=== PATIENT | male | born 1960 | race Caucasian/White ===

== ENCOUNTER 2018-09-30 07:31 | Inpatient (IN) | payer BC, SELFPAY ==
[2018-09-30] VITALS (11 sets, daily range): BP systolic 110–138; BP diastolic 59–72; PULSE 76–87; RESP 18–20; TEMP 36.8–38.1; O2SAT 94–98; BMI 55.7; BMI 52.6; BMI 52.7
--- NOTE | 2018-09-30 07:47 | EKG12_ITS ---
Test Reason : CELLULITIS Blood Pressure : / mmHG Vent. Rate : 076 BPM Atrial Rate : 076 BPM P-R Int : 172 ms QRS Dur : 122 ms QT Int : 402 ms P-R-T Axes : 062 022 002 degrees QTc Int : 452 ms Normal sinus rhythm Non-specific intra-ventricular conduction delay Borderline ECG Confirmed by JULIA MELÉNDEZ, ANDREW ([id number]), supervising editor news reel GRETA ORTEGA ([id number]) on 10/03/2018 10:40:57 AM Referred By: Confirmed By:ANDREW DUMONT MD
--- NOTE | 2018-09-30 08:00 | ED.RN ---
NO OLD EKG
--- NOTE | 2018-09-30 08:02 | ED.DCSUM_ITS ---
History of Present Illness Chief Complaint: Cellulitis Informant: Patient Onset: Yesterday Context: Sudden Onset Timing: Continuous Quality: Red rash Location: Left lower extremity predominantly leg Current Severity: Moderate Maximum Severity: Moderate Worsened by: Nothing Relieved by: nothing Associated Symptoms: Shaking chills Wednesday Narrative: Patient is a middle-aged male with history obstructive sleep apnea and hypertension who presents with rash left lower extremity. He was instructed to come to the emergency department. He reports shaking chills on Wednesday. He denies documented fever. He denies HEENT, respiratory, cardiac or GI symptoms. He denies urologic symptoms. He denies history of diabetes. He states he is compliant with CPAP. He denies antibiotic allergies. Prior similar symptoms: No Recent Illness/Hospitalization: No - Past Medical History (1) History of hypertension Status: Chronic (2) History of obstructive sleep apnea Status: Chronic Past Medical History - Allergies and Home Meds Allergies/Adverse Reactions: Allergies No Known Allergies Allergy (Verified 09/30/18 07:32) Primary Care Physician: Danyell Dobson MD [Primary Care Provider] - Prior records reviewed: Yes Surgical History: no surgical history Lives: Spouse/ Significant Other Smoking Status: Former smoker Alcohol: None Drugs: None Review of Systems General: Reports: Chills, Sweats, Weight loss - Patient reports intentional weight loss and is on potato diet.. Denies: Fever, Malaise, Subjective Eyes: Denies: Visual changes - bilaterally, Blurred Vision - bilaterally, Diplopia ENT: Denies: Bilateral ear pain, Rhinorrhea, Sore throat Cardiovascular: Denies: Chest pain, Palpitations Respiratory: Denies: Dyspnea, Cough, Dyspnea on exertion Gastrointestinal: Denies: Abdominal pain, Nausea, Vomiting, Diarrhea, Melena, Hematochezia Genitourinary: Denies: Dysuria, Hematuria, Frequency Musculoskeletal: Reports: Swelling - Patient reports swelling both right and left lower extremity. Left slightly more since redness started. Denies: Myalgias, Arthralgias, Back pain, Extremity Pain Skin: Reports: Rash, Abrasions - There are abrasions right and left leg secondary to compressive stockings. Denies: Abscess, Wounds Neurological: Denies: Headache, Weakness, Numbness Endocrine: Denies: Polyuria, Polydipsia Hematologic: Denies: Easy bruising, Easy bleeding Allergy: Denies: Uticaria Physical Exam Vital Signs/Narrative: Vital Signs Temp Pulse Resp BP Pulse Ox 09/30/18 07:37 98.3 F 76 18 138/71 H 94 Inital Vital Signs reviewed: Yes General: Well nourished, Well developed, Obese, No Acute Distress Head: Normocephalic, Atraumatic Eyes: Perrl, EOMI. Negative for: Pale conjunctiva, Scleral icterus ENT: Moist mucous membranes, No rhinorrhea Neck: Supple, Nontender, No lymphadenopathy, No JVD Cardiovascular: Regular rate, Regular rhythm, No murmurs, Normal S1, Normal S2 Respiratory: No distress, CTA bilaterally, Chest nontender Abdomen: Soft, Nontender, Nondistended, Normal bowel sounds, No masses Rectal: Deferred Back: Nontender, Normal Inspection Extremities: Nontender, Edema, - - There is breakdown between the toes left foot and concern for tinea pedis. The cellulitis has progressed. The band is much wider and there is involvement of the posterior left thigh and the rash is more proximal. The area was marked to determine any further progression. Skin: Normal color, No rash Neurological: Alert, Oriented x3, Cranial nerves II-XII grossly intact, Normal Strength, Normal Sensation, Normal Gait - Gait normal for patient. Psychological: Normal affect, Normal Mood Diagnostic/Tx/Re-eval Laboratory Results 09/30/18 09/30/18 09/30/18 08:07 08:07 08:07 WBC 12.7 H RBC 4.51 L Hgb 12.5 L Hct 36.4 L MCV 80.7 MCH 27.7 MCHC 34.3 RDW 14.9 H RDW Differential 44.0 H Plt Count 114 L MPV 11.5 Immature Gran % (Auto) 0.600 Neut % (Auto) 94.8 H Lymph % (Auto) 2.8 L [place] % (Auto) 1.6 Eos % (Auto) 0.1 Baso % (Auto) 0.1 Absolute Neuts (auto) 12.1 H Absolute Lymphs (auto) 0.36 L Total Counted Not Reportable Platelet Estimate ADEQUATE RBC Morphology NORM C+C Sodium 131 L Potassium 2.9 L Chloride 97 L Carbon Dioxide 26.0 Anion Gap 8 BUN 31 H Creatinine 1.63 H Estim Creat Clear Calc 51.63 Est GFR (MDRD) Af Amer 56 L Est GFR (MDRD) Non-Af 46 L BUN/Creatinine Ratio 19.0 Glucose 139 H Lactic Acid 1.5 Calcium 7.8 L - Rhythm Strip Rhythm Strip: Sinus Rhythm Rate: 78 Ectopy: None - EKG Initial EKG Interpretation: Sinus Rhythm - Ventricular rate is 76. AR interval is normal. QRS duration is prolonged at 122 ms. There is a nonspecific intraventricular conduction delay. QT interval is normal. [place] is normal. There is no ischemic changes noted. There is an inverted T wave in lead III, which is a normal variant. - Medical Decision Making Suspect cellulitis secondary to tinea pedis. Patient with cellulitis of the left leg and there is erythematous redness medial distal left thigh. There is evidence of shotty left inguinal lymph nodes. Concern for bacteremia/sepsis. CBC was obtained to assess white count and H&H. Basic minimal panel was obtained to assess electrolytes and renal function. Lactate level was obtained to determine sepsis versus severe sepsis. Patient was informed that he probably would require admission. Blood cultures were ordered in order for antibiotics to be administered in the event that his lactate is elevated. EKG was obtained to assess rhythm and rule out ischemia. Seen twice at urgent care on the second course of antibiotics chest is exertional feeling in his chest like troponin was normal to 48 hours of more significant symptoms for 2weeks Patient's electrolyte panel is remarkable for a potassium of 2.9 and elevated creatinine. He states he does not have history of renal insufficiency. Since patient has acute kidney injury did not treat his hypokalemia. Patient has sepsis since he is tachypnic with elevated white count. There is also evidence of acute kidney injury. Since lactate is normal and creatinine is not greater than 2 patient does not have severe sepsis. The hospitalist was paged for admission. ED Disposition - Plan for ED Patient: Disposition: Acute Care Hospital [facility] Diagnosis: Cellulitis of left lower extremity, Sepsis, Cellulitis of left anterior lower leg, Acute kidney injury, Hypokalemia Referrals: Danyell Dobson MD [Primary Care Provider] -
[2018-09-30 08:35] LABS: Anion Gap 8 (5-15); BUN 31 mg/dL (7-18); Calcium,Total 7.8 mg/dL (8.5-10.1); Chloride 97 mmol/L (98-107); Creatinine, Serum 1.63 mg/dL (0.70-1.30); EST Glomerular Filtration Rate 46 mL/min (>60); Est Glom Filt Rate - Afr Amer 56 mL/min (>60); Estimated Creatinine Clearance 51.63 ml/min; Glucose 139 mg/dL (74-106); Potassium 2.9 mmol/L (3.5-5.1); Sodium Level 131 mmol/L (136-145)
[2018-09-30 08:47] LABS: Lactic Acid 1.5 mmol/L (0.4-2.0)
[2018-09-30 09:16] LABS: Platelet Estimate ADEQUATE (ADEQ); Red Cell Morphology NORM C+C NORMAL (NORM C&C)
[2018-09-30 09:18] LABS: Absolute Lymphocyte Count 0.36 X10^3/ul (0.83-4.51); Absolute Neutrophil Count 12.1 X10^3/uL (2.0-7.7); Basophil# 0.01 X10^3/uL; Basophil% 0.1 % (0-1); Differential Indicated SCAN CRITERIA MET; Eosinophil# 0.01 X10^3/uL; Eosinophils% 0.1 % (0-5); Hematocrit 36.4 % (40-54); Hemoglobin 12.5 g/dl (13.0-16.5); Lymphocyte # 0.36 X10^3/ul (4.0); Lymphocyte % 2.8 % (19-41); Mean Corp Hgb Conc 34.3 g/gl (32-36); Mean Corpuscular Hgb 27.7 pg (27.0-32.0); Mean Corpuscular Volume 80.7 fL (80-94); Mean Platelet Vol. 11.5 fl (6.2-12.0); Monocyte% 1.6 % (0-10); Neutrophil # 12.06 X10^3/uL (2.7-7.7); Neutrophil % 94.8 % (47-70); POSITIVE COUNT NO; POSITIVE DIFFERENTIAL YES; POSITIVE MORPHOLOGY NO; Platelet Count 114 K/mm3 (150-450); RBC Distribution Width CV 14.9 % (11.6-14.6); Red Blood Count 4.51 M/mm3 (4.6-6.2); White Blood Count 12.7 K/mm3 (4.4-11.0)
[2018-09-30] MEDS: HYDROcodone Bitartrate/Apap 5/325 Tablet PO (09:54)
--- NOTE | 2018-09-30 10:22 | PCM.HP.STD ---
Problem List (1) Sepsis Status: Acute Qualifiers: Sepsis type: sepsis due to unspecified organism Qualified Code(s): A41.9 - Sepsis, unspecified organism (2) Cellulitis of left lower extremity Status: Acute History of Present Illness Date of Admission: 09/30/18 Chief Complaint: left leg redness The patient is a 57 year old M presents with redness of the left lower extremity. Patient was having some general malaise but today noted that his left lower extremity was prior found the red and tender. Patient presented to the emergency room and was diagnosed with a cellulitis and received Zosyn. Patient is not diabetic. Patient was also noted to have a creatinine of 1.63 and potassium of 2.9. Patient has no awareness of any chronic kidney disease. Patient did not receive any fluids nor any potassium replacement we did receive [place] in the emergency room. Patient denies any history of cellulitis in the past. Patient does have chronic swelling lymphedema. Does get chronic sores which she uses a steroid cream for on his legs. [] Past Medical History Past Medical History (Chronic Problems): Chronic Problems (Last Updated 09/30/18 @ 06:53 by Carmen Ott) History of hypertension (Chronic) History of obstructive sleep apnea (Chronic) Medical History: Medical History (Last Updated 09/30/18 @ 10:24 by Kalpesh Nuno DO) ARCELIA (obstructive sleep apnea) G47.33 Knee pain M25.569 Hypertension I10 Allergies No Known Allergies Allergy (Verified 09/30/18 07:32) Home Medications: Ambulatory Orders Medication Instructions Recorded Amlodipine Besylate 10 mg PO DAILY 09/30/18 Aspirin 81 mg PO DAILY 09/30/18 Carvedilol 25 mg PO BID 09/30/18 Doxazosin Mesylate 4 mg PO DAILY 09/30/18 Hydrochlorothiazide [Hctz] 25 mg PO DAILY 09/30/18 Losartan Potassium 100 mg PO DAILY 09/30/18 Multivitamin [One-Daily 1 each PO DAILY 09/30/18 Multi-Vitamin] Potassium Chloride 10 meq PO DAILY 09/30/18 Surgical History: no surgical history Lives: Spouse/ Significant Other Smoking Status: Former smoker Alcohol: None Drugs: None - *Family History Maternal Family History: Family History (Last Reviewed 09/30/18 @ 10:24 by Kalpesh Nuno DO) Other Diabetes Hypertension Review of Systems Constitutional: Reports: Chills, Malaise, Weakness. Denies: Anorexia, Fever Eyes: Denies: Blurred vision, Double vision HEENT: Denies: Head Aches, Sinus Congestion, Sinus Drainage Cardiovascular: Denies: Chest Pain, Palpitations Respiratory: Denies: Cough, Shortness of breath at rest, Sputum production Gastrointestinal: Denies: Abdominal Pain, Nausea, Vomiting Genitourinary: Denies: Dysuria Musculoskeletal: Denies: Joint Pain, Joint Tenderness Skin: Reports: Rash, Wounds Neurological: Denies: Numbness, Tingling, Focal weakness Psychiatric: Denies: Anxiety, Depression, Homicidal Ideations, Suicidal Ideations Endocrine: Denies: Change in Body Habitus, Heat/ Cold Intolerance Hematologic/ Lymphatic: Denies: Easy Bruising, Easy Bleeding, Hx of blood clot Comment: A 10 point review of systems were negative except as mentioned in the history of present illness and the other review of systems. VTE Information - Inpt Only VTE Present on Admission: No VTE Mechan Device Prophylaxis: None VTE Pharm Prophylaxis ordered?: Yes Patient Problems: Active and Suspected Problems (Last Updated 09/30/18 @ 06:53 by Carmen Ott) Sepsis (Acute) Cellulitis of left anterior lower leg (Acute) Acute kidney injury (Acute) Hypokalemia (Acute) Cellulitis of left lower extremity (Acute) - Physical Exam General: Alert, Cooperative, No apparent distress HEENT: Atraumatic, Normocephalic Oral: Moist Mucosa, No Gingival or Mucosal Lesions/ Ulcerations Neck: No Nodes, Thyroid Normal Size and Texture Lungs: Clear to auscultation, Normal air movement, No rhonchi, No wheeze Cardiovascular: Regular rate, Regular Rhythm, Normal S1, Normal S2, No murmurs Abdomen: Bowel Sounds Present, Soft, Non Tender, Non-Distended, No Hepato-splenomegaly Extremities: No Calf Tenderness, Edema, - - Tender to palpation in the left lower extremity with increased edema as compared to the right Skin: - - Extensive cellulitis throughout the left lower extremity extending from the his toes foot and up past his knee medially. There is been marked off with a dashed line of demarcation. Musculoskeletal: - - Tender palpation through his whole left leg. No woody induration noted. Neurological: Muscle tone normal, Sensory exam intact to light touch and pain Psych/Mental Status: Normal Affect, Appropriate Vital Signs Temp Pulse Resp BP Pulse Ox 37.1 C 76 18 115/67 97 09/30/18 09:39 09/30/18 09:39 09/30/18 09:39 09/30/18 09:39 09/30/18 09:39 Oxygen Delivery Method Room Air Weight: 166.468 kg Body Mass Index (BMI) 52.6 Laboratory Tests Past 24 Hrs 09/30/18 09/30/18 09/30/18 08:07 08:07 08:07 WBC 12.7 H RBC 4.51 L Hgb 12.5 L Hct 36.4 L MCV 80.7 MCH 27.7 MCHC 34.3 RDW 14.9 H RDW Differential 44.0 H Plt Count 114 L MPV 11.5 Immature Gran % (Auto) 0.600 Neut % (Auto) 94.8 H Lymph % (Auto) 2.8 L [place] % (Auto) 1.6 Eos % (Auto) 0.1 Baso % (Auto) 0.1 Absolute Neuts (auto) 12.1 H Absolute Lymphs (auto) 0.36 L Total Counted Not Reportable Platelet Estimate ADEQUATE RBC Morphology NORM C+C Sodium 131 L Potassium 2.9 L Chloride 97 L Carbon Dioxide 26.0 Anion Gap 8 BUN 31 H Creatinine 1.63 H Estim Creat Clear Calc 51.63 Est GFR (MDRD) Af Amer 56 L Est GFR (MDRD) Non-Af 46 L BUN/Creatinine Ratio 19.0 Glucose 139 H Lactic Acid 1.5 Calcium 7.8 L Assessment/Plan All Active Problems (Last Updated 09/30/18 @ 06:53 by Carmen Ott) Sepsis (Acute) Cellulitis of left anterior lower leg (Acute) Acute kidney injury (Acute) Hypokalemia (Acute) Lymphedema of left lower extremity (Acute) Cellulitis of left lower extremity (Acute) 1. Left lower extremity cellulitis No clear source of infection can be found. Patient does have some chronic lower extremity wounds which could be a source but patient will be on vancomycin as a more concerned about this being a gram-positive rather than a gram-negative organism. Patient received Zosyn in the emergency room. I do not plan to continue that at this time. Keep leg elevated and if things do get worse may need imaging to evaluate for necrotizing fasciitis. I have no clinical suspicion for that at this time. No evidence of any abscess at this time either. 2. Sepsis present on admission Secondary cellulitis 3.Hypokalemia Replace check magnesium Probably due to HCTZ, which is being held 4. Acute kidney injury versus chronic kidney disease stage III Unknown baseline IV fluids Hold HCTZ and losartan for now 5. VT E prophylaxis with Lovenox Code Visit Inpatient E&M: 36341 Init Hosp L3
--- NOTE | 2018-09-30 10:27 | HP.PCM_ITS ---
Problem List (1) Sepsis Status: Acute Qualifiers: Sepsis type: sepsis due to unspecified organism Qualified Code(s): A41.9 - Sepsis, unspecified organism (2) Cellulitis of left lower extremity Status: Acute History of Present Illness Date of Admission: 09/30/18 Chief Complaint: left leg redness The patient is a 57 year old M presents with redness of the left lower extremity. Patient was having some general malaise but today noted that his left lower extremity was prior found the red and tender. Patient presented to the emergency room and was diagnosed with a cellulitis and received Zosyn. Patient is not diabetic. Patient was also noted to have a creatinine of 1.63 and potassium of 2.9. Patient has no awareness of any chronic kidney disease. Patient did not receive any fluids nor any potassium replacement we did receive [place] in the emergency room. Patient denies any history of cellulitis in the past. Patient does have chronic swelling lymphedema. Does get chronic sores which she uses a steroid cream for on his legs. [] Past Medical History Past Medical History (Chronic Problems): Chronic Problems (Last Updated 09/30/18 @ 06:53 by Carmen Ott) History of hypertension (Chronic) History of obstructive sleep apnea (Chronic) Medical History: Medical History (Last Updated 09/30/18 @ 10:24 by Kalpesh Nuno DO) ARCELIA (obstructive sleep apnea) G47.33 Knee pain M25.569 Hypertension I10 Allergies No Known Allergies Allergy (Verified 09/30/18 07:32) Home Medications: Ambulatory Orders Medication Instructions Recorded Amlodipine Besylate 10 mg PO DAILY 09/30/18 Aspirin 81 mg PO DAILY 09/30/18 Carvedilol 25 mg PO BID 09/30/18 Doxazosin Mesylate 4 mg PO DAILY 09/30/18 Hydrochlorothiazide [Hctz] 25 mg PO DAILY 09/30/18 Losartan Potassium 100 mg PO DAILY 09/30/18 Multivitamin [One-Daily 1 each PO DAILY 09/30/18 Multi-Vitamin] Potassium Chloride 10 meq PO DAILY 09/30/18 Surgical History: no surgical history Lives: Spouse/ Significant Other Smoking Status: Former smoker Alcohol: None Drugs: None - *Family History Maternal Family History: Family History (Last Reviewed 09/30/18 @ 10:24 by Kalpesh Nuno DO) Other Diabetes Hypertension Review of Systems Constitutional: Reports: Chills, Malaise, Weakness. Denies: Anorexia, Fever Eyes: Denies: Blurred vision, Double vision HEENT: Denies: Head Aches, Sinus Congestion, Sinus Drainage Cardiovascular: Denies: Chest Pain, Palpitations Respiratory: Denies: Cough, Shortness of breath at rest, Sputum production Gastrointestinal: Denies: Abdominal Pain, Nausea, Vomiting Genitourinary: Denies: Dysuria Musculoskeletal: Denies: Joint Pain, Joint Tenderness Skin: Reports: Rash, Wounds Neurological: Denies: Numbness, Tingling, Focal weakness Psychiatric: Denies: Anxiety, Depression, Homicidal Ideations, Suicidal Ideations Endocrine: Denies: Change in Body Habitus, Heat/ Cold Intolerance Hematologic/ Lymphatic: Denies: Easy Bruising, Easy Bleeding, Hx of blood clot Comment: A 10 point review of systems were negative except as mentioned in the history of present illness and the other review of systems. VTE Information - Inpt Only VTE Present on Admission: No VTE Mechan Device Prophylaxis: None VTE Pharm Prophylaxis ordered?: Yes Patient Problems: Active and Suspected Problems (Last Updated 09/30/18 @ 06:53 by Carmen Ott) Sepsis (Acute) Cellulitis of left anterior lower leg (Acute) Acute kidney injury (Acute) Hypokalemia (Acute) Cellulitis of left lower extremity (Acute) - Physical Exam General: Alert, Cooperative, No apparent distress HEENT: Atraumatic, Normocephalic Oral: Moist Mucosa, No Gingival or Mucosal Lesions/ Ulcerations Neck: No Nodes, Thyroid Normal Size and Texture Lungs: Clear to auscultation, Normal air movement, No rhonchi, No wheeze Cardiovascular: Regular rate, Regular Rhythm, Normal S1, Normal S2, No murmurs Abdomen: Bowel Sounds Present, Soft, Non Tender, Non-Distended, No Hepato- splenomegaly Extremities: No Calf Tenderness, Edema, - - Tender to palpation in the left lower extremity with increased edema as compared to the right Skin: - - Extensive cellulitis throughout the left lower extremity extending from the his toes foot and up past his knee medially. There is been marked off with a dashed line of demarcation. Musculoskeletal: - - Tender palpation through his whole left leg. No woody induration noted. Neurological: Muscle tone normal, Sensory exam intact to light touch and pain Psych/Mental Status: Normal Affect, Appropriate Vital Signs Temp Pulse Resp BP Pulse Ox 37.1 C 76 18 115/67 97 09/30/18 09:39 09/30/18 09:39 09/30/18 09:39 09/30/18 09:39 09/30/18 09:39 Oxygen Delivery Method Room Air Weight: 166.468 kg Body Mass Index (BMI) 52.6 Laboratory Tests Past 24 Hrs 09/30/18 09/30/18 09/30/18 08:07 08:07 08:07 WBC 12.7 H RBC 4.51 L Hgb 12.5 L Hct 36.4 L MCV 80.7 MCH 27.7 MCHC 34.3 RDW 14.9 H RDW Differential 44.0 H Plt Count 114 L MPV 11.5 Immature Gran % (Auto) 0.600 Neut % (Auto) 94.8 H Lymph % (Auto) 2.8 L [place] % (Auto) 1.6 Eos % (Auto) 0.1 Baso % (Auto) 0.1 Absolute Neuts (auto) 12.1 H Absolute Lymphs (auto) 0.36 L Total Counted Not Reportable Platelet Estimate ADEQUATE RBC Morphology NORM C+C Sodium 131 L Potassium 2.9 L Chloride 97 L Carbon Dioxide 26.0 Anion Gap 8 BUN 31 H Creatinine 1.63 H Estim Creat Clear Calc 51.63 Est GFR (MDRD) Af Amer 56 L Est GFR (MDRD) Non-Af 46 L BUN/Creatinine Ratio 19.0 Glucose 139 H Lactic Acid 1.5 Calcium 7.8 L Assessment/Plan All Active Problems (Last Updated 09/30/18 @ 06:53 by Carmen Ott) Sepsis (Acute) Cellulitis of left anterior lower leg (Acute) Acute kidney injury (Acute) Hypokalemia (Acute) Lymphedema of left lower extremity (Acute) Cellulitis of left lower extremity (Acute) 1. Left lower extremity cellulitis * No clear source of infection can be found. Patient does have some chronic lower extremity wounds which could be a source but patient will be on vancomycin as a more concerned about this being a gram-positive rather than a gram-negative organism. Patient received Zosyn in the emergency room. I do not plan to continue that at this time. Keep leg elevated and if things do get worse may need imaging to evaluate for necrotizing fasciitis. I have no clinical suspicion for that at this time. No evidence of any abscess at this time either. 2. Sepsis * present on admission * Secondary cellulitis 3.Hypokalemia * Replace * check magnesium * Probably due to HCTZ, which is being held 4. Acute kidney injury versus chronic kidney disease stage III * Unknown baseline * IV fluids * Hold HCTZ and losartan for now 5. VT E prophylaxis with Lovenox Code Visit Inpatient E&M: 90061 Init Hosp L3
[2018-09-30] MEDS: 0.9% Normal Saline 1,000 ML 150 ML IV (11:00)
[2018-09-30 11:44] LABS: Magnesium 1.9 mg/dL (1.6-2.6)
--- NOTE | 2018-09-30 12:00 | CASEMGMT ---
RN WILFREDO Face to Face with patient for initial transition planning/care coordination assessment. RN CM introduced self and role at [facility]. Patient lying in bed, alert and oriented, at bedside. Patient willing to participate in assessment and is able to answer all questions appropriately. Care providers, pharmacy, and demographics verified. Patient wishes to discharge home, denies need for home health at this time. Patient states he has no further needs or concerns at this time. CM to follow for discharge planning needs that may arise. PCP: Olya Specialists: [facility]acy: [facility] Insurance: [place] Prescription Benefit: yes Living Will/HPOA: yes, Elena Arellano LNOK: Living Arrangements: Patient lives with in 1 story home with 2 steps to enter the home. Patient is independent at home. Transportation: self/ DME/HHC: Patient states he has a Cpap machine. No history of HHC Disposition Plan: Patient to discharge home with family support and follow-up plans in place. Maddie RENEN, RN, CM
[2018-09-30 12:06] LABS: Bedside Glucose 126 mg/dL (70-110)
--- NOTE | 2018-09-30 14:00 | PCM.RX.CS ---
Consult Pharmacy has been consulted to manage selected antiobiotic: Vancomycin Type of Consult: New start Suspected Infection: Sepsis, Skin/Soft tissue Labs: Sodium 131 mmol/L (136-145) L 09/30/18 08:07 Potassium 2.9 mmol/L (3.5-5.1) L 09/30/18 08:07 Chloride 97 mmol/L (98-107) L 09/30/18 08:07 Carbon Dioxide 26.0 mmol/L (21.0-32.0) 09/30/18 08:07 Anion Gap 8 (5-15) 09/30/18 08:07 BUN 31 mg/dL (7-18) H 09/30/18 08:07 Creatinine 1.63 mg/dL (0.70-1.30) H 09/30/18 08:07 Est GFR (MDRD) Af Amer 56 mL/min (>60) L 09/30/18 08:07 Est GFR (MDRD) Non-Af 46 mL/min (>60) L 09/30/18 08:07 BUN/Creatinine Ratio 19.0 RATIO (10-20) 09/30/18 08:07 Glucose 139 mg/dL (74-106) H 09/30/18 08:07 Weight used for dosin kg Estimated Creatinine Clearance: 78 ml/min Goal Trough: 15-20 mcg/mL Pharmacy Plan for Drug Dosing: Per the [facility] Vancomycin Dosing Protocol, the patient will receive an initial dose of 2000mg IV x1, then will continue with 1750mg IV q12h. The patient's CrCl of 78 ml/min was calculated using an adjusted body weight of 110 kg due to the patient's actual weight being more than 120% of their ideal body weight. A trough will be obtained before the 4th dose. Pharmacy Service will continue to monitor and adjust dosing as required. Follow-Up Labs: Trough Vancomycin Labs to be done on [date and time ordered]: 10/01/18 23:30
--- NOTE | 2018-09-30 14:06 | PHA.PHARE_ITS ---
Consult Pharmacy has been consulted to manage selected antiobiotic: Vancomycin Type of Consult: New start Suspected Infection: Sepsis, Skin/Soft tissue Labs: Sodium 131 mmol/L (136-145) L 09/30/18 08:07 Potassium 2.9 mmol/L (3.5-5.1) L 09/30/18 08:07 Chloride 97 mmol/L (98-107) L 09/30/18 08:07 Carbon Dioxide 26.0 mmol/L (21.0-32.0) 09/30/18 08:07 Anion Gap 8 (5-15) 09/30/18 08:07 BUN 31 mg/dL (7-18) H 09/30/18 08:07 Creatinine 1.63 mg/dL (0.70-1.30) H 09/30/18 08:07 Est GFR (MDRD) Af Amer 56 mL/min (>60) L 09/30/18 08:07 Est GFR (MDRD) Non-Af 46 mL/min (>60) L 09/30/18 08:07 BUN/Creatinine Ratio 19.0 RATIO (10-20) 09/30/18 08:07 Glucose 139 mg/dL (74-106) H 09/30/18 08:07 Weight used for dosin kg Estimated Creatinine Clearance: 78 ml/min Goal Trough: 15-20 mcg/mL Pharmacy Plan for Drug Dosing: Per the [facility] Vancomycin Dosing Protocol, the patient will receive an initial dose of 2000mg IV x1, then will continue with 1750mg IV q12h. The patient's CrCl of 78 ml/min was calculated using an adjusted body weight of 110 kg due to the pat ient's actual weight being more than 120% of their ideal body weight. A trough will be obtained before the 4th dose. Pharmacy Service will continue to monitor and adjust dosing as required. Follow-Up Labs: Trough Vancomycin Labs to be done on [date and time ordered]: 10/01/18 23:30
[2018-09-30] MEDS: Acetaminophen 325 MG Tablet 650 MG PO (16:08)
[2018-09-30] MEDS: oxyCODONE 5 MG Tablet PO (16:08)
[2018-09-30 16:46] LABS: Bedside Glucose 158 mg/dL (70-110)
--- NOTE | 2018-09-30 21:40 | PCM.PN.BLA ---
Progress Note Received a call from nurse that anaerobic blood culture was positive from gram positive cocci in chains. Review of rounding attending physician notes shows that patient is being treated for sepsis likely secondary to cellulitis of the left lower extremity. Patient received Zosyn at the emergency department. Antibiotics was further adjusted by rounding physician and the patient is currently on vancomycin. Because of chain-like nature of gram-positive cocci, concern is Streptococcus. Will start patient on Ancef. We will keep vancomycin on for now. Rounding physician to make adjustments as necessary.
[2018-09-30 21:45] LABS: Bedside Glucose 98 mg/dL (70-110)
[2018-09-30] MEDS: Cefazolin 1 GM/50 ML BAG IV (22:41)
[2018-10-01] VITALS (7 sets, daily range): BP systolic 116–131; BP diastolic 58–73; PULSE 80–90; RESP 16–18; TEMP 37.5–39.2; O2SAT 92–95
[2018-10-01] MEDS: oxyCODONE 5 MG Tablet PO ×4 (00:14→21:55)
[2018-10-01] MEDS: Acetaminophen 325 MG Tablet 650 MG PO ×4 (00:14→21:55)
[2018-10-01] MEDS: Cefazolin 1 GM/50 ML BAG IV ×3 (06:28→21:40)
[2018-10-01 06:55] LABS: Bedside Glucose 126 mg/dL (70-110)
[2018-10-01 08:09] LABS: Absolute Lymphocyte Count 0.44 X10^3/ul (0.83-4.51); Basophil# 0.01 X10^3/uL; Basophil% 0.1 % (0-1); Eosinophil# 0.01 X10^3/uL; Eosinophils% 0.1 % (0-5); Hematocrit 35.1 % (40-54); Lymphocyte # 0.44 X10^3/ul (4.0); Mean Corp Hgb Conc 34.2 g/gl (32-36); Mean Corpuscular Hgb 27.8 pg (27.0-32.0); Mean Corpuscular Volume 81.3 fL (80-94); Mean Platelet Vol. 11.9 fl (6.2-12.0); Monocyte# 0.52 X10^3/uL; Monocyte% 4.7 % (0-10); Neutrophil # 9.96 X10^3/uL (2.7-7.7); Neutrophil % 90.9 % (47-70); Platelet Count 107 K/mm3 (150-450); RBC Distribution Width SD 44.4 fl (35.1-43.9); Red Blood Count 4.32 M/mm3 (4.6-6.2)
[2018-10-01 08:13] LABS: Differential Indicated SCAN CRITERIA MET; POSITIVE COUNT NO; POSITIVE DIFFERENTIAL YES; POSITIVE MORPHOLOGY NO
[2018-10-01 08:18] LABS: Anion Gap 10 (5-15); BUN 34 mg/dL (7-18); Calcium,Total 7.9 mg/dL (8.5-10.1); Chloride 102 mmol/L (98-107); Creatinine, Serum 1.62 mg/dL (0.70-1.30); EST Glomerular Filtration Rate 47 mL/min (>60); Est Glom Filt Rate - Afr Amer 57 mL/min (>60); Estimated Creatinine Clearance 51.95 ml/min; Glucose 126 mg/dL (74-106); Magnesium 1.9 mg/dL (1.6-2.6); Potassium 3.2 mmol/L (3.5-5.1); Sodium Level 134 mmol/L (136-145)
[2018-10-01 08:38] LABS: Platelet Estimate SLT DEC (ADEQ)
--- NOTE | 2018-10-01 09:34 | CT_ITS ---
STUDY: CT LEFT LOWER LEG WITHOUT CONTRAST REASON FOR EXAM: Male, 57 years old. Left leg cellulitis RADIATION DOSAGE (If Supplied By Facility): CTDIvol = ( 13.56 ) mGy, DLP = ( 1007.63 ) mGycm TECHNIQUE: Transaxial CT imaging of the knee was performed. Coronal and sagittal images were reformatted. Individualized dose optimization techniques were used for this CT. COMPARISON: None. FINDINGS: Normal medial femoral condyle and medial tibial plateau. Moderate narrowing of the medial compartment with marginal spur formation. Normal lateral femoral condyle and lateral tibial plateau. Moderate narrowing of the lateral compartment with mild spur formation. Normal proximal tibiofibular articulation. The tibia and fibula are intact without evidence of periosteal reaction or gela bony destruction. Degenerative changes of the patellofemoral joint are identified (moderate). Degenerative changes of the ankle are partially visualized. There is a small joint effusion. The quadriceps tendon is grossly normal. The patellar tendon is grossly normal. Normal Hoffa's fat pad. Diffuse amorphous soft tissue swelling most conspicuous at the level of the knee and extending into the ankle. No focal fluid collection or subcutaneous gas identified. Vascular calcifications are present. There are serpiginous venous structures of the anterior thigh and calf compatible with varicose veins. CT/Extremity Lower without Contra IMPRESSION: 1. Diffuse soft tissue swelling of the lower leg (and visualized ankle/foot) compatible with history of cellulitis or edema. No focal fluid collection or subcutaneous gas demonstrated. 2. Varicose veins. 3. Degenerative changes of the knee and visualized ankle/foot. 4. Small joint effusion. Electronically Signed: Juno Son MD at 10:32 EDT , Service support ,
[2018-10-01] MEDS: Aspirin 81 MG TAB.CHEW PO (10:51)
[2018-10-01] MEDS: Multivitamins,Therapeutic Tablet 1 TABLET PO (10:52)
[2018-10-01] MEDS: Carvedilol 25 MG Tablet PO ×2 (10:52→21:40)
[2018-10-01] MEDS: Enoxaparin 40 MG/0.4 ML Syringe SC (10:52)
[2018-10-01] MEDS: amLODIPine 10 MG Tablet PO (10:53)
[2018-10-01] MEDS: 0.9% NaCl Peripheral Flush Adult/Peds IV (12:43)
[2018-10-01 13:05] LABS: Bedside Glucose 123 mg/dL (70-110)
--- NOTE | 2018-10-01 14:37 | PCM.PN.HOSP ---
Patient Problems: Active and Suspected Problems (Last Updated 09/30/18 @ 10:24 by Kalpesh Nuno DO) Cellulitis of left lower extremity (Acute) Sepsis (Acute) Cellulitis of left anterior lower leg (Acute) Acute kidney injury (Acute) Hypokalemia (Acute) Subjective: LLE feeling better. Feels better overall. Vitals/I&O's: Vital Signs Temp Pulse Resp BP Pulse Ox 37.5 C H 86 16 116/58 L 92 10/01/18 09:45 10/01/18 09:45 10/01/18 09:45 10/01/18 09:45 10/01/18 09:45 Oxygen Delivery Method Room Air Weight: 166.5 kg Body Mass Index (BMI) 52.6 Intake and Output for Last 24 Hours 09/29/18 09/30/18 10/01/18 23:59 23:59 23:59 Intake Total 2520 / 2520 2234 / 2234 Output Total 1400 / 1400 1100 / 1100 Balance 1120 / 1120 1134 / 1134 General: Alert, No apparent distress HEENT: Atraumatic, Normocephalic Oral: Moist Mucosa, No Gingival or Mucosal Lesions/ Ulcerations Lungs: Clear to auscultation, Normal air movement, No rhonchi, No wheeze Cardiovascular: Regular rate, Regular Rhythm, Normal S1, Normal S2, No murmurs Abdomen: Bowel Sounds Present, Soft, Non Tender, Non-Distended, Obese Extremities: No Calf Tenderness, Edema Skin: - - Still with extensive erythema of LLE. Slightly withdrawn from the lines of demarcation drawn 09/30. Musculoskeletal: No Tenderness to Palpation of Joints or Extremities, No Muscle Wasting Psych/Mental Status: Normal Affect, Appropriate Microbiology Past 72 Hours 09/30/18 Unknown Nasal Secretion Nasal Screen MRSA/MSSA - Final 09/30/18 08:25 Blood Culture (Wb) - Right Hand Blood Culture - Preliminary Gram Positive Cocci 09/30/18 08:07 Blood Culture (Wb) - Anticubital Left Bacteria Detection (PCR) - Preliminary Streptococcus pyogenes 09/30/18 08:07 Blood Culture (Wb) - Anticubital Left Blood Culture - Preliminary Laboratory Results 09/30/18 16:39: POC Glucose 158 H 09/30/18 21:38: POC Glucose 98 10/01/18 06:30: POC Glucose 126 H 10/01/18 07:09: Sodium 134 L, Potassium 3.2 L, Chloride 102, Carbon Dioxide 22.0, Anion Gap 10, BUN 34 H, Creatinine 1.62 H, Estim Creat Clear Calc 51.95, Est GFR (MDRD) Af Amer 57 L, Est GFR (MDRD) Non-Af 47 L, BUN/Creatinine Ratio 21.0 H, Glucose 126 H, Calcium 7.9 L, Magnesium 1.9 10/01/18 07:09: WBC 11.0, RBC 4.32 L, Hgb 12.0 L, Hct 35.1 L, MCV 81.3, MCH 27.8, MCHC 34.2, RDW 15.0 H, RDW Differential 44.4 H, Plt Count 107 L, MPV 11.9, Immature Gran % (Auto) 0.200, Neut % (Auto) 90.9 H, Lymph % (Auto) 4.0 L, [place] % (Auto) 4.7, Eos % (Auto) 0.1, Baso % (Auto) 0.1, Absolute Neuts (auto) 10.0 H, Absolute Lymphs (auto) 0.44 L, Total Counted Not Reportable, Platelet Estimate SLT 10/01/18 12:46: POC Glucose 123 H Current Medications Acetaminophen (Tylenol) 650 mg PO Q6H PRN PRN PRN Reason: Mild Pain (1-3)/Temp > 100.7 F Last Admin: 10/01/18 06:37 Dose: 650 mg Amlodipine Besylate (Norvasc) 10 mg PO DAILY [facility] Last Admin: 10/01/18 10:53 Dose: 10 mg Aspirin (Aspirin, Baby) 81 mg PO DAILY@0800 [facility] Last Admin: 10/01/18 10:51 Dose: 81 mg Carvedilol (Coreg) 25 mg PO BID [facility] Last Admin: 10/01/18 10:52 Dose: 25 mg Dextrose (D50w Syringe) 0 gm IV X1 PRN; Protocol PRN Reason: Hypoglycemia Doxazosin Mesylate (Cardura) 4 mg PO DAILY@2200 [facility] Last Admin: 09/30/18 19:53 Dose: Not Given Enoxaparin Sodium (Lovenox) 40 mg SC DAILY@1000 [facility] Last Admin: 10/01/18 10:52 Dose: 40 mg Glucagon () 1 mg IM .X1 PRN PRN Reason: Hypoglycemia Vancomycin IV Pharmacy to Dose (1 ea/ Sodium Chloride) 500 mls @ 250 mls/hr IV X1 PRN; Protocol PRN Reason: Rx to Dose Vancomycin HCl 1,750 mg/ (Sodium Chloride) 535 mls @ 250 mls/hr IV Q12H [facility] Last Admin: 10/01/18 12:43 Dose: 250 mls/hr Cefazolin Sodium () 1 gm in 50 mls @ 100 mls/hr IV Q8 [facility] Last Admin: 10/01/18 06:28 Dose: 100 mls/hr Insulin Human Lispro (Humalog Kwikpen (Bkc)) 0 unit SC ACHS [facility]; Protocol Last Admin: 10/01/18 12:47 Dose: Not Given Multivitamins (Multivitamin) 1 tablet PO DAILY@0800 [facility] Last Admin: 10/01/18 10:52 Dose: 1 tablet Ondansetron HCl (Zofran) 4 mg IV Q8H PRN PRN PRN Reason: NAUSEA/VOMITING Oxycodone HCl (Oxyir) 5 mg PO Q4H PRN PRN PRN Reason: Moderate Pain (4-6/10) Last Admin: 10/01/18 06:37 Dose: 5 mg Potassium Chloride (K-Dur) 20 meq PO DAILY [facility] Last Admin: 10/01/18 10:59 Dose: 20 meq Sodium Chloride () 5 - 15 ml IV UD PRN PRN Reason: SALINE FLUSH Last Admin: 10/01/18 12:43 Dose: 10 ml Medical Necessity - Tobacco Use Smoking Status: Former smoker Tobacco Use: Non-smoker Assessment/Plan All Active Problems (Last Updated 09/30/18 @ 10:24 by Kalpesh Nuno DO) Cellulitis of left lower extremity (Acute) Lymphedema of left lower extremity (Acute) Sepsis (Acute) Cellulitis of left anterior lower leg (Acute) Acute kidney injury (Acute) Hypokalemia (Acute) 1. Bacteremia 2/2 cellulitis S. pyogenes repeat BCx, ensure sterility prior to DC 2. Left lower extremity cellulitis MRSA swab negative + strep bacteremia started on Cefazolin last night. Will DC vancomycin CT leg negative for any gas. Patient does have some chronic lower extremity wounds which could be a source but patient will be on vancomycin as a more concerned about this being a gram-positive rather than a gram-negative organism. Patient received Zosyn in the emergency room. I do not plan to continue that at this time. Keep leg elevated and if things do get worse may need imaging to evaluate for necrotizing fasciitis. I have no clinical suspicion for that at this time. No evidence of any abscess at this time either. 2. Sepsis present on admission Secondary cellulitis + bacteremia 3.Hypokalemia Replace check magnesium Probably due to HCTZ, which is being held 4. Acute kidney injury versus chronic kidney disease stage III Unknown baseline IV fluids Hold HCTZ and losartan for now Stable--may be chronic. 5. VT E prophylaxis with Lovenox Code Visit Inpatient E&M: 64654 Subs Hosp L2
--- NOTE | 2018-10-01 14:40 | PN_ITS ---
Patient Problems: Active and Suspected Problems (Last Updated 09/30/18 @ 10:24 by Kalpesh Nuno DO) Cellulitis of left lower extremity (Acute) Sepsis (Acute) Cellulitis of left anterior lower leg (Acute) Acute kidney injury (Acute) Hypokalemia (Acute) Subjective: LLE feeling better. Feels better overall. Vitals/I&O's: Vital Signs Temp Pulse Resp BP Pulse Ox 37.5 C H 86 16 116/58 L 92 10/01/18 09:45 10/01/18 09:45 10/01/18 09:45 10/01/18 09:45 10/01/18 09:45 Oxygen Delivery Method Room Air Weight: 166.5 kg Body Mass Index (BMI) 52.6 Intake and Output for Last 24 Hours 09/29/18 09/30/18 10/01/18 23:59 23:59 23:59 Intake Total 2520 / 2520 2234 / 2234 Output Total 1400 / 1400 1100 / 1100 Balance 1120 / 1120 1134 / 1134 General: Alert, No apparent distress HEENT: Atraumatic, Normocephalic Oral: Moist Mucosa, No Gingival or Mucosal Lesions/ Ulcerations Lungs: Clear to auscultation, Normal air movement, No rhonchi, No wheeze Cardiovascular: Regular rate, Regular Rhythm, Normal S1, Normal S2, No murmurs Abdomen: Bowel Sounds Present, Soft, Non Tender, Non-Distended, Obese Extremities: No Calf Tenderness, Edema Skin: - - Still with extensive erythema of LLE. Slightly withdrawn from the lines of demarcation drawn 09/30. Musculoskeletal: No Tenderness to Palpation of Joints or Extremities, No Muscle Wasting Psych/Mental Status: Normal Affect, Appropriate Microbiology Past 72 Hours 09/30/18 Unknown Nasal Secretion Nasal Screen MRSA/MSSA - Final 09/30/18 08:25 Blood Culture (Wb) - Right Hand Blood Culture - Preliminary Gram Positive Cocci 09/30/18 08:07 Blood Culture (Wb) - Anticubital Left Bacteria Detection (PCR) - Preliminary Streptococcus pyogenes 09/30/18 08:07 Blood Culture (Wb) - Anticubital Left Blood Culture - Preliminary Laboratory Results 09/30/18 16:39: POC Glucose 158 H 09/30/18 21:38: POC Glucose 98 10/01/18 06:30: POC Glucose 126 H 10/01/18 07:09: Sodium 134 L, Potassium 3.2 L, Chloride 102, Carbon Dioxide 22.0, Anion Gap 10, BUN 34 H, Creatinine 1.62 H, Estim Creat Clear Calc 51.95, Est GFR (MDRD) Af Amer 57 L, Est GFR (MDRD) Non-Af 47 L, BUN/Creatinine Ratio 21.0 H, Glucose 126 H, Calcium 7.9 L, Magnesium 1.9 10/01/18 07:09: WBC 11.0, RBC 4.32 L, Hgb 12.0 L, Hct 35.1 L, MCV 81.3, MCH 27.8, MCHC 34.2, RDW 15.0 H, RDW Differential 44.4 H, Plt Count 107 L, MPV 11.9, Immature Gran % (Auto) 0.200, Neut % (Auto) 90.9 H, Lymph % (Auto) 4.0 L, [place] % (Auto) 4.7, Eos % (Auto) 0.1, Baso % (Auto) 0.1, Absolute Neuts (auto) 10.0 H, Absolute Lymphs (auto) 0.44 L, Total Counted Not Reportable, Platelet Estimate SLT 10/01/18 12:46: POC Glucose 123 H Current Medications Acetaminophen (Tylenol) 650 mg PO Q6H PRN PRN PRN Reason: Mild Pain (1-3)/Temp > 100.7 F Last Admin: 10/01/18 06:37 Dose: 650 mg Amlodipine Besylate (Norvasc) 10 mg PO DAILY [facility] Last Admin: 10/01/18 10:53 Dose: 10 mg Aspirin (Aspirin, Baby) 81 mg PO DAILY@0800 [facility] Last Admin: 10/01/18 10:51 Dose: 81 mg Carvedilol (Coreg) 25 mg PO BID [facility] Last Admin: 10/01/18 10:52 Dose: 25 mg Dextrose (D50w Syringe) 0 gm IV X1 PRN; Protocol PRN Reason: Hypoglycemia Doxazosin Mesylate (Cardura) 4 mg PO DAILY@2200 [facility] Last Admin: 09/30/18 19:53 Dose: Not Given Enoxaparin Sodium (Lovenox) 40 mg SC DAILY@1000 [facility] Last Admin: 10/01/18 10:52 Dose: 40 mg Glucagon () 1 mg IM .X1 PRN PRN Reason: Hypoglycemia Vancomycin IV Pharmacy to Dose (1 ea/ Sodium Chloride) 500 mls @ 250 mls/hr IV X1 PRN; Protocol PRN Reason: Rx to Dose Vancomycin HCl 1,750 mg/ (Sodium Chloride) 535 mls @ 250 mls/hr IV Q12H [facility] Last Admin: 10/01/18 12:43 Dose: 250 mls/hr Cefazolin Sodium () 1 gm in 50 mls @ 100 mls/hr IV Q8 [facility] Last Admin: 10/01/18 06:28 Dose: 100 mls/hr Insulin Human Lispro (Humalog Kwikpen (Bkc)) 0 unit SC ACHS [facility]; Protocol Last Admin: 10/01/18 12:47 Dose: Not Given Multivitamins (Multivitamin) 1 tablet PO DAILY@0800 [facility] Last Admin: 10/01/18 10:52 Dose: 1 tablet Ondansetron HCl (Zofran) 4 mg IV Q8H PRN PRN PRN Reason: NAUSEA/VOMITING Oxycodone HCl (Oxyir) 5 mg PO Q4H PRN PRN PRN Reason: Moderate Pain (4-6/10) Last Admin: 10/01/18 06:37 Dose: 5 mg Potassium Chloride (K-Dur) 20 meq PO DAILY [facility] Last Admin: 10/01/18 10:59 Dose: 20 meq Sodium Chloride () 5 - 15 ml IV UD PRN PRN Reason: SALINE FLUSH Last Admin: 10/01/18 12:43 Dose: 10 ml Medical Necessity - Tobacco Use Smoking Status: Former smoker Tobacco Use: Non-smoker Assessment/Plan All Active Problems (Last Updated 09/30/18 @ 10:24 by Kalpesh Nuno DO) Cellulitis of left lower extremity (Acute) Lymphedema of left lower extremity (Acute) Sepsis (Acute) Cellulitis of left anterior lower leg (Acute) Acute kidney injury (Acute) Hypokalemia (Acute) 1. Bacteremia * 2/2 cellulitis * S. pyogenes * repeat BCx, ensure sterility prior to DC 2. Left lower extremity cellulitis * MRSA swab negative + strep bacteremia * started on Cefazolin last night. * Will DC vancomycin * CT leg negative for any gas. * Patient does have some chronic lower extremity wounds which could be a source but patient will be on vancomycin as a more concerned about this being a gram- positive rather than a gram-negative organism. Patient received Zosyn in the emergency room. I do not plan to continue that at this time. Keep leg elevated and if things do get worse may need imaging to evaluate for necrotizing fasciitis. I have no clinical suspicion for that at this time. No evidence of any abscess at this time either. 2. Sepsis * present on admission * Secondary cellulitis + bacteremia 3.Hypokalemia * Replace * check magnesium * Probably due to HCTZ, which is being held 4. Acute kidney injury versus chronic kidney disease stage III * Unknown baseline * IV fluids * Hold HCTZ and losartan for now * Stable--may be chronic. 5. VT E prophylaxis with Lovenox Code Visit Inpatient E&M: 50307 Subs Hosp L2
[2018-10-01] MEDS: Mag Hydrox/Al Hydrox/Simeth 30 ML UDC PO (16:27)
[2018-10-01 16:56] LABS: Bedside Glucose 119 mg/dL (70-110)
[2018-10-01] MEDS: Doxazosin 4 MG Tablet PO (21:40)
[2018-10-01 21:55] LABS: Bedside Glucose 108 mg/dL (70-110)
[2018-10-02 05:58] LABS: Absolute Lymphocyte Count 1.05 X10^3/ul (0.83-4.51); Absolute Neutrophil Count 10.4 X10^3/uL (2.0-7.7); Basophil# 0.01 X10^3/uL; Basophil% 0.1 % (0-1); Hematocrit 32.2 % (40-54); Hemoglobin 11.1 g/dl (13.0-16.5); Lymphocyte # 1.05 X10^3/ul (4.0); Lymphocyte % 8.3 % (19-41); Mean Corp Hgb Conc 34.5 g/gl (32-36); Mean Corpuscular Hgb 27.5 pg (27.0-32.0); Mean Corpuscular Volume 79.9 fL (80-94); Mean Platelet Vol. 12.2 fl (6.2-12.0); Monocyte# 1.15 X10^3/uL; Monocyte% 9.1 % (0-10); Neutrophil # 10.37 X10^3/uL (2.7-7.7); Neutrophil % 81.9 % (47-70); Platelet Count 126 K/mm3 (150-450); RBC Distribution Width CV 15.1 % (11.6-14.6); Red Blood Count 4.03 M/mm3 (4.6-6.2); White Blood Count 12.7 K/mm3 (4.4-11.0)
[2018-10-02 06:00] LABS: BUN 37 mg/dL (7-18); Creatinine, Serum 1.43 mg/dL (0.70-1.30); Differential Indicated SCAN CRITERIA MET; EST Glomerular Filtration Rate 54 mL/min (>60); Estimated Creatinine Clearance 58.85 ml/min; Glucose 105 mg/dL (74-106); POSITIVE COUNT NO; POSITIVE DIFFERENTIAL NO; POSITIVE MORPHOLOGY YES
[2018-10-02 06:01] LABS: Anion Gap 9 (5-15); BUN/Creat Ratio 25.9 RATIO (10-20); Calcium,Total 7.8 mg/dL (8.5-10.1); Chloride 104 mmol/L (98-107); Est Glom Filt Rate - Afr Amer 65 mL/min (>60); Potassium 3.3 mmol/L (3.5-5.1); Sodium Level 135 mmol/L (136-145)
[2018-10-02 06:15] VITALS: BP 120/73; PULSE 77; RESP 18; TEMP 38.9; O2SAT 94
[2018-10-02] MEDS: Acetaminophen 325 MG Tablet 650 MG PO ×2 (06:43→21:47)
[2018-10-02] MEDS: Cefazolin 1 GM/50 ML BAG IV ×3 (06:44→21:40)
[2018-10-02] MEDS: oxyCODONE 5 MG Tablet PO ×3 (06:44→21:46)
[2018-10-02 07:01] LABS: Bedside Glucose 110 mg/dL (70-110)
[2018-10-02 08:30] VITALS: BP 93/56; PULSE 68; RESP 16; TEMP 37.7; O2SAT 92
[2018-10-02] MEDS: Aspirin 81 MG TAB.CHEW PO (10:28)
[2018-10-02] MEDS: Carvedilol 25 MG Tablet PO ×2 (10:28→21:40)
[2018-10-02] MEDS: Multivitamins,Therapeutic Tablet 1 TABLET PO (10:28)
[2018-10-02 10:30] VITALS: BP 127/64; PULSE 76
[2018-10-02] MEDS: Enoxaparin 40 MG/0.4 ML Syringe SC (10:30)
[2018-10-02] MEDS: amLODIPine 10 MG Tablet PO (10:30)
[2018-10-02] MEDS: Ibuprofen 600 MG Tablet PO (12:33)
--- NOTE | 2018-10-02 14:56 | PCM.PN.HOSP ---
Patient Problems: Active and Suspected Problems (Last Updated 09/30/18 @ 10:24 by Kalpesh Nuno DO) Cellulitis of left lower extremity (Acute) Sepsis (Acute) Cellulitis of left anterior lower leg (Acute) Acute kidney injury (Acute) Hypokalemia (Acute) Subjective: Patient has left lower extremities redness, erythema and induration. Patient has dry and cracked interdigital toes . No fever or chills. Vitals/I&O's: Vital Signs Temp Pulse Resp BP Pulse Ox 99.8 F H 76 16 127/64 H 92 10/02/18 08:30 10/02/18 10:30 10/02/18 08:30 10/02/18 10:30 10/02/18 08:30 Oxygen Delivery Method Room Air Weight: 367 lb 1.114 oz Body Mass Index (BMI) 52.6 Intake and Output for Last 24 Hours 09/30/18 10/01/18 10/02/18 23:59 23:59 23:59 Intake Total 2520 / 2520 3005 / 3005 1191 / 1191 Output Total 1400 / 1400 1650 / 1650 Balance 1120 / 1120 1355 / 1355 1191 / 1191 General: Alert, Oriented x3, Cooperative HEENT: Atraumatic, PERRLA, EOMI, Normocephalic Neck: Supple, No JVD, Negative Carotid Bruits Lungs: Clear to auscultation, Normal air movement, No rhonchi, No wheeze Cardiovascular: Regular rate, Regular Rhythm, Normal S1, Normal S2, No murmurs Abdomen: Bowel Sounds Present, Soft, Non Tender, Non-Distended Extremities: No edema, Capillary Refill Less than 3 Seconds Skin: No rashes, Rash Present - Medial aspect of right thigh and right lower leg. Extent of erythema is decreasing but skin and subcutaneous tissue is thickened and indurated Musculoskeletal: No Tenderness to Palpation of Joints or Extremities, Arthritic Changes Lymphatic: No Cervical, Supraclavicular, or Inguinal Adenopathy Neurological: Cranial nerves II-XII grossly intact, Deep Tendon Reflexes 2+/4 and Symmetrical, Neuro grossly intact, Motor Exam 5/5 strength throughout Psych/Mental Status: Normal Affect, Appropriate Microbiology Past 72 Hours 09/30/18 08:25 Blood Culture (Wb) - Right Hand Blood Culture - Final Streptococcus group A 09/30/18 08:07 Blood Culture (Wb) - Anticubital Left Bacteria Detection (PCR) - Final Streptococcus pyogenes 09/30/18 08:07 Blood Culture (Wb) - Anticubital Left Blood Culture - Final Streptococcus pyogenes 09/30/18 Unknown Nasal Secretion Nasal Screen MRSA/MSSA - Final Laboratory Results 10/01/18 16:32: POC Glucose 119 H 10/01/18 21:43: POC Glucose 108 10/02/18 05:20: WBC 12.7 H, RBC 4.03 L, Hgb 11.1 L, Hct 32.2 L, MCV 79.9 L, MCH 27.5, MCHC 34.5, RDW 15.1 H, RDW Differential 43.0, Plt Count 126 L, MPV 12.2 H, Immature Gran % (Auto) 0.600, Neut % (Auto) 81.9 H, Lymph % (Auto) 8.3 L, [place] % (Auto) 9.1, Eos % (Auto) 0.0, Baso % (Auto) 0.1, Absolute Neuts (auto) 10.4 H, Absolute Lymphs (auto) 1.05, Total Counted Not Reportable 10/02/18 05:20: Sodium 135 L, Potassium 3.3 L, Chloride 104, Carbon Dioxide 22.0, Anion Gap 9, BUN 37 H, Creatinine 1.43 H, Estim Creat Clear Calc 58.85, Est GFR (MDRD) Af Amer 65, Est GFR (MDRD) Non-Af 54 L, BUN/Creatinine Ratio 25.9 H, Glucose 105, Calcium 7.8 L 10/02/18 06:50: POC Glucose 110 Current Medications Acetaminophen (Tylenol) 650 mg PO Q6H PRN PRN PRN Reason: Mild Pain (1-3)/Temp > 100.7 F Last Admin: 10/02/18 06:43 Dose: 650 mg Al Hydroxide/Mg Hydroxide (Mylanta Ii) 30 ml PO Q4H PRN PRN PRN Reason: indigestion Last Admin: 10/01/18 16:27 Dose: 30 ml Amlodipine Besylate (Norvasc) 10 mg PO DAILY [facility] Last Admin: 10/02/18 10:30 Dose: 10 mg Aspirin (Aspirin, Baby) 81 mg PO DAILY@0800 [facility] Last Admin: 10/02/18 10:28 Dose: 81 mg Bisacodyl (Dulcolax) 10 mg RECTAL DAILY PRN PRN PRN Reason: Constipation Carvedilol (Coreg) 25 mg PO BID [facility] Last Admin: 10/02/18 10:28 Dose: 25 mg Dextrose (D50w Syringe) 0 gm IV X1 PRN; Protocol PRN Reason: Hypoglycemia Doxazosin Mesylate (Cardura) 4 mg PO DAILY@2200 [facility] Last Admin: 10/01/18 21:40 Dose: 4 mg Enoxaparin Sodium (Lovenox) 40 mg SC DAILY@1000 [facility] Last Admin: 10/02/18 10:30 Dose: 40 mg Glucagon () 1 mg IM .X1 PRN PRN Reason: Hypoglycemia Cefazolin Sodium () 1 gm in 50 mls @ 100 mls/hr IV Q8 [facility] Last Admin: 10/02/18 06:44 Dose: 100 mls/hr Ibuprofen (Motrin) 600 mg PO Q6H PRN PRN Reason: Temp, PAIN Last Admin: 10/02/18 12:33 Dose: 600 mg Multivitamins (Multivitamin) 1 tablet PO DAILY@0800 [facility] Last Admin: 10/02/18 10:28 Dose: 1 tablet Ondansetron HCl (Zofran) 4 mg IV Q8H PRN PRN PRN Reason: NAUSEA/VOMITING Oxycodone HCl (Oxyir) 5 mg PO Q4H PRN PRN PRN Reason: Moderate Pain (4-6/10) Last Admin: 10/02/18 06:44 Dose: 5 mg Polyethylene Glycol (Miralax) 17 gm PO DAILY [facility] Potassium Chloride (K-Dur) 40 meq PO DAILY [facility] Last Admin: 10/02/18 10:29 Dose: 40 meq Senna/Docusate Sodium (Senokot-S, Sisi-Colace) 2 tablet PO BID [facility] Sodium Chloride () 5 - 15 ml IV UD PRN PRN Reason: SALINE FLUSH Last Admin: 10/01/18 12:43 Dose: 10 ml Medical Necessity - Tobacco Use Smoking Status: Former smoker Tobacco Use: Non-smoker Assessment/Plan All Active Problems (Last Updated 09/30/18 @ 10:24 by Kalpesh Nuno DO) Cellulitis of left lower extremity (Acute) Lymphedema of left lower extremity (Acute) Sepsis (Acute) Cellulitis of left anterior lower leg (Acute) Acute kidney injury (Acute) Hypokalemia (Acute) There is a 57-year-old gentleman with history of hypertension, obstructive sleep apnea and morbid obesity and chronic lymphedema was admitted with erythema, pain, induration of left lower extremity consistent with cellulitis. Patient received Zosyn in the ED. 1. Streptococcus group A bacteremia Secondary to left lower extremity cellulitis. Bacterial PCR shows Streptococcus pyogenes sensitive to penicillin. 2. Left lower extremity cellulitis MRSA swab negative + strep bacteremia Initially patient was started on vancomycin probably received 1 dose and then changed to IV cefazolin. CT leg negative for any gas. Keep leg elevated a CT lower extremity shows diffuse soft tissue swelling of lower leg compatible with cellulitis but no focal fluid or saphenous gas. 2. Sepsis present on admission Secondary cellulitis + bacteremia 3.Hypokalemia Replace Magnesium 1.9 Probably due to HCTZ, which is being held 4. Acute kidney injury versus chronic kidney disease stage III Unknown baseline. Creatinine is getting better IV fluids Hold HCTZ and losartan for now Stable--may be chronic. 5. VT E prophylaxis with Lovenox Code Visit Inpatient E&M: 69614 Subs Hosp L2
[2018-10-02] MEDS: Polyethylene Glycol 3350 17 GM PACKET PO (14:57)
[2018-10-02] MEDS: Senna/Docusate Sodium 1 Tablet 2 TABLET PO ×2 (14:57→21:40)
[2018-10-02] MEDS: 0.9% NaCl Peripheral Flush Adult/Peds IV (14:59)
[2018-10-02 15:00] VITALS: BP 119/65; PULSE 77; RESP 18; TEMP 37.7; O2SAT 92
--- NOTE | 2018-10-02 15:06 | PN_ITS ---
Patient Problems: Active and Suspected Problems (Last Updated 09/30/18 @ 10:24 by Kalpesh Nuno DO) Cellulitis of left lower extremity (Acute) Sepsis (Acute) Cellulitis of left anterior lower leg (Acute) Acute kidney injury (Acute) Hypokalemia (Acute) Subjective: Patient has left lower extremities redness, erythema and induration. Patient has dry and cracked interdigital toes . No fever or chills. Vitals/I&O's: Vital Signs Temp Pulse Resp BP Pulse Ox 99.8 F H 76 16 127/64 H 92 10/02/18 08:30 10/02/18 10:30 10/02/18 08:30 10/02/18 10:30 10/02/18 08:30 Oxygen Delivery Method Room Air Weight: 367 lb 1.114 oz Body Mass Index (BMI) 52.6 Intake and Output for Last 24 Hours 09/30/18 10/01/18 10/02/18 23:59 23:59 23:59 Intake Total 2520 / 2520 3005 / 3005 1191 / 1191 Output Total 1400 / 1400 1650 / 1650 Balance 1120 / 1120 1355 / 1355 1191 / 1191 General: Alert, Oriented x3, Cooperative HEENT: Atraumatic, PERRLA, EOMI, Normocephalic Neck: Supple, No JVD, Negative Carotid Bruits Lungs: Clear to auscultation, Normal air movement, No rhonchi, No wheeze Cardiovascular: Regular rate, Regular Rhythm, Normal S1, Normal S2, No murmurs Abdomen: Bowel Sounds Present, Soft, Non Tender, Non-Distended Extremities: No edema, Capillary Refill Less than 3 Seconds Skin: No rashes, Rash Present - Medial aspect of right thigh and right lower leg. Extent of erythema is decreasing but skin and subcutaneous tissue is thickened and indurated Musculoskeletal: No Tenderness to Palpation of Joints or Extremities, Arthritic Changes Lymphatic: No Cervical, Supraclavicular, or Inguinal Adenopathy Neurological: Cranial nerves II-XII grossly intact, Deep Tendon Reflexes 2+/4 and Symmetrical, Neuro grossly intact, Motor Exam 5/5 strength throughout Psych/Mental Status: Normal Affect, Appropriate Microbiology Past 72 Hours 09/30/18 08:25 Blood Culture (Wb) - Right Hand Blood Culture - Final Streptococcus group A 09/30/18 08:07 Blood Culture (Wb) - Anticubital Left Bacteria Detection (PCR) - Final Streptococcus pyogenes 09/30/18 08:07 Blood Culture (Wb) - Anticubital Left Blood Culture - Final Streptococcus pyogenes 09/30/18 Unknown Nasal Secretion Nasal Screen MRSA/MSSA - Final Laboratory Results 10/01/18 16:32: POC Glucose 119 H 10/01/18 21:43: POC Glucose 108 10/02/18 05:20: WBC 12.7 H, RBC 4.03 L, Hgb 11.1 L, Hct 32.2 L, MCV 79.9 L, MCH 27.5, MCHC 34.5, RDW 15.1 H, RDW Differential 43.0, Plt Count 126 L, MPV 12.2 H, Immature Gran % (Auto) 0.600, Neut % (Auto) 81.9 H, Lymph % (Auto) 8.3 L, [place] % (Auto) 9.1, Eos % (Auto) 0.0, Baso % (Auto) 0.1, Absolute Neuts (auto) 10.4 H, Absolute Lymphs (auto) 1.05, Total Counted Not Reportable 10/02/18 05:20: Sodium 135 L, Potassium 3.3 L, Chloride 104, Carbon Dioxide 22.0, Anion Gap 9, BUN 37 H, Creatinine 1.43 H, Estim Creat Clear Calc 58.85, Est GFR (MDRD) Af Amer 65, Est GFR (MDRD) Non-Af 54 L, BUN/Creatinine Ratio 25.9 H, Glucose 105, Calcium 7.8 L 10/02/18 06:50: POC Glucose 110 Current Medications Acetaminophen (Tylenol) 650 mg PO Q6H PRN PRN PRN Reason: Mild Pain (1-3)/Temp > 100.7 F Last Admin: 10/02/18 06:43 Dose: 650 mg Al Hydroxide/Mg Hydroxide (Mylanta Ii) 30 ml PO Q4H PRN PRN PRN Reason: indigestion Last Admin: 10/01/18 16:27 Dose: 30 ml Amlodipine Besylate (Norvasc) 10 mg PO DAILY [facility] Last Admin: 10/02/18 10:30 Dose: 10 mg Aspirin (Aspirin, Baby) 81 mg PO DAILY@0800 [facility] Last Admin: 10/02/18 10:28 Dose: 81 mg Bisacodyl (Dulcolax) 10 mg RECTAL DAILY PRN PRN PRN Reason: Constipation Carvedilol (Coreg) 25 mg PO BID [facility] Last Admin: 10/02/18 10:28 Dose: 25 mg Dextrose (D50w Syringe) 0 gm IV X1 PRN; Protocol PRN Reason: Hypoglycemia Doxazosin Mesylate (Cardura) 4 mg PO DAILY@2200 [facility] Last Admin: 10/01/18 21:40 Dose: 4 mg Enoxaparin Sodium (Lovenox) 40 mg SC DAILY@1000 [facility] Last Admin: 10/02/18 10:30 Dose: 40 mg Glucagon () 1 mg IM .X1 PRN PRN Reason: Hypoglycemia Cefazolin Sodium () 1 gm in 50 mls @ 100 mls/hr IV Q8 [facility] Last Admin: 10/02/18 06:44 Dose: 100 mls/hr Ibuprofen (Motrin) 600 mg PO Q6H PRN PRN Reason: Temp, PAIN Last Admin: 10/02/18 12:33 Dose: 600 mg Multivitamins (Multivitamin) 1 tablet PO DAILY@0800 [facility] Last Admin: 10/02/18 10:28 Dose: 1 tablet Ondansetron HCl (Zofran) 4 mg IV Q8H PRN PRN PRN Reason: NAUSEA/VOMITING Oxycodone HCl (Oxyir) 5 mg PO Q4H PRN PRN PRN Reason: Moderate Pain (4-6/10) Last Admin: 10/02/18 06:44 Dose: 5 mg Polyethylene Glycol (Miralax) 17 gm PO DAILY [facility] Potassium Chloride (K-Dur) 40 meq PO DAILY [facility] Last Admin: 10/02/18 10:29 Dose: 40 meq Senna/Docusate Sodium (Senokot-S, Sisi-Colace) 2 tablet PO BID [facility] Sodium Chloride () 5 - 15 ml IV UD PRN PRN Reason: SALINE FLUSH Last Admin: 10/01/18 12:43 Dose: 10 ml Medical Necessity - Tobacco Use Smoking Status: Former smoker Tobacco Use: Non-smoker Assessment/Plan All Active Problems (Last Updated 09/30/18 @ 10:24 by Kalpesh Nuno DO) Cellulitis of left lower extremity (Acute) Lymphedema of left lower extremity (Acute) Sepsis (Acute) Cellulitis of left anterior lower leg (Acute) Acute kidney injury (Acute) Hypokalemia (Acute) There is a 57-year-old gentleman with history of hypertension, obstructive sleep apnea and morbid obesity and chronic lymphedema was admitted with erythema, pain, induration of left lower extremity consistent with cellulitis. Patient received Zosyn in the ED. 1. Streptococcus group A bacteremia * Secondary to left lower extremity cellulitis. Bacterial PCR shows Streptococcus pyogenes sensitive to penicillin. 2. Left lower extremity cellulitis * MRSA swab negative + strep bacteremia * Initially patient was started on vancomycin probably received 1 dose and then changed to IV cefazolin. * CT leg negative for any gas. * Keep leg elevated a * CT lower extremity shows diffuse soft tissue swelling of lower leg compatible with cellulitis but no focal fluid or saphenous gas. 2. Sepsis * present on admission * Secondary cellulitis + bacteremia 3.Hypokalemia * Replace * Magnesium 1.9 * Probably due to HCTZ, which is being held 4. Acute kidney injury versus chronic kidney disease stage III * Unknown baseline. Creatinine is getting better * IV fluids * Hold HCTZ and losartan for now * Stable--may be chronic. 5. VT E prophylaxis with Lovenox Code Visit Inpatient E&M: 74673 Subs Hosp L2
[2018-10-02] MEDS: Bisacodyl 10 MG Suppository RECTAL (18:15)
[2018-10-02 19:55] VITALS: BP 111/60; PULSE 69; RESP 18; TEMP 37.6; O2SAT 94
[2018-10-02] MEDS: Doxazosin 4 MG Tablet PO (21:40)
[2018-10-03 05:05] VITALS: BP 123/62; PULSE 62; RESP 18; TEMP 37.2; O2SAT 96
[2018-10-03] MEDS: Cefazolin 1 GM/50 ML BAG IV (05:10)
[2018-10-03 05:58] LABS: Absolute Lymphocyte Count 1.58 X10^3/ul (0.83-4.51); Absolute Neutrophil Count 9.6 X10^3/uL (2.0-7.7); Basophil# 0.01 X10^3/uL; Basophil% 0.1 % (0-1); Eosinophil# 0.02 X10^3/uL; Eosinophils% 0.2 % (0-5); Hematocrit 29.9 % (40-54); Hemoglobin 10.2 g/dl (13.0-16.5); Lymphocyte # 1.58 X10^3/ul (4.0); Lymphocyte % 12.4 % (19-41); Mean Corp Hgb Conc 34.1 g/gl (32-36); Mean Corpuscular Hgb 27.3 pg (27.0-32.0); Mean Corpuscular Volume 80.2 fL (80-94); Mean Platelet Vol. 11.2 fl (6.2-12.0); Monocyte# 1.43 X10^3/uL; Monocyte% 11.2 % (0-10); Neutrophil # 9.57 X10^3/uL (2.7-7.7); Neutrophil % 74.8 % (47-70); Platelet Count 141 K/mm3 (150-450); RBC Distribution Width CV 15.4 % (11.6-14.6); RBC Distribution Width SD 45.3 fl (35.1-43.9); Red Blood Count 3.73 M/mm3 (4.6-6.2); White Blood Count 12.8 K/mm3 (4.4-11.0)
[2018-10-03 06:15] LABS: POSITIVE COUNT NO; POSITIVE DIFFERENTIAL NO; POSITIVE MORPHOLOGY NO
[2018-10-03 06:31] LABS: Anion Gap 7 (5-15); BUN 47 mg/dL (7-18); Calcium,Total 7.6 mg/dL (8.5-10.1); Chloride 104 mmol/L (98-107); Creatinine, Serum 1.27 mg/dL (0.70-1.30); EST Glomerular Filtration Rate 62 mL/min (>60); Est Glom Filt Rate - Afr Amer 75 mL/min (>60); Estimated Creatinine Clearance 66.26 ml/min; Glucose 104 mg/dL (74-106); Potassium 3.2 mmol/L (3.5-5.1); Sodium Level 135 mmol/L (136-145)
[2018-10-03] MEDS: Multivitamins,Therapeutic Tablet 1 TABLET PO (09:03)
[2018-10-03] MEDS: Aspirin 81 MG TAB.CHEW PO (09:03)
[2018-10-03] MEDS: Carvedilol 25 MG Tablet PO ×2 (09:04→21:59)
[2018-10-03] MEDS: Polyethylene Glycol 3350 17 GM PACKET PO (09:15)
[2018-10-03] MEDS: Senna/Docusate Sodium 1 Tablet 2 TABLET PO ×2 (09:16→21:59)
--- NOTE | 2018-10-03 09:16 | PCM.PN.HOSP ---
Patient Problems: Active and Suspected Problems (Last Updated 09/30/18 @ 10:24 by Kalpesh Nuno DO) Cellulitis of left lower extremity (Acute) Sepsis (Acute) Cellulitis of left anterior lower leg (Acute) Acute kidney injury (Acute) Hypokalemia (Acute) Subjective: Patient has blisters in the left lower leg. Patient also has severe constipation and after giving Dulcolax suppository he moved small amount of his stool. He states pressure exertion resulted into blisters the legs. Blister looks more serous fluid-filled. Patient still has leukocytosis. Low-grade fever, T-max 99.8 Fahrenheit. IV cefazolin dose increased to 2 g IV every 8 hourly Vitals/I&O's: Vital Signs Temp Pulse Resp BP Pulse Ox 99.0 F 62 18 123/62 H 96 10/03/18 05:05 10/03/18 05:05 10/03/18 05:05 10/03/18 05:05 10/03/18 05:05 Oxygen Delivery Method CPAP Weight: 367 lb 1.114 oz Body Mass Index (BMI) 52.6 Intake and Output for Last 24 Hours 10/01/18 10/02/18 10/03/18 23:59 23:59 23:59 Intake Total 3005 / 3005 2257 / 2257 155 / 155 Output Total 1650 / 1650 550 / 550 300 / 300 Balance 1355 / 1355 1707 / 1707 -145 / -145 General: Alert, Oriented x3, Cooperative HEENT: Atraumatic, PERRLA, EOMI, Normocephalic Neck: Supple, No JVD, Negative Carotid Bruits Lungs: Clear to auscultation, No rhonchi, No wheeze, Diminished Cardiovascular: Regular rate, Regular Rhythm, Normal S1, Normal S2, No murmurs Abdomen: Bowel Sounds Present, Soft, Non Tender, Non-Distended Extremities: No edema, Capillary Refill Less than 3 Seconds Skin: Rash Present - Multiple serous fluid filled blisters in the left lower leg. Intertriginous yeast infection in abdominal fold of his skin and groin Musculoskeletal: No Tenderness to Palpation of Joints or Extremities Neurological: Cranial nerves II-XII grossly intact Psych/Mental Status: Normal Affect, Appropriate Microbiology Past 72 Hours 10/01/18 09:06 Blood Culture (Wb) - Left Hand Blood Culture - Preliminary No growth in 48 hours. 10/01/18 09:00 Blood Culture (Wb) - Anticubital Right Blood Culture - Preliminary No growth in 48 hours. 09/30/18 08:25 Blood Culture (Wb) - Right Hand Blood Culture - Final Streptococcus group A 09/30/18 08:07 Blood Culture (Wb) - Anticubital Left Bacteria Detection (PCR) - Final Streptococcus pyogenes 09/30/18 08:07 Blood Culture (Wb) - Anticubital Left Blood Culture - Final Streptococcus pyogenes 09/30/18 Unknown Nasal Secretion Nasal Screen MRSA/MSSA - Final Laboratory Results 10/03/18 05:30: WBC 12.8 H, RBC 3.73 L, Hgb 10.2 L, Hct 29.9 L, MCV 80.2, MCH 27.3, MCHC 34.1, RDW 15.4 H, RDW Differential 45.3 H, Plt Count 141 L, MPV 11.2, Immature Gran % (Auto) 1.300 H, Neut % (Auto) 74.8 H, Lymph % (Auto) 12.4 L, [place] % (Auto) 11.2 H, Eos % (Auto) 0.2, Baso % (Auto) 0.1, Absolute Neuts (auto) 9.6 H, Absolute Lymphs (auto) 1.58, Total Counted Not Reportable 10/03/18 05:30: Sodium 135 L, Potassium 3.2 L, Chloride 104, Carbon Dioxide 24.0, Anion Gap 7, BUN 47 H, Creatinine 1.27, Estim Creat Clear Calc 66.26, Est GFR (MDRD) Af Amer 75, Est GFR (MDRD) Non-Af 62, BUN/Creatinine Ratio 37.0 H, Glucose 104, Calcium 7.6 L Current Medications Acetaminophen (Tylenol) 650 mg PO Q6H PRN PRN PRN Reason: Mild Pain (1-3)/Temp > 100.7 F Last Admin: 10/02/18 21:47 Dose: 650 mg Al Hydroxide/Mg Hydroxide (Mylanta Ii) 30 ml PO Q4H PRN PRN PRN Reason: indigestion Last Admin: 10/01/18 16:27 Dose: 30 ml Amlodipine Besylate (Norvasc) 10 mg PO DAILY [facility] Last Admin: 10/02/18 10:30 Dose: 10 mg Aspirin (Aspirin, Baby) 81 mg PO DAILY@0800 [facility] Last Admin: 10/03/18 09:03 Dose: 81 mg Bisacodyl (Dulcolax) 10 mg RECTAL DAILY PRN PRN PRN Reason: Constipation Last Admin: 10/02/18 18:15 Dose: 10 mg Carvedilol (Coreg) 25 mg PO BID [facility] Last Admin: 10/03/18 09:04 Dose: 25 mg Dextrose (D50w Syringe) 0 gm IV X1 PRN; Protocol PRN Reason: Hypoglycemia Doxazosin Mesylate (Cardura) 4 mg PO DAILY@2200 [facility] Last Admin: 10/02/18 21:40 Dose: 4 mg Enoxaparin Sodium (Lovenox) 40 mg SC DAILY@1000 [facility] Last Admin: 10/02/18 10:30 Dose: 40 mg Glucagon () 1 mg IM .X1 PRN PRN Reason: Hypoglycemia Cefazolin Sodium () 1 gm in 50 mls @ 100 mls/hr IV Q8 [facility] Last Admin: 10/03/18 05:10 Dose: 100 mls/hr Ibuprofen (Motrin) 600 mg PO Q8H PRN PRN Reason: Temp, PAIN Multivitamins (Multivitamin) 1 tablet PO DAILY@0800 [facility] Last Admin: 10/03/18 09:03 Dose: 1 tablet Ondansetron HCl (Zofran) 4 mg IV Q8H PRN PRN PRN Reason: NAUSEA/VOMITING Oxycodone HCl (Oxyir) 5 mg PO Q4H PRN PRN PRN Reason: Moderate Pain (4-6/10) Last Admin: 10/02/18 21:46 Dose: 5 mg Polyethylene Glycol (Miralax) 17 gm PO DAILY [facility] Last Admin: 10/02/18 14:57 Dose: 17 gm Potassium Chloride (K-Dur) 40 meq PO Q3H [facility] Stop: 10/03/18 15:01 Last Admin: 10/03/18 09:03 Dose: 40 meq Senna/Docusate Sodium (Senokot-S, Sisi-Colace) 2 tablet PO BID [facility] Last Admin: 10/02/18 21:40 Dose: 2 tablet Sodium Chloride () 5 - 15 ml IV UD PRN PRN Reason: SALINE FLUSH Last Admin: 10/02/18 14:59 Dose: 10 ml Medical Necessity - Tobacco Use Smoking Status: Former smoker Tobacco Use: Non-smoker Assessment/Plan All Active Problems (Last Updated 09/30/18 @ 10:24 by Kalpesh Nuno DO) Cellulitis of left lower extremity (Acute) Lymphedema of left lower extremity (Acute) Sepsis (Acute) Cellulitis of left anterior lower leg (Acute) Acute kidney injury (Acute) Hypokalemia (Acute) There is a 57-year-old gentleman with history of hypertension, obstructive sleep apnea and morbid obesity and chronic lymphedema was admitted with erythema, pain, induration of left lower extremity consistent with cellulitis. Patient received Zosyn in the ED. 1. Streptococcus group A bacteremia Secondary to left lower extremity cellulitis. Bacterial PCR shows Streptococcus pyogenes sensitive to penicillin. The dose of IV cefazolin increased to 2 g q. 8 hourly. Patient still has persistent low-grade fever and leukocytosis. ID consult. 2. Left lower extremity cellulitis MRSA swab negative + strep bacteremia Initially patient was started on vancomycin probably received 1 dose and then changed to IV cefazolin. CT leg negative for any gas. Keep leg elevated CT lower extremity shows diffuse soft tissue swelling of lower leg compatible with cellulitis but no focal fluid or saphenous gas. 2. Sepsis present on admission Secondary cellulitis + bacteremia 3.Hypokalemia Persistent hypokalemia: Magnesium 1.9 Probably due to HCTZ, which is being held 4. Acute kidney injury versus chronic kidney disease stage III Unknown baseline. Creatinine is getting better IV fluids Hold HCTZ and losartan for now Stable--may be chronic. 5. VT E prophylaxis with Lovenox Code Visit Inpatient E&M: 43701 Subs Hosp L2
[2018-10-03] MEDS: Enoxaparin 40 MG/0.4 ML Syringe SC (09:18)
[2018-10-03] MEDS: amLODIPine 10 MG Tablet PO (09:21)
--- NOTE | 2018-10-03 09:22 | PN_ITS ---
Patient Problems: Active and Suspected Problems (Last Updated 09/30/18 @ 10:24 by Kalpesh Nuno DO) Cellulitis of left lower extremity (Acute) Sepsis (Acute) Cellulitis of left anterior lower leg (Acute) Acute kidney injury (Acute) Hypokalemia (Acute) Subjective: Patient has blisters in the left lower leg. Patient also has severe constipation and after giving Dulcolax suppository he moved small amount of his stool. He states pressure exertion resulted into blisters the legs. Blister looks more serous fluid-filled. Patient still has leukocytosis. Low-grade fever, T-max 99.8 Fahrenheit. IV cefazolin dose increased to 2 g IV every 8 hourly Vitals/I&O's: Vital Signs Temp Pulse Resp BP Pulse Ox 99.0 F 62 18 123/62 H 96 10/03/18 05:05 10/03/18 05:05 10/03/18 05:05 10/03/18 05:05 10/03/18 05:05 Oxygen Delivery Method CPAP Weight: 367 lb 1.114 oz Body Mass Index (BMI) 52.6 Intake and Output for Last 24 Hours 10/01/18 10/02/18 10/03/18 23:59 23:59 23:59 Intake Total 3005 / 3005 2257 / 2257 155 / 155 Output Total 1650 / 1650 550 / 550 300 / 300 Balance 1355 / 1355 1707 / 1707 -145 / -145 General: Alert, Oriented x3, Cooperative HEENT: Atraumatic, PERRLA, EOMI, Normocephalic Neck: Supple, No JVD, Negative Carotid Bruits Lungs: Clear to auscultation, No rhonchi, No wheeze, Diminished Cardiovascular: Regular rate, Regular Rhythm, Normal S1, Normal S2, No murmurs Abdomen: Bowel Sounds Present, Soft, Non Tender, Non-Distended Extremities: No edema, Capillary Refill Less than 3 Seconds Skin: Rash Present - Multiple serous fluid filled blisters in the left lower leg. Intertriginous yeast infection in abdominal fold of his skin and groin Musculoskeletal: No Tenderness to Palpation of Joints or Extremities Neurological: Cranial nerves II-XII grossly intact Psych/Mental Status: Normal Affect, Appropriate Microbiology Past 72 Hours 10/01/18 09:06 Blood Culture (Wb) - Left Hand Blood Culture - Preliminary No growth in 48 hours. 10/01/18 09:00 Blood Culture (Wb) - Anticubital Right Blood Culture - Preliminary No growth in 48 hours. 09/30/18 08:25 Blood Culture (Wb) - Right Hand Blood Culture - Final Streptococcus group A 09/30/18 08:07 Blood Culture (Wb) - Anticubital Left Bacteria Detection (PCR) - Final Streptococcus pyogenes 09/30/18 08:07 Blood Culture (Wb) - Anticubital Left Blood Culture - Final Streptococcus pyogenes 09/30/18 Unknown Nasal Secretion Nasal Screen MRSA/MSSA - Final Laboratory Results 10/03/18 05:30: WBC 12.8 H, RBC 3.73 L, Hgb 10.2 L, Hct 29.9 L, MCV 80.2, MCH 27.3, MCHC 34.1, RDW 15.4 H, RDW Differential 45.3 H, Plt Count 141 L, MPV 11.2, Immature Gran % (Auto) 1.300 H, Neut % (Auto) 74.8 H, Lymph % (Auto) 12.4 L, [place] % (Auto) 11.2 H, Eos % (Auto) 0.2, Baso % (Auto) 0.1, Absolute Neuts (auto) 9.6 H, Absolute Lymphs (auto) 1.58, Total Counted Not Reportable 10/03/18 05:30: Sodium 135 L, Potassium 3.2 L, Chloride 104, Carbon Dioxide 24.0, Anion Gap 7, BUN 47 H, Creatinine 1.27, Estim Creat Clear Calc 66.26, Est GFR (MDRD) Af Amer 75, Est GFR (MDRD) Non-Af 62, BUN/Creatinine Ratio 37.0 H, Glucose 104, Calcium 7.6 L Current Medications Acetaminophen (Tylenol) 650 mg PO Q6H PRN PRN PRN Reason: Mild Pain (1-3)/Temp > 100.7 F Last Admin: 10/02/18 21:47 Dose: 650 mg Al Hydroxide/Mg Hydroxide (Mylanta Ii) 30 ml PO Q4H PRN PRN PRN Reason: indigestion Last Admin: 10/01/18 16:27 Dose: 30 ml Amlodipine Besylate (Norvasc) 10 mg PO DAILY [facility] Last Admin: 10/02/18 10:30 Dose: 10 mg Aspirin (Aspirin, Baby) 81 mg PO DAILY@0800 [facility] Last Admin: 10/03/18 09:03 Dose: 81 mg Bisacodyl (Dulcolax) 10 mg RECTAL DAILY PRN PRN PRN Reason: Constipation Last Admin: 10/02/18 18:15 Dose: 10 mg Carvedilol (Coreg) 25 mg PO BID [facility] Last Admin: 10/03/18 09:04 Dose: 25 mg Dextrose (D50w Syringe) 0 gm IV X1 PRN; Protocol PRN Reason: Hypoglycemia Doxazosin Mesylate (Cardura) 4 mg PO DAILY@2200 [facility] Last Admin: 10/02/18 21:40 Dose: 4 mg Enoxaparin Sodium (Lovenox) 40 mg SC DAILY@1000 [facility] Last Admin: 10/02/18 10:30 Dose: 40 mg Glucagon () 1 mg IM .X1 PRN PRN Reason: Hypoglycemia Cefazolin Sodium () 1 gm in 50 mls @ 100 mls/hr IV Q8 [facility] Last Admin: 10/03/18 05:10 Dose: 100 mls/hr Ibuprofen (Motrin) 600 mg PO Q8H PRN PRN Reason: Temp, PAIN Multivitamins (Multivitamin) 1 tablet PO DAILY@0800 [facility] Last Admin: 10/03/18 09:03 Dose: 1 tablet Ondansetron HCl (Zofran) 4 mg IV Q8H PRN PRN PRN Reason: NAUSEA/VOMITING Oxycodone HCl (Oxyir) 5 mg PO Q4H PRN PRN PRN Reason: Moderate Pain (4-6/10) Last Admin: 10/02/18 21:46 Dose: 5 mg Polyethylene Glycol (Miralax) 17 gm PO DAILY [facility] Last Admin: 10/02/18 14:57 Dose: 17 gm Potassium Chloride (K-Dur) 40 meq PO Q3H [facility] Stop: 10/03/18 15:01 Last Admin: 10/03/18 09:03 Dose: 40 meq Senna/Docusate Sodium (Senokot-S, Sisi-Colace) 2 tablet PO BID [facility] Last Admin: 10/02/18 21:40 Dose: 2 tablet Sodium Chloride () 5 - 15 ml IV UD PRN PRN Reason: SALINE FLUSH Last Admin: 10/02/18 14:59 Dose: 10 ml Medical Necessity - Tobacco Use Smoking Status: Former smoker Tobacco Use: Non-smoker Assessment/Plan All Active Problems (Last Updated 09/30/18 @ 10:24 by Kalpesh Nuno DO) Cellulitis of left lower extremity (Acute) Lymphedema of left lower extremity (Acute) Sepsis (Acute) Cellulitis of left anterior lower leg (Acute) Acute kidney injury (Acute) Hypokalemia (Acute) There is a 57-year-old gentleman with history of hypertension, obstructive sleep apnea and morbid obesity and chronic lymphedema was admitted with erythema, pain, induration of left lower extremity consistent with cellulitis. Patient received Zosyn in the ED. 1. Streptococcus group A bacteremia * Secondary to left lower extremity cellulitis. Bacterial PCR shows Streptococcus pyogenes sensitive to penicillin. The dose of IV cefazolin increased to 2 g q. 8 hourly. Patient still has persistent low-grade fever a nd leukocytosis. ID consult. 2. Left lower extremity cellulitis * MRSA swab negative + strep bacteremia * Initially patient was started on vancomycin probably received 1 dose and then changed to IV cefazolin. * CT leg negative for any gas. * Keep leg elevated * CT lower extremity shows diffuse soft tissue swelling of lower leg compatible with cellulitis but no focal fluid or saphenous gas. 2. Sepsis * present on admission * Secondary cellulitis + bacteremia 3.Hypokalemia Persistent hypokalemia: * Magnesium 1.9 * Probably due to HCTZ, which is being held 4. Acute kidney injury versus chronic kidney disease stage III * Unknown baseline. Creatinine is getting better * IV fluids * Hold HCTZ and losartan for now * Stable--may be chronic. 5. VT E prophylaxis with Lovenox Code Visit Inpatient E&M: 23124 Subs Hosp L2
[2018-10-03] MEDS: Cefazolin 2 GM in 0.9% Normal Saline 100 ML IV ×3 (09:52→22:00)
--- NOTE | 2018-10-03 10:42 | PCM.HP.ID ---
Problem List (1) Sepsis Status: Acute Qualifiers: Sepsis type: sepsis due to unspecified organism Qualified Code(s): A41.9 - Sepsis, unspecified organism Reason for Consult: bcx (+) Consulted by: Dr. Li History of Present Illness: The patient is a 57 year old M with h/o obesity, presented 09/30 with 3-4 days of not feeling well, then chills/shakes, L lower leg redness/swelling/pain. Pain was a dull throbbing. No h/o trauma recently to the leg. Came to ED, admitted on cefazolin after dose of vanc. Feeling much better. Bcx with GAS. Leg now with blisters after he tried to stand up yesterday. Overall feeling better. No diarrhea. Full ROS performed and neg except as noted above. - Medical History Past Medical History (Chronic Problems): Chronic Problems (Last Updated 09/30/18 @ 10:24 by Kalpesh Nuno DO) History of hypertension (Chronic) History of obstructive sleep apnea (Chronic) Allergies/Adverse Reactions: Allergies No Known Allergies Allergy (Verified 09/30/18 07:32) Home Medications: Ambulatory Orders Medication Instructions Recorded Amlodipine Besylate 10 mg PO DAILY 09/30/18 Aspirin 81 mg PO DAILY 09/30/18 Carvedilol 25 mg PO BID 09/30/18 Doxazosin Mesylate 4 mg PO DAILY 09/30/18 Hydrochlorothiazide [Hctz] 25 mg PO DAILY 09/30/18 Losartan Potassium 100 mg PO DAILY 09/30/18 Multivitamin [One-Daily 1 each PO DAILY 09/30/18 Multi-Vitamin] Potassium Chloride 10 meq PO DAILY 09/30/18 - Social History SMOKING STATUS:: Former smoker Vital Signs Temp Pulse Resp BP Pulse Ox 99.0 F 62 18 123/62 H 96 10/03/18 05:05 10/03/18 05:05 10/03/18 05:05 10/03/18 05:05 10/03/18 05:05 Oxygen Delivery Method CPAP Weight: 166.5 kg Body Mass Index (BMI) 52.6 Microbiology Past 72 Hours 10/01/18 09:06 Blood Culture - Preliminary Blood Culture (Wb) - Left Hand No growth in 48 hours. 10/01/18 09:00 Blood Culture - Preliminary Blood Culture (Wb) - Anticubital Right No growth in 48 hours. 09/30/18 08:25 Blood Culture - Final Blood Culture (Wb) - Right Hand Streptococcus group A 09/30/18 08:07 Bacteria Detection (PCR) - Final Blood Culture (Wb) - Anticubital Left Streptococcus pyogenes Blood Culture - Final Streptococcus pyogenes 09/30/18 Unknown Nasal Screen MRSA/MSSA - Final Nasal Secretion Laboratory Tests Past 24 Hrs 10/03/18 10/03/18 05:30 05:30 WBC 12.8 H RBC 3.73 L Hgb 10.2 L Hct 29.9 L MCV 80.2 MCH 27.3 MCHC 34.1 RDW 15.4 H RDW Differential 45.3 H Plt Count 141 L MPV 11.2 Immature Gran % (Auto) 1.300 H Neut % (Auto) 74.8 H Lymph % (Auto) 12.4 L Marshall % (Auto) 11.2 H Eos % (Auto) 0.2 Baso % (Auto) 0.1 Absolute Neuts (auto) 9.6 H Absolute Lymphs (auto) 1.58 Total Counted Not Reportable Sodium 135 L Potassium 3.2 L Chloride 104 Carbon Dioxide 24.0 Anion Gap 7 BUN 47 H Creatinine 1.27 Estim Creat Clear Calc 66.26 Est GFR (MDRD) Af Amer 75 Est GFR (MDRD) Non-Af 62 BUN/Creatinine Ratio 37.0 H Glucose 104 Calcium 7.6 L - Other Studies Radiology: [] reviewed Other Studies: [] Route of nutrition/ use of supplements: [] Nutritional Intake: [] IV Site: [] Jimenez Catheter: [] - Physical Exam General: Alert, Oriented x3, Cooperative, No apparent distress, Well nourished HEENT: Atraumatic, PERRLA, EOMI Neck: Supple, No Nodes Lungs: Clear to auscultation, Normal air movement Cardiovascular: Regular rate, Regular Rhythm, No murmurs Abdomen: Soft, Non Tender, Non-Distended, Obese Extremities: Edema Skin: Rash Present - L lower leg with diffuse redness, multiple large serous bullae. IV Site: Peripheral, without redness Musculoskeletal: No Tenderness to Palpation of Joints or Extremities - Assessment/Plan Antibiotics: [] Assessment/Plan: [] Active and Suspected Problems (Last Updated 09/30/18 @ 10:24 by Kalpesh Nuno DO) Cellulitis of left lower extremity (Acute) Sepsis (Acute) Cellulitis of left anterior lower leg (Acute) Acute kidney injury (Acute) Hypokalemia (Acute) sepsis due to GAS bacteremia from LLE cellulitis - much improved. Bullae seem to be more related to fluid than uncontrolled infection. Cont cefazolin, plan on d/c home with keflex in next 1-2 days. Thank you, will follow, d/w Dr. Li
[2018-10-03 11:05] VITALS: BP 125/66; PULSE 66; RESP 16; TEMP 37.3; O2SAT 96
[2018-10-03] MEDS: Bisacodyl 10 MG Suppository RECTAL (15:25)
[2018-10-03] MEDS: Ibuprofen 600 MG Tablet PO (15:28)
[2018-10-03 17:00] VITALS: BP 121/55; PULSE 69; RESP 18; TEMP 37.3; O2SAT 95
[2018-10-03] MEDS: oxyCODONE 5 MG Tablet PO ×2 (18:30→22:35)
[2018-10-03 21:49] VITALS: BP 122/60; PULSE 64; RESP 18; TEMP 36.8; O2SAT 94
[2018-10-03] MEDS: Doxazosin 4 MG Tablet PO (21:59)
[2018-10-03] MEDS: 0.9% NaCl Peripheral Flush Adult/Peds IV ×2 (22:00→23:20)
[2018-10-04 04:00] VITALS: BP 123/74; PULSE 64; RESP 18; TEMP 37.2; O2SAT 97
[2018-10-04] MEDS: Cefazolin 2 GM in 0.9% Normal Saline 100 ML IV ×3 (06:21→22:12)
[2018-10-04] MEDS: 0.9% NaCl Peripheral Flush Adult/Peds IV ×3 (06:22→22:24)
[2018-10-04 07:40] LABS: Absolute Lymphocyte Count 1.75 X10^3/ul (0.83-4.51); Absolute Neutrophil Count 12.3 X10^3/uL (2.0-7.7); Basophil# 0.02 X10^3/uL; Basophil% 0.1 % (0-1); Eosinophil# 0.05 X10^3/uL; Eosinophils% 0.3 % (0-5); Hematocrit 29.9 % (40-54); Hemoglobin 10.2 g/dl (13.0-16.5); Lymphocyte # 1.75 X10^3/ul (4.0); Mean Corp Hgb Conc 34.1 g/gl (32-36); Mean Corpuscular Hgb 27.3 pg (27.0-32.0); Mean Corpuscular Volume 80.2 fL (80-94); Mean Platelet Vol. 11.1 fl (6.2-12.0); Monocyte# 1.43 X10^3/uL; Neutrophil # 12.29 X10^3/uL (2.7-7.7); Neutrophil % 77.3 % (47-70); Platelet Count 169 K/mm3 (150-450); RBC Distribution Width CV 15.8 % (11.6-14.6); RBC Distribution Width SD 46.6 fl (35.1-43.9); Red Blood Count 3.73 M/mm3 (4.6-6.2); White Blood Count 15.9 K/mm3 (4.4-11.0)
[2018-10-04 07:43] LABS: POSITIVE COUNT YES; POSITIVE DIFFERENTIAL NO; POSITIVE MORPHOLOGY YES
[2018-10-04 07:48] LABS: Anion Gap 4 (5-15); BUN 38 mg/dL (7-18); BUN/Creat Ratio 37.6 RATIO (10-20); Calcium,Total 8.1 mg/dL (8.5-10.1); Chloride 108 mmol/L (98-107); Creatinine, Serum 1.01 mg/dL (0.70-1.30); EST Glomerular Filtration Rate 81 mL/min (>60); Est Glom Filt Rate - Afr Amer 98 mL/min (>60); Estimated Creatinine Clearance 83.32 ml/min; Glucose 109 mg/dL (74-106); Sodium Level 136 mmol/L (136-145)
[2018-10-04] MEDS: Aspirin 81 MG TAB.CHEW PO (08:24)
[2018-10-04] MEDS: Multivitamins,Therapeutic Tablet 1 TABLET PO (08:24)
[2018-10-04] MEDS: Carvedilol 25 MG Tablet PO ×2 (08:25→22:12)
[2018-10-04] MEDS: Enoxaparin 40 MG/0.4 ML Syringe SC (08:26)
[2018-10-04] MEDS: Polyethylene Glycol 3350 17 GM PACKET PO (08:26)
[2018-10-04] MEDS: oxyCODONE 5 MG Tablet PO (08:29)
--- NOTE | 2018-10-04 09:10 | VDLE_ITS ---
Reason For Study: LEG SWELLING RIGHT LEFT GSV is normal. GSV is normal. CFV is compressible, spontaneous, phasic, CFV is compressible, spontaneous, phasic, competent and demonstrates normal competent, and demonstrates normal augmentation. augmentation. FV is compressible, spontaneous, phasic, FV is compressible, spontaneous, phasic, competent and demonstrates normal competent and demonstrates normal augmentation. augmentation. POP V is compressible, spontaneous, phasic, POP V is compressible, spontaneous, phasic, competent and demonstrates normal competent and demonstrates normal augmentation. augmentation. T/P Trunk is compressible. T/P Trunk is compressible. PTV is compressible. RT PerV is compressible. Procedure Exam performed portable in patient room. Technically difficult due to body habitus. Calf veins not imaged due to location of ulcers. A preliminary report was called and/or faxed to [facility]. Interpretation Summary No evidence for acute deep venous thrombosis bilateral lower extremities with patent and compressible bilateral great saphenous veins. Calf veins could not be imaged because of the location of lower extremity ulcers. Ordering Physician: Ángel Li Referring Physician: Danyell Dobson M.D. Performed By: Acacia Sarkar RVT
--- NOTE | 2018-10-04 09:34 | NURSING ---
wound photo: left leg/foot
--- NOTE | 2018-10-04 09:34 | NURSING ---
wound photo: left leg
--- NOTE | 2018-10-04 09:35 | NURSING ---
wound photo: left foot
[2018-10-04 10:00] VITALS: BP 129/60; PULSE 60; RESP 18; TEMP 37.1; O2SAT 94
--- NOTE | 2018-10-04 11:16 | NURSING ---
pt with large emesis to gown and reporting stomach upset from all the potassium up to br with manager transmission's to get washed up.
[2018-10-04 13:02] LABS: M R Staph aureus DNA By PCR Negative (Negative); Probe Check PASS; Specimen Processing Control PASS; Staph aureus DNA By PCR NEGATIVE (Negative)
[2018-10-04] MEDS: Ondansetron 4 MG/2 ML Vial IV (13:18)
[2018-10-04 14:00] VITALS: BP 143/77; PULSE 65; RESP 18; TEMP 37.3; O2SAT 96
[2018-10-04] MEDS: Mag Hydrox/Al Hydrox/Simeth 30 ML UDC PO ×2 (14:33→22:20)
[2018-10-04 14:47] LABS: Pathologist Review Reviewed
--- NOTE | 2018-10-04 15:08 | PCM.PN.HOSP ---
Patient Problems: Active and Suspected Problems (Last Updated 09/30/18 @ 10:24 by Kalpesh Nuno DO) Cellulitis of left lower extremity (Acute) Sepsis (Acute) Cellulitis of left anterior lower leg (Acute) Acute kidney injury (Acute) Hypokalemia (Acute) Subjective: Patient has blisters popped up. Patient was seen by wound care nurse Linn. Patient has Juan F wrap bandage done on left lower extremity. Patient has big blisters in the dorsal aspect of foot and lower leg. Objective: General: Alert, Oriented x3, Cooperative HEENT: Atraumatic, PERRLA, EOMI, Normocephalic Neck: Supple, No JVD, Negative Carotid Bruits Lungs: Clear to auscultation, No rhonchi, No wheeze, air entry is bilaterally diminished Cardiovascular: Regular rate, Regular Rhythm, Normal S1, Normal S2, No murmurs Abdomen: Bowel Sounds Present, Soft, Non Tender, Non-Distended Extremities: No edema, Capillary Refill Less than 3 Seconds Skin: Rash Present - Multiple serous fluid filled blisters in the left lower leg and dorsal aspect of foot. Juan F wrap bandages done. Intertriginous yeast infection in abdominal fold of his skin and groin Musculoskeletal: No Tenderness to Palpation of Joints or Extremities Neurological: Cranial nerves II-XII grossly intact Psych/Mental Status: Normal Affect, Appropriate Vitals/I&O's: Vital Signs Temp Pulse Resp BP Pulse Ox 98.7 F 60 18 129/60 H 94 10/04/18 10:00 10/04/18 10:00 10/04/18 10:00 10/04/18 10:00 10/04/18 10:00 Oxygen Delivery Method Room Air Weight: 367 lb 1.114 oz Body Mass Index (BMI) 52.6 Intake and Output for Last 24 Hours 10/02/18 10/03/18 10/04/18 23:59 23:59 23:59 Intake Total 2257 / 2257 2155 / 2155 440 / 440 Output Total 550 / 550 600 / 600 800 / 800 Balance 1707 / 1707 1555 / 1555 -360 / -360 Microbiology Past 72 Hours 10/01/18 09:06 Blood Culture (Wb) - Left Hand Blood Culture - Preliminary No growth in 48 hours. 10/01/18 09:00 Blood Culture (Wb) - Anticubital Right Blood Culture - Preliminary No growth in 48 hours. 09/30/18 08:25 Blood Culture (Wb) - Right Hand Blood Culture - Final Streptococcus group A 09/30/18 08:07 Blood Culture (Wb) - Anticubital Left Bacteria Detection (PCR) - Final Streptococcus pyogenes 09/30/18 08:07 Blood Culture (Wb) - Anticubital Left Blood Culture - Final Streptococcus pyogenes 09/30/18 Unknown Nasal Secretion Nasal Screen MRSA/MSSA - Final Laboratory Results 10/04/18 06:57: WBC 15.9 H, RBC 3.73 L, Hgb 10.2 L, Hct 29.9 L, MCV 80.2, MCH 27.3, MCHC 34.1, RDW 15.8 H, RDW Differential 46.6 H, Plt Count 169, MPV 11.1, Immature Gran % (Auto) 2.300 H, Neut % (Auto) 77.3 H, Lymph % (Auto) 11.0 L, Jay % (Auto) 9.0, Eos % (Auto) 0.3, Baso % (Auto) 0.1, Absolute Neuts (auto) 12.3 H, Absolute Lymphs (auto) 1.75, Total Counted Not Reportable, Diff Path Review Reviewed 10/04/18 06:57: Sodium 136, Potassium 5.0, Chloride 108 H, Carbon Dioxide 24.0, Anion Gap 4 L, BUN 38 H, Creatinine 1.01, Estim Creat Clear Calc 83.32, Est GFR (MDRD) Af Amer 98, Est GFR (MDRD) Non-Af 81, BUN/Creatinine Ratio 37.6 H, Glucose 109 H, Calcium 8.1 L 10/04/18 09:15: S.aureus Protein A PCR NEGATIVE, MRSA (PCR) Negative Current Medications Acetaminophen (Tylenol) 650 mg PO Q6H PRN PRN PRN Reason: Mild Pain (1-3)/Temp > 100.7 F Last Admin: 10/02/18 21:47 Dose: 650 mg Al Hydroxide/Mg Hydroxide (Mylanta Ii) 30 ml PO Q4H PRN PRN PRN Reason: indigestion Last Admin: 10/04/18 14:33 Dose: 30 ml Aspirin (Aspirin, Baby) 81 mg PO DAILY@0800 [facility] Last Admin: 10/04/18 08:24 Dose: 81 mg Bisacodyl (Dulcolax) 10 mg RECTAL DAILY [facility] Stop: 10/06/18 10:01 Last Admin: 10/04/18 08:24 Dose: Not Given Carvedilol (Coreg) 25 mg PO BID [facility] Last Admin: 10/04/18 08:25 Dose: 25 mg Dextrose (D50w Syringe) 0 gm IV X1 PRN; Protocol PRN Reason: Hypoglycemia Doxazosin Mesylate (Cardura) 4 mg PO DAILY@2200 [facility] Last Admin: 10/03/18 21:59 Dose: 4 mg Enoxaparin Sodium (Lovenox) 40 mg SC DAILY@1000 [facility] Last Admin: 10/04/18 08:26 Dose: 40 mg Glucagon () 1 mg IM .X1 PRN PRN Reason: Hypoglycemia Cefazolin Sodium 2 gm/ Sodium (Chloride) 110 mls @ 150 mls/hr IV Q8 [facility] Last Admin: 10/04/18 14:28 Dose: 150 mls/hr Ibuprofen (Motrin) 600 mg PO Q8H PRN PRN Reason: Temp, PAIN Last Admin: 10/03/18 15:28 Dose: 600 mg Multivitamins (Multivitamin) 1 tablet PO DAILY@0800 [facility] Last Admin: 10/04/18 08:24 Dose: 1 tablet Ondansetron HCl (Zofran) 4 mg IV Q8H PRN PRN PRN Reason: NAUSEA/VOMITING Last Admin: 10/04/18 13:18 Dose: 4 mg Oxycodone HCl (Oxyir) 5 mg PO Q4H PRN PRN PRN Reason: Moderate Pain (4-6/10) Last Admin: 10/04/18 08:29 Dose: 5 mg Polyethylene Glycol (Miralax) 17 gm PO DAILY [facility] Last Admin: 10/04/18 08:26 Dose: 17 gm Senna/Docusate Sodium (Senokot-S, Sisi-Colace) 2 tablet PO BID [facility] Last Admin: 10/04/18 08:25 Dose: Not Given Sodium Chloride () 5 - 15 ml IV UD PRN PRN Reason: SALINE FLUSH Last Admin: 10/04/18 13:18 Dose: 10 ml Medical Necessity - Tobacco Use Smoking Status: Former smoker Tobacco Use: Non-smoker Assessment/Plan All Active Problems (Last Updated 09/30/18 @ 10:24 by Kalpesh Nuno DO) Cellulitis of left lower extremity (Acute) Lymphedema of left lower extremity (Acute) Sepsis (Acute) Cellulitis of left anterior lower leg (Acute) Acute kidney injury (Acute) Hypokalemia (Acute) There is a 57-year-old gentleman with history of hypertension, obstructive sleep apnea and morbid obesity and chronic lymphedema was admitted with erythema, pain, induration of left lower extremity consistent with cellulitis. Patient received Zosyn in the ED. 1. Streptococcus group A bacteremia Secondary to left lower extremity cellulitis. Bacterial PCR shows Streptococcus pyogenes sensitive to penicillin. The dose of IV cefazolin increased to 2 g q. 8 hourly. leukocytosis. Fever resolved but patient is still has ID consult reviewed and appreciated 2. Left lower extremity cellulitis MRSA swab negative + strep bacteremia Initially patient was started on vancomycin probably received 1 dose and then changed to IV cefazolin. CT leg negative for any gas. Venous Doppler ordered. Keep leg elevated CT lower extremity shows diffuse soft tissue swelling of lower leg compatible with cellulitis but no focal fluid or saphenous gas. 2. Sepsis present on admission Secondary cellulitis + bacteremia 3.Hypokalemia Potassium has been overcorrected. K5.0. Potassium supplement discontinued. Magnesium 1.9 Resume low-dose HCTZ from 10/05/2017 4. Acute kidney injury versus chronic kidney disease stage III: Resolved. Unknown baseline. Chronic CKD stage III. 5. VT E prophylaxis with Lovenox Microbiology Past 72 Hours 10/01/18 09:06 Blood Culture (Wb) - Left Hand Blood Culture - Preliminary No growth in 48 hours. 10/01/18 09:00 Blood Culture (Wb) - Anticubital Right Blood Culture - Preliminary No growth in 48 hours. 09/30/18 08:25 Blood Culture (Wb) - Right Hand Blood Culture - Final Streptococcus group A 09/30/18 08:07 Blood Culture (Wb) - Anticubital Left Bacteria Detection (PCR) - Final Streptococcus pyogenes 09/30/18 08:07 Blood Culture (Wb) - Anticubital Left Blood Culture - Final Streptococcus pyogenes 09/30/18 Unknown Nasal Secretion Nasal Screen MRSA/MSSA - Final Laboratory Results 10/04/18 06:57: WBC 15.9 H, RBC 3.73 L, Hgb 10.2 L, Hct 29.9 L, MCV 80.2, MCH 27.3, MCHC 34.1, RDW 15.8 H, RDW Differential 46.6 H, Plt Count 169, MPV 11.1, Immature Gran % (Auto) 2.300 H, Neut % (Auto) 77.3 H, Lymph % (Auto) 11.0 L, Jay % (Auto) 9.0, Eos % (Auto) 0.3, Baso % (Auto) 0.1, Absolute Neuts (auto) 12.3 H, Absolute Lymphs (auto) 1.75, Total Counted Not Reportable, Diff Path Review Reviewed 10/04/18 06:57: Sodium 136, Potassium 5.0, Chloride 108 H, Carbon Dioxide 24.0, Anion Gap 4 L, BUN 38 H, Creatinine 1.01, Estim Creat Clear Calc 83.32, Est GFR (MDRD) Af Amer 98, Est GFR (MDRD) Non-Af 81, BUN/Creatinine Ratio 37.6 H, Glucose 109 H, Calcium 8.1 L 10/04/18 09:15: S.aureus Protein A PCR NEGATIVE, MRSA (PCR) Negative Active Medications Acetaminophen (Tylenol) 650 mg PO Q6H PRN PRN PRN Reason: Mild Pain (1-3)/Temp > 100.7 F Last Admin: 10/02/18 21:47 Dose: 650 mg Al Hydroxide/Mg Hydroxide (Mylanta Ii) 30 ml PO Q4H PRN PRN PRN Reason: indigestion Last Admin: 10/04/18 14:33 Dose: 30 ml Aspirin (Aspirin, Baby) 81 mg PO DAILY@0800 [facility] Last Admin: 10/04/18 08:24 Dose: 81 mg Bisacodyl (Dulcolax) 10 mg RECTAL DAILY [facility] Stop: 10/06/18 10:01 Last Admin: 10/04/18 08:24 Dose: Not Given Carvedilol (Coreg) 25 mg PO BID [facility] Last Admin: 10/04/18 08:25 Dose: 25 mg Dextrose (D50w Syringe) 0 gm IV X1 PRN; Protocol PRN Reason: Hypoglycemia Doxazosin Mesylate (Cardura) 4 mg PO DAILY@2200 [facility] Last Admin: 10/03/18 21:59 Dose: 4 mg Enoxaparin Sodium (Lovenox) 40 mg SC DAILY@1000 [facility] Last Admin: 10/04/18 08:26 Dose: 40 mg Glucagon () 1 mg IM .X1 PRN PRN Reason: Hypoglycemia Cefazolin Sodium 2 gm/ Sodium (Chloride) 110 mls @ 150 mls/hr IV Q8 [facility] Last Admin: 10/04/18 14:28 Dose: 150 mls/hr Ibuprofen (Motrin) 600 mg PO Q8H PRN PRN Reason: Temp, PAIN Last Admin: 10/03/18 15:28 Dose: 600 mg Multivitamins (Multivitamin) 1 tablet PO DAILY@0800 [facility] Last Admin: 10/04/18 08:24 Dose: 1 tablet Ondansetron HCl (Zofran) 4 mg IV Q8H PRN PRN PRN Reason: NAUSEA/VOMITING Last Admin: 10/04/18 13:18 Dose: 4 mg Oxycodone HCl (Oxyir) 5 mg PO Q4H PRN PRN PRN Reason: Moderate Pain (4-6/10) Last Admin: 10/04/18 08:29 Dose: 5 mg Polyethylene Glycol (Miralax) 17 gm PO DAILY [facility] Last Admin: 10/04/18 08:26 Dose: 17 gm Senna/Docusate Sodium (Senokot-S, Sisi-Colace) 2 tablet PO BID [facility] Last Admin: 10/04/18 08:25 Dose: Not Given Sodium Chloride () 5 - 15 ml IV UD PRN PRN Reason: SALINE FLUSH Last Admin: 10/04/18 13:18 Dose: 10 ml Code Visit Inpatient E&M: [id number] [facility]
--- NOTE | 2018-10-04 15:16 | PN_ITS ---
Patient Problems: Active and Suspected Problems (Last Updated 09/30/18 @ 10:24 by Kalpesh Nuno DO) Cellulitis of left lower extremity (Acute) Sepsis (Acute) Cellulitis of left anterior lower leg (Acute) Acute kidney injury (Acute) Hypokalemia (Acute) Subjective: Patient has blisters popped up. Patient was seen by wound care nurse Linn. Patient has Juan F wrap bandage done on left lower extremity. Patient has big blisters in the dorsal aspect of foot and lower leg. Objective: General: Alert, Oriented x3, Cooperative HEENT: Atraumatic, PERRLA, EOMI, Normocephalic Neck: Supple, No JVD, Negative Carotid Bruits Lungs: Clear to auscultation, No rhonchi, No wheeze, air entry is bilaterally diminished Cardiovascular: Regular rate, Regular Rhythm, Normal S1, Normal S2, No murmurs Abdomen: Bowel Sounds Present, Soft, Non Tender, Non-Distended Extremities: No edema, Capillary Refill Less than 3 Seconds Skin: Rash Present - Multiple serous fluid filled blisters in the left lower leg and dorsal aspect of foot. Juan F wrap bandages done. Intertriginous yeast infection in abdominal fold of his skin and groin Musculoskeletal: No Tenderness to Palpation of Joints or Extremities Neurological: Cranial nerves II-XII grossly intact Psych/Mental Status: Normal Affect, Appropriate Vitals/I&O's: Vital Signs Temp Pulse Resp BP Pulse Ox 98.7 F 60 18 129/60 H 94 10/04/18 10:00 10/04/18 10:00 10/04/18 10:00 10/04/18 10:00 10/04/18 10:00 Oxygen Delivery Method Room Air Weight: 367 lb 1.114 oz Body Mass Index (BMI) 52.6 Intake and Output for Last 24 Hours 10/02/18 10/03/18 10/04/18 23:59 23:59 23:59 Intake Total 2257 / 2257 2155 / 2155 440 / 440 Output Total 550 / 550 600 / 600 800 / 800 Balance 1707 / 1707 1555 / 1555 -360 / -360 Microbiology Past 72 Hours 10/01/18 09:06 Blood Culture (Wb) - Left Hand Blood Culture - Preliminary No growth in 48 hours. 10/01/18 09:00 Blood Culture (Wb) - Anticubital Right Blood Culture - Preliminary No growth in 48 hours. 09/30/18 08:25 Blood Culture (Wb) - Right Hand Blood Culture - Final Streptococcus group A 09/30/18 08:07 Blood Culture (Wb) - Anticubital Left Bacteria Detection (PCR) - Final Streptococcus pyogenes 09/30/18 08:07 Blood Culture (Wb) - Anticubital Left Blood Culture - Final Streptococcus pyogenes 09/30/18 Unknown Nasal Secretion Nasal Screen MRSA/MSSA - Final Laboratory Results 10/04/18 06:57: WBC 15.9 H, RBC 3.73 L, Hgb 10.2 L, Hct 29.9 L, MCV 80.2, MCH 27.3, MCHC 34.1, RDW 15.8 H, RDW Differential 46.6 H, Plt Count 169, MPV 11.1, Immature Gran % (Auto) 2.300 H, Neut % (Auto) 77.3 H, Lymph % (Auto) 11.0 L, [place] % (Auto) 9.0, Eos % (Auto) 0.3, Baso % (Auto) 0.1, Absolute Neuts (auto) 12.3 H, Absolute Lymphs (auto) 1.75, Total Counted Not Reportable, Diff Path Review Reviewed 10/04/18 06:57: Sodium 136, Potassium 5.0, Chloride 108 H, Carbon Dioxide 24.0, Anion Gap 4 L, BUN 38 H, Creatinine 1.01, Estim Creat Clear Calc 83.32, Est GFR (MDRD) Af Amer 98, Est GFR (MDRD) Non-Af 81, BUN/Creatinine Ratio 37.6 H, Glucose 109 H, Calcium 8.1 L 10/04/18 09:15: S.aureus Protein A PCR NEGATIVE, MRSA (PCR) Negative Current Medications Acetaminophen (Tylenol) 650 mg PO Q6H PRN PRN PRN Reason: Mild Pain (1-3)/Temp > 100.7 F Last Admin: 10/02/18 21:47 Dose: 650 mg Al Hydroxide/Mg Hydroxide (Mylanta Ii) 30 ml PO Q4H PRN PRN PRN Reason: indigestion Last Admin: 10/04/18 14:33 Dose: 30 ml Aspirin (Aspirin, Baby) 81 mg PO DAILY@0800 [facility] Last Admin: 10/04/18 08:24 Dose: 81 mg Bisacodyl (Dulcolax) 10 mg RECTAL DAILY [facility] Stop: 10/06/18 10:01 Last Admin: 10/04/18 08:24 Dose: Not Given Carvedilol (Coreg) 25 mg PO BID [facility] Last Admin: 10/04/18 08:25 Dose: 25 mg Dextrose (D50w Syringe) 0 gm IV X1 PRN; Protocol PRN Reason: Hypoglycemia Doxazosin Mesylate (Cardura) 4 mg PO DAILY@2200 [facility] Last Admin: 10/03/18 21:59 Dose: 4 mg Enoxaparin Sodium (Lovenox) 40 mg SC DAILY@1000 [facility] Last Admin: 10/04/18 08:26 Dose: 40 mg Glucagon () 1 mg IM .X1 PRN PRN Reason: Hypoglycemia Cefazolin Sodium 2 gm/ Sodium (Chloride) 110 mls @ 150 mls/hr IV Q8 [facility] Last Admin: 10/04/18 14:28 Dose: 150 mls/hr Ibuprofen (Motrin) 600 mg PO Q8H PRN PRN Reason: Temp, PAIN Last Admin: 10/03/18 15:28 Dose: 600 mg Multivitamins (Multivitamin) 1 tablet PO DAILY@0800 [facility] Last Admin: 10/04/18 08:24 Dose: 1 tablet Ondansetron HCl (Zofran) 4 mg IV Q8H PRN PRN PRN Reason: NAUSEA/VOMITING Last Admin: 10/04/18 13:18 Dose: 4 mg Oxycodone HCl (Oxyir) 5 mg PO Q4H PRN PRN PRN Reason: Moderate Pain (4-6/10) Last Admin: 10/04/18 08:29 Dose: 5 mg Polyethylene Glycol (Miralax) 17 gm PO DAILY [facility] Last Admin: 10/04/18 08:26 Dose: 17 gm Senna/Docusate Sodium (Senokot-S, Sisi-Colace) 2 tablet PO BID [facility] Last Admin: 10/04/18 08:25 Dose: Not Given Sodium Chloride () 5 - 15 ml IV UD PRN PRN Reason: SALINE FLUSH Last Admin: 10/04/18 13:18 Dose: 10 ml Medical Necessity - Tobacco Use Smoking Status: Former smoker Tobacco Use: Non-smoker Assessment/Plan All Active Problems (Last Updated 09/30/18 @ 10:24 by Kalpesh Nuno DO) Cellulitis of left lower extremity (Acute) Lymphedema of left lower extremity (Acute) Sepsis (Acute) Cellulitis of left anterior lower leg (Acute) Acute kidney injury (Acute) Hypokalemia (Acute) There is a 57-year-old gentleman with history of hypertension, obstructive sleep apnea and morbid obesity and chronic lymphedema was admitted with erythema, pain, induration of left lower extremity consistent with cellulitis. Patient received Zosyn in the ED. 1. Streptococcus group A bacteremia * Secondary to left lower extremity cellulitis. Bacterial PCR shows Streptococcus pyogenes sensitive to penicillin. The dose of IV cefazolin increased to 2 g q. 8 hourly. leukocytosis. Fever resolved but patient is still has ID consult reviewed and appreciated 2. Left lower extremity cellulitis * MRSA swab negative + strep bacteremia * Initially patient was started on vancomycin probably received 1 dose and then changed to IV cefazolin. * CT leg negative for any gas. Venous Doppler ordered. * Keep leg elevated * CT lower extremity shows diffuse soft tissue swelling of lower leg compatible with cellulitis but no focal fluid or saphenous gas. 2. Sepsis * present on admission * Secondary cellulitis + bacteremia 3.Hypokalemia Potassium has been overcorrected. K5.0. Potassium supplement discontinued. * Magnesium 1.9 * Resume low-dose HCTZ from 10/05/2017 4. Acute kidney injury versus chronic kidney disease stage III: Resolved. * Unknown baseline. Chronic CKD stage III. 5. VT E prophylaxis with Lovenox Microbiology Past 72 Hours 10/01/18 09:06 Blood Culture (Wb) - Left Hand Blood Culture - Preliminary No growth in 48 hours. 10/01/18 09:00 Blood Culture (Wb) - Anticubital Right Blood Culture - Preliminary No growth in 48 hours. 09/30/18 08:25 Blood Culture (Wb) - Right Hand Blood Culture - Final Streptococcus group A 09/30/18 08:07 Blood Culture (Wb) - Anticubital Left Bacteria Detection (PCR) - Final Streptococcus pyogenes 09/30/18 08:07 Blood Culture (Wb) - Anticubital Left Blood Culture - Final Streptococcus pyogenes 09/30/18 Unknown Nasal Secretion Nasal Screen MRSA/MSSA - Final Laboratory Results 10/04/18 06:57: WBC 15.9 H, RBC 3.73 L, Hgb 10.2 L, Hct 29.9 L, MCV 80.2, MCH 27.3, MCHC 34.1, RDW 15.8 H, RDW Differential 46.6 H, Plt Count 169, MPV 11.1, Immature Gran % (Auto) 2.300 H, Neut % (Auto) 77.3 H, Lymph % (Auto) 11.0 L, [place] % (Auto) 9.0, Eos % (Auto) 0.3, Baso % (Auto) 0.1, Absolute Neuts (auto) 12.3 H, Absolute Lymphs (auto) 1.75, Total Counted Not Reportable, Diff Path Review Reviewed 10/04/18 06:57: Sodium 136, Potassium 5.0, Chloride 108 H, Carbon Dioxide 24.0, Anion Gap 4 L, BUN 38 H, Creatinine 1.01, Estim Creat Clear Calc 83.32, Est GFR (MDRD) Af Amer 98, Est GFR (MDRD) Non-Af 81, BUN/Creatinine Ratio 37.6 H, Glucose 109 H, Calcium 8.1 L 10/04/18 09:15: S.aureus Protein A PCR NEGATIVE, MRSA (PCR) Negative Active Medications Acetaminophen (Tylenol) 650 mg PO Q6H PRN PRN PRN Reason: Mild Pain (1-3)/Temp > 100.7 F Last Admin: 10/02/18 21:47 Dose: 650 mg Al Hydroxide/Mg Hydroxide (Mylanta Ii) 30 ml PO Q4H PRN PRN PRN Reason: indigestion Last Admin: 10/04/18 14:33 Dose: 30 ml Aspirin (Aspirin, Baby) 81 mg PO DAILY@0800 [facility] Last Admin: 10/04/18 08:24 Dose: 81 mg Bisacodyl (Dulcolax) 10 mg RECTAL DAILY [facility] Stop: 10/06/18 10:01 Last Admin: 10/04/18 08:24 Dose: Not Given Carvedilol (Coreg) 25 mg PO BID [facility] Last Admin: 10/04/18 08:25 Dose: 25 mg Dextrose (D50w Syringe) 0 gm IV X1 PRN; Protocol PRN Reason: Hypoglycemia Doxazosin Mesylate (Cardura) 4 mg PO DAILY@2200 [facility] Last Admin: 10/03/18 21:59 Dose: 4 mg Enoxaparin Sodium (Lovenox) 40 mg SC DAILY@1000 [facility] Last Admin: 10/04/18 08:26 Dose: 40 mg Glucagon () 1 mg IM .X1 PRN PRN Reason: Hypoglycemia Cefazolin Sodium 2 gm/ Sodium (Chloride) 110 mls @ 150 mls/hr IV Q8 [facility] Last Admin: 10/04/18 14:28 Dose: 150 mls/hr Ibuprofen (Motrin) 600 mg PO Q8H PRN PRN Reason: Temp, PAIN Last Admin: 10/03/18 15:28 Dose: 600 mg Multivitamins (Multivitamin) 1 tablet PO DAILY@0800 [facility] Last Admin: 10/04/18 08:24 Dose: 1 tablet Ondansetron HCl (Zofran) 4 mg IV Q8H PRN PRN PRN Reason: NAUSEA/VOMITING Last Admin: 10/04/18 13:18 Dose: 4 mg Oxycodone HCl (Oxyir) 5 mg PO Q4H PRN PRN PRN Reason: Moderate Pain (4-6/10) Last Admin: 10/04/18 08:29 Dose: 5 mg Polyethylene Glycol (Miralax) 17 gm PO DAILY [facility] Last Admin: 10/04/18 08:26 Dose: 17 gm Senna/Docusate Sodium (Senokot-S, Sisi-Colace) 2 tablet PO BID [facility] Last Admin: 10/04/18 08:25 Dose: Not Given Sodium Chloride () 5 - 15 ml IV UD PRN PRN Reason: SALINE FLUSH Last Admin: 10/04/18 13:18 Dose: 10 ml Code Visit Inpatient E&M: 73956 [facility] H[facility] L[facility]
--- NOTE | 2018-10-04 16:03 | PN.ID_ITS ---
Patient Problems: Active and Suspected Problems (Last Updated 09/30/18 @ 10:24 by Kalpesh Nuno DO) Cellulitis of left lower extremity (Acute) Sepsis (Acute) Cellulitis of left anterior lower leg (Acute) Acute kidney injury (Acute) Hypokalemia (Acute) Subjective: Feeling ok, no fever, increased blistering. - Physical Exam General: Alert, Cooperative, No apparent distress Lungs: Clear to auscultation, Normal air movement Cardiovascular: Regular rate, Regular Rhythm Abdomen: Soft, Non Tender, Non-Distended Extremities: Edema Vital Signs Temp Pulse Resp BP Pulse Ox 98.7 F 60 18 129/60 H 94 10/04/18 10:00 10/04/18 10:00 10/04/18 10:00 10/04/18 10:00 10/04/18 10:00 Oxygen Delivery Method Room Air Weight: 166.5 kg Body Mass Index (BMI) 52.6 Intake and Output for Last 24 Hours 10/02/18 10/03/18 10/04/18 23:59 23:59 23:59 Intake Total 2257 / 2257 2155 / 2155 440 / 440 Output Total 550 / 550 600 / 600 800 / 800 Balance 1707 / 1707 1555 / 1555 -360 / -360 Microbiology Past 72 Hours 10/01/18 09:06 Blood Culture - Preliminary Blood Culture (Wb) - Left Hand No growth in 48 hours. 10/01/18 09:00 Blood Culture - Preliminary Blood Culture (Wb) - Anticubital Right No growth in 48 hours. 09/30/18 08:25 Blood Culture - Final Blood Culture (Wb) - Right Hand Streptococcus group A 09/30/18 08:07 Bacteria Detection (PCR) - Final Blood Culture (Wb) - Anticubital Left Streptococcus pyogenes Blood Culture - Final Streptococcus pyogenes 09/30/18 Unknown Nasal Screen MRSA/MSSA - Final Nasal Secretion Laboratory Tests Past 24 Hrs 10/04/18 10/04/18 10/04/18 06:57 06:57 09:15 WBC 15.9 H RBC 3.73 L Hgb 10.2 L Hct 29.9 L MCV 80.2 MCH 27.3 MCHC 34.1 RDW 15.8 H RDW Differential 46.6 H Plt Count 169 MPV 11.1 Immature Gran % (Auto) 2.300 H Neut % (Auto) 77.3 H Lymph % (Auto) 11.0 L [place] % (Auto) 9.0 Eos % (Auto) 0.3 Baso % (Auto) 0.1 Absolute Neuts (auto) 12.3 H Absolute Lymphs (auto) 1.75 Total Counted Not Reportable Diff Path Review Reviewed Sodium 136 Potassium 5.0 Chloride 108 H Carbon Dioxide 24.0 Anion Gap 4 L BUN 38 H Creatinine 1.01 Estim Creat Clear Calc 83.32 Est GFR (MDRD) Af Amer 98 Est GFR (MDRD) Non-Af 81 BUN/Creatinine Ratio 37.6 H Glucose 109 H Calcium 8.1 L S.aureus Protein A PCR NEGATIVE MRSA (PCR) Negative Medical Necessity - Tobacco Use Smoking Status: Former smoker Tobacco Use: Non-smoker Route of nutrition/ use of supplements: [] Nutritional Intake: [] IV Site: [] Jimenez Catheter: [] - Assessment/Plan Antibiotics: [] Assessment/Plan: [] Active and Suspected Problems (Last Updated 09/30/18 @ 10:24 by Kalpesh Nuno DO) Cellulitis of left lower extremity (Acute) Sepsis (Acute) Cellulitis of left anterior lower leg (Acute) Acute kidney injury (Acute) Hypokalemia (Acute) sepsis due to GAS bacteremia from LLE cellulitis - Increased blistering. Bullae seem to be more related to fluid than uncontrolled infection. Cont cefazolin, plan on d/c home with keflex in next 1-2 days. Will follow
--- NOTE | 2018-10-04 16:23 | NURSING ---
PT CALLED OUT THAT IV BEEPING AGAIN AND WHEN WENT TO ROOM PT WITH ARM BENT EVEN THOUGH HAS BEEN TOLD SEVERAL TIMES THAT NEEDS TO KEEP ARM STRAIGHT AT LEAST WHILE ATB INFUSING. PT PUSHING SILENCE STEEN ON IVAC. IVAC LOCKED. PT DENIES THAT IS BENDING ARM THOUGH WAS FOUND TO HAVE IT BENT.
[2018-10-04 22:00] VITALS: BP 138/96; PULSE 75; RESP 18; TEMP 38; O2SAT 95
[2018-10-04] MEDS: Doxazosin 4 MG Tablet PO (22:12)
[2018-10-04] MEDS: Zolpidem Tartrate 5 MG Tablet PO (23:52)
[2018-10-05 00:05] VITALS: BP 141/65; PULSE 72; RESP 20; TEMP 37.4; O2SAT 94
[2018-10-05 05:21] LABS: Hematocrit 30.6 % (40-54); Hemoglobin 10.4 g/dl (13.0-16.5); Mean Corpuscular Hgb 27.4 pg (27.0-32.0); Mean Corpuscular Volume 80.7 fL (80-94); Mean Platelet Vol. 10.8 fl (6.2-12.0); Platelet Count 198 K/mm3 (150-450); RBC Distribution Width CV 15.8 % (11.6-14.6); RBC Distribution Width SD 46.7 fl (35.1-43.9); Red Blood Count 3.79 M/mm3 (4.6-6.2); White Blood Count 20.6 K/mm3 (4.4-11.0)
[2018-10-05 05:23] LABS: Differential Indicated MANUAL DIFF; POSITIVE COUNT YES; POSITIVE DIFFERENTIAL NO; POSITIVE MORPHOLOGY YES
[2018-10-05 05:45] LABS: Anion Gap 8 (5-15); BUN 29 mg/dL (7-18); BUN/Creat Ratio 35.2 RATIO (10-20); Calcium,Total 7.9 mg/dL (8.5-10.1); Chloride 108 mmol/L (98-107); Creatinine, Serum 0.82 mg/dL (0.70-1.30); EST Glomerular Filtration Rate 102 mL/min (>60); Est Glom Filt Rate - Afr Amer 123 mL/min (>60); Estimated Creatinine Clearance 102.63 ml/min; Glucose 118 mg/dL (74-106); Potassium 4.8 mmol/L (3.5-5.1); Sodium Level 139 mmol/L (136-145)
[2018-10-05 06:00] VITALS: BP 119/55; PULSE 70; RESP 18; TEMP 37.8; O2SAT 93
[2018-10-05] MEDS: 0.9% NaCl Peripheral Flush Adult/Peds IV (06:13)
[2018-10-05] MEDS: Cefazolin 2 GM in 0.9% Normal Saline 100 ML IV ×3 (06:14→22:04)
[2018-10-05 07:14] LABS: Lymphocyte 4 % (19-41); Metamyelocyte 1 % (0-1); Monocyte 2 % (0-10); Neutrophil-Band 2 % (0-5); Neutrophil-Segmented 91 % (47-70); Platelet Estimate ADEQUATE (ADEQ); Platelet Morphology LARGE; Red Cell Morphology NORM C+C NORMAL (NORM C&C); Total Cells Counted 100 (MANUAL DIFF)
[2018-10-05 07:15] LABS: Absolute Neutrophil Count 19.2 X10^3/uL (2.0-7.7)
[2018-10-05 07:16] LABS: Absolute Lymphocyte Count 0.82 X10^3/ul (0.83-4.51)
[2018-10-05 07:41] VITALS: BP 127/72; PULSE 69; RESP 16; TEMP 37.1; O2SAT 96
[2018-10-05] MEDS: Multivitamins,Therapeutic Tablet 1 TABLET PO (07:57)
[2018-10-05] MEDS: Aspirin 81 MG TAB.CHEW PO (07:57)
--- NOTE | 2018-10-05 08:24 | NURSING ---
wound photo: left lower leg
--- NOTE | 2018-10-05 08:25 | NURSING ---
wound photo: left lower leg
--- NOTE | 2018-10-05 08:26 | NURSING ---
wound photo: left lower leg/foot
[2018-10-05] MEDS: Carvedilol 25 MG Tablet PO ×2 (10:51→22:04)
[2018-10-05] MEDS: Enoxaparin 40 MG/0.4 ML Syringe SC (10:52)
[2018-10-05] MEDS: hydroCHLOROthiazide 12.5mg 12.5 MG PO (10:56)
--- NOTE | 2018-10-05 14:48 | PCM.PN.HOSP ---
Patient Problems: Active and Suspected Problems (Last Updated 09/30/18 @ 10:24 by Kalpesh Nuno DO) Cellulitis of left lower extremity (Acute) Sepsis (Acute) Cellulitis of left anterior lower leg (Acute) Acute kidney injury (Acute) Hypokalemia (Acute) Subjective: Patient has low-grade fever. No reflex tachycardia. Patient has leukocytosis worsening from 15,000-20,000 today. Left lower extremity wound photos reviewed with Linn. Patient has blister, generalized leg swelling with lymphedema but looks better. Vitals/I&O's: Vital Signs Temp Pulse Resp BP Pulse Ox 98.8 F 69 16 127/72 H 96 10/05/18 07:41 10/05/18 07:41 10/05/18 07:41 10/05/18 07:41 10/05/18 07:41 Oxygen Delivery Method Room Air Weight: 367 lb 1.114 oz Body Mass Index (BMI) 52.6 Intake and Output for Last 24 Hours 10/03/18 10/04/18 10/05/18 23:59 23:59 23:59 Intake Total 2155 / 2155 440 / 440 1600 / 1600 Output Total 600 / 600 800 / 800 950 / 950 Balance 1555 / 1555 -360 / -360 650 / 650 General: Alert, Oriented x3, Cooperative HEENT: Atraumatic, PERRLA, EOMI, Normocephalic Neck: Supple, No JVD, Negative Carotid Bruits Lungs: Clear to auscultation, Normal air movement Cardiovascular: Regular rate, Regular Rhythm, Normal S1, Normal S2, No murmurs Abdomen: Bowel Sounds Present, Soft, Non Tender, Non-Distended Extremities: No edema, Capillary Refill Less than 3 Seconds Skin: No rashes, No breakdown Musculoskeletal: No Tenderness to Palpation of Joints or Extremities, Arthritic Changes Neurological: Cranial nerves II-XII grossly intact, Deep Tendon Reflexes 2+/4 and Symmetrical, Neuro grossly intact Psych/Mental Status: Normal Affect, Appropriate Microbiology Past 72 Hours 10/04/18 09:15 Wound - Left Foot Gram Stain - Final 10/04/18 09:15 Wound - Left Foot Wound Culture - Preliminary No growth-Final to follow 10/01/18 09:06 Blood Culture (Wb) - Left Hand Blood Culture - Preliminary No growth in 48 hours. 10/01/18 09:00 Blood Culture (Wb) - Anticubital Right Blood Culture - Preliminary No growth in 48 hours. Laboratory Results 10/05/18 05:00: WBC 20.6 H, RBC 3.79 L, Hgb 10.4 L, Hct 30.6 L, MCV 80.7, MCH 27.4, MCHC 34.0, RDW 15.8 H, RDW Differential 46.7 H, Plt Count 198, MPV 10.8, Neut % (Auto) Not Reportable, Absolute Neuts (auto) 19.2 H, Absolute Lymphs (auto) 0.82 L, Total Counted 100, Neutrophils % (Manual) 91 H, Band Neutrophils % 2, Lymphocytes % (Manual) 4 L, Monocytes % (Manual) 2, Metamyelocytes % 1, Diff Path Review October, Platelet Estimate ADEQUATE, Plt Morphology Comment LARGE, RBC Morphology NORM C+C 10/05/18 05:00: Sodium 139, Potassium 4.8, Chloride 108 H, Carbon Dioxide 23.0, Anion Gap 8, BUN 29 H, Creatinine 0.82, Estim Creat Clear Calc 102.63, Est GFR (MDRD) Af Amer 123, Est GFR (MDRD) Non-Af 102, BUN/Creatinine Ratio 35.2 H, Glucose 118 H, Calcium 7.9 L Current Medications Acetaminophen (Tylenol) 650 mg PO Q6H PRN PRN PRN Reason: Mild Pain (1-3)/Temp > 100.7 F Last Admin: 10/02/18 21:47 Dose: 650 mg Al Hydroxide/Mg Hydroxide (Mylanta Ii) 30 ml PO Q4H PRN PRN PRN Reason: indigestion Last Admin: 10/04/18 22:20 Dose: 30 ml Aspirin (Aspirin, Baby) 81 mg PO DAILY@0800 [facility] Last Admin: 10/05/18 07:57 Dose: 81 mg Bisacodyl (Dulcolax) 10 mg RECTAL DAILY [facility] Stop: 10/06/18 10:01 Last Admin: 10/05/18 10:51 Dose: Not Given Carvedilol (Coreg) 25 mg PO BID [facility] Last Admin: 10/05/18 10:51 Dose: 25 mg Dextrose (D50w Syringe) 0 gm IV X1 PRN; Protocol PRN Reason: Hypoglycemia Doxazosin Mesylate (Cardura) 4 mg PO DAILY@2200 [facility] Last Admin: 10/04/18 22:12 Dose: 4 mg Enoxaparin Sodium (Lovenox) 40 mg SC DAILY@1000 [facility] Last Admin: 10/05/18 10:52 Dose: 40 mg Glucagon () 1 mg IM .X1 PRN PRN Reason: Hypoglycemia Hydrochlorothiazide () 12.5 mg PO DAILY [facility] Last Admin: 10/05/18 10:56 Dose: 12.5 mg Cefazolin Sodium 2 gm/ Sodium (Chloride) 110 mls @ 150 mls/hr IV Q8 [facility] Last Admin: 10/05/18 06:14 Dose: 150 mls/hr Ibuprofen (Motrin) 400 mg PO Q8H PRN PRN Reason: Temp, PAIN Multivitamins (Multivitamin) 1 tablet PO DAILY@0800 [facility] Last Admin: 10/05/18 07:57 Dose: 1 tablet Ondansetron HCl (Zofran) 4 mg IV Q8H PRN PRN PRN Reason: NAUSEA/VOMITING Last Admin: 10/04/18 13:18 Dose: 4 mg Oxycodone HCl (Oxyir) 5 mg PO Q4H PRN PRN PRN Reason: Moderate Pain (4-6/10) Last Admin: 10/04/18 08:29 Dose: 5 mg Polyethylene Glycol (Miralax) 17 gm PO DAILY [facility] Last Admin: 10/05/18 10:53 Dose: Not Given Senna/Docusate Sodium (Senokot-S, Sisi-Colace) 2 tablet PO BID [facility] Last Admin: 10/05/18 10:52 Dose: Not Given Sodium Chloride () 5 - 15 ml IV UD PRN PRN Reason: SALINE FLUSH Last Admin: 10/05/18 06:13 Dose: 5 ml Zolpidem Tartrate (Ambien (Generic)) 5 mg PO QHS PRN PRN PRN Reason: INSOMNIA Last Admin: 10/04/18 23:52 Dose: 5 mg Medical Necessity - Tobacco Use Smoking Status: Former smoker Tobacco Use: Non-smoker Assessment/Plan All Active Problems (Last Updated 09/30/18 @ 10:24 by Kalpesh Nuno DO) Cellulitis of left lower extremity (Acute) Lymphedema of left lower extremity (Acute) Sepsis (Acute) Cellulitis of left anterior lower leg (Acute) Acute kidney injury (Acute) Hypokalemia (Acute) There is a 57-year-old gentleman with history of hypertension, obstructive sleep apnea and morbid obesity and chronic lymphedema was admitted with erythema, pain, induration of left lower extremity consistent with cellulitis. Patient received Zosyn in the ED. 1. Streptococcus group A bacteremia Secondary to left lower extremity cellulitis. Bacterial PCR shows Streptococcus pyogenes sensitive to penicillin. The dose of IV cefazolin increased to 2 g q. 8 hourly. Worsening of leukocytosis. Mild low-grade fever. Discussed with ID and Dr. Calero will see the patient in the afternoon. 2. Left lower extremity cellulitis MRSA swab negative + strep bacteremia Initially patient was started on vancomycin probably received 1 dose and then changed to IV cefazolin. CT leg negative for any gas. Venous Doppler ordered. Keep leg elevated CT lower extremity shows diffuse soft tissue swelling of lower leg compatible with cellulitis but no focal fluid or saphenous gas. 2. Sepsis present on admission Secondary cellulitis + bacteremia 3.Hypokalemia Potassium has been overcorrected. K5.0. Potassium supplement discontinued. Magnesium 1.9 Resume low-dose HCTZ from 10/05/2017 4. Acute kidney injury versus chronic kidney disease stage III: Resolved. Unknown baseline. Chronic CKD stage III. 5. VT E prophylaxis with Lovenox. Constipation: Patient constipation is resolved and currently soft bowel movement. Stool softeners discontinued. Microbiology Past 72 Hours 10/04/18 09:15 Wound - Left Foot Gram Stain - Final 10/04/18 09:15 Wound - Left Foot Wound Culture - Preliminary No growth-Final to follow 10/01/18 09:06 Blood Culture (Wb) - Left Hand Blood Culture - Preliminary No growth in 48 hours. 10/01/18 09:00 Blood Culture (Wb) - Anticubital Right Blood Culture - Preliminary No growth in 48 hours. Laboratory Results 10/05/18 05:00: WBC 20.6 H, RBC 3.79 L, Hgb 10.4 L, Hct 30.6 L, MCV 80.7, MCH 27.4, MCHC 34.0, RDW 15.8 H, RDW Differential 46.7 H, Plt Count 198, MPV 10.8, Neut % (Auto) Not Reportable, Absolute Neuts (auto) 19.2 H, Absolute Lymphs (auto) 0.82 L, Total Counted 100, Neutrophils % (Manual) 91 H, Band Neutrophils % 2, Lymphocytes % (Manual) 4 L, Monocytes % (Manual) 2, Metamyelocytes % 1, Diff Path Review Reviewed, Platelet Estimate ADEQUATE, Plt Morphology Comment LARGE, RBC Morphology NORM C+C 10/05/18 05:00: Sodium 139, Potassium 4.8, Chloride 108 H, Carbon Dioxide 23.0, Anion Gap 8, BUN 29 H, Creatinine 0.82, Estim Creat Clear Calc 102.63, Est GFR (MDRD) Af Amer 123, Est GFR (MDRD) Non-Af 102, BUN/Creatinine Ratio 35.2 H, Glucose 118 H, Calcium 7.9 L 10/04/18 09:15: S.aureus Protein A PCR NEGATIVE, MRSA (PCR) Negative Active Medications Acetaminophen (Tylenol) 650 mg PO Q6H PRN PRN PRN Reason: Mild Pain (1-3)/Temp > 100.7 F Last Admin: 10/02/18 21:47 Dose: 650 mg Al Hydroxide/Mg Hydroxide (Mylanta Ii) 30 ml PO Q4H PRN PRN PRN Reason: indigestion Last Admin: 10/04/18 14:33 Dose: 30 ml Aspirin (Aspirin, Baby) 81 mg PO DAILY@0800 [facility] Last Admin: 10/04/18 08:24 Dose: 81 mg Bisacodyl (Dulcolax) 10 mg RECTAL DAILY [facility] Stop: 10/06/18 10:01 Last Admin: 10/04/18 08:24 Dose: Not Given Carvedilol (Coreg) 25 mg PO BID [facility] Last Admin: 10/04/18 08:25 Dose: 25 mg Dextrose (D50w Syringe) 0 gm IV X1 PRN; Protocol PRN Reason: Hypoglycemia Doxazosin Mesylate (Cardura) 4 mg PO DAILY@2200 [facility] Last Admin: 10/03/18 21:59 Dose: 4 mg Enoxaparin Sodium (Lovenox) 40 mg SC DAILY@1000 [facility] Last Admin: 10/04/18 08:26 Dose: 40 mg Glucagon () 1 mg IM .X1 PRN PRN Reason: Hypoglycemia Cefazolin Sodium 2 gm/ Sodium (Chloride) 110 mls @ 150 mls/hr IV Q8 [facility] Last Admin: 10/04/18 14:28 Dose: 150 mls/hr Ibuprofen (Motrin) 600 mg PO Q8H PRN PRN Reason: Temp, PAIN Last Admin: 10/03/18 15:28 Dose: 600 mg Multivitamins (Multivitamin) 1 tablet PO DAILY@0800 [facility] Last Admin: 10/04/18 08:24 Dose: 1 tablet Ondansetron HCl (Zofran) 4 mg IV Q8H PRN PRN PRN Reason: NAUSEA/VOMITING Last Admin: 10/04/18 13:18 Dose: 4 mg Oxycodone HCl (Oxyir) 5 mg PO Q4H PRN PRN PRN Reason: Moderate Pain (4-6/10) Last Admin: 10/04/18 08:29 Dose: 5 mg Polyethylene Glycol (Miralax) 17 gm PO DAILY [facility] Last Admin: 10/04/18 08:26 Dose: 17 gm Senna/Docusate Sodium (Senokot-S, Sisi-Colace) 2 tablet PO BID [facility] Last Admin: 10/04/18 08:25 Dose: Not Given Sodium Chloride () 5 - 15 ml IV UD PRN PRN Reason: SALINE FLUSH Last Admin: 10/04/18 13:18 Dose: 10 ml Code Visit Inpatient E&M: 46409 [facility] Hosp L2
[2018-10-05 14:49] LABS: Pathologist Review Reviewed
--- NOTE | 2018-10-05 14:51 | PN_ITS ---
Patient Problems: Active and Suspected Problems (Last Updated 09/30/18 @ 10:24 by Kalpesh Nuno DO) Cellulitis of left lower extremity (Acute) Sepsis (Acute) Cellulitis of left anterior lower leg (Acute) Acute kidney injury (Acute) Hypokalemia (Acute) Subjective: Patient has low-grade fever. No reflex tachycardia. Patient has leukocytosis worsening from 15,000-20,000 today. Left lower extremity wound photos reviewed with [place]. Patient has blister, generalized leg swelling with lymphedema but looks better. Vitals/I&O's: Vital Signs Temp Pulse Resp BP Pulse Ox 98.8 F 69 16 127/72 H 96 10/05/18 07:41 10/05/18 07:41 10/05/18 07:41 10/05/18 07:41 10/05/18 07:41 Oxygen Delivery Method Room Air Weight: 367 lb 1.114 oz Body Mass Index (BMI) 52.6 Intake and Output for Last 24 Hours 10/03/18 10/04/18 10/05/18 23:59 23:59 23:59 Intake Total 2155 / 2155 440 / 440 1600 / 1600 Output Total 600 / 600 800 / 800 950 / 950 Balance 1555 / 1555 -360 / -360 650 / 650 General: Alert, Oriented x3, Cooperative HEENT: Atraumatic, PERRLA, EOMI, Normocephalic Neck: Supple, No JVD, Negative Carotid Bruits Lungs: Clear to auscultation, Normal air movement Cardiovascular: Regular rate, Regular Rhythm, Normal S1, Normal S2, No murmurs Abdomen: Bowel Sounds Present, Soft, Non Tender, Non-Distended Extremities: No edema, Capillary Refill Less than 3 Seconds Skin: No rashes, No breakdown Musculoskeletal: No Tenderness to Palpation of Joints or Extremities, Arthritic Changes Neurological: Cranial nerves II-XII grossly intact, Deep Tendon Reflexes 2+/4 and Symmetrical, Neuro grossly intact Psych/Mental Status: Normal Affect, Appropriate Microbiology Past 72 Hours 10/04/18 09:15 Wound - Left Foot Gram Stain - Final 10/04/18 09:15 Wound - Left Foot Wound Culture - Preliminary No growth-Final to follow 10/01/18 09:06 Blood Culture (Wb) - Left Hand Blood Culture - Preliminary No growth in 48 hours. 10/01/18 09:00 Blood Culture (Wb) - Anticubital Right Blood Culture - Preliminary No growth in 48 hours. Laboratory Results 10/05/18 05:00: WBC 20.6 H, RBC 3.79 L, Hgb 10.4 L, Hct 30.6 L, MCV 80.7, MCH 27.4, MCHC 34.0, RDW 15.8 H, RDW Differential 46.7 H, Plt Count 198, MPV 10.8, Neut % (Auto) Not Reportable, Absolute Neuts (auto) 19.2 H, Absolute Lymphs (auto) 0.82 L, Total Counted 100, Neutrophils % (Manual) 91 H, Band Neutrophils % 2, Lymphocytes % (Manual) 4 L, Monocytes % (Manual) 2, Metamyelocytes % 1, Diff Path Review October, Platelet Estimate ADEQUATE, Plt Morphology Comment LARGE, RBC Morphology NORM C+C 10/05/18 05:00: Sodium 139, Potassium 4.8, Chloride 108 H, Carbon Dioxide 23.0, Anion Gap 8, BUN 29 H, Creatinine 0.82, Estim Creat Clear Calc 102.63, Est GFR (MDRD) Af Amer 123, Est GFR (MDRD) Non-Af 102, BUN/Creatinine Ratio 35.2 H, Glucose 118 H, Calcium 7.9 L Current Medications Acetaminophen (Tylenol) 650 mg PO Q6H PRN PRN PRN Reason: Mild Pain (1-3)/Temp > 100.7 F Last Admin: 10/02/18 21:47 Dose: 650 mg Al Hydroxide/Mg Hydroxide (Mylanta Ii) 30 ml PO Q4H PRN PRN PRN Reason: indigestion Last Admin: 10/04/18 22:20 Dose: 30 ml Aspirin (Aspirin, Baby) 81 mg PO DAILY@0800 [facility] Last Admin: 10/05/18 07:57 Dose: 81 mg Bisacodyl (Dulcolax) 10 mg RECTAL DAILY [facility] Stop: 10/06/18 10:01 Last Admin: 10/05/18 10:51 Dose: Not Given Carvedilol (Coreg) 25 mg PO BID [facility] Last Admin: 10/05/18 10:51 Dose: 25 mg Dextrose (D50w Syringe) 0 gm IV X1 PRN; Protocol PRN Reason: Hypoglycemia Doxazosin Mesylate (Cardura) 4 mg PO DAILY@2200 [facility] Last Admin: 10/04/18 22:12 Dose: 4 mg Enoxaparin Sodium (Lovenox) 40 mg SC DAILY@1000 [facility] Last Admin: 10/05/18 10:52 Dose: 40 mg Glucagon () 1 mg IM .X1 PRN PRN Reason: Hypoglycemia Hydrochlorothiazide () 12.5 mg PO DAILY [facility] Last Admin: 10/05/18 10:56 Dose: 12.5 mg Cefazolin Sodium 2 gm/ Sodium (Chloride) 110 mls @ 150 mls/hr IV Q8 [facility] Last Admin: 10/05/18 06:14 Dose: 150 mls/hr Ibuprofen (Motrin) 400 mg PO Q8H PRN PRN Reason: Temp, PAIN Multivitamins (Multivitamin) 1 tablet PO DAILY@0800 [facility] Last Admin: 10/05/18 07:57 Dose: 1 tablet Ondansetron HCl (Zofran) 4 mg IV Q8H PRN PRN PRN Reason: NAUSEA/VOMITING Last Admin: 10/04/18 13:18 Dose: 4 mg Oxycodone HCl (Oxyir) 5 mg PO Q4H PRN PRN PRN Reason: Moderate Pain (4-6/10) Last Admin: 10/04/18 08:29 Dose: 5 mg Polyethylene Glycol (Miralax) 17 gm PO DAILY [facility] Last Admin: 10/05/18 10:53 Dose: Not Given Senna/Docusate Sodium (Senokot-S, Sisi-Colace) 2 tablet PO BID [facility] Last Admin: 10/05/18 10:52 Dose: Not Given Sodium Chloride () 5 - 15 ml IV UD PRN PRN Reason: SALINE FLUSH Last Admin: 10/05/18 06:13 Dose: 5 ml Zolpidem Tartrate (Ambien (Generic)) 5 mg PO QHS PRN PRN PRN Reason: INSOMNIA Last Admin: 10/04/18 23:52 Dose: 5 mg Medical Necessity - Tobacco Use Smoking Status: Former smoker Tobacco Use: Non-smoker Assessment/Plan All Active Problems (Last Updated 09/30/18 @ 10:24 by Kalpesh Nuno DO) Cellulitis of left lower extremity (Acute) Lymphedema of left lower extremity (Acute) Sepsis (Acute) Cellulitis of left anterior lower leg (Acute) Acute kidney injury (Acute) Hypokalemia (Acute) There is a 57-year-old gentleman with history of hypertension, obstructive sleep apnea and morbid obesity and chronic lymphedema was admitted with erythema, pain, induration of left lower extremity consistent with cellulitis. Patient received Zosyn in the ED. 1. Streptococcus group A bacteremia * Secondary to left lower extremity cellulitis. Bacterial PCR shows Streptococcus pyogenes sensitive to penicillin. The dose of IV cefazolin increased to 2 g q. 8 hourly. Worsening of leukocytosis. Mild low-grade fever. Discussed with ID and Dr. Calero will see the patient in the afternoon. 2. Left lower extremity cellulitis * MRSA swab negative + strep bacteremia * Initially patient was started on vancomycin probably received 1 dose and then changed to IV cefazolin. * CT leg negative for any gas. Venous Doppler ordered. * Keep leg elevated * CT lower extremity shows diffuse soft tissue swelling of lower leg compatible with cellulitis but no focal fluid or saphenous gas. 2. Sepsis * present on admission * Secondary cellulitis + bacteremia 3.Hypokalemia Potassium has been overcorrected. K5.0. Potassium supplement discontinued. * Magnesium 1.9 * Resume low-dose HCTZ from 10/05/2017 4. Acute kidney injury versus chronic kidney disease stage III: Resolved. * Unknown baseline. Chronic CKD stage III. 5. VT E prophylaxis with Lovenox. Constipation: Patient constipation is resolved and currently soft bowel movement. Stool softeners discontinued. Microbiology Past 72 Hours 10/04/18 09:15 Wound - Left Foot Gram Stain - Final 10/04/18 09:15 Wound - Left Foot Wound Culture - Preliminary No growth-Final to follow 10/01/18 09:06 Blood Culture (Wb) - Left Hand Blood Culture - Preliminary No growth in 48 hours. 10/01/18 09:00 Blood Culture (Wb) - Anticubital Right Blood Culture - Preliminary No growth in 48 hours. Laboratory Results 10/05/18 05:00: WBC 20.6 H, RBC 3.79 L, Hgb 10.4 L, Hct 30.6 L, MCV 80.7, MCH 27.4, MCHC 34.0, RDW 15.8 H, RDW Differential 46.7 H, Plt Count 198, MPV 10.8, Neut % (Auto) Not Reportable, Absolute Neuts (auto) 19.2 H, Absolute Lymphs (auto) 0.82 L, Total Counted 100, Neutrophils % (Manual) 91 H, Band Neutrophils % 2, Lymphocytes % (Manual) 4 L, Monocytes % (Manual) 2, Metamyelocytes % 1, Diff Path Review Reviewed, Platelet Estimate ADEQUATE, Plt Morphology Comment LARGE, RBC Morphology NORM C+C 10/05/18 05:00: Sodium 139, Potassium 4.8, Chloride 108 H, Carbon Dioxide 23.0, Anion Gap 8, BUN 29 H, Creatinine 0.82, Estim Creat Clear Calc 102.63, Est GFR (MDRD) Af Amer 123, Est GFR (MDRD) Non-Af 102, BUN/Creatinine Ratio 35.2 H, Glucose 118 H, Calcium 7.9 L 10/04/18 09:15: S.aureus Protein A PCR NEGATIVE, MRSA (PCR) Negative Active Medications Acetaminophen (Tylenol) 650 mg PO Q6H PRN PRN PRN Reason: Mild Pain (1-3)/Temp > 100.7 F Last Admin: 10/02/18 21:47 Dose: 650 mg Al Hydroxide/Mg Hydroxide (Mylanta Ii) 30 ml PO Q4H PRN PRN PRN Reason: indigestion Last Admin: 10/04/18 14:33 Dose: 30 ml Aspirin (Aspirin, Baby) 81 mg PO DAILY@0800 [facility] Last Admin: 10/04/18 08:24 Dose: 81 mg Bisacodyl (Dulcolax) 10 mg RECTAL DAILY [facility] Stop: 10/06/18 10:01 Last Admin: 10/04/18 08:24 Dose: Not Given Carvedilol (Coreg) 25 mg PO BID [facility] Last Admin: 10/04/18 08:25 Dose: 25 mg Dextrose (D50w Syringe) 0 gm IV X1 PRN; Protocol PRN Reason: Hypoglycemia Doxazosin Mesylate (Cardura) 4 mg PO DAILY@2200 [facility] Last Admin: 10/03/18 21:59 Dose: 4 mg Enoxaparin Sodium (Lovenox) 40 mg SC DAILY@1000 [facility] Last Admin: 10/04/18 08:26 Dose: 40 mg Glucagon () 1 mg IM .X1 PRN PRN Reason: Hypoglycemia Cefazolin Sodium 2 gm/ Sodium (Chloride) 110 mls @ 150 mls/hr IV Q8 [facility] Last Admin: 10/04/18 14:28 Dose: 150 mls/hr Ibuprofen (Motrin) 600 mg PO Q8H PRN PRN Reason: Temp, PAIN Last Admin: 10/03/18 15:28 Dose: 600 mg Multivitamins (Multivitamin) 1 tablet PO DAILY@0800 [facility] Last Admin: 10/04/18 08:24 Dose: 1 tablet Ondansetron HCl (Zofran) 4 mg IV Q8H PRN PRN PRN Reason: NAUSEA/VOMITING Last Admin: 10/04/18 13:18 Dose: 4 mg Oxycodone HCl (Oxyir) 5 mg PO Q4H PRN PRN PRN Reason: Moderate Pain (4-6/10) Last Admin: 10/04/18 08:29 Dose: 5 mg Polyethylene Glycol (Miralax) 17 gm PO DAILY [facility] Last Admin: 10/04/18 08:26 Dose: 17 gm Senna/Docusate Sodium (Senokot-S, Sisi-Colace) 2 tablet PO BID [facility] Last Admin: 10/04/18 08:25 Dose: Not Given Sodium Chloride () 5 - 15 ml IV UD PRN PRN Reason: SALINE FLUSH Last Admin: 10/04/18 13:18 Dose: 10 ml Code Visit Inpatient E&M: 88663 Subs Hosp L2
[2018-10-05 15:31] VITALS: BP 157/65; PULSE 68; RESP 16; TEMP 37.4; O2SAT 94
[2018-10-05] MEDS: Mag Hydrox/Al Hydrox/Simeth 30 ML UDC PO ×2 (15:35→22:04)
[2018-10-05] MEDS: oxyCODONE 5 MG Tablet PO ×2 (15:47→22:03)
--- NOTE | 2018-10-05 18:03 | PCM.PN.ID ---
Patient Problems: Active and Suspected Problems (Last Updated 09/30/18 @ 10:24 by Kalpesh Nuno DO) Cellulitis of left lower extremity (Acute) Sepsis (Acute) Cellulitis of left anterior lower leg (Acute) Acute kidney injury (Acute) Hypokalemia (Acute) Subjective: Feeling ok, still some loose stool. No fever. - Physical Exam General: Alert, Cooperative, No apparent distress Lungs: Clear to auscultation, Normal air movement Cardiovascular: Regular rate, Regular Rhythm Abdomen: Soft, Non Tender, Non-Distended Skin: Ulcer/ Wound Vital Signs Temp Pulse Resp BP Pulse Ox 99.4 F H 68 16 157/65 H 94 10/05/18 15:31 10/05/18 15:31 10/05/18 15:31 10/05/18 15:31 10/05/18 15:31 Oxygen Delivery Method Room Air Weight: 166.5 kg Body Mass Index (BMI) 52.6 Intake and Output for Last 24 Hours 10/03/18 10/04/18 10/05/18 23:59 23:59 23:59 Intake Total 2155 / 2155 440 / 440 1600 / 1600 Output Total 600 / 600 800 / 800 950 / 950 Balance 1555 / 1555 -360 / -360 650 / 650 Microbiology Past 72 Hours 10/04/18 09:15 Gram Stain - Final Wound - Left Foot Wound Culture - Preliminary No growth-Final to follow 10/01/18 09:06 Blood Culture - Preliminary Blood Culture (Wb) - Left Hand No growth in 48 hours. 10/01/18 09:00 Blood Culture - Preliminary Blood Culture (Wb) - Anticubital Right No growth in 48 hours. Laboratory Tests Past 24 Hrs 10/05/18 10/05/18 05:00 05:00 WBC 20.6 H RBC 3.79 L Hgb 10.4 L Hct 30.6 L MCV 80.7 MCH 27.4 MCHC 34.0 RDW 15.8 H RDW Differential 46.7 H Plt Count 198 MPV 10.8 Neut % (Auto) Not Reportable Absolute Neuts (auto) 19.2 H Absolute Lymphs (auto) 0.82 L Total Counted 100 Neutrophils % (Manual) 91 H Band Neutrophils % 2 Lymphocytes % (Manual) 4 L Monocytes % (Manual) 2 Metamyelocytes % 1 Diff Path Review Reviewed Platelet Estimate ADEQUATE Plt Morphology Comment LARGE RBC Morphology NORM C+C Sodium 139 Potassium 4.8 Chloride 108 H Carbon Dioxide 23.0 Anion Gap 8 BUN 29 H Creatinine 0.82 Estim Creat Clear Calc 102.63 Est GFR (MDRD) Af Amer 123 Est GFR (MDRD) Non-Af 102 BUN/Creatinine Ratio 35.2 H Glucose 118 H Calcium 7.9 L Medical Necessity - Tobacco Use Smoking Status: Former smoker Tobacco Use: Non-smoker Route of nutrition/ use of supplements: [] Nutritional Intake: [] IV Site: [] Jimenez Catheter: [] - Assessment/Plan Antibiotics: [] Assessment/Plan: [] Active and Suspected Problems (Last Updated 09/30/18 @ 10:24 by Kalpesh Nuno DO) Cellulitis of left lower extremity (Acute) Sepsis (Acute) Cellulitis of left anterior lower leg (Acute) Acute kidney injury (Acute) Hypokalemia (Acute) sepsis due to GAS bacteremia from LLE cellulitis - Bullae seem to be more related to fluid than uncontrolled infection. Cont cefazolin. Rising wbc and low grade temps. Leg improving on photo. Will check cdiff. Will follow
[2018-10-05 19:46] VITALS: BP 140/59; PULSE 65; RESP 16; TEMP 37.2; O2SAT 93
[2018-10-05] MEDS: Doxazosin 4 MG Tablet PO (22:04)
[2018-10-06 01:45] VITALS: BP 134/68; PULSE 66; RESP 20; TEMP 37.1; O2SAT 94
[2018-10-06] MEDS: Cefazolin 2 GM in 0.9% Normal Saline 100 ML IV ×3 (06:00→22:08)
[2018-10-06] MEDS: 0.9% NaCl Peripheral Flush Adult/Peds IV ×4 (06:10→22:08)
[2018-10-06 06:36] LABS: Hemoglobin 9.9 g/dl (13.0-16.5); Mean Corp Hgb Conc 34.1 g/gl (32-36); Mean Corpuscular Hgb 27.8 pg (27.0-32.0); Mean Corpuscular Volume 81.5 fL (80-94); Mean Platelet Vol. 10.9 fl (6.2-12.0); Platelet Count 219 K/mm3 (150-450); RBC Distribution Width CV 15.7 % (11.6-14.6); RBC Distribution Width SD 46.2 fl (35.1-43.9); Red Blood Count 3.56 M/mm3 (4.6-6.2); White Blood Count 18.8 K/mm3 (4.4-11.0)
[2018-10-06 06:41] LABS: Differential Indicated MANUAL DIFF; POSITIVE COUNT YES; POSITIVE DIFFERENTIAL NO; POSITIVE MORPHOLOGY YES
[2018-10-06 06:43] LABS: Anion Gap 7 (5-15); BUN 24 mg/dL (7-18); BUN/Creat Ratio 34.2 RATIO (10-20); Calcium,Total 7.5 mg/dL (8.5-10.1); Chloride 107 mmol/L (98-107); EST Glomerular Filtration Rate 123 mL/min (>60); Est Glom Filt Rate - Afr Amer 149 mL/min (>60); Estimated Creatinine Clearance 120.22 ml/min; Glucose 106 mg/dL (74-106); Potassium 4.2 mmol/L (3.5-5.1); Sodium Level 138 mmol/L (136-145)
[2018-10-06 07:03] LABS: Anisocytosis 1+; Hypochromasia 1+; Lymphocyte 6 % (19-41); Metamyelocyte 4 % (0-1); Microcytosis 1+; Monocyte 8 % (0-10); Myelocyte 1 (0-0); Neutrophil-Band 3 % (0-5); Neutrophil-Segmented 78 % (47-70); Platelet Estimate ADEQUATE (ADEQ); Polychromasia 1+; Total Cells Counted 100 (MANUAL DIFF)
[2018-10-06 07:04] LABS: Absolute Neutrophil Count 15.2 X10^3/uL (2.0-7.7)
[2018-10-06 07:05] LABS: Absolute Lymphocyte Count 1.13 X10^3/ul (0.83-4.51)
[2018-10-06 08:41] VITALS: BP 127/57; PULSE 61; RESP 16; TEMP 37.4; O2SAT 93
[2018-10-06] MEDS: Multivitamins,Therapeutic Tablet 1 TABLET PO (08:41)
[2018-10-06] MEDS: Aspirin 81 MG TAB.CHEW PO (08:41)
[2018-10-06 08:45] VITALS: PULSE 60
[2018-10-06] MEDS: Carvedilol 25 MG Tablet PO ×2 (10:48→22:08)
[2018-10-06] MEDS: hydroCHLOROthiazide 12.5mg 12.5 MG PO (10:48)
[2018-10-06] MEDS: Enoxaparin 40 MG/0.4 ML Syringe SC (10:48)
[2018-10-06] MEDS: oxyCODONE 5 MG Tablet PO ×3 (10:51→22:40)
--- NOTE | 2018-10-06 11:46 | NURSING ---
wound photo: left lower leg (medial)
--- NOTE | 2018-10-06 11:47 | NURSING ---
wound photo: left lower leg (anterolateral)
--- NOTE | 2018-10-06 11:48 | NURSING ---
wound photo: left lateral lower leg/foot
--- NOTE | 2018-10-06 11:49 | NURSING ---
wound photo: left medial ankle
[2018-10-06 12:39] LABS: Pathologist Review Reviewed
--- NOTE | 2018-10-06 13:04 | CT_ITS ---
STUDY: CT LEFT TIBIA/FIBULA WITHOUT CONTRAST REASON FOR EXAM: Left tibial/fibular cellulitis. TECHNIQUE: Transaxial CT imaging of the tibia/fibula was performed. Sagittal and coronal images were reconstructed. Individualized dose optimization techniques were used for this CT. COMPARISON: CT images 10/01/2018. FINDINGS: Normal tibia and fibula without osseous destruction to indicate osteomyelitis. There is soft tissue swelling, greatest at the anterior aspect without significant change since the prior study. There is no demonstrated focal fluid collection or soft tissue gas to indicate abscess. There are small phleboliths in the anterior subcutis adipose space. There is severe arthrosis of the patellofemoral compartment with marginal osteophytes and joint space loss (axial images 6-11). There are small marginal osteophytes and joint space narrowing of the medial femorotibial compartment (coronal reconstructions 32-34). There are small marginal osteophytes of the lateral femorotibial compartment without joint space narrowing. There is a small intra-articular body at the anterior aspect of the knee (sagittal reconstructions 51). There is arthrosis of the talonavicular articulation with dorsal osteophytes and mild joint space narrowing (sagittal reconstructions 49-52). CT/Extremity Lower without Contra IMPRESSION: Soft tissue swelling without interval change and without demonstrated focal fluid collection to indicate abscess. 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 Electronically Signed: Dilan Rocha MD at 14:30 EDT Tel , Service support ,
[2018-10-06 14:40] VITALS: BP 128/60; PULSE 64; RESP 18; TEMP 36.9; O2SAT 93
--- NOTE | 2018-10-06 15:15 | PCM.PN.HOSP ---
Patient Problems: Active and Suspected Problems (Last Updated 09/30/18 @ 10:24 by Kalpesh Nuno DO) Cellulitis of left lower extremity (Acute) Sepsis (Acute) Cellulitis of left anterior lower leg (Acute) Acute kidney injury (Acute) Hypokalemia (Acute) Subjective: Patient is feeling nauseated, loss of appetite and some abdominal discomfort mainly in the mid abdomen. No vomiting yet. Patient also had soft loose bowel movement more than 3 times yesterday but he was on stool softener/Dulcolax suppository as he had constipation for 7 days. Stool for C. difficile came positive. Patient had low-grade fever and leukocytosis. Left lower leg inspected and examined. Wound photo reviewed with wound nurse. Vitals/I&O's: Vital Signs Temp Pulse Resp BP Pulse Ox 98.4 F 64 18 128/60 H 93 10/06/18 14:40 10/06/18 14:40 10/06/18 14:40 10/06/18 14:40 10/06/18 14:40 Oxygen Delivery Method Room Air Weight: 367 lb 1.114 oz Body Mass Index (BMI) 52.6 Intake and Output for Last 24 Hours 10/04/18 10/05/18 10/06/18 23:59 23:59 23:59 Intake Total 440 / 440 1600 / 1600 1767 / 1767 Output Total 800 / 800 950 / 950 1550 / 1550 Balance -360 / -360 650 / 650 217 / 217 General: Alert, Oriented x3, Cooperative, Lethargic HEENT: Atraumatic, PERRLA, EOMI, Normocephalic Oral: Moist Mucosa Neck: Supple, No JVD, Negative Carotid Bruits Lungs: Clear to auscultation, No rhonchi, No wheeze, No rales, Diminished Cardiovascular: Regular rate, Regular Rhythm, Normal S1, Normal S2, No murmurs Abdomen: Bowel Sounds Present, Soft, Hyperactive Bowel Sounds, Tender - Mild tenderness present in mid abdomen around umbilicus Extremities: No edema, Capillary Refill Less than 3 Seconds Skin: Ulcer/ Wound - Superficial erosion and blister present on the left leg. Main blister is on the dorsum of foot. Mottling of the skin with grayish and blackish depigmentation, around the donor site mainly lateral aspect of left leg. Tenderness is present., Skin Tear, Rash Present Musculoskeletal: No Tenderness to Palpation of Joints or Extremities, Arthritic Changes Lymphatic: No Cervical, Supraclavicular, or Inguinal Adenopathy Neurological: Cranial nerves II-XII grossly intact, Deep Tendon Reflexes 2+/4 and Symmetrical, Neuro grossly intact Psych/Mental Status: Normal Affect, Appropriate Microbiology Past 72 Hours 10/01/18 09:06 Blood Culture (Wb) - Left Hand Blood Culture - Final No growth in 5 days. 10/01/18 09:00 Blood Culture (Wb) - Anticubital Right Blood Culture - Final No growth in 5 days. 10/06/18 08:30 Stool C. difficile DNA Amplification - Final Toxigenic C. difficile DNA 10/04/18 09:15 Wound - Left Foot Gram Stain - Final 10/04/18 09:15 Wound - Left Foot Wound Culture - Final No growth aerobically. Laboratory Results 10/06/18 05:46: WBC 18.8 H, RBC 3.56 L, Hgb 9.9 L, Hct 29.0 L, MCV 81.5, MCH 27.8, MCHC 34.1, RDW 15.7 H, RDW Differential 46.2 H, Plt Count 219, MPV 10.9, Neut % (Auto) Not Reportable, Absolute Neuts (auto) 15.2 H, Absolute Lymphs (auto) 1.13, Total Counted 100, Neutrophils % (Manual) 78 H, Band Neutrophils % 3, Lymphocytes % (Manual) 6 L, Monocytes % (Manual) 8, Metamyelocytes % 4 H, Myelocytes % 1 H, Diff Path Review Reviewed, Platelet Estimate ADEQUATE, Polychromasia 1+, Hypochromasia 1+, Anisocytosis 1+, Microcytosis 1+ 10/06/18 05:46: Sodium 138, Potassium 4.2, Chloride 107, Carbon Dioxide 24.0, Anion Gap 7, BUN 24 H, Creatinine 0.70, Estim Creat Clear Calc 120.22, Est GFR (MDRD) Af Amer 149, Est GFR (MDRD) Non-Af 123, BUN/Creatinine Ratio 34.2 H, Glucose 106, Calcium 7.5 L 10/06/18 08:30: Miscellaneous Test Pending Current Medications Acetaminophen (Tylenol) 650 mg PO Q6H PRN PRN PRN Reason: Mild Pain (1-3)/Temp > 100.7 F Last Admin: 10/02/18 21:47 Dose: 650 mg Al Hydroxide/Mg Hydroxide (Mylanta Ii) 30 ml PO Q4H PRN PRN PRN Reason: indigestion Last Admin: 10/05/18 22:04 Dose: 30 ml Aspirin (Aspirin, Baby) 81 mg PO DAILY@0800 [facility] Last Admin: 10/06/18 08:41 Dose: 81 mg Carvedilol (Coreg) 25 mg PO BID [facility] Last Admin: 10/06/18 10:48 Dose: 25 mg Dextrose (D50w Syringe) 0 gm IV X1 PRN; Protocol PRN Reason: Hypoglycemia Doxazosin Mesylate (Cardura) 4 mg PO DAILY@2200 [facility] Last Admin: 10/05/18 22:04 Dose: 4 mg Enoxaparin Sodium (Lovenox) 40 mg SC DAILY@1000 [facility] Last Admin: 10/06/18 10:48 Dose: 40 mg Glucagon () 1 mg IM .X1 PRN PRN Reason: Hypoglycemia Hydrochlorothiazide () 12.5 mg PO DAILY [facility] Last Admin: 10/06/18 10:48 Dose: 12.5 mg Cefazolin Sodium 2 gm/ Sodium (Chloride) 110 mls @ 150 mls/hr IV Q8 [facility] Last Admin: 10/06/18 14:39 Dose: 150 mls/hr Ibuprofen (Motrin) 400 mg PO Q8H PRN PRN Reason: Temp, PAIN Multivitamins (Multivitamin) 1 tablet PO DAILY@0800 [facility] Last Admin: 10/06/18 08:41 Dose: 1 tablet Ondansetron HCl (Zofran) 4 mg IV Q8H PRN PRN PRN Reason: NAUSEA/VOMITING Last Admin: 10/04/18 13:18 Dose: 4 mg Oxycodone HCl (Oxyir) 5 mg PO Q4H PRN PRN PRN Reason: Moderate Pain (4-6/10) Last Admin: 10/06/18 10:51 Dose: 5 mg Polyethylene Glycol (Miralax) 17 gm PO DAILY PRN PRN PRN Reason: constipation Sodium Chloride () 5 - 15 ml IV UD PRN PRN Reason: SALINE FLUSH Last Admin: 10/06/18 14:39 Dose: 10 ml Vancomycin HCl () 125 mg PO Q6 [facility] Last Admin: 10/06/18 13:50 Dose: 125 mg Zolpidem Tartrate (Ambien (Generic)) 5 mg PO QHS PRN PRN PRN Reason: INSOMNIA Last Admin: 10/04/18 23:52 Dose: 5 mg Medical Necessity - Tobacco Use Smoking Status: Former smoker Tobacco Use: Non-smoker Assessment/Plan All Active Problems (Last Updated 09/30/18 @ 10:24 by Kalpesh Nuno DO) Cellulitis of left lower extremity (Acute) Lymphedema of left lower extremity (Acute) Sepsis (Acute) Cellulitis of left anterior lower leg (Acute) Acute kidney injury (Acute) Hypokalemia (Acute) There is a 57-year-old gentleman with history of hypertension, obstructive sleep apnea and morbid obesity and chronic lymphedema was admitted with erythema, pain, induration of left lower extremity consistent with cellulitis. Patient received Zosyn in the ED. 1. Streptococcus group A bacteremia Secondary to left lower extremity cellulitis. Bacterial PCR shows Streptococcus pyogenes sensitive to penicillin. The dose of IV cefazolin increased to 2 g q. 8 hourly. Worsening of leukocytosis. Mild low-grade fever. Discussed with ID about mottling and schneider/blackish pigmentation around lateral aspect of left leg with concern for deep soft tissue infection/necrotizing fasciitis. Repeat CT scan was done without contrast as patient had acute kidney injury during first CT with contrast. Repeat CT scan reported as Soft tissue swelling without interval change and without demonstrated focal fluid collection to indicate abscess. Discussed with wound nurse. 2. Left lower extremity cellulitis MRSA swab negative + strep bacteremia Initially patient was started on vancomycin probably received 1 dose and then changed to IV cefazolin. CT leg negative for any gas. Venous Doppler ordered. Keep leg elevated CT lower extremity shows diffuse soft tissue swelling of lower leg compatible with cellulitis but no focal fluid or saphenous gas. 2. Sepsis present on admission Secondary cellulitis + bacteremia 3.Hypokalemia Potassium has been overcorrected. K5.0. Potassium supplement discontinued. Magnesium 1.9 Resume low-dose HCTZ from 10/05/2017 4. Acute kidney injury versus chronic kidney disease stage III: Resolved. I think most probably secondary to contrast-induced nephropathy as it developed during the same time of CT scan with contrast. Resolved. IV contrast was not given during second CT scan. 5. 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 This was evident in left lower leg CT scan. VT E prophylaxis with Lovenox. Constipation: Patient constipation is resolved and currently soft bowel movement. Stool softeners discontinued. Microbiology Past 72 Hours 10/01/18 09:06 Blood Culture (Wb) - Left Hand Blood Culture - Final No growth in 5 days. 10/01/18 09:00 Blood Culture (Wb) - Anticubital Right Blood Culture - Final No growth in 5 days. 10/06/18 08:30 Stool C. difficile DNA Amplification - Final Toxigenic C. difficile DNA 10/04/18 09:15 Wound - Left Foot Gram Stain - Final 10/04/18 09:15 Wound - Left Foot Wound Culture - Final No growth aerobically. Laboratory Results 10/06/18 05:46: WBC 18.8 H, RBC 3.56 L, Hgb 9.9 L, Hct 29.0 L, MCV 81.5, MCH 27.8, MCHC 34.1, RDW 15.7 H, RDW Differential 46.2 H, Plt Count 219, MPV 10.9, Neut % (Auto) Not Reportable, Absolute Neuts (auto) 15.2 H, Absolute Lymphs (auto) 1.13, Total Counted 100, Neutrophils % (Manual) 78 H, Band Neutrophils % 3, Lymphocytes % (Manual) 6 L, Monocytes % (Manual) 8, Metamyelocytes % 4 H, Myelocytes % 1 H, Diff Path Review Reviewed, Platelet Estimate ADEQUATE, Polychromasia 1+, Hypochromasia 1+, Anisocytosis 1+, Microcytosis 1+ 10/06/18 05:46: Sodium 138, Potassium 4.2, Chloride 107, Carbon Dioxide 24.0, Anion Gap 7, BUN 24 H, Creatinine 0.70, Estim Creat Clear Calc 120.22, Est GFR (MDRD) Af Amer 149, Est GFR (MDRD) Non-Af 123, BUN/Creatinine Ratio 34.2 H, Glucose 106, Calcium 7.5 L 10/06/18 08:30: Miscellaneous Test Pending Active Medications Acetaminophen (Tylenol) 650 mg PO Q6H PRN PRN PRN Reason: Mild Pain (1-3)/Temp > 100.7 F Last Admin: 10/02/18 21:47 Dose: 650 mg Al Hydroxide/Mg Hydroxide (Mylanta Ii) 30 ml PO Q4H PRN PRN PRN Reason: indigestion Last Admin: 10/04/18 14:33 Dose: 30 ml Aspirin (Aspirin, Baby) 81 mg PO DAILY@0800 [facility] Last Admin: 10/04/18 08:24 Dose: 81 mg Bisacodyl (Dulcolax) 10 mg RECTAL DAILY [facility] Stop: 10/06/18 10:01 Last Admin: 10/04/18 08:24 Dose: Not Given Carvedilol (Coreg) 25 mg PO BID [facility] Last Admin: 10/04/18 08:25 Dose: 25 mg Dextrose (D50w Syringe) 0 gm IV X1 PRN; Protocol PRN Reason: Hypoglycemia Doxazosin Mesylate (Cardura) 4 mg PO DAILY@2200 [facility] Last Admin: 10/03/18 21:59 Dose: 4 mg Enoxaparin Sodium (Lovenox) 40 mg SC DAILY@1000 [facility] Last Admin: 10/04/18 08:26 Dose: 40 mg Glucagon () 1 mg IM .X1 PRN PRN Reason: Hypoglycemia Cefazolin Sodium 2 gm/ Sodium (Chloride) 110 mls @ 150 mls/hr IV Q8 [facility] Last Admin: 10/04/18 14:28 Dose: 150 mls/hr Ibuprofen (Motrin) 600 mg PO Q8H PRN PRN Reason: Temp, PAIN Last Admin: 10/03/18 15:28 Dose: 600 mg Multivitamins (Multivitamin) 1 tablet PO DAILY@0800 [facility] Last Admin: 10/04/18 08:24 Dose: 1 tablet Ondansetron HCl (Zofran) 4 mg IV Q8H PRN PRN PRN Reason: NAUSEA/VOMITING Last Admin: 10/04/18 13:18 Dose: 4 mg Oxycodone HCl (Oxyir) 5 mg PO Q4H PRN PRN PRN Reason: Moderate Pain (4-6/10) Last Admin: 10/04/18 08:29 Dose: 5 mg Polyethylene Glycol (Miralax) 17 gm PO DAILY [facility] Last Admin: 10/04/18 08:26 Dose: 17 gm Senna/Docusate Sodium (Senokot-S, Sisi-Colace) 2 tablet PO BID [facility] Last Admin: 10/04/18 08:25 Dose: Not Given Sodium Chloride () 5 - 15 ml IV UD PRN PRN Reason: SALINE FLUSH Last Admin: 10/04/18 13:18 Dose: 10 ml Clinical Impression(s) from Imaging Studies Lower Extremity CT 10/01/18 09:34 IMPRESSION: 1. Diffuse soft tissue swelling of the lower leg (and visualized ankle/foot) compatible with history of cellulitis or edema. No focal fluid collection or subcutaneous gas demonstrated. 2. Varicose veins. 3. Degenerative changes of the knee and visualized ankle/foot. 4. Small joint effusion. Lower Extremity CT 10/06/18 13:04 IMPRESSION: Soft tissue swelling without interval change and without demonstrated focal fluid collection to indicate abscess. 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 Code Visit Inpatient E&M: 75645 Subs Hosp L3
--- NOTE | 2018-10-06 15:21 | PN_ITS ---
Patient Problems: Active and Suspected Problems (Last Updated 09/30/18 @ 10:24 by Kalpesh Nuno DO) Cellulitis of left lower extremity (Acute) Sepsis (Acute) Cellulitis of left anterior lower leg (Acute) Acute kidney injury (Acute) Hypokalemia (Acute) Subjective: Patient is feeling nauseated, loss of appetite and some abdominal discomfort mainly in the mid abdomen. No vomiting yet. Patient also had soft loose bowel movement more than 3 times yesterday but he was on stool softener/Dulcolax suppository as he had constipation for 7 days. Stool for C. difficile came positive. Patient had low-grade fever and leukocytosis. Left lower leg inspected and examined. Wound photo reviewed with wound nurse. Vitals/I&O's: Vital Signs Temp Pulse Resp BP Pulse Ox 98.4 F 64 18 128/60 H 93 10/06/18 14:40 10/06/18 14:40 10/06/18 14:40 10/06/18 14:40 10/06/18 14:40 Oxygen Delivery Method Room Air Weight: 367 lb 1.114 oz Body Mass Index (BMI) 52.6 Intake and Output for Last 24 Hours 10/04/18 10/05/18 10/06/18 23:59 23:59 23:59 Intake Total 440 / 440 1600 / 1600 1767 / 1767 Output Total 800 / 800 950 / 950 1550 / 1550 Balance -360 / -360 650 / 650 217 / 217 General: Alert, Oriented x3, Cooperative, Lethargic HEENT: Atraumatic, PERRLA, EOMI, Normocephalic Oral: Moist Mucosa Neck: Supple, No JVD, Negative Carotid Bruits Lungs: Clear to auscultation, No rhonchi, No wheeze, No rales, Diminished Cardiovascular: Regular rate, Regular Rhythm, Normal S1, Normal S2, No murmurs Abdomen: Bowel Sounds Present, Soft, Hyperactive Bowel Sounds, Tender - Mild tenderness present in mid abdomen around umbilicus Extremities: No edema, Capillary Refill Less than 3 Seconds Skin: Ulcer/ Wound - Superficial erosion and blister present on the left leg. Main blister is on the dorsum of foot. Mottling of the skin with grayish and blackish depigmentation, around the donor site mainly lateral aspect of left leg. Tenderness is present., Skin Tear, Rash Present Musculoskeletal: No Tenderness to Palpation of Joints or Extremities, Arthritic Changes Lymphatic: No Cervical, Supraclavicular, or Inguinal Adenopathy Neurological: Cranial nerves II-XII grossly intact, Deep Tendon Reflexes 2+/4 and Symmetrical, Neuro grossly intact Psych/Mental Status: Normal Affect, Appropriate Microbiology Past 72 Hours 10/01/18 09:06 Blood Culture (Wb) - Left Hand Blood Culture - Final No growth in 5 days. 10/01/18 09:00 Blood Culture (Wb) - Anticubital Right Blood Culture - Final No growth in 5 days. 10/06/18 08:30 Stool C. difficile DNA Amplification - Final Toxigenic C. difficile DNA 10/04/18 09:15 Wound - Left Foot Gram Stain - Final 10/04/18 09:15 Wound - Left Foot Wound Culture - Final No growth aerobically. Laboratory Results 10/06/18 05:46: WBC 18.8 H, RBC 3.56 L, Hgb 9.9 L, Hct 29.0 L, MCV 81.5, MCH 27.8, MCHC 34.1, RDW 15.7 H, RDW Differential 46.2 H, Plt Count 219, MPV 10.9, Neut % (Auto) Not Reportable, Absolute Neuts (auto) 15.2 H, Absolute Lymphs (auto) 1.13, Total Counted 100, Neutrophils % (Manual) 78 H, Band Neutrophils % 3, Lymphocytes % (Manual) 6 L, Monocytes % (Manual) 8, Metamyelocytes % 4 H, Myelocytes % 1 H, Diff Path Review Reviewed, Platelet Estimate ADEQUATE, Polychromasia 1+, Hypochromasia 1+, Anisocytosis 1+, Microcytosis 1+ 10/06/18 05:46: Sodium 138, Potassium 4.2, Chloride 107, Carbon Dioxide 24.0, Anion Gap 7, BUN 24 H, Creatinine 0.70, Estim Creat Clear Calc 120.22, Est GFR (MDRD) Af Amer 149, Est GFR (MDRD) Non-Af 123, BUN/Creatinine Ratio 34.2 H, Glucose 106, Calcium 7.5 L 10/06/18 08:30: Miscellaneous Test Pending Current Medications Acetaminophen (Tylenol) 650 mg PO Q6H PRN PRN PRN Reason: Mild Pain (1-3)/Temp > 100.7 F Last Admin: 10/02/18 21:47 Dose: 650 mg Al Hydroxide/Mg Hydroxide (Mylanta Ii) 30 ml PO Q4H PRN PRN PRN Reason: indigestion Last Admin: 10/05/18 22:04 Dose: 30 ml Aspirin (Aspirin, Baby) 81 mg PO DAILY@0800 [facility] Last Admin: 10/06/18 08:41 Dose: 81 mg Carvedilol (Coreg) 25 mg PO BID [facility] Last Admin: 10/06/18 10:48 Dose: 25 mg Dextrose (D50w Syringe) 0 gm IV X1 PRN; Protocol PRN Reason: Hypoglycemia Doxazosin Mesylate (Cardura) 4 mg PO DAILY@2200 [facility] Last Admin: 10/05/18 22:04 Dose: 4 mg Enoxaparin Sodium (Lovenox) 40 mg SC DAILY@1000 [facility] Last Admin: 10/06/18 10:48 Dose: 40 mg Glucagon () 1 mg IM .X1 PRN PRN Reason: Hypoglycemia Hydrochlorothiazide () 12.5 mg PO DAILY [facility] Last Admin: 10/06/18 10:48 Dose: 12.5 mg Cefazolin Sodium 2 gm/ Sodium (Chloride) 110 mls @ 150 mls/hr IV Q8 [facility] Last Admin: 10/06/18 14:39 Dose: 150 mls/hr Ibuprofen (Motrin) 400 mg PO Q8H PRN PRN Reason: Temp, PAIN Multivitamins (Multivitamin) 1 tablet PO DAILY@0800 [facility] Last Admin: 10/06/18 08:41 Dose: 1 tablet Ondansetron HCl (Zofran) 4 mg IV Q8H PRN PRN PRN Reason: NAUSEA/VOMITING Last Admin: 10/04/18 13:18 Dose: 4 mg Oxycodone HCl (Oxyir) 5 mg PO Q4H PRN PRN PRN Reason: Moderate Pain (4-6/10) Last Admin: 10/06/18 10:51 Dose: 5 mg Polyethylene Glycol (Miralax) 17 gm PO DAILY PRN PRN PRN Reason: constipation Sodium Chloride () 5 - 15 ml IV UD PRN PRN Reason: SALINE FLUSH Last Admin: 10/06/18 14:39 Dose: 10 ml Vancomycin HCl () 125 mg PO Q6 [facility] Last Admin: 10/06/18 13:50 Dose: 125 mg Zolpidem Tartrate (Ambien (Generic)) 5 mg PO QHS PRN PRN PRN Reason: INSOMNIA Last Admin: 10/04/18 23:52 Dose: 5 mg Medical Necessity - Tobacco Use Smoking Status: Former smoker Tobacco Use: Non-smoker Assessment/Plan All Active Problems (Last Updated 09/30/18 @ 10:24 by Kalpesh Nuno DO) Cellulitis of left lower extremity (Acute) Lymphedema of left lower extremity (Acute) Sepsis (Acute) Cellulitis of left anterior lower leg (Acute) Acute kidney injury (Acute) Hypokalemia (Acute) There is a 57-year-old gentleman with history of hypertension, obstructive sleep apnea and morbid obesity and chronic lymphedema was admitted with erythema, pain, induration of left lower extremity consistent with cellulitis. Patient received Zosyn in the ED. 1. Streptococcus group A bacteremia * Secondary to left lower extremity cellulitis. Bacterial PCR shows Streptococ cus pyogenes sensitive to penicillin. The dose of IV cefazolin increased to 2 g q. 8 hourly. Worsening of leukocytosis. Mild low-grade fever. Discussed with ID about mottling and schneider/blackish pigmentation around lateral aspect of left leg with concern for deep soft tissue infection/necrotizing fasciitis. Repeat CT scan was done without contrast as patient had acute kidney injury during first CT with contrast. Repeat CT scan reported as Soft tissue swelling without interval change and without demonstrated focal fluid collection to indicate abscess. * Discussed with wound nurse. 2. Left lower extremity cellulitis * MRSA swab negative + strep bacteremia * Initially patient was started on vancomycin probably received 1 dose and then changed to IV cefazolin. * CT leg negative for any gas. Venous Doppler ordered. * Keep leg elevated * CT lower extremity shows diffuse soft tissue swelling of lower leg compatible with cellulitis but no focal fluid or saphenous gas. 2. Sepsis * present on admission * Secondary cellulitis + bacteremia 3.Hypokalemia Potassium has been overcorrected. K5.0. Potassium supplement discontinued. * Magnesium 1.9 * Resume low-dose HCTZ from 10/05/2017 4. Acute kidney injury versus chronic kidney disease stage III: Resolved. I think most probably secondary to contrast-induced nephropathy as it developed during the same time of CT scan with contrast. * Resolved. IV contrast was not given during second CT scan. 5. 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 This was evident in left lower leg CT scan. VT E prophylaxis with Lovenox. Constipation: Patient constipation is resolved and currently soft bowel movement. Stool softeners discontinued. Microbiology Past 72 Hours 10/01/18 09:06 Blood Culture (Wb) - Left Hand Blood Culture - Final No growth in 5 days. 10/01/18 09:00 Blood Culture (Wb) - Anticubital Right Blood Culture - Final No growth in 5 days. 10/06/18 08:30 Stool C. difficile DNA Amplification - Final Toxigenic C. difficile DNA 10/04/18 09:15 Wound - Left Foot Gram Stain - Final 10/04/18 09:15 Wound - Left Foot Wound Culture - Final No growth aerobically. Laboratory Results 10/06/18 05:46: WBC 18.8 H, RBC 3.56 L, Hgb 9.9 L, Hct 29.0 L, MCV 81.5, MCH 27.8, MCHC 34.1, RDW 15.7 H, RDW Differential 46.2 H, Plt Count 219, MPV 10.9, Neut % (Auto) Not Reportable, Absolute Neuts (auto) 15.2 H, Absolute Lymphs (auto) 1.13, Total Counted 100, Neutrophils % (Manual) 78 H, Band Neutrophils % 3, Lymphocytes % (Manual) 6 L, Monocytes % (Manual) 8, Metamyelocytes % 4 H, Myelocytes % 1 H, Diff Path Review Reviewed, Platelet Estimate ADEQUATE, Polychromasia 1+, Hypochromasia 1+, Anisocytosis 1+, Microcytosis 1+ 10/06/18 05:46: Sodium 138, Potassium 4.2, Chloride 107, Carbon Dioxide 24.0, Anion Gap 7, BUN 24 H, Creatinine 0.70, Estim Creat Clear Calc 120.22, Est GFR (MDRD) Af Amer 149, Est GFR (MDRD) Non-Af 123, BUN/Creatinine Ratio 34.2 H, Glucose 106, Calcium 7.5 L 10/06/18 08:30: Miscellaneous Test Pending Active Medications Acetaminophen (Tylenol) 650 mg PO Q6H PRN PRN PRN Reason: Mild Pain (1-3)/Temp > 100.7 F Last Admin: 10/02/18 21:47 Dose: 650 mg Al Hydroxide/Mg Hydroxide (Mylanta Ii) 30 ml PO Q4H PRN PRN PRN Reason: indigestion Last Admin: 10/04/18 14:33 Dose: 30 ml Aspirin (Aspirin, Baby) 81 mg PO DAILY@0800 [facility] Last Admin: 10/04/18 08:24 Dose: 81 mg Bisacodyl (Dulcolax) 10 mg RECTAL DAILY [facility] Stop: 10/06/18 10:01 Last Admin: 10/04/18 08:24 Dose: Not Given Carvedilol (Coreg) 25 mg PO BID [facility] Last Admin: 10/04/18 08:25 Dose: 25 mg Dextrose (D50w Syringe) 0 gm IV X1 PRN; Protocol PRN Reason: Hypoglycemia Doxazosin Mesylate (Cardura) 4 mg PO DAILY@2200 [facility] Last Admin: 10/03/18 21:59 Dose: 4 mg Enoxaparin Sodium (Lovenox) 40 mg SC DAILY@1000 [facility] Last Admin: 10/04/18 08:26 Dose: 40 mg Glucagon () 1 mg IM .X1 PRN PRN Reason: Hypoglycemia Cefazolin Sodium 2 gm/ Sodium (Chloride) 110 mls @ 150 mls/hr IV Q8 [facility] Last Admin: 10/04/18 14:28 Dose: 150 mls/hr Ibuprofen (Motrin) 600 mg PO Q8H PRN PRN Reason: Temp, PAIN Last Admin: 10/03/18 15:28 Dose: 600 mg Multivitamins (Multivitamin) 1 tablet PO DAILY@0800 [facility] Last Admin: 10/04/18 08:24 Dose: 1 tablet Ondansetron HCl (Zofran) 4 mg IV Q8H PRN PRN PRN Reason: NAUSEA/VOMITING Last Admin: 10/04/18 13:18 Dose: 4 mg Oxycodone HCl (Oxyir) 5 mg PO Q4H PRN PRN PRN Reason: Moderate Pain (4-6/10) Last Admin: 10/04/18 08:29 Dose: 5 mg Polyethylene Glycol (Miralax) 17 gm PO DAILY [facility] Last Admin: 10/04/18 08:26 Dose: 17 gm Senna/Docusate Sodium (Senokot-S, Sisi-Colace) 2 tablet PO BID [facility] Last Admin: 10/04/18 08:25 Dose: Not Given Sodium Chloride () 5 - 15 ml IV UD PRN PRN Reason: SALINE FLUSH Last Admin: 10/04/18 13:18 Dose: 10 ml Clinical Impression(s) from Imaging Studies Lower Extremity CT 10/01/18 09:34 IMPRESSION: 1. Diffuse soft tissue swelling of the lower leg (and visualized ankle/foot) compatible with history of cellulitis or edema. No focal fluid collection or subcutaneous gas demonstrated. 2. Varicose veins. 3. Degenerative changes of the knee and visualized ankle/foot. 4. Small joint effusion. Lower Extremity CT 10/06/18 13:04 IMPRESSION: Soft tissue swelling without interval change and without demonstrated focal fluid collection to indicate abscess. 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 Code Visit Inpatient E&M: 23469 Subs Hosp L3
--- NOTE | 2018-10-06 16:10 | PCM.PN.ID ---
Patient Problems: Active and Suspected Problems (Last Updated 09/30/18 @ 10:24 by Kalpesh Nuno DO) Cellulitis of left lower extremity (Acute) Sepsis (Acute) Cellulitis of left anterior lower leg (Acute) Acute kidney injury (Acute) Hypokalemia (Acute) Subjective: Feeling ok, no fever, still about one loose stool a day. Leg minimal soreness. - Physical Exam General: Alert, Cooperative, No apparent distress Lungs: Clear to auscultation, Normal air movement Cardiovascular: Regular rate, Regular Rhythm Abdomen: Soft, Non Tender, Non-Distended Extremities: Edema Skin: Ulcer/ Wound - L murillo/calf with some bullae, dark on lateral aspect, diffuse swelling. Vital Signs Temp Pulse Resp BP Pulse Ox 98.4 F 64 18 128/60 H 93 10/06/18 14:40 10/06/18 14:40 10/06/18 14:40 10/06/18 14:40 10/06/18 14:40 Oxygen Delivery Method Room Air Weight: 166.5 kg Body Mass Index (BMI) 52.6 Intake and Output for Last 24 Hours 10/04/18 10/05/18 10/06/18 23:59 23:59 23:59 Intake Total 440 / 440 1600 / 1600 1904 / 1904 Output Total 800 / 800 950 / 950 1550 / 1550 Balance -360 / -360 650 / 650 354 / 354 Microbiology Past 72 Hours 10/01/18 09:06 Blood Culture - Final Blood Culture (Wb) - Left Hand No growth in 5 days. 10/01/18 09:00 Blood Culture - Final Blood Culture (Wb) - Anticubital Right No growth in 5 days. 10/06/18 08:30 C. difficile DNA Amplification - Final Stool Toxigenic C. difficile DNA 10/04/18 09:15 Gram Stain - Final Wound - Left Foot Wound Culture - Final No growth aerobically. Laboratory Tests Past 24 Hrs 10/06/18 10/06/18 10/06/18 05:46 05:46 08:30 WBC 18.8 H RBC 3.56 L Hgb 9.9 L Hct 29.0 L MCV 81.5 MCH 27.8 MCHC 34.1 RDW 15.7 H RDW Differential 46.2 H Plt Count 219 MPV 10.9 Neut % (Auto) Not Reportable Absolute Neuts (auto) 15.2 H Absolute Lymphs (auto) 1.13 Total Counted 100 Neutrophils % (Manual) 78 H Band Neutrophils % 3 Lymphocytes % (Manual) 6 L Monocytes % (Manual) 8 Metamyelocytes % 4 H Myelocytes % 1 H Diff Path Review Reviewed Platelet Estimate ADEQUATE Polychromasia 1+ Hypochromasia 1+ Anisocytosis 1+ Microcytosis 1+ Sodium 138 Potassium 4.2 Chloride 107 Carbon Dioxide 24.0 Anion Gap 7 BUN 24 H Creatinine 0.70 Estim Creat Clear Calc 120.22 Est GFR (MDRD) Af Amer 149 Est GFR (MDRD) Non-Af 123 BUN/Creatinine Ratio 34.2 H Glucose 106 Calcium 7.5 L Miscellaneous Test Pending Medical Necessity - Tobacco Use Smoking Status: Former smoker Tobacco Use: Non-smoker Route of nutrition/ use of supplements: [] Nutritional Intake: [] IV Site: [] Jimenez Catheter: [] - Assessment/Plan Antibiotics: [] Assessment/Plan: [] Active and Suspected Problems (Last Updated 09/30/18 @ 10:24 by Kalpesh Nuno DO) Cellulitis of left lower extremity (Acute) Sepsis (Acute) Cellulitis of left anterior lower leg (Acute) Acute kidney injury (Acute) Hypokalemia (Acute) sepsis due to GAS bacteremia from LLE cellulitis - Bullae seem to be more related to fluid than uncontrolled infection. Cont cefazolin. CT done. Will consult Dr. Carrero for eval. Rising wbc and low grade temps. Cdiff (+) but not clear if this is true infection. Po vanc started, toxin pcr pending. Will follow, d/w Dr. Li
[2018-10-06] MEDS: Mag Hydrox/Al Hydrox/Simeth 30 ML UDC PO (17:53)
[2018-10-06 22:03] VITALS: BP 132/63; PULSE 69; RESP 18; TEMP 36.3; O2SAT 93
[2018-10-06] MEDS: Doxazosin 4 MG Tablet PO (22:08)
--- NOTE | 2018-10-06 22:30 | PCM.CONS.GEN ---
Reason for Consult Date of Consultation: 10/06/18 Reason for Consultation: Pressure injury left anterior leg, left ankles, and dorsum left foot. REFERRING PHYSICIAN: Dr. Li. DISEASE AND INSECT CONTROL BOSS: Dr. Carrero. History of Present Illness: The patient is a 57 year old M presents with increasing redness and pain and swelling left lower extremity. He was started on Ancef and Vancomycin. He had a positive blood culture with Group A Streptocuccus. His WBC has increased from 12 to 18. He has developed some bruising and ecchymosis and blistering on his left lower extremity. CT scan showed edema and no abscess. Patient denies any history of cellulitis in the past. Patient does have chronic swelling lymphedema. Does get chronic sores which she uses a steroid cream for on his legs I was asked to evaluate this patient for surgical options for treatment. Past Medical History Past Medical History (Chronic Problems): Chronic Problems (Last Updated 09/30/18 @ 10:24 by Kalpesh Nuno DO) History of hypertension (Chronic) History of obstructive sleep apnea (Chronic) Medical History: Medical History (Last Updated 09/30/18 @ 10:24 by Kalpesh Nuno DO) ARCELIA (obstructive sleep apnea) G47.33 Knee pain M25.569 Hypertension I10 Allergies No Known Allergies Allergy (Verified 09/30/18 07:32) Current Medications Acetaminophen (Tylenol) 650 mg PO Q6H PRN PRN PRN Reason: Mild Pain (1-3)/Temp > 100.7 F Last Admin: 10/02/18 21:47 Dose: 650 mg Al Hydroxide/Mg Hydroxide (Mylanta Ii) 30 ml PO Q4H PRN PRN PRN Reason: indigestion Last Admin: 10/06/18 17:53 Dose: 30 ml Aspirin (Aspirin, Baby) 81 mg PO DAILY@0800 [facility] Last Admin: 10/06/18 08:41 Dose: 81 mg Carvedilol (Coreg) 25 mg PO BID [facility] Last Admin: 10/06/18 22:08 Dose: 25 mg Dextrose (D50w Syringe) 0 gm IV X1 PRN; Protocol PRN Reason: Hypoglycemia Doxazosin Mesylate (Cardura) 4 mg PO DAILY@2200 [facility] Last Admin: 10/06/18 22:08 Dose: 4 mg Enoxaparin Sodium (Lovenox) 40 mg SC DAILY@1000 [facility] Last Admin: 10/06/18 10:48 Dose: 40 mg Glucagon () 1 mg IM .X1 PRN PRN Reason: Hypoglycemia Hydrochlorothiazide () 12.5 mg PO DAILY [facility] Last Admin: 10/06/18 10:48 Dose: 12.5 mg Cefazolin Sodium 2 gm/ Sodium (Chloride) 110 mls @ 150 mls/hr IV Q8 [facility] Last Admin: 10/06/18 22:08 Dose: 150 mls/hr Ibuprofen (Motrin) 400 mg PO Q8H PRN PRN Reason: Temp, PAIN Multivitamins (Multivitamin) 1 tablet PO DAILY@0800 [facility] Last Admin: 10/06/18 08:41 Dose: 1 tablet Ondansetron HCl (Zofran) 4 mg IV Q8H PRN PRN PRN Reason: NAUSEA/VOMITING Last Admin: 10/04/18 13:18 Dose: 4 mg Oxycodone HCl (Oxyir) 5 mg PO Q4H PRN PRN PRN Reason: Moderate Pain (4-6/10) Last Admin: 10/06/18 16:28 Dose: 5 mg Polyethylene Glycol (Miralax) 17 gm PO DAILY PRN PRN PRN Reason: constipation Sodium Chloride () 5 - 15 ml IV UD PRN PRN Reason: SALINE FLUSH Last Admin: 10/06/18 22:08 Dose: 10 ml Vancomycin HCl () 125 mg PO Q6 [facility] Last Admin: 10/06/18 17:50 Dose: 125 mg Zolpidem Tartrate (Ambien (Generic)) 5 mg PO QHS PRN PRN PRN Reason: INSOMNIA Last Admin: 10/04/18 23:52 Dose: 5 mg Home Medications: Ambulatory Orders Medication Instructions Recorded Amlodipine Besylate 10 mg PO DAILY 09/30/18 Aspirin 81 mg PO DAILY 09/30/18 Carvedilol 25 mg PO BID 09/30/18 Doxazosin Mesylate 4 mg PO DAILY 09/30/18 Hydrochlorothiazide [Hctz] 25 mg PO DAILY 09/30/18 Losartan Potassium 100 mg PO DAILY 09/30/18 Multivitamin [One-Daily 1 each PO DAILY 09/30/18 Multi-Vitamin] Potassium Chloride 10 meq PO DAILY 09/30/18 Vancomycin HCl [Firvanq] 125 mg PO Q6H 10 Days #40 dose 10/07/18 Surgical History: no surgical history Lives: Spouse/ Significant Other Smoking Status: Former smoker Tobacco Use: Non-smoker Alcohol: None Drugs: None - *Family History Maternal Family History: Family History (Last Reviewed 09/30/18 @ 10:24 by Kalpesh Nuno DO) Other Diabetes Hypertension Review of Systems Comment: Constitutional: Reports: Chills, Malaise, Weakness. Denies: Anorexia, Fever. Eyes: Denies: Blurred vision, Double vision. HEENT: Denies: Head Aches, Sinus Congestion, Sinus Drainage. Cardiovascular: Denies: Chest Pain, Palpitations. Respiratory: Denies: Cough, Shortness of breath at rest, Sputum production. Gastrointestinal: Denies: Abdominal Pain, Nausea, Vomiting. Genitourinary: Denies: Dysuria. Musculoskeletal: Denies: Joint Pain, Joint Tenderness. Skin: Reports: Rash, Wounds. Neurological: Denies: Numbness, Tingling, Focal weakness. Psychiatric: Denies: Anxiety, Depression, Homicidal Ideations, Suicidal Ideations. Endocrine: Denies: Change in Body Habitus, Heat/ Cold Intolerance. Hematologic/ Lymphatic: Denies: Easy Bruising, Easy Bleeding, Hx of blood clot. Comment: A 10 point review of systems were negative except as mentioned in the history of present illness and the other review of systems. Patient Problems: Active and Suspected Problems (Last Updated 09/30/18 @ 10:24 by Kalpesh Nuno DO) Cellulitis of left lower extremity (Acute) Sepsis (Acute) Cellulitis of left anterior lower leg (Acute) Acute kidney injury (Acute) Hypokalemia (Acute) - Physical Exam General: Alert, Cooperative, No apparent distress HEENT: PERRL. EOMI. Oral: Moist Mucosa. Neck: Supple, nontender. No cervical adenopathy. Lungs: Clear to auscultation. Cardiovascular: Regular rate, Regular Rhythm. Abdomen: Soft, Non-Distended Extremities: No Calf Tenderness, Edema, - Scattered areas of blistering and some ecchymosis and bruising on the left anterior leg with medial and lateral extension. No fluctuance. No purulent drainage. No eschar seen. On the dorsum of the left foot is some whitish skin indicative of deep partial thickness to full thickness burn. Some whitish areas on the malleolus as well. Areas are minimally tender. Posterior leg is nontender. Patient can lift his leg on his own without pain and without difficulty. No inguinal adenopathy. No clinical evidence of necrotizing process. Neurological: CN II - XII grossly intact. Psych/Mental Status: Normal Affect, Appropriate Vital Signs Temp Pulse Resp BP Pulse Ox 97.3 F L 69 18 132/63 H 93 10/06/18 22:03 10/06/18 22:03 10/06/18 22:03 10/06/18 22:03 10/06/18 22:03 Oxygen Delivery Method Room Air Weight: 367 lb 1.114 oz Body Mass Index (BMI) 52.6 Intake and Output for Last 24 Hours 10/04/18 10/05/18 10/06/18 23:59 23:59 23:59 Intake Total 440 / 440 1600 / 1600 2524 / 2524 Output Total 800 / 800 950 / 950 2375 / 2375 Balance -360 / -360 650 / 650 149 / 149 Microbiology Past 72 Hours 10/01/18 09:06 Blood Culture - Final Blood Culture (Wb) - Left Hand No growth in 5 days. 10/01/18 09:00 Blood Culture - Final Blood Culture (Wb) - Anticubital Right No growth in 5 days. 10/06/18 08:30 C. difficile DNA Amplification - Final Stool Toxigenic C. difficile DNA 10/04/18 09:15 Gram Stain - Final Wound - Left Foot Wound Culture - Final No growth aerobically. Laboratory Tests Past 24 Hrs 10/06/18 10/06/18 10/06/18 05:46 05:46 08:30 WBC 18.8 H RBC 3.56 L Hgb 9.9 L Hct 29.0 L MCV 81.5 MCH 27.8 MCHC 34.1 RDW 15.7 H RDW Differential 46.2 H Plt Count 219 MPV 10.9 Neut % (Auto) Not Reportable Absolute Neuts (auto) 15.2 H Absolute Lymphs (auto) 1.13 Total Counted 100 Neutrophils % (Manual) 78 H Band Neutrophils % 3 Lymphocytes % (Manual) 6 L Monocytes % (Manual) 8 Metamyelocytes % 4 H Myelocytes % 1 H Diff Path Review Reviewed Platelet Estimate ADEQUATE Polychromasia 1+ Hypochromasia 1+ Anisocytosis 1+ Microcytosis 1+ Sodium 138 Potassium 4.2 Chloride 107 Carbon Dioxide 24.0 Anion Gap 7 BUN 24 H Creatinine 0.70 Estim Creat Clear Calc 120.22 Est GFR (MDRD) Af Amer 149 Est GFR (MDRD) Non-Af 123 BUN/Creatinine Ratio 34.2 H Glucose 106 Calcium 7.5 L Miscellaneous Test Pending Assessment/Plan All Active Problems (Last Updated 09/30/18 @ 10:24 by Kalpesh Nuno DO) Pressure injury of left ankle, stage 2 (Acute) Pressure injury of dorsum of left foot, stage 2 (Acute) Pressure injury of left leg, stage 2 (Acute) Cellulitis of left lower extremity (Acute) Lymphedema of left lower extremity (Acute) Sepsis (Acute) Cellulitis of left anterior lower leg (Acute) Acute kidney injury (Acute) Hypokalemia (Acute) 1. Pressure injury left anterior leg with medial and lateral extension and dorsum foot and malleoli. 2. Cellulitis left lower extremity. 3. Lymphedema. CT reviewed. Swelling noted. No abscess seen. Clinically not consistent with necrotizing process. Usually pain is quite severe even with gentle touch. He had increased swelling from the cellulitis process. Looks like he has a pressure injury process from the increased swelling. The blistering on his leg with the bruising and ecchymosis indicate some vascular compromise possibly from the increased swelling. The areas on his foot and ankles look like deep partial thickness burn process. He would benefit from incision and drainage and excisional debridement. Would leave the wound open and proceed with wound care with the VAC. His WBC is 18.8 and is concerning. He is currently on Ancef and Vancomycin. Recommend operative intervention tomorrow. However, with what I see clinically, the excisional debridement would be extensive. I will re-evaluate him tomorrow and if improvement is seen both in the WBC and the clinical presentation of his leg, I may carefully observe. By waiting (as long as his clinical picture warrants it) and there is some improvement, I will still need to take him to surgery. But the goal would be to have a smaller wound if some improvement is noted between now and then. If no improvement is seen tomorrow and the WBC continues to be high (18) or if it increases to over 20, then we would proceed with surgery tomorrow. Patient was informed of the risks and complications of the procedure including alternatives to surgery. These were discussed with the patient personally. Patient voices understanding and wishes to proceed. Patient understands that the wounds will be left open and will proceed with postop wound care with the VAC. Anticipate increased metabolic demands from the infection and future surgery. Will check a Prealbumin and encourage nutritional supplementation with protein to help the healing process. After discharge, can followup at [facility]. If there is a plateau in the healing process, can proceed with delayed closure with skin grafting. Code Visit Inpatient E&M: 54931 Init Hosp L2 - ICD-10 - L89.892, L89.522, L03.116, I89.0
[2018-10-07] MEDS: 0.9% NaCl Peripheral Flush Adult/Peds IV ×3 (00:20→06:11)
[2018-10-07 04:02] VITALS: BP 128/69; PULSE 60; RESP 18; TEMP 36.8; O2SAT 94
[2018-10-07] MEDS: Cefazolin 2 GM in 0.9% Normal Saline 100 ML IV ×3 (05:17→21:12)
[2018-10-07 06:59] LABS: Hematocrit 30.2 % (40-54); Hemoglobin 10.1 g/dl (13.0-16.5); Mean Corp Hgb Conc 33.4 g/gl (32-36); Mean Corpuscular Hgb 27.2 pg (27.0-32.0); Mean Corpuscular Volume 81.2 fL (80-94); Mean Platelet Vol. 11.4 fl (6.2-12.0); Platelet Count 268 K/mm3 (150-450); RBC Distribution Width CV 15.5 % (11.6-14.6); Red Blood Count 3.72 M/mm3 (4.6-6.2); White Blood Count 15.1 K/mm3 (4.4-11.0)
[2018-10-07 07:04] LABS: Differential Indicated MANUAL DIFF; POSITIVE COUNT YES; POSITIVE DIFFERENTIAL NO; POSITIVE MORPHOLOGY YES
[2018-10-07 07:11] LABS: Anion Gap 5 (5-15); BUN 21 mg/dL (7-18); BUN/Creat Ratio 29.9 RATIO (10-20); Calcium,Total 7.4 mg/dL (8.5-10.1); Chloride 105 mmol/L (98-107); EST Glomerular Filtration Rate 123 mL/min (>60); Est Glom Filt Rate - Afr Amer 148 mL/min (>60); Estimated Creatinine Clearance 120.22 ml/min; Glucose 102 mg/dL (74-106); Potassium 3.9 mmol/L (3.5-5.1); Sodium Level 136 mmol/L (136-145)
[2018-10-07 07:21] LABS: Eosinophil 1 % (0-5); Lymphocyte 14 % (19-41); Metamyelocyte 2 % (0-1); Monocyte 3 % (0-10); Neutrophil-Band 3 % (0-5); Neutrophil-Segmented 77 % (47-70); Platelet Estimate ADEQUATE (ADEQ); Red Cell Morphology NORM C+C NORMAL (NORM C&C); Total Cells Counted 100 (MANUAL DIFF)
[2018-10-07 07:23] LABS: Absolute Lymphocyte Count 2.11 X10^3/ul (0.83-4.51); Absolute Neutrophil Count 12.1 X10^3/uL (2.0-7.7)
--- NOTE | 2018-10-07 08:00 | NURSING ---
wound photo: left lower leg
--- NOTE | 2018-10-07 08:00 | NURSING ---
wound photo: left lower leg
--- NOTE | 2018-10-07 08:01 | NURSING ---
wound photo: left lower leg/foot (lateral view)
[2018-10-07 08:19] VITALS: BP 134/73; PULSE 61; RESP 18; TEMP 36.9; O2SAT 94
--- NOTE | 2018-10-07 08:59 | NURSING ---
RECEIVED CALL FROM DR DANIELS. STATES WANTS TO ASSESS PTS LEFT LEG AGAIN THIS AM BEFORE DECIDING ON SURGERY TODAY.
[2018-10-07] MEDS: oxyCODONE 5 MG Tablet PO ×2 (09:24→21:46)
[2018-10-07] MEDS: Carvedilol 25 MG Tablet PO ×2 (09:25→21:46)
--- NOTE | 2018-10-07 12:22 | PCM.PN.SRG ---
Patient Problems: Active and Suspected Problems (Last Updated 09/30/18 @ 10:24 by Kalpesh Nuno DO) Cellulitis of left lower extremity (Acute) Sepsis (Acute) Cellulitis of left anterior lower leg (Acute) Acute kidney injury (Acute) Hypokalemia (Acute) Subjective: Patient feels better today. Ambulates without difficulty and without pain in the left leg. - Physical Exam General: Alert, Oriented x3 HEENT: PERRLA, EOMI Oral: Moist Mucosa Neck: Supple Abdomen: Soft, Non-Distended Extremities: Edema - less edema in left lower extremity., Peripheral Pulses Normal Skin: Ulcer/ Wound - Scattered areas of blistering and some ecchymosis and bruising on the left anterior leg with medial and lateral extension. No fluctuance. No purulent drainage. No eschar seen. On the dorsum of the left foot is a partial thickness injury after the whitish skin was debrided (a blister). The underlying dermis is pink and viable. The whitish areas on the malleolus are slowly improving. Areas are minimally tender. Posterior leg is nontender. Patient can lift his leg on his own without pain and without difficulty. No inguinal adenopathy. No clinical evidence of necrotizing process. Lymphatic: - - no inguinal adenopathy. Neurological: Cranial nerves II-XII grossly intact Psych/Mental Status: Normal Affect, Appropriate Vital Signs Temp Pulse Resp BP Pulse Ox 98.5 F 61 18 134/73 H 94 10/07/18 08:19 10/07/18 08:19 10/07/18 08:19 10/07/18 08:19 10/07/18 08:19 Oxygen Delivery Method Room Air Weight: 367 lb 1.114 oz Body Mass Index (BMI) 52.6 Intake and Output for Last 24 Hours 10/05/18 10/06/18 10/07/18 23:59 23:59 23:59 Intake Total 1600 / 1600 2524 / 2524 400 / 400 Output Total 950 / 950 2375 / 2375 700 / 700 Balance 650 / 650 149 / 149 -300 / -300 Microbiology Past 72 Hours 10/01/18 09:06 Blood Culture - Final Blood Culture (Wb) - Left Hand No growth in 5 days. 10/01/18 09:00 Blood Culture - Final Blood Culture (Wb) - Anticubital Right No growth in 5 days. 10/06/18 08:30 C. difficile DNA Amplification - Final Stool Toxigenic C. difficile DNA 10/04/18 09:15 Gram Stain - Final Wound - Left Foot Wound Culture - Final No growth aerobically. Laboratory Tests Past 24 Hrs 10/06/18 10/06/18 10/07/18 05:46 08:30 06:24 WBC 15.1 H RBC 3.72 L Hgb 10.1 L Hct 30.2 L MCV 81.2 MCH 27.2 MCHC 33.4 RDW 15.5 H RDW Differential 44.0 H Plt Count 268 MPV 11.4 Neut % (Auto) Not Reportable Absolute Neuts (auto) 12.1 H Absolute Lymphs (auto) 2.11 Total Counted 100 Neutrophils % (Manual) 77 H Band Neutrophils % 3 Lymphocytes % (Manual) 14 L Monocytes % (Manual) 3 Eosinophils % (Manual) 1 Metamyelocytes % 2 H Diff Path Review Reviewed May foll Platelet Estimate ADEQUATE RBC Morphology NORM C+C Sodium Potassium Chloride Carbon Dioxide Anion Gap BUN Creatinine Estim Creat Clear Calc Est GFR (MDRD) Af Amer Est GFR (MDRD) Non-Af BUN/Creatinine Ratio Glucose Calcium Miscellaneous Test Pending 10/07/18 06:24 WBC RBC Hgb Hct MCV MCH MCHC RDW RDW Differential Plt Count MPV Neut % (Auto) Absolute Neuts (auto) Absolute Lymphs (auto) Total Counted Neutrophils % (Manual) Band Neutrophils % Lymphocytes % (Manual) Monocytes % (Manual) Eosinophils % (Manual) Metamyelocytes % Diff Path Review Platelet Estimate RBC Morphology Sodium 136 Potassium 3.9 Chloride 105 Carbon Dioxide 26.0 Anion Gap 5 BUN 21 H Creatinine 0.70 Estim Creat Clear Calc 120.22 Est GFR (MDRD) Af Amer 148 Est GFR (MDRD) Non-Af 123 BUN/Creatinine Ratio 29.9 H Glucose 102 Calcium 7.4 L Miscellaneous Test Medical Necessity - Tobacco Use Smoking Status: Former smoker Tobacco Use: Non-smoker Assessment/Plan All Active Problems (Last Updated 09/30/18 @ 10:24 by Kalpesh Nuno DO) Pressure injury of left ankle, stage 2 (Acute) Pressure injury of dorsum of left foot, stage 2 (Acute) Pressure injury of left leg, stage 2 (Acute) Cellulitis of left lower extremity (Acute) Lymphedema of left lower extremity (Acute) Sepsis (Acute) Cellulitis of left anterior lower leg (Acute) Acute kidney injury (Acute) Hypokalemia (Acute) 1. Pressure injury left anterior leg with medial and lateral extension and dorsum foot and malleoli. 2. Cellulitis left lower extremity. 3. Lymphedema. Patient feels better this morning. His swelling is better. His WBC has improved to 15.1. Continue Ancef and Vancomycin. The bruised areas on his left leg are less dark. The leg is soft. Will put the surgery on hold today due to clinical improvement. Discussed with the patient that if we can hold off on surgery for a few days to see how much of the involved skin improves will limit the extent of the debridement. Therefore the healing should take a little less time if the wound is smaller. Will let him eat today and make him NPO at midnight tonight. Will reassess in the morning. If improvement continues, then will feed him and continue the process daily. If his clinical picture worsens, then will proceed to surgery. Since the wounds look like a pressure injury burn, will add Silvadene to the dressing changes. Patient was informed of the risks and complications of the procedure including alternatives to surgery. These were discussed with the patient personally. Patient voices understanding and wishes to proceed with the current plan of close observation. Patient voices understanding that surgery is still a possibility. Patient understands that the wounds will be left open and will proceed with postop wound care with the VAC. Anticipate increased metabolic demands from the infection and future surgery. Will check a Prealbumin. Encourage nutritional supplementation with protein to help the healing process. After discharge, can followup at the [facility]. If there is a plateau in the healing process, can proceed with delayed closure with skin grafting. Code Visit Inpatient E&M: 81821 Subs Hosp L2 - ICD-10 - L89.892, L89.522, L03.116, I89.0
[2018-10-07] MEDS: Silver Sulfadiazine 1% Crm 50 gm Bottle 1 APPLIC TOPICAL (13:00)
[2018-10-07 14:14] LABS: Pathologist Review Reviewed
--- NOTE | 2018-10-07 14:35 | PCM.PN.HOSP ---
Patient Problems: Active and Suspected Problems (Last Updated 09/30/18 @ 10:24 by Kalpesh Nuno DO) Cellulitis of left lower extremity (Acute) Sepsis (Acute) Cellulitis of left anterior lower leg (Acute) Acute kidney injury (Acute) Hypokalemia (Acute) Subjective: Patient left lower extremity looks better. Patient still has ecchymosis and erythema but the color looks more reddish rather than black today. It seems patient has venous return compromise secondary to lymphedema but is improving now. Patient denies abdominal discomfort, nausea or vomiting. Patient looks much better and his appetite coming back. C. difficile is positive and Vanco p.o. is clinically working. No overnights fever or chills or tachycardia. Patient was seen by Dr. Carrero. Vitals/I&O's: Vital Signs Temp Pulse Resp BP Pulse Ox 98.5 F 61 18 134/73 H 94 10/07/18 08:19 10/07/18 08:19 10/07/18 08:19 10/07/18 08:19 10/07/18 08:19 Oxygen Delivery Method Room Air Weight: 367 lb 1.114 oz Body Mass Index (BMI) 52.6 Intake and Output for Last 24 Hours 10/05/18 10/06/18 10/07/18 23:59 23:59 23:59 Intake Total 1600 / 1600 2524 / 2524 520 / 520 Output Total 950 / 950 2375 / 2375 1000 / 1000 Balance 650 / 650 149 / 149 -480 / -480 General: Alert, Oriented x3, Cooperative HEENT: Atraumatic, PERRLA, EOMI, Normocephalic Neck: Supple, No JVD, Negative Carotid Bruits Lungs: No rhonchi, No wheeze, No rales, Diminished Cardiovascular: Regular rate, No murmurs Abdomen: Bowel Sounds Present, Soft, Non Tender, Non-Distended Extremities: No edema, Capillary Refill Less than 3 Seconds Skin: Ulcer/ Wound - Raw area of left lower extremity with blister and ecchymosis. Redness and small blistering medial aspect of left thigh. Blisters over dorsum of left foot. Bahena/purplish color has improved to right. venous edema and compromise. Musculoskeletal: No Tenderness to Palpation of Joints or Extremities Lymphatic: No Cervical, Supraclavicular, or Inguinal Adenopathy Neurological: Cranial nerves II-XII grossly intact, Deep Tendon Reflexes 2+/4 and Symmetrical, Neuro grossly intact Psych/Mental Status: Normal Affect, Appropriate Microbiology Past 72 Hours 10/01/18 09:06 Blood Culture (Wb) - Left Hand Blood Culture - Final No growth in 5 days. 10/01/18 09:00 Blood Culture (Wb) - Anticubital Right Blood Culture - Final No growth in 5 days. 10/06/18 08:30 Stool C. difficile DNA Amplification - Final Toxigenic C. difficile DNA 10/04/18 09:15 Wound - Left Foot Gram Stain - Final 10/04/18 09:15 Wound - Left Foot Wound Culture - Final No growth aerobically. Laboratory Results 10/07/18 06:24: WBC 15.1 H, RBC 3.72 L, Hgb 10.1 L, Hct 30.2 L, MCV 81.2, MCH 27.2, MCHC 33.4, RDW 15.5 H, RDW Differential 44.0 H, Plt Count 268, MPV 11.4, Neut % (Auto) Not Reportable, Absolute Neuts (auto) 12.1 H, Absolute Lymphs (auto) 2.11, Total Counted 100, Neutrophils % (Manual) 77 H, Band Neutrophils % 3, Lymphocytes % (Manual) 14 L, Monocytes % (Manual) 3, Eosinophils % (Manual) 1, Metamyelocytes % 2 H, Diff Path Review Reviewed, Platelet Estimate ADEQUATE, RBC Morphology NORM C+C 10/07/18 06:24: Sodium 136, Potassium 3.9, Chloride 105, Carbon Dioxide 26.0, Anion Gap 5, BUN 21 H, Creatinine 0.70, Estim Creat Clear Calc 120.22, Est GFR (MDRD) Af Amer 148, Est GFR (MDRD) Non-Af 123, BUN/Creatinine Ratio 29.9 H, Glucose 102, Calcium 7.4 L Current Medications Acetaminophen (Tylenol) 650 mg PO Q6H PRN PRN PRN Reason: Mild Pain (1-3)/Temp > 100.7 F Last Admin: 10/02/18 21:47 Dose: 650 mg Al Hydroxide/Mg Hydroxide (Mylanta Ii) 30 ml PO Q4H PRN PRN PRN Reason: indigestion Last Admin: 10/06/18 17:53 Dose: 30 ml Aspirin (Aspirin, Baby) 81 mg PO DAILY@0800 [facility] Last Admin: 10/07/18 07:44 Dose: Not Given Carvedilol (Coreg) 25 mg PO BID [facility] Last Admin: 10/07/18 09:25 Dose: 25 mg Dextrose (D50w Syringe) 0 gm IV X1 PRN; Protocol PRN Reason: Hypoglycemia Doxazosin Mesylate (Cardura) 4 mg PO DAILY@2200 [facility] Last Admin: 10/06/18 22:08 Dose: 4 mg Enoxaparin Sodium (Lovenox) 40 mg SC DAILY@1000 [facility] Last Admin: 10/07/18 08:04 Dose: Not Given Glucagon () 1 mg IM .X1 PRN PRN Reason: Hypoglycemia Hydrochlorothiazide () 12.5 mg PO DAILY [facility] Last Admin: 10/07/18 08:15 Dose: Not Given Cefazolin Sodium 2 gm/ Sodium (Chloride) 110 mls @ 150 mls/hr IV Q8 [facility] Last Admin: 10/07/18 05:17 Dose: 150 mls/hr Ibuprofen (Motrin) 400 mg PO Q8H PRN PRN Reason: Temp, PAIN Morphine Sulfate () 2 mg IV Q3H PRN PRN PRN Reason: SEVERE PAIN (6-10/10) Multivitamins (Multivitamin) 1 tablet PO DAILY@0800 [facility] Last Admin: 10/07/18 07:44 Dose: Not Given Ondansetron HCl (Zofran) 4 mg IV Q8H PRN PRN PRN Reason: NAUSEA/VOMITING Last Admin: 10/04/18 13:18 Dose: 4 mg Oxycodone HCl (Oxyir) 5 mg PO Q4H PRN PRN PRN Reason: Moderate Pain (4-6/10) Last Admin: 10/07/18 09:24 Dose: 5 mg Polyethylene Glycol (Miralax) 17 gm PO DAILY PRN PRN PRN Reason: constipation Silver Sulfadiazine (Silvadene (Bkc)) 1 applic TOPICAL DAILY [facility]; Protocol Sodium Chloride () 5 - 15 ml IV UD PRN PRN Reason: SALINE FLUSH Last Admin: 10/07/18 06:11 Dose: 10 ml Vancomycin HCl () 125 mg PO Q6 [facility] Last Admin: 10/07/18 12:30 Dose: 125 mg Zolpidem Tartrate (Ambien (Generic)) 5 mg PO QHS PRN PRN PRN Reason: INSOMNIA Last Admin: 10/04/18 23:52 Dose: 5 mg Medical Necessity - Tobacco Use Smoking Status: Former smoker Tobacco Use: Non-smoker Assessment/Plan All Active Problems (Last Updated 09/30/18 @ 10:24 by Kalpesh Nuno DO) Cellulitis of left lower extremity (Acute) Lymphedema of left lower extremity (Acute) Sepsis (Acute) Cellulitis of left anterior lower leg (Acute) Acute kidney injury (Acute) Hypokalemia (Acute) There is a 57-year-old gentleman with history of hypertension, obstructive sleep apnea and morbid obesity and chronic lymphedema was admitted with erythema, pain, induration of left lower extremity consistent with cellulitis. Patient received Zosyn in the ED. 1. Sepsis secondary to Streptococcus group A bacteremia Secondary to left lower extremity cellulitis. Bacterial PCR shows Streptococcus pyogenes sensitive to penicillin. The dose of IV cefazolin increased to 2 g q. 8 hourly. Discussed with ID about mottling and bahena/blackish pigmentation around lateral aspect of left leg with concern for deep soft tissue infection/necrotizing fasciitis for which repeat CT scan was done without contrast as patient had acute kidney injury during first CT with contrast. Repeat CT scan reported as Soft tissue swelling without interval change and without demonstrated focal fluid collection to indicate abscess. Dr. Carrero consult reviewed and appreciated. Leukocytosis and the wound of left lower extremity and color has improved. Post surgery for tomorrow is deferred or canceled as the patient is improving on conservative management. 2. Left lower extremity cellulitis MRSA swab negative + strep bacteremia Initially patient was started on vancomycin probably received 1 dose and then changed to IV cefazolin. CT leg negative for any gas. Venous Doppler ordered. Keep leg elevated CT lower extremity shows diffuse soft tissue swelling of lower leg compatible with cellulitis but no focal fluid or saphenous gas. C. difficile infection/colitis: Stool for C. difficile is positive. Patient is on p.o. vancomycin. Clinically abdominal symptoms have improved. 3.Hypokalemia Potassium has been overcorrected. K5.0. Repeat K 3.9 Magnesium 1.9 Resume low-dose HCTZ from 10/05/2017 4. Acute kidney injury versus chronic kidney disease stage III: Resolved. I think most probably secondary to contrast-induced nephropathy as it developed during the same time of CT scan with contrast. Resolved. IV contrast was not given during second CT scan. 5. 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 This was evident in left lower leg CT scan. VT E prophylaxis with Lovenox. Constipation: Patient constipation is resolved and currently soft bowel movement. Stool softeners discontinued. Microbiology Past 72 Hours 10/01/18 09:06 Blood Culture (Wb) - Left Hand Blood Culture - Final No growth in 5 days. 10/01/18 09:00 Blood Culture (Wb) - Anticubital Right Blood Culture - Final No growth in 5 days. 10/06/18 08:30 Stool C. difficile DNA Amplification - Final Toxigenic C. difficile DNA 10/04/18 09:15 Wound - Left Foot Gram Stain - Final 10/04/18 09:15 Wound - Left Foot Wound Culture - Final No growth aerobically. Laboratory Results 10/07/18 06:24: WBC 15.1 H, RBC 3.72 L, Hgb 10.1 L, Hct 30.2 L, MCV 81.2, MCH 27.2, MCHC 33.4, RDW 15.5 H, RDW Differential 44.0 H, Plt Count 268, MPV 11.4, Neut % (Auto) Not Reportable, Absolute Neuts (auto) 12.1 H, Absolute Lymphs (auto) 2.11, Total Counted 100, Neutrophils % (Manual) 77 H, Band Neutrophils % 3, Lymphocytes % (Manual) 14 L, Monocytes % (Manual) 3, Eosinophils % (Manual) 1, Metamyelocytes % 2 H, Diff Path Review Reviewed, Platelet Estimate ADEQUATE, RBC Morphology NORM C+C 10/07/18 06:24: Sodium 136, Potassium 3.9, Chloride 105, Carbon Dioxide 26.0, Anion Gap 5, BUN 21 H, Creatinine 0.70, Estim Creat Clear Calc 120.22, Est GFR (MDRD) Af Amer 148, Est GFR (MDRD) Non-Af 123, BUN/Creatinine Ratio 29.9 H, Glucose 102, Calcium 7.4 L Clinical Impression(s) from Imaging Studies Lower Extremity CT 10/01/18 09:34 IMPRESSION: 1. Diffuse soft tissue swelling of the lower leg (and visualized ankle/foot) compatible with history of cellulitis or edema. No focal fluid collection or subcutaneous gas demonstrated. 2. Varicose veins. 3. Degenerative changes of the knee and visualized ankle/foot. 4. Small joint effusion. Lower Extremity CT 10/06/18 13:04 IMPRESSION: Soft tissue swelling without interval change and without demonstrated focal fluid collection to indicate abscess. 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 Code Visit Inpatient E&M: 70678 Subs Hosp L3
--- NOTE | 2018-10-07 14:40 | PN_ITS ---
Patient Problems: Active and Suspected Problems (Last Updated 09/30/18 @ 10:24 by Kalpesh Nuno DO) Cellulitis of left lower extremity (Acute) Sepsis (Acute) Cellulitis of left anterior lower leg (Acute) Acute kidney injury (Acute) Hypokalemia (Acute) Subjective: Patient left lower extremity looks better. Patient still has ecchymosis and erythema but the color looks more reddish rather than black today. It seems patient has venous return compromise secondary to lymphedema but is improving now. Patient denies abdominal discomfort, nausea or vomiting. Patient looks much better and his appetite coming back. C. difficile is positive and Vanco p.o. is clinically working. No overnights fever or chills or tachycardia. Patient was seen by Dr. Carrero. Vitals/I&O's: Vital Signs Temp Pulse Resp BP Pulse Ox 98.5 F 61 18 134/73 H 94 10/07/18 08:19 10/07/18 08:19 10/07/18 08:19 10/07/18 08:19 10/07/18 08:19 Oxygen Delivery Method Room Air Weight: 367 lb 1.114 oz Body Mass Index (BMI) 52.6 Intake and Output for Last 24 Hours 10/05/18 10/06/18 10/07/18 23:59 23:59 23:59 Intake Total 1600 / 1600 2524 / 2524 520 / 520 Output Total 950 / 950 2375 / 2375 1000 / 1000 Balance 650 / 650 149 / 149 -480 / -480 General: Alert, Oriented x3, Cooperative HEENT: Atraumatic, PERRLA, EOMI, Normocephalic Neck: Supple, No JVD, Negative Carotid Bruits Lungs: No rhonchi, No wheeze, No rales, Diminished Cardiovascular: Regular rate, No murmurs Abdomen: Bowel Sounds Present, Soft, Non Tender, Non-Distended Extremities: No edema, Capillary Refill Less than 3 Seconds Skin: Ulcer/ Wound - Raw area of left lower extremity with blister and ecchymosis. Redness and small blistering medial aspect of left thigh. Blisters over dorsum of left foot. Ba[place]a/purplish color has improved to right. venous edema and compromise. Musculoskeletal: No Tenderness to Palpation of Joints or Extremities Lymphatic: No Cervical, Supraclavicular, or Inguinal Adenopathy Neurological: Cranial nerves II-XII grossly intact, Deep Tendon Reflexes 2+/4 and Symmetrical, Neuro grossly intact Psych/Mental Status: Normal Affect, Appropriate Microbiology Past 72 Hours 10/01/18 09:06 Blood Culture (Wb) - Left Hand Blood Culture - Final No growth in 5 days. 10/01/18 09:00 Blood Culture (Wb) - Anticubital Right Blood Culture - Final No growth in 5 days. 10/06/18 08:30 Stool C. difficile DNA Amplification - Final Toxigenic C. difficile DNA 10/04/18 09:15 Wound - Left Foot Gram Stain - Final 10/04/18 09:15 Wound - Left Foot Wound Culture - Final No growth aerobically. Laboratory Results 10/07/18 06:24: WBC 15.1 H, RBC 3.72 L, Hgb 10.1 L, Hct 30.2 L, MCV 81.2, MCH 27.2, MCHC 33.4, RDW 15.5 H, RDW Differential 44.0 H, Plt Count 268, MPV 11.4, Neut % (Auto) Not Reportable, Absolute Neuts (auto) 12.1 H, Absolute Lymphs (auto) 2.11, Total Counted 100, Neutrophils % (Manual) 77 H, Band Neutrophils % 3, Lymphocytes % (Manual) 14 L, Monocytes % (Manual) 3, Eosinophils % (Manual) 1, Metamyelocytes % 2 H, Diff Path Review Reviewed, Platelet Estimate ADEQUATE, RBC Morphology NORM C+C 10/07/18 06:24: Sodium 136, Potassium 3.9, Chloride 105, Carbon Dioxide 26.0, Anion Gap 5, BUN 21 H, Creatinine 0.70, Estim Creat Clear Calc 120.22, Est GFR (MDRD) Af Amer 148, Est GFR (MDRD) Non-Af 123, BUN/Creatinine Ratio 29.9 H, Glucose 102, Calcium 7.4 L Current Medications Acetaminophen (Tylenol) 650 mg PO Q6H PRN PRN PRN Reason: Mild Pain (1-3)/Temp > 100.7 F Last Admin: 10/02/18 21:47 Dose: 650 mg Al Hydroxide/Mg Hydroxide (Mylanta Ii) 30 ml PO Q4H PRN PRN PRN Reason: indigestion Last Admin: 10/06/18 17:53 Dose: 30 ml Aspirin (Aspirin, Baby) 81 mg PO DAILY@0800 [facility] Last Admin: 10/07/18 07:44 Dose: Not Given Carvedilol (Coreg) 25 mg PO BID [facility] Last Admin: 10/07/18 09:25 Dose: 25 mg Dextrose (D50w Syringe) 0 gm IV X1 PRN; Protocol PRN Reason: Hypoglycemia Doxazosin Mesylate (Cardura) 4 mg PO DAILY@2200 [facility] Last Admin: 10/06/18 22:08 Dose: 4 mg Enoxaparin Sodium (Lovenox) 40 mg SC DAILY@1000 [facility] Last Admin: 10/07/18 08:04 Dose: Not Given Glucagon () 1 mg IM .X1 PRN PRN Reason: Hypoglycemia Hydrochlorothiazide () 12.5 mg PO DAILY [facility] Last Admin: 10/07/18 08:15 Dose: Not Given Cefazolin Sodium 2 gm/ Sodium (Chloride) 110 mls @ 150 mls/hr IV Q8 [facility] Last Admin: 10/07/18 05:17 Dose: 150 mls/hr Ibuprofen (Motrin) 400 mg PO Q8H PRN PRN Reason: Temp, PAIN Morphine Sulfate () 2 mg IV Q3H PRN PRN PRN Reason: SEVERE PAIN (6-10/10) Multivitamins (Multivitamin) 1 tablet PO DAILY@0800 [facility] Last Admin: 10/07/18 07:44 Dose: Not Given Ondansetron HCl (Zofran) 4 mg IV Q8H PRN PRN PRN Reason: NAUSEA/VOMITING Last Admin: 10/04/18 13:18 Dose: 4 mg Oxycodone HCl (Oxyir) 5 mg PO Q4H PRN PRN PRN Reason: Moderate Pain (4-6/10) Last Admin: 10/07/18 09:24 Dose: 5 mg Polyethylene Glycol (Miralax) 17 gm PO DAILY PRN PRN PRN Reason: constipation Silver Sulfadiazine (Silvadene (Bkc)) 1 applic TOPICAL DAILY [facility]; Protocol Sodium Chloride () 5 - 15 ml IV UD PRN PRN Reason: SALINE FLUSH Last Admin: 10/07/18 06:11 Dose: 10 ml Vancomycin HCl () 125 mg PO Q6 [facility] Last Admin: 10/07/18 12:30 Dose: 125 mg Zolpidem Tartrate (Ambien (Generic)) 5 mg PO QHS PRN PRN PRN Reason: INSOMNIA Last Admin: 10/04/18 23:52 Dose: 5 mg Medical Necessity - Tobacco Use Smoking Status: Former smoker Tobacco Use: Non-smoker Assessment/Plan All Active Problems (Last Updated 09/30/18 @ 10:24 by Kalpesh Nuno DO) Cellulitis of left lower extremity (Acute) Lymphedema of left lower extremity (Acute) Sepsis (Acute) Cellulitis of left anterior lower leg (Acute) Acute kidney injury (Acute) Hypokalemia (Acute) There is a 57-year-old gentleman with history of hypertension, obstructive sleep apnea and morbid obesity and chronic lymphedema was admitted with erythema, pain, induration of left lower extremity consistent with cellulitis. Patient received Zosyn in the ED. 1. Sepsis secondary to Streptococcus group A bacteremia * Secondary to left lower extremity cellulitis. Bacterial PCR shows Streptococcus pyogenes sensitive to penicillin. The dose of IV cefazolin increased to 2 g q. 8 hourly. Discussed with ID about mottling and bahena/blackish pigmentation around lateral aspect of left leg with concern for deep soft tissue infection/necrotizing fasciitis for which repeat CT scan was done without contrast as patient had acute kidney injury during first CT with contrast. Repeat CT scan reported as Soft tissue swelling without interval change and without demonstrated focal fluid collection to indicate abscess. * Dr. Carrero consult reviewed and appreciated. Leukocytosis and the wound of left lower extremity and color has improved. Post surgery for tomorrow is deferred or canceled as the patient is improving on conservative management. 2. Left lower extremity cellulitis * MRSA swab negative + strep bacteremia * Initially patient was started on vancomycin probably received 1 dose and then changed to IV cefazolin. * CT leg negative for any gas. Venous Doppler ordered. * Keep leg elevated * CT lower extremity shows diffuse soft tissue swelling of lower leg compatible with cellulitis but no focal fluid or saphenous gas. C. difficile infection/colitis: Stool for C. difficile is positive. Patient is on p.o. vancomycin. Clinically abdominal symptoms have improved. 3.Hypokalemia Potassium has been overcorrected. K5.0. Repeat K 3.9 * Magnesium 1.9 * Resume low-dose HCTZ from 10/05/2017 4. Acute kidney injury versus chronic kidney disease stage III: Resolved. I think most probably secondary to contrast-induced nephropathy as it developed during the same time of CT scan with contrast. * Resolved. IV contrast was not given during second CT scan. 5. 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 This was evident in left lower leg CT scan. VT E prophylaxis with Lovenox. Constipation: Patient constipation is resolved and currently soft bowel movement. Stool softeners discontinued. Microbiology Past 72 Hours 10/01/18 09:06 Blood Culture (Wb) - Left Hand Blood Culture - Final No growth in 5 days. 10/01/18 09:00 Blood Culture (Wb) - Anticubital Right Blood Culture - Final No growth in 5 days. 10/06/18 08:30 Stool C. difficile DNA Amplification - Final Toxigenic C. difficile DNA 10/04/18 09:15 Wound - Left Foot Gram Stain - Final 10/04/18 09:15 Wound - Left Foot Wound Culture - Final No growth aerobically. Laboratory Results 10/07/18 06:24: WBC 15.1 H, RBC 3.72 L, Hgb 10.1 L, Hct 30.2 L, MCV 81.2, MCH 27.2, MCHC 33.4, RDW 15.5 H, RDW Differential 44.0 H, Plt Count 268, MPV 11.4, Neut % (Auto) Not Reportable, Absolute Neuts (auto) 12.1 H, Absolute Lymphs (auto) 2.11, Total Counted 100, Neutrophils % (Manual) 77 H, Band Neutrophils % 3, Lymphocytes % (Manual) 14 L, Monocytes % (Manual) 3, Eosinophils % (Manual) 1, Metamyelocytes % 2 H, Diff Path Review Reviewed, Platelet Estimate ADEQUATE, RBC Morphology NORM C+C 10/07/18 06:24: Sodium 136, Potassium 3.9, Chloride 105, Carbon Dioxide 26.0, Anion Gap 5, BUN 21 H, Creatinine 0.70, Estim Creat Clear Calc 120.22, Est GFR (MDRD) Af Amer 148, Est GFR (MDRD) Non-Af 123, BUN/Creatinine Ratio 29.9 H, Glucose 102, Calcium 7.4 L Clinical Impression(s) from Imaging Studies Lower Extremity CT 10/01/18 09:34 IMPRESSION: 1. Diffuse soft tissue swelling of the lower leg (and visualized ankle/foot) compatible with history of cellulitis or edema. No focal fluid collection or subcutaneous gas demonstrated. 2. Varicose veins. 3. Degenerative changes of the knee and visualized ankle/foot. 4. Small joint effusion. Lower Extremity CT 10/06/18 13:04 IMPRESSION: Soft tissue swelling without interval change and without demonstrated focal fluid collection to indicate abscess. 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 Code Visit Inpatient E&M: 13721 [facility] Hosp L3
[2018-10-07 15:04] VITALS: BP 133/59; PULSE 69; RESP 18; TEMP 37.1; O2SAT 95
--- NOTE | 2018-10-07 15:20 | CASEMGMT ---
Addendum entered by Kristin Naik 10/07/18 16:16: Dr Solano has sent Script to [facility] for Firvanq liquid. Call placed to [facility] to confirm prior auth/insurance approval. They confirmed prior auth went through and pt's out-of pocket cost is $41.58, but they stated they will not have the medication available in their pharmacy until Wednesday around 4 PM. Call placed to [facility] pharmacy and they do have the medication available. MICHAEL VILLALOBOS to room to talk to pt and . They stated the co-pay amt is affordable and they were agreeable to having script transferred to [facility] pharmacy. states she is available to pick the medication up from [facility] this evening before 6:30 PM and she is aware medication will need to be refrigerated. Original Note: MICHAEL VILLALOBOS NOTE: Prior Auth: Anticipate pt may be discharged Wednesday. Spoke to Dr Li re: plans for Vanco po. He states as per Dr Solano current order for PO Vanco, plans would be for pt to discharge on PO Vanco 125 mg Q 6 hrs for a total of 2 weeks, which would include the doses pt has had @ hospital already. Call placed to [facility]. They provided this MICHAEL VILLALOBOS with phone number to call to inquire about prior auth. Call placed to [facility] @ . Per recording, [facility] no longer do [facility] prior Auth. Call placed to [facility] Prior Auth Dept @ . Prior auth obtained for Firvanq liquid 25 mg/ml (125 mg/5 ml) for a 12-day supply (330 ml). Prior auth valid 10/07/18 thru 10/07/19 Reference #: [id number]. In the event there are any issues w/Script/ auth over the weekend, [facility] provided a Pharmacy Help Desk #: . Pt's RX ID # is: [id number]. Mo RENEN MICHAEL VILLALOBOS
--- NOTE | 2018-10-07 16:47 | PCM.PN.ID ---
Patient Problems: Active and Suspected Problems (Last Updated 09/30/18 @ 10:24 by Kalpesh Nuno DO) Cellulitis of left lower extremity (Acute) Sepsis (Acute) Cellulitis of left anterior lower leg (Acute) Acute kidney injury (Acute) Hypokalemia (Acute) Subjective: Feeling better, leg improved, diarrhea improved, no fever. - Physical Exam General: Alert, Cooperative, No apparent distress Lungs: Clear to auscultation, Normal air movement Cardiovascular: Regular rate, Regular Rhythm Abdomen: Soft, Non Tender, Non-Distended Extremities: Edema - LLE wrapped Vital Signs Temp Pulse Resp BP Pulse Ox 98.7 F 69 18 133/59 H 95 10/07/18 15:04 10/07/18 15:04 10/07/18 15:04 10/07/18 15:04 10/07/18 15:04 Oxygen Delivery Method Room Air Weight: 166.5 kg Body Mass Index (BMI) 52.6 Intake and Output for Last 24 Hours 10/05/18 10/06/18 10/07/18 23:59 23:59 23:59 Intake Total 1600 / 1600 2524 / 2524 520 / 520 Output Total 950 / 950 2375 / 2375 1000 / 1000 Balance 650 / 650 149 / 149 -480 / -480 Microbiology Past 72 Hours 10/01/18 09:06 Blood Culture - Final Blood Culture (Wb) - Left Hand No growth in 5 days. 10/01/18 09:00 Blood Culture - Final Blood Culture (Wb) - Anticubital Right No growth in 5 days. 10/06/18 08:30 C. difficile DNA Amplification - Final Stool Toxigenic C. difficile DNA 10/04/18 09:15 Gram Stain - Final Wound - Left Foot Wound Culture - Final No growth aerobically. Laboratory Tests Past 24 Hrs 10/07/18 10/07/18 06:24 06:24 WBC 15.1 H RBC 3.72 L Hgb 10.1 L Hct 30.2 L MCV 81.2 MCH 27.2 MCHC 33.4 RDW 15.5 H RDW Differential 44.0 H Plt Count 268 MPV 11.4 Neut % (Auto) Not Reportable Absolute Neuts (auto) 12.1 H Absolute Lymphs (auto) 2.11 Total Counted 100 Neutrophils % (Manual) 77 H Band Neutrophils % 3 Lymphocytes % (Manual) 14 L Monocytes % (Manual) 3 Eosinophils % (Manual) 1 Metamyelocytes % 2 H Diff Path Review Reviewed Platelet Estimate ADEQUATE RBC Morphology NORM C+C Sodium 136 Potassium 3.9 Chloride 105 Carbon Dioxide 26.0 Anion Gap 5 BUN 21 H Creatinine 0.70 Estim Creat Clear Calc 120.22 Est GFR (MDRD) Af Amer 148 Est GFR (MDRD) Non-Af 123 BUN/Creatinine Ratio 29.9 H Glucose 102 Calcium 7.4 L Medical Necessity - Tobacco Use Smoking Status: Former smoker Tobacco Use: Non-smoker Route of nutrition/ use of supplements: [] Nutritional Intake: [] IV Site: [] Jimenez Catheter: [] - Assessment/Plan Antibiotics: [] Assessment/Plan: [] Active and Suspected Problems (Last Updated 09/30/18 @ 10:24 by Kalpesh Nuno DO) Cellulitis of left lower extremity (Acute) Sepsis (Acute) Cellulitis of left anterior lower leg (Acute) Acute kidney injury (Acute) Hypokalemia (Acute) sepsis due to GAS bacteremia from LLE cellulitis - Bullae seem to be more related to fluid than uncontrolled infection. Cont cefazolin. Improved today. Rising wbc and low grade temps. Cdiff (+) but not clear if this is true infection. Po vanc started, toxin pcr pending. Will follow, overall much improved. If he goes home 10/09, plan would be for po vanc x10 days and no other abx. Rx written. If toxin pcr is neg, ok to stop po vanc.
[2018-10-07 20:30] VITALS: BP 133/68; PULSE 73; RESP 15; TEMP 37.6; O2SAT 94
[2018-10-07] MEDS: Doxazosin 4 MG Tablet PO (21:46)
[2018-10-07 22:00] VITALS: PULSE 73; RESP 15; O2SAT 94
[2018-10-08 04:00] VITALS: BP 148/71; PULSE 69; RESP 15; RESP 16; TEMP 36.7; O2SAT 94; O2SAT 97
[2018-10-08] MEDS: Cefazolin 2 GM in 0.9% Normal Saline 100 ML IV ×3 (05:31→22:44)
[2018-10-08 07:00] LABS: Hematocrit 27.4 % (40-54); Hemoglobin 9.2 g/dl (13.0-16.5); Mean Corp Hgb Conc 33.6 g/gl (32-36); Mean Corpuscular Hgb 27.6 pg (27.0-32.0); Mean Corpuscular Volume 82.3 fL (80-94); Mean Platelet Vol. 10.9 fl (6.2-12.0); Platelet Count 313 K/mm3 (150-450); RBC Distribution Width CV 15.7 % (11.6-14.6); RBC Distribution Width SD 46.1 fl (35.1-43.9); Red Blood Count 3.33 M/mm3 (4.6-6.2); White Blood Count 13.4 K/mm3 (4.4-11.0)
[2018-10-08 07:01] LABS: Differential Indicated MANUAL DIFF; POSITIVE COUNT YES; POSITIVE DIFFERENTIAL NO; POSITIVE MORPHOLOGY YES
[2018-10-08 07:03] LABS: Anion Gap 5 (5-15); BUN 23 mg/dL (7-18); BUN/Creat Ratio 36.7 RATIO (10-20); Calcium,Total 7.2 mg/dL (8.5-10.1); Chloride 110 mmol/L (98-107); Creatinine, Serum 0.63 mg/dL (0.70-1.30); EST Glomerular Filtration Rate 140 mL/min (>60); Est Glom Filt Rate - Afr Amer 170 mL/min (>60); Estimated Creatinine Clearance 133.58 ml/min; Glucose 95 mg/dL (74-106); Potassium 4.3 mmol/L (3.5-5.1); Prealbumin 10.6 mg/dL (20.0-40.0); Sodium Level 142 mmol/L (136-145)
[2018-10-08 07:18] LABS: Anisocytosis 1+; Eosinophil 2 % (0-5); Hypochromasia 1+; Lymphocyte 18 % (19-41); Monocyte 1 % (0-10); Neutrophil-Band 2 % (0-5); Neutrophil-Segmented 77 % (47-70); Polychromasia 1+; Total Cells Counted 100 (MANUAL DIFF)
[2018-10-08 07:19] LABS: Microcytosis 1+; Platelet Estimate ADEQUATE (ADEQ); Platelet Morphology LARGE
[2018-10-08 07:20] LABS: Absolute Neutrophil Count 10.6 X10^3/uL (2.0-7.7)
[2018-10-08 07:21] LABS: Absolute Lymphocyte Count 2.41 X10^3/ul (0.83-4.51)
--- NOTE | 2018-10-08 09:13 | PN.SURG_ITS ---
Patient Problems: Active and Suspected Problems (Last Updated 09/30/18 @ 10:24 by Kalpesh Nuno DO) Cellulitis of left lower extremity (Acute) Sepsis (Acute) Cellulitis of left anterior lower leg (Acute) Acute kidney injury (Acute) Hypokalemia (Acute) Subjective: Patient is resting comfortably. Ambulates without difficulty and without pain in the left leg. There is some discomfort with the dressing changes when the leg is washed with saline to remove the residual Silvadene and any loose skin. - Physical Exam General: Alert, Oriented x3 HEENT: PERRLA, EOMI Oral: Moist Mucosa Neck: Supple Abdomen: Soft, Non-Distended Extremities: Edema - less edema in the left lower extremity., Peripheral Pulses Normal Skin: Ulcer/ Wound - Less areas of blistering as the loose skin is being debrided with the dressing change and from washing the old Silvadene off. The ecchymosis and bruising on the left anterior leg with medial and lateral extensi on is less at the edges. No fluctuance. No purulent drainage. No eschar seen. On the dorsum of the left foot is pink viable dermis. The whitish areas on the malleolus are slowly improving. Areas are minimally tender. Posterior leg is nontender. Patient can lift his leg on his own without pain and without difficulty. No inguinal adenopathy. No clinical evidence of necrotizing process. Neurological: Cranial nerves II-XII grossly intact Psych/Mental Status: Normal Affect, Appropriate Vital Signs Temp Pulse Resp BP Pulse Ox 98.1 F 69 15 148/71 H 97 10/08/18 04:00 10/08/18 04:00 10/08/18 04:00 10/08/18 04:00 10/08/18 04:00 Oxygen Delivery Method CPAP Weight: 367 lb 1.114 oz Body Mass Index (BMI) 52.6 Intake and Output for Last 24 Hours 10/06/18 10/07/18 10/08/18 23:59 23:59 23:59 Intake Total 2524 / 2524 1020 / 1020 270 / 270 Output Total 2375 / 2375 1450 / 1450 700 / 700 Balance 149 / 149 -430 / -430 -430 / -430 Microbiology Past 72 Hours 10/01/18 09:06 Blood Culture - Final Blood Culture (Wb) - Left Hand No growth in 5 days. 10/01/18 09:00 Blood Culture - Final Blood Culture (Wb) - Anticubital Right No growth in 5 days. 10/06/18 08:30 C. difficile DNA Amplification - Final Stool Toxigenic C. difficile DNA 10/04/18 09:15 Gram Stain - Final Wound - Left Foot Wound Culture - Final No growth aerobically. Laboratory Tests Past 24 Hrs 10/07/18 10/08/18 10/08/18 06:24 05:53 05:53 WBC 13.4 H RBC 3.33 L Hgb 9.2 L Hct 27.4 L MCV 82.3 MCH 27.6 MCHC 33.6 RDW 15.7 H RDW Differential 46.1 H Plt Count 313 MPV 10.9 Neut % (Auto) Not Reportable Absolute Neuts (auto) 10.6 H Absolute Lymphs (auto) 2.41 Total Counted 100 Neutrophils % (Manual) 77 H Band Neutrophils % 2 Lymphocytes % (Manual) 18 L Monocytes % (Manual) 1 Eosinophils % (Manual) 2 Diff Path Review Reviewed May foll Platelet Estimate ADEQUATE Plt Morphology Comment LARGE Polychromasia 1+ Hypochromasia 1+ Anisocytosis 1+ Microcytosis 1+ Sodium 142 Potassium 4.3 Chloride 110 H Carbon Dioxide 27.0 Anion Gap 5 BUN 23 H Creatinine 0.63 L Estim Creat Clear Calc 133.58 Est GFR (MDRD) Af Amer 170 Est GFR (MDRD) Non-Af 140 BUN/Creatinine Ratio 36.7 H Glucose 95 Calcium 7.2 L Prealbumin 10.6 L Medical Necessity - Tobacco Use Smoking Status: Former smoker Tobacco Use: Non-smoker Assessment/Plan All Active Problems (Last Updated 09/30/18 @ 10:24 by Kalpesh Nuno DO) Pressure injury of left ankle, stage 2 (Acute) Pressure injury of dorsum of left foot, stage 2 (Acute) Pressure injury of left leg, stage 2 (Acute) Cellulitis of left lower extremity (Acute) Lymphedema of left lower extremity (Acute) Sepsis (Acute) Cellulitis of left anterior lower leg (Acute) Acute kidney injury (Acute) Hypokalemia (Acute) 1. Pressure injury left anterior leg with medial and lateral extension and dorsum foot and malleoli. 2. Cellulitis left lower extremity. 3. Lymphedema. Patient feels better this morning. His swelling is better. Continue Silvadene dressing changes. Debriding off some of the sloughing epidermis, the underlying dermis is more painful. Told the patient there is IV Morphine available for the dressing changes. His WBC has improved to 13.4. Continue Ancef and Vancomycin. The bruised areas on his left leg are less dark. The leg is soft. There is some evidence of epidermolysis. The underlying dermis appears viable. The dorsum of foot shows underlying dermis that is pink and viable. Will put the surgery on hold today due to clinical improvement. Discussed with the patient that if we can hold off on surgery for a few days to see how much of the involved skin improves will limit the extent of the debridement. Therefore the healing should take a little less time if the wound is smaller. Will let him eat today and make him NPO at midnight tonight. Will reassess in the morning. If improvement continues, then will feed him and continue the process daily. If his clinical picture worsens, then will proceed to surgery. Continue Silvadene to the dressing changes. It is important to cleanse the wound and wash off old Silvadene before reapplying. Patient was informed of the risks and complications of the procedure including alternatives to surgery. These were discussed with the patient personally. Patient voices understanding and wishes to proceed with the current plan of close observation. Patient voices understanding that surgery is still a possibility. Patient understands that the wounds will be left open and will proceed with postop wound care with the VAC. Anticipate increased metabolic demands from the infection and future surgery. His Prealbumin was 10.6. Encourage nutritional supplementation with protein to help the healing process. After discharge, [facility]. If there is a plateau in the healing process, can proceed with delayed closure with skin grafting. Code Visit Inpatient E&M: 44762 Subs Hosp L2 - ICD-10 - L89.892, L89.522, L03.116, I89.0
[2018-10-08 09:15] VITALS: BP 153/75; PULSE 67; RESP 16; TEMP 36.9; O2SAT 97
[2018-10-08] MEDS: Multivitamins,Therapeutic Tablet 1 TABLET PO (09:19)
[2018-10-08] MEDS: Aspirin 81 MG TAB.CHEW PO (09:19)
[2018-10-08] MEDS: hydroCHLOROthiazide 12.5mg 12.5 MG PO (09:19)
[2018-10-08] MEDS: Silver Sulfadiazine 1% Crm 50 gm Bottle 1 APPLIC TOPICAL (09:20)
[2018-10-08] MEDS: Enoxaparin 40 MG/0.4 ML Syringe SC (09:20)
[2018-10-08] MEDS: Carvedilol 25 MG Tablet PO ×2 (09:20→20:21)
--- NOTE | 2018-10-08 12:40 | PCM.PN.HOSP ---
Patient Problems: Active and Suspected Problems (Last Updated 09/30/18 @ 10:24 by Kalpesh Nuno DO) Cellulitis of left lower extremity (Acute) Sepsis (Acute) Cellulitis of left anterior lower leg (Acute) Acute kidney injury (Acute) Hypokalemia (Acute) Subjective: Patient seen and examined. He has no complaints and denies any fever chills, palpitations or dizziness, chest pain, diarrhea vomiting. Redness over left lower extremity has improved. Labs and vitals reviewed. Vitals/I&O's: Vital Signs Temp Pulse Resp BP Pulse Ox 98.4 F 67 16 153/75 H 97 10/08/18 09:15 10/08/18 09:15 10/08/18 09:15 10/08/18 09:15 10/08/18 09:15 Oxygen Delivery Method Room Air Weight: 367 lb 1.114 oz Body Mass Index (BMI) 52.6 Intake and Output for Last 24 Hours 10/06/18 10/07/18 10/08/18 23:59 23:59 23:59 Intake Total 2524 / 2524 1020 / 1020 570 / 570 Output Total 2375 / 2375 1450 / 1450 700 / 700 Balance 149 / 149 -430 / -430 -130 / -130 General: Alert, Oriented x3, Cooperative, No apparent distress, - - morbidly obese HEENT: Atraumatic, PERRLA, EOMI, Normocephalic Oral: Moist Mucosa Neck: Supple, No JVD, Negative Carotid Bruits, Negative Hepatojugular Reflux, No Nodes Lungs: Clear to auscultation, Normal air movement, No rhonchi, No wheeze, No rales Cardiovascular: Regular rate, Regular Rhythm, Normal S1, Normal S2, No murmurs Abdomen: Bowel Sounds Present, Soft, Non Tender, Non-Distended, No Hepato-splenomegaly, Passing Flatus Extremities: No edema, Capillary Refill Less than 3 Seconds Skin: - - erythematous blisters over left inner thigh. LLE Wrapped in ANA PAULA bandage; Musculoskeletal: No Tenderness to Palpation of Joints or Extremities Lymphatic: No Cervical, Supraclavicular, or Inguinal Adenopathy Neurological: Cranial nerves II-XII grossly intact Psych/Mental Status: Normal Affect, Appropriate, Alert and oriented to time, place, person, mood and affect Microbiology Past 72 Hours 10/01/18 09:06 Blood Culture (Wb) - Left Hand Blood Culture - Final No growth in 5 days. 10/01/18 09:00 Blood Culture (Wb) - Anticubital Right Blood Culture - Final No growth in 5 days. 10/06/18 08:30 Stool C. difficile DNA Amplification - Final Toxigenic C. difficile DNA 10/04/18 09:15 Wound - Left Foot Gram Stain - Final 10/04/18 09:15 Wound - Left Foot Wound Culture - Final No growth aerobically. Laboratory Results 10/07/18 06:24: Diff Path Review Reviewed 10/08/18 05:53: WBC 13.4 H, RBC 3.33 L, Hgb 9.2 L, Hct 27.4 L, MCV 82.3, MCH 27.6, MCHC 33.6, RDW 15.7 H, RDW Differential 46.1 H, Plt Count 313, MPV 10.9, Neut % (Auto) Not Reportable, Absolute Neuts (auto) 10.6 H, Absolute Lymphs (auto) 2.41, Total Counted 100, Neutrophils % (Manual) 77 H, Band Neutrophils % 2, Lymphocytes % (Manual) 18 L, Monocytes % (Manual) 1, Eosinophils % (Manual) 2, Diff Path Review May foll, Platelet Estimate ADEQUATE, Plt Morphology Comment LARGE, Polychromasia 1+, Hypochromasia 1+, Anisocytosis 1+, Microcytosis 1+ 10/08/18 05:53: Sodium 142, Potassium 4.3, Chloride 110 H, Carbon Dioxide 27.0, Anion Gap 5, BUN 23 H, Creatinine 0.63 L, Estim Creat Clear Calc 133.58, Est GFR (MDRD) Af Amer 170, Est GFR (MDRD) Non-Af 140, BUN/Creatinine Ratio 36.7 H, Glucose 95, Calcium 7.2 L, Prealbumin 10.6 L Diagnostic Data Lower Extremity CT 10/06/18 13:04 IMPRESSION: Soft tissue swelling without interval change and without demonstrated focal fluid collection to indicate abscess. 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 Electronically Signed: Dilan Rocha MD at 14:30 EDT Tel , Service support , Current Medications Acetaminophen (Tylenol) 650 mg PO Q6H PRN PRN PRN Reason: Mild Pain (1-3)/Temp > 100.7 F Last Admin: 10/02/18 21:47 Dose: 650 mg Al Hydroxide/Mg Hydroxide (Mylanta Ii) 30 ml PO Q4H PRN PRN PRN Reason: indigestion Last Admin: 10/06/18 17:53 Dose: 30 ml Aspirin (Aspirin, Baby) 81 mg PO DAILY@0800 [facility] Last Admin: 10/08/18 09:19 Dose: 81 mg Carvedilol (Coreg) 25 mg PO BID [facility] Last Admin: 10/08/18 09:20 Dose: 25 mg Dextrose (D50w Syringe) 0 gm IV X1 PRN; Protocol PRN Reason: Hypoglycemia Doxazosin Mesylate (Cardura) 4 mg PO DAILY@2200 [facility] Last Admin: 10/07/18 21:46 Dose: 4 mg Enoxaparin Sodium (Lovenox) 40 mg SC DAILY@1000 [facility] Last Admin: 10/08/18 09:20 Dose: 40 mg Glucagon () 1 mg IM .X1 PRN PRN Reason: Hypoglycemia Hydrochlorothiazide () 12.5 mg PO DAILY [facility] Last Admin: 10/08/18 09:19 Dose: 12.5 mg Cefazolin Sodium 2 gm/ Sodium (Chloride) 110 mls @ 150 mls/hr IV Q8 [facility] Last Admin: 10/08/18 05:31 Dose: 150 mls/hr Ibuprofen (Motrin) 400 mg PO Q8H PRN PRN Reason: Temp, PAIN Morphine Sulfate () 2 mg IV Q3H PRN PRN PRN Reason: SEVERE PAIN (6-10/10) Multivitamins (Multivitamin) 1 tablet PO DAILY@0800 [facility] Last Admin: 10/08/18 09:19 Dose: 1 tablet Ondansetron HCl (Zofran) 4 mg IV Q8H PRN PRN PRN Reason: NAUSEA/VOMITING Last Admin: 10/04/18 13:18 Dose: 4 mg Oxycodone HCl (Oxyir) 5 mg PO Q4H PRN PRN PRN Reason: Moderate Pain (4-6/10) Last Admin: 04/26/19 21:46 Dose: 5 mg Polyethylene Glycol (Miralax) 17 gm PO DAILY PRN PRN PRN Reason: constipation Potassium Chloride (K-Dur) 20 meq PO DAILYCM JAYA Last Admin: 10/07/18 17:13 Dose: 20 meq Silver Sulfadiazine (Silvadene (Bkc)) 1 applic TOPICAL DAILY JAYA; Protocol Last Admin: 10/08/18 09:20 Dose: 1 applicatio Sodium Chloride () 5 - 15 ml IV UD PRN PRN Reason: SALINE FLUSH Last Admin: 10/07/18 06:11 Dose: 10 ml Vancomycin HCl () 125 mg PO Q6 JAYA Last Admin: 10/08/18 11:40 Dose: 125 mg Zolpidem Tartrate (Ambien (Generic)) 5 mg PO QHS PRN PRN PRN Reason: INSOMNIA Last Admin: 10/04/18 23:52 Dose: 5 mg Medical Necessity - Tobacco Use Smoking Status: Former smoker Tobacco Use: Non-smoker Assessment/Plan All Active Problems (Last Updated 09/30/18 @ 10:24 by Kalpesh Nuno DO) Cellulitis of left lower extremity (Acute) Lymphedema of left lower extremity (Acute) Sepsis (Acute) Cellulitis of left anterior lower leg (Acute) Acute kidney injury (Acute) Hypokalemia (Acute) There is a 57-year-old gentleman with history of hypertension, obstructive sleep apnea and morbid obesity and chronic lymphedema was admitted with erythema, pain, induration of left lower extremity consistent with cellulitis. Patient received Zosyn in the ED. 1. Sepsis secondary to Streptococcus group A bacteremia and LLE cellulitis on IV cefazolin 2gram q8 CDT cscan of LLE showed soft tissue swelling without any interval change and no demonstrated focal fluid collection to indicate abscess blood cultures positive for strep pyogenes (2/2). repeat blood cultrues were ngative. Wound cultures are negative Dr Carrero consulted- he did bedside debridement of sloughing epidermis surgery held today due to clinical improvement. Plastic surgery to reassess tomorrow and determine need for surgery ID on board 2. LLE strep pyogenes cellulitis as under 1. Duplex of LLE was negative. 3. C Diff infection: Stool was positive for C. Diff. Currently on PO vancomycin. No longer having diarrhea. 4. Hypokalemia: Resolved. Potassium is 4.3 today. 5. SARAI: Resolved. Creatinine is 0.63 today. 6. Morbid obesity: Complicates current management and recovery. DVT prophylaxis: Lovenox Code Visit Inpatient E&M: 78227 Subs Hosp L3
--- NOTE | 2018-10-08 12:48 | PN_ITS ---
Patient Problems: Active and Suspected Problems (Last Updated 09/30/18 @ 10:24 by Kalpesh Nuno DO) Cellulitis of left lower extremity (Acute) Sepsis (Acute) Cellulitis of left anterior lower leg (Acute) Acute kidney injury (Acute) Hypokalemia (Acute) Subjective: Patient seen and examined. He has no complaints and denies any fever chills, palpitations or dizziness, chest pain, diarrhea vomiting. Redness over left lower extremity has improved. Labs and vitals reviewed. Vitals/I&O's: Vital Signs Temp Pulse Resp BP Pulse Ox 98.4 F 67 16 153/75 H 97 10/08/18 09:15 10/08/18 09:15 10/08/18 09:15 10/08/18 09:15 10/08/18 09:15 Oxygen Delivery Method Room Air Weight: 367 lb 1.114 oz Body Mass Index (BMI) 52.6 Intake and Output for Last 24 Hours 10/06/18 10/07/18 10/08/18 23:59 23:59 23:59 Intake Total 2524 / 2524 1020 / 1020 570 / 570 Output Total 2375 / 2375 1450 / 1450 700 / 700 Balance 149 / 149 -430 / -430 -130 / -130 General: Alert, Oriented x3, Cooperative, No apparent distress, - - morbidly obese HEENT: Atraumatic, PERRLA, EOMI, Normocephalic Oral: Moist Mucosa Neck: Supple, No JVD, Negative Carotid Bruits, Negative Hepatojugular Reflux, No Nodes Lungs: Clear to auscultation, Normal air movement, No rhonchi, No wheeze, No rales Cardiovascular: Regular rate, Regular Rhythm, Normal S1, Normal S2, No murmurs Abdomen: Bowel Sounds Present, Soft, Non Tender, Non-Distended, No Hepato- splenomegaly, Passing Flatus Extremities: No edema, Capillary Refill Less than 3 Seconds Skin: - - erythematous blisters over left inner thigh. LLE Wrapped in ANA PAULA bandage; Musculoskeletal: No Tenderness to Palpation of Joints or Extremities Lymphatic: No Cervical, Supraclavicular, or Inguinal Adenopathy Neurological: Cranial nerves II-XII grossly intact Psych/Mental Status: Normal Affect, Appropriate, Alert and oriented to time, place, person, mood and affect Microbiology Past 72 Hours 10/01/18 09:06 Blood Culture (Wb) - Left Hand Blood Culture - Final No growth in 5 days. 10/01/18 09:00 Blood Culture (Wb) - Anticubital Right Blood Culture - Final No growth in 5 days. 10/06/18 08:30 Stool C. difficile DNA Amplification - Final Toxigenic C. difficile DNA 10/04/18 09:15 Wound - Left Foot Gram Stain - Final 10/04/18 09:15 Wound - Left Foot Wound Culture - Final No growth aerobically. Laboratory Results 10/07/18 06:24: Diff Path Review Reviewed 10/08/18 05:53: WBC 13.4 H, RBC 3.33 L, Hgb 9.2 L, Hct 27.4 L, MCV 82.3, MCH 27.6, MCHC 33.6, RDW 15.7 H, RDW Differential 46.1 H, Plt Count 313, MPV 10.9, Neut % (Auto) Not Reportable, Absolute Neuts (auto) 10.6 H, Absolute Lymphs (auto) 2.41, Total Counted 100, Neutrophils % (Manual) 77 H, Band Neutrophils % 2, Lymphocytes % (Manual) 18 L, Monocytes % (Manual) 1, Eosinophils % (Manual) 2 , Diff Path Review May foll, Platelet Estimate ADEQUATE, Plt Morphology Comment LARGE, Polychromasia 1+, Hypochromasia 1+, Anisocytosis 1+, Microcytosis 1+ 10/08/18 05:53: Sodium 142, Potassium 4.3, Chloride 110 H, Carbon Dioxide 27.0, Anion Gap 5, BUN 23 H, Creatinine 0.63 L, Estim Creat Clear Calc 133.58, Est GFR (MDRD) Af Amer 170, Est GFR (MDRD) Non-Af 140, BUN/Creatinine Ratio 36.7 H, Glucose 95, Calcium 7.2 L, Prealbumin 10.6 L Diagnostic Data Lower Extremity CT 10/06/18 13:04 IMPRESSION: Soft tissue swelling without interval change and without demonstrated focal fluid collection to indicate abscess. 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 Electronically Signed: Dilan Rocha MD at 14:30 EDT Tel , Service support , Current Medications Acetaminophen (Tylenol) 650 mg PO Q6H PRN PRN PRN Reason: Mild Pain (1-3)/Temp > 100.7 F Last Admin: 10/02/18 21:47 Dose: 650 mg Al Hydroxide/Mg Hydroxide (Mylanta Ii) 30 ml PO Q4H PRN PRN PRN Reason: indigestion Last Admin: 10/06/18 17:53 Dose: 30 ml Aspirin (Aspirin, Baby) 81 mg PO DAILY@0800 [facility] Last Admin: 10/08/18 09:19 Dose: 81 mg Carvedilol (Coreg) 25 mg PO BID [facility] Last Admin: 10/08/18 09:20 Dose: 25 mg Dextrose (D50w Syringe) 0 gm IV X1 PRN; Protocol PRN Reason: Hypoglycemia Doxazosin Mesylate (Cardura) 4 mg PO DAILY@2200 [facility] Last Admin: 10/07/18 21:46 Dose: 4 mg Enoxaparin Sodium (Lovenox) 40 mg SC DAILY@1000 [facility] Last Admin: 10/08/18 09:20 Dose: 40 mg Glucagon () 1 mg IM .X1 PRN PRN Reason: Hypoglycemia Hydrochlorothiazide () 12.5 mg PO DAILY [facility] Last Admin: 10/08/18 09:19 Dose: 12.5 mg Cefazolin Sodium 2 gm/ Sodium (Chloride) 110 mls @ 150 mls/hr IV Q8 [facility] Last Admin: 10/08/18 05:31 Dose: 150 mls/hr Ibuprofen (Motrin) 400 mg PO Q8H PRN PRN Reason: Temp, PAIN Morphine Sulfate () 2 mg IV Q3H PRN PRN PRN Reason: SEVERE PAIN (6-10/10) Multivitamins (Multivitamin) 1 tablet PO DAILY@0800 [facility] Last Admin: 10/08/18 09:19 Dose: 1 tablet Ondansetron HCl (Zofran) 4 mg IV Q8H PRN PRN PRN Reason: NAUSEA/VOMITING Last Admin: 10/04/18 13:18 Dose: 4 mg Oxycodone HCl (Oxyir) 5 mg PO Q4H PRN PRN PRN Reason: Moderate Pain (4-6/10) Last Admin: 04/26/19 21:46 Dose: 5 mg Polyethylene Glycol (Miralax) 17 gm PO DAILY PRN PRN PRN Reason: constipation Potassium Chloride (K-Dur) 20 meq PO DAILYCM [facility]AYA Last Admin: 10/07/18 17:13 Dose: 20 meq Silver Sulfadiazine (Silvadene (Bkc)) 1 applic TOPICAL DAILY [facility]AYA; Protocol Last Admin: 10/08/18 09:20 Dose: 1 applicatio Sodium Chloride () 5 - 15 ml IV UD PRN PRN Reason: SALINE FLUSH Last Admin: 10/07/18 06:11 Dose: 10 ml Vancomycin HCl () 125 mg PO Q6 [facility] Last Admin: 10/08/18 11:40 Dose: 125 mg Zolpidem Tartrate (Ambien (Generic)) 5 mg PO QHS PRN PRN PRN Reason: INSOMNIA Last Admin: 10/04/18 23:52 Dose: 5 mg Medical Necessity - Tobacco Use Smoking Status: Former smoker Tobacco Use: Non-smoker Assessment/Plan All Active Problems (Last Updated 09/30/18 @ 10:24 by Kalpesh Nuno DO) Cellulitis of left lower extremity (Acute) Lymphedema of left lower extremity (Acute) Sepsis (Acute) Cellulitis of left anterior lower leg (Acute) Acute kidney injury (Acute) Hypokalemia (Acute) There is a 57-year-old gentleman with history of hypertension, obstructive sleep apnea and morbid obesity and chronic lymphedema was admitted with erythema, pain, induration of left lower extremity consistent with cellulitis. Patient received Zosyn in the ED. 1. Sepsis secondary to Streptococcus group A bacteremia and LLE cellulitis * on IV cefazolin 2gram q8 * CDT cscan of LLE showed soft tissue swelling without any interval change and no demonstrated focal fluid collection to indicate abscess * blood cultures positive for strep pyogenes (2/2). repeat blood cultrues were ngative. Wound cultures are negative * Dr Carrero consulted- he did bedside debridement of sloughing epidermis * surgery held today due to clinical improvement. Plastic surgery to reassess tomorrow and determine need for surgery * ID on board * 2. LLE strep pyogenes cellulitis * as under 1. * Duplex of LLE was negative. * 3. C Diff infection: Stool was positive for C. Diff. Currently on PO vancomycin. No longer having diarrhea. 4. Hypokalemia: Resolved. Potassium is 4.3 today. 5. SARAI: Resolved. Creatinine is 0.63 today. 6. Morbid obesity: Complicates current management and recovery. DVT prophylaxis: Lovenox Code Visit Inpatient E&M: 65890 [facility] Hosp L3
[2018-10-08 15:00] VITALS: BP 119/55; PULSE 70; RESP 18; TEMP 37.1; O2SAT 94
[2018-10-08] MEDS: Doxazosin 4 MG Tablet PO (20:21)
[2018-10-08] MEDS: oxyCODONE 5 MG Tablet PO (20:22)
[2018-10-08 20:24] VITALS: BP 134/65; PULSE 73; RESP 15; TEMP 37.6; O2SAT 94
[2018-10-08 22:00] VITALS: RESP 15; O2SAT 94
[2018-10-09 03:00] VITALS: BP 140/76; PULSE 72; RESP 21; TEMP 36.9; O2SAT 97
[2018-10-09] MEDS: Cefazolin 2 GM in 0.9% Normal Saline 100 ML IV ×3 (05:22→23:00)
[2018-10-09 07:31] LABS: Hematocrit 26.5 % (40-54); Hemoglobin 8.7 g/dl (13.0-16.5); Mean Corp Hgb Conc 32.8 g/gl (32-36); Mean Corpuscular Hgb 27.5 pg (27.0-32.0); Mean Corpuscular Volume 83.9 fL (80-94); Mean Platelet Vol. 11.3 fl (6.2-12.0); Platelet Count 341 K/mm3 (150-450); RBC Distribution Width CV 15.6 % (11.6-14.6); RBC Distribution Width SD 45.8 fl (35.1-43.9); Red Blood Count 3.16 M/mm3 (4.6-6.2); White Blood Count 12.7 K/mm3 (4.4-11.0)
[2018-10-09 07:41] LABS: Scan Indicated on CBC? Y/N NO
[2018-10-09 08:03] LABS: Anion Gap 5 (5-15); BUN 21 mg/dL (7-18); BUN/Creat Ratio 30.8 RATIO (10-20); Calcium,Total 7.6 mg/dL (8.5-10.1); Chloride 108 mmol/L (98-107); Creatinine, Serum 0.68 mg/dL (0.70-1.30); EST Glomerular Filtration Rate 127 mL/min (>60); Est Glom Filt Rate - Afr Amer 154 mL/min (>60); Estimated Creatinine Clearance 123.75 ml/min; Glucose 109 mg/dL (74-106); Potassium 3.7 mmol/L (3.5-5.1); Sodium Level 141 mmol/L (136-145)
[2018-10-09 08:04] VITALS: BP 138/74; PULSE 66; RESP 18; TEMP 36.8; O2SAT 95
[2018-10-09 08:07] VITALS: PULSE 70
[2018-10-09] MEDS: Multivitamins,Therapeutic Tablet 1 TABLET PO (08:14)
[2018-10-09] MEDS: Aspirin 81 MG TAB.CHEW PO (08:15)
[2018-10-09] MEDS: hydroCHLOROthiazide 12.5mg 12.5 MG PO (08:15)
[2018-10-09] MEDS: Enoxaparin 40 MG/0.4 ML Syringe SC (08:16)
[2018-10-09] MEDS: Carvedilol 25 MG Tablet PO (08:16)
--- NOTE | 2018-10-09 09:35 | PN.SURG_ITS ---
Patient Problems: Active and Suspected Problems (Last Updated 09/30/18 @ 10:24 by Kalpesh Nuno DO) Cellulitis of left lower extremity (Acute) Sepsis (Acute) Cellulitis of left anterior lower leg (Acute) Acute kidney injury (Acute) Hypokalemia (Acute) Subjective: Patient is resting comfortably. Ambulates without difficulty and without pain in the left leg. There is some discomfort with the dressing changes when the leg is washed with saline to remove the residual Silvadene and any loose skin. - Physical Exam General: Alert, Oriented x3 HEENT: PERRLA, EOMI Oral: Moist Mucosa Neck: Supple Abdomen: Soft, Non-Distended Extremities: Edema - less edema in the left lower extremity., Peripheral Pulses Normal Skin: Ulcer/ Wound - Less areas of blistering as the loose skin is being debrided with the dressing change and from washing the old Silvadene off. The ecchymosis and bruising on the left anterior leg with medial and lateral extens ion is less at the edges. No fluctuance. No purulent drainage. No eschar seen. On the dorsum of the left foot is pink viable dermis. The whitish areas on the malleolus are slowly improving. Areas are minimally tender. Posterior leg is nontender. Patient can lift his leg on his own without pain and without difficulty. No inguinal adenopathy. No clinical evidence of necrotizing process. Lymphatic: - - no inguinal adenopathy. Neurological: Cranial nerves II-XII grossly intact Psych/Mental Status: Normal Affect, Appropriate Vital Signs Temp Pulse Resp BP Pulse Ox 98.3 F 70 18 138/74 H 95 10/09/18 08:04 10/09/18 08:07 10/09/18 08:04 10/09/18 08:04 10/09/18 08:04 Oxygen Delivery Method Room Air Weight: 367 lb 1.114 oz Body Mass Index (BMI) 52.6 Intake and Output for Last 24 Hours 10/07/18 10/08/18 10/09/18 23:59 23:59 23:59 Intake Total 1020 / 1020 1270 / 1270 Output Total 1450 / 1450 1300 / 1300 320 / 320 Balance -430 / -430 -30 / -30 -320 / -320 Microbiology Past 72 Hours 10/01/18 09:06 Blood Culture - Final Blood Culture (Wb) - Left Hand No growth in 5 days. 10/01/18 09:00 Blood Culture - Final Blood Culture (Wb) - Anticubital Right No growth in 5 days. 10/06/18 08:30 C. difficile DNA Amplification - Final Stool Toxigenic C. difficile DNA 10/04/18 09:15 Gram Stain - Final Wound - Left Foot Wound Culture - Final No growth aerobically. Laboratory Tests Past 24 Hrs 10/09/18 10/09/18 05:43 05:43 WBC 12.7 H RBC 3.16 L Hgb 8.7 L Hct 26.5 L MCV 83.9 MCH 27.5 MCHC 32.8 RDW 15.6 H RDW Differential 45.8 H Plt Count 341 MPV 11.3 Sodium 141 Potassium 3.7 Chloride 108 H Carbon Dioxide 28.0 Anion Gap 5 BUN 21 H Creatinine 0.68 L Estim Creat Clear Calc 123.75 Est GFR (MDRD) Af Amer 154 Est GFR (MDRD) Non-Af 127 BUN/Creatinine Ratio 30.8 H Glucose 109 H Calcium 7.6 L Medical Necessity - Tobacco Use Smoking Status: Former smoker Tobacco Use: Non-smoker Assessment/Plan All Active Problems (Last Updated 09/30/18 @ 10:24 by Kalpesh Nuno DO) Pressure injury of left ankle, stage 2 (Acute) Pressure injury of dorsum of left foot, stage 2 (Acute) Pressure injury of left leg, stage 2 (Acute) Cellulitis of left lower extremity (Acute) Lymphedema of left lower extremity (Acute) Sepsis (Acute) Cellulitis of left anterior lower leg (Acute) Acute kidney injury (Acute) Hypokalemia (Acute) 1. Pressure injury left anterior leg with medial and lateral extension and dorsum foot and malleoli. 2. Cellulitis left lower extremity. 3. Lymphedema. Patient feels better this morning. His swelling is better. Continue Silvadene dressing changes. Debriding off some of the sloughing epidermis, the underlying dermis is more painful. Told the patient there is IV Morphine available for the dressing changes. His WBC has improved to 12.7. Continue Ancef and Vancomycin. The bruised areas on his left leg are less dark. The leg is soft. There is some evidence of epidermolysis. The underlying dermis appears viable. The dorsum of foot shows underlying dermis that is pink and viable. Will put the surgery on hold today due to clinical improvement. Discussed with the patient that if we can hold off on surgery for a few days to see how much of the involved skin improves will limit the extent of the debridement. Therefore the healing should take a little less time if the wound is smaller. Will let him eat today and make him NPO at midnight tonight. Will reassess in the morning. If improvement continues, then will feed him and continue the process daily. If his clinical picture worsens, then will proceed to surgery. Continue Silvadene to the dressing changes. It is important to cleanse the wound and wash off old Silvadene before reapplying. Will change the Silvadene to twice a day. Patient was informed of the risks and complications of the procedure including alternatives to surgery. These were discussed with the patient personally. Patient voices understanding and wishes to proceed with the current plan of close observation. Patient voices understanding that surgery is still a possibility. Patient understands that the wounds will be left open and will proceed with postop wound care with the VAC. Anticipate increased metabolic demands from the infection and future surgery. His Prealbumin was 10.6. Encourage nutritional supplementation with protein to help the healing process. After discharge, can [facility]up [facility]. If there is a plateau in the healing process, can proceed with delayed closure with skin grafting. Code Visit Inpatient E&M: 08528 Subs Hosp L2 - ICD-10 - L89.892, L89.522, L03.116, I89.0
--- NOTE | 2018-10-09 09:46 | PCM.PN.HOSP ---
Patient Problems: Active and Suspected Problems (Last Updated 09/30/18 @ 10:24 by Kalpesh Nuno DO) Cellulitis of left lower extremity (Acute) Sepsis (Acute) Cellulitis of left anterior lower leg (Acute) Acute kidney injury (Acute) Hypokalemia (Acute) Subjective: Patient seen and examined. He has no complaints this morning. Redness over left thigh and leg have improved significantly. Review of systems is otherwise negative. Labs and vitals reviewed. Vitals/I&O's: Vital Signs Temp Pulse Resp BP Pulse Ox 98.3 F 70 18 138/74 H 95 10/09/18 08:04 10/09/18 08:07 10/09/18 08:04 10/09/18 08:04 10/09/18 08:04 Oxygen Delivery Method Room Air Weight: 367 lb 1.114 oz Body Mass Index (BMI) 52.6 Intake and Output for Last 24 Hours 10/07/18 10/08/18 10/09/18 23:59 23:59 23:59 Intake Total 1020 / 1020 1270 / 1270 Output Total 1450 / 1450 1300 / 1300 320 / 320 Balance -430 / -430 -30 / -30 -320 / -320 General: Alert, Oriented x3, Cooperative, No apparent distress, - - morbidly obese HEENT: Atraumatic, PERRLA, EOMI, Normocephalic Oral: Moist Mucosa Neck: Supple, No JVD, Negative Carotid Bruits, Negative Hepatojugular Reflux, No Nodes Lungs: Clear to auscultation, Normal air movement, No rhonchi, No wheeze, No rales Cardiovascular: Regular rate, Regular Rhythm, Normal S1, Normal S2, No murmurs Abdomen: Bowel Sounds Present, Soft, Non Tender, Non-Distended, No Hepato-splenomegaly, Extremities: No edema, Capillary Refill Less than 3 Seconds Skin: - - erythematous blisters over left inner thigh. LLE Wrapped in ANA PAULA bandage; Musculoskeletal: No Tenderness to Palpation of Joints or Extremities Lymphatic: No Cervical, Supraclavicular, or Inguinal Adenopathy Neurological: Cranial nerves II-XII grossly intact Psych/Mental Status: Normal Affect, Appropriate, Alert and oriented to time, place, person, mood and affect Microbiology Past 72 Hours 10/01/18 09:06 Blood Culture (Wb) - Left Hand Blood Culture - Final No growth in 5 days. 10/01/18 09:00 Blood Culture (Wb) - Anticubital Right Blood Culture - Final No growth in 5 days. 10/06/18 08:30 Stool C. difficile DNA Amplification - Final Toxigenic C. difficile DNA 10/04/18 09:15 Wound - Left Foot Gram Stain - Final 10/04/18 09:15 Wound - Left Foot Wound Culture - Final No growth aerobically. Laboratory Results 10/09/18 05:43: WBC 12.7 H, RBC 3.16 L, Hgb 8.7 L, Hct 26.5 L, MCV 83.9, MCH 27.5, MCHC 32.8, RDW 15.6 H, RDW Differential 45.8 H, Plt Count 341, MPV 11.3 10/09/18 05:43: Sodium 141, Potassium 3.7, Chloride 108 H, Carbon Dioxide 28.0, Anion Gap 5, BUN 21 H, Creatinine 0.68 L, Estim Creat Clear Calc 123.75, Est GFR (MDRD) Af Amer 154, Est GFR (MDRD) Non-Af 127, BUN/Creatinine Ratio 30.8 H, Glucose 109 H, Calcium 7.6 L Current Medications Acetaminophen (Tylenol) 650 mg PO Q6H PRN PRN PRN Reason: Mild Pain (1-3)/Temp > 100.7 F Last Admin: 10/02/18 21:47 Dose: 650 mg Al Hydroxide/Mg Hydroxide (Mylanta Ii) 30 ml PO Q4H PRN PRN PRN Reason: indigestion Last Admin: 10/06/18 17:53 Dose: 30 ml Aspirin (Aspirin, Baby) 81 mg PO DAILY@0800 [facility] Last Admin: 10/09/18 08:15 Dose: 81 mg Carvedilol (Coreg) 25 mg PO BID [facility] Last Admin: 10/09/18 08:16 Dose: 25 mg Dextrose (D50w Syringe) 0 gm IV X1 PRN; Protocol PRN Reason: Hypoglycemia Doxazosin Mesylate (Cardura) 4 mg PO DAILY@2200 [facility] Last Admin: 10/08/18 20:21 Dose: 4 mg Enoxaparin Sodium (Lovenox) 40 mg SC DAILY@1000 [facility] Last Admin: 10/09/18 08:16 Dose: 40 mg Glucagon () 1 mg IM .X1 PRN PRN Reason: Hypoglycemia Hydrochlorothiazide () 12.5 mg PO DAILY [facility] Last Admin: 10/09/18 08:15 Dose: 12.5 mg Cefazolin Sodium 2 gm/ Sodium (Chloride) 110 mls @ 150 mls/hr IV Q8 [facility] Last Admin: 10/09/18 05:22 Dose: 150 mls/hr Ibuprofen (Motrin) 400 mg PO Q8H PRN PRN Reason: Temp, PAIN Morphine Sulfate () 2 mg IV Q3H PRN PRN PRN Reason: SEVERE PAIN (6-10/10) Multivitamins (Multivitamin) 1 tablet PO DAILY@0800 [facility] Last Admin: 10/09/18 08:14 Dose: 1 tablet Ondansetron HCl (Zofran) 4 mg IV Q8H PRN PRN PRN Reason: NAUSEA/VOMITING Last Admin: 10/04/18 13:18 Dose: 4 mg Oxycodone HCl (Oxyir) 5 mg PO Q4H PRN PRN PRN Reason: Moderate Pain (4-6/10) Last Admin: 10/08/18 20:22 Dose: 5 mg Polyethylene Glycol (Miralax) 17 gm PO DAILY PRN PRN PRN Reason: constipation Potassium Chloride (K-Dur) 20 meq PO DAILYCM [facility] Last Admin: 10/09/18 08:15 Dose: 20 meq Silver Sulfadiazine (Silvadene (Bkc)) 1 applic TOPICAL DAILY [facility]; Protocol Last Admin: 10/08/18 09:20 Dose: 1 applicatio Sodium Chloride () 5 - 15 ml IV UD PRN PRN Reason: SALINE FLUSH Last Admin: 10/07/18 06:11 Dose: 10 ml Vancomycin HCl () 125 mg PO Q6 [facility] Last Admin: 10/09/18 05:22 Dose: 125 mg Zolpidem Tartrate (Ambien (Generic)) 5 mg PO QHS PRN PRN PRN Reason: INSOMNIA Last Admin: 10/04/18 23:52 Dose: 5 mg Medical Necessity - Tobacco Use Smoking Status: Former smoker Tobacco Use: Non-smoker Assessment/Plan All Active Problems (Last Updated 09/30/18 @ 10:24 by Kalpesh Nuno DO) Cellulitis of left lower extremity (Acute) Lymphedema of left lower extremity (Acute) Sepsis (Acute) Cellulitis of left anterior lower leg (Acute) Acute kidney injury (Acute) Hypokalemia (Acute) 1. Sepsis secondary to Streptococcus group A bacteremia and LLE cellulitis on IV cefazolin 2gram q8 CT scan of LLE showed soft tissue swelling without any interval change and no demonstrated focal fluid collection to indicate abscess blood cultures positive for strep pyogenes (2/2). repeat blood cultrues were negative. Wound cultures are negative Dr Carrero consulted- he did bedside debridement of sloughing epidermis Dr Carrero to re-evaluate today to determine need for surgery or otherwise ID on board 2. LLE strep pyogenes cellulitis as under 1. Duplex of LLE was negative. 3. C Diff infection: Stool was positive for C. Diff. Currently on PO vancomycin. says he had an episode of diarrhea overnight. Will monitor 4. Hypokalemia: Resolved. 5. SARAI: Resolved. 6. Morbid obesity: Complicates current management and recovery. DVT prophylaxis: Lovenox Code Visit Inpatient E&M: 06758 Subs Hosp L2
--- NOTE | 2018-10-09 09:55 | PN_ITS ---
Patient Problems: Active and Suspected Problems (Last Updated 09/30/18 @ 10:24 by Kalpesh Nuno DO) Cellulitis of left lower extremity (Acute) Sepsis (Acute) Cellulitis of left anterior lower leg (Acute) Acute kidney injury (Acute) Hypokalemia (Acute) Subjective: Patient seen and examined. He has no complaints this morning. Redness over left thigh and leg have improved significantly. Review of systems is otherwise negative. Labs and vitals reviewed. Vitals/I&O's: Vital Signs Temp Pulse Resp BP Pulse Ox 98.3 F 70 18 138/74 H 95 10/09/18 08:04 10/09/18 08:07 10/09/18 08:04 10/09/18 08:04 10/09/18 08:04 Oxygen Delivery Method Room Air Weight: 367 lb 1.114 oz Body Mass Index (BMI) 52.6 Intake and Output for Last 24 Hours 10/07/18 10/08/18 10/09/18 23:59 23:59 23:59 Intake Total 1020 / 1020 1270 / 1270 Output Total 1450 / 1450 1300 / 1300 320 / 320 Balance -430 / -430 -30 / -30 -320 / -320 General: Alert, Oriented x3, Cooperative, No apparent distress, - - morbidly obese HEENT: Atraumatic, PERRLA, EOMI, Normocephalic Oral: Moist Mucosa Neck: Supple, No JVD, Negative Carotid Bruits, Negative Hepatojugular Reflux, No Nodes Lungs: Clear to auscultation, Normal air movement, No rhonchi, No wheeze, No rales Cardiovascular: Regular rate, Regular Rhythm, Normal S1, Normal S2, No murmurs Abdomen: Bowel Sounds Present, Soft, Non Tender, Non-Distended, No Hepato- splenomegaly, Extremities: No edema, Capillary Refill Less than 3 Seconds Skin: - - erythematous blisters over left inner thigh. LLE Wrapped in ANA PAULA bandage; Musculoskeletal: No Tenderness to Palpation of Joints or Extremities Lymphatic: No Cervical, Supraclavicular, or Inguinal Adenopathy Neurological: Cranial nerves II-XII grossly intact Psych/Mental Status: Normal Affect, Appropriate, Alert and oriented to time, place, person, mood and affect Microbiology Past 72 Hours 10/01/18 09:06 Blood Culture (Wb) - Left Hand Blood Culture - Final No growth in 5 days. 10/01/18 09:00 Blood Culture (Wb) - Anticubital Right Blood Culture - Final No growth in 5 days. 10/06/18 08:30 Stool C. difficile DNA Amplification - Final Toxigenic C. difficile DNA 10/04/18 09:15 Wound - Left Foot Gram Stain - Final 10/04/18 09:15 Wound - Left Foot Wound Culture - Final No growth aerobically. Laboratory Results 10/09/18 05:43: WBC 12.7 H, RBC 3.16 L, Hgb 8.7 L, Hct 26.5 L, MCV 83.9, MCH 27.5, MCHC 32.8, RDW 15.6 H, RDW Differential 45.8 H, Plt Count 341, MPV 11.3 10/09/18 05:43: Sodium 141, Potassium 3.7, Chloride 108 H, Carbon Dioxide 28.0, Anion Gap 5, BUN 21 H, Creatinine 0.68 L, Estim Creat Clear Calc 123.75, Est GFR (MDRD) Af Amer 154, Est GFR (MDRD) Non-Af 127, BUN/Creatinine Ratio 30.8 H, Glucose 109 H, Calcium 7.6 L Current Medications Acetaminophen (Tylenol) 650 mg PO Q6H PRN PRN PRN Reason: Mild Pain (1-3)/Temp > 100.7 F Last Admin: 10/02/18 21:47 Dose: 650 mg Al Hydroxide/Mg Hydroxide (Mylanta Ii) 30 ml PO Q4H PRN PRN PRN Reason: indigestion Last Admin: 10/06/18 17:53 Dose: 30 ml Aspirin (Aspirin, Baby) 81 mg PO DAILY@0800 [facility] Last Admin: 10/09/18 08:15 Dose: 81 mg Carvedilol (Coreg) 25 mg PO BID [facility] Last Admin: 10/09/18 08:16 Dose: 25 mg Dextrose (D50w Syringe) 0 gm IV X1 PRN; Protocol PRN Reason: Hypoglycemia Doxazosin Mesylate (Cardura) 4 mg PO DAILY@2200 [facility] Last Admin: 10/08/18 20:21 Dose: 4 mg Enoxaparin Sodium (Lovenox) 40 mg SC DAILY@1000 [facility] Last Admin: 10/09/18 08:16 Dose: 40 mg Glucagon () 1 mg IM .X1 PRN PRN Reason: Hypoglycemia Hydrochlorothiazide () 12.5 mg PO DAILY [facility] Last Admin: 10/09/18 08:15 Dose: 12.5 mg Cefazolin Sodium 2 gm/ Sodium (Chloride) 110 mls @ 150 mls/hr IV Q8 [facility] Last Admin: 10/09/18 05:22 Dose: 150 mls/hr Ibuprofen (Motrin) 400 mg PO Q8H PRN PRN Reason: Temp, PAIN Morphine Sulfate () 2 mg IV Q3H PRN PRN PRN Reason: SEVERE PAIN (6-10/10) Multivitamins (Multivitamin) 1 tablet PO DAILY@0800 [facility] Last Admin: 10/09/18 08:14 Dose: 1 tablet Ondansetron HCl (Zofran) 4 mg IV Q8H PRN PRN PRN Reason: NAUSEA/VOMITING Last Admin: 10/04/18 13:18 Dose: 4 mg Oxycodone HCl (Oxyir) 5 mg PO Q4H PRN PRN PRN Reason: Moderate Pain (4-6/10) Last Admin: 10/08/18 20:22 Dose: 5 mg Polyethylene Glycol (Miralax) 17 gm PO DAILY PRN PRN PRN Reason: constipation Potassium Chloride (K-Dur) 20 meq PO DAILYCM [facility] Last Admin: 10/09/18 08:15 Dose: 20 meq Silver Sulfadiazine (Silvadene (Bkc)) 1 applic TOPICAL DAILY [facility]; Protocol Last Admin: 10/08/18 09:20 Dose: 1 applicatio Sodium Chloride () 5 - 15 ml IV UD PRN PRN Reason: SALINE FLUSH Last Admin: 10/07/18 06:11 Dose: 10 ml Vancomycin HCl () 125 mg PO Q6 [facility] Last Admin: 10/09/18 05:22 Dose: 125 mg Zolpidem Tartrate (Ambien (Generic)) 5 mg PO QHS PRN PRN PRN Reason: INSOMNIA Last Admin: 10/04/18 23:52 Dose: 5 mg Medical Necessity - Tobacco Use Smoking Status: Former smoker Tobacco Use: Non-smoker Assessment/Plan All Active Problems (Last Updated 09/30/18 @ 10:24 by Kalpesh Nuno DO) Cellulitis of left lower extremity (Acute) Lymphedema of left lower extremity (Acute) Sepsis (Acute) Cellulitis of left anterior lower leg (Acute) Acute kidney injury (Acute) Hypokalemia (Acute) 1. Sepsis secondary to Streptococcus group A bacteremia and LLE cellulitis * on IV cefazolin 2gram q8 * CT scan of LLE showed soft tissue swelling without any interval change and no demonstrated focal fluid collection to indicate abscess * blood cultures positive for strep pyogenes (2/2). repeat blood cultrues were negative. Wound cultures are negative * Dr Carrero consulted- he did bedside debridement of sloughing epidermis * Dr Carrero to re-evaluate today to determine need for surgery or otherwise * ID on board * 2. LLE strep pyogenes cellulitis * as under 1. * Duplex of LLE was negative. * 3. C Diff infection: Stool was positive for C. Diff. Currently on PO vancomycin. says he had an episode of diarrhea overnight. Will monitor 4. Hypokalemia: Resolved. 5. SARAI: Resolved. 6. Morbid obesity: Complicates current management and recovery. DVT prophylaxis: Lovenox Code Visit Inpatient E&M: 73241 Subs Hosp L2
[2018-10-09] MEDS: Silver Sulfadiazine 1% Crm 50 gm Bottle 1 APPLIC TOPICAL (10:27)
[2018-10-09] MEDS: oxyCODONE 5 MG Tablet PO ×2 (10:27→16:57)
[2018-10-09] MEDS: 0.9% NaCl Peripheral Flush Adult/Peds IV ×2 (13:52→16:58)
[2018-10-09 13:58] VITALS: BP 119/59; PULSE 73; RESP 16; TEMP 37.1; O2SAT 94
[2018-10-09] MEDS: Ondansetron 4 MG/2 ML Vial IV (16:58)
[2018-10-09 20:14] VITALS: BP 115/56; PULSE 81; RESP 20; TEMP 37.2; O2SAT 96
[2018-10-09] MEDS: Doxazosin 4 MG Tablet PO (23:08)
[2018-10-09] MEDS: Zolpidem Tartrate 5 MG Tablet PO (23:16)
[2018-10-09 23:18] VITALS: BP 138/62; PULSE 81; RESP 18; TEMP 37.2; O2SAT 93
[2018-10-10] VITALS (13 sets, daily range): BP systolic 106–147; BP diastolic 41–73; PULSE 77–85; RESP 16–18; TEMP 36.8–37.4; O2SAT 93–98; BMI 52.7
--- NOTE | 2018-10-10 | GASB_PTH ---
PATIENT: ANDREW MEJÍA LOC: MS3 U#:[id number] AGE/SX: 57/M ROOM: [facility] [place] RE09/30/[address]: Dr. Arthur Hodges DO : 1960 BED: 1 DIS: 10/12/2018 SPEC #: [id number] RECD: 10/10/18 16:10 STATUS: KATIE REQ #: [id number] KAYKAY: 10/10/18 00:[address]: Dragan Bradley DEPT: SURGICAL PATHOLOGY RECD BY: Pete Sandoval ENTERED: 10/11/18 12:09 SP TYPE: Gastric Bx OTHR DR: MD Dr. Kalpesh Oneill DO Dr. James A Slaby, MD Dr. Liza D Talampas, MD Dr. Prakash Chand, MD Dr. Robert Leininger, MD Liza D Talampas, MD Tissues: A - Gastric mucous membrane B - Gastric mucous membrane Procedures: PAS Fungus (control) Special Stain Group II Special Stain Group I Surgery Specimen Level IV Alcian Blue/PAS (control) Comments: @ Ordering doctor for SUIV edited from to @ by RGOOD at 10/11/18 154 @ Submitting doctor edited from to @ by RGOOD at 10/11/18 1540 HEADER OPERATION[place] [place] DIAGNOSIS: Black stools, epigastric pain, anemia TISSUE SUBMITTED: A - Greater curvature antral biopsies, B - GE junction biopsies MICROSCOPIC DIAGNOSIS A. Greater curvature antral biopsy: Fragments of gastric mucosa with extensive ulceration and acute and chronic inflammation. See comment. B. GE junction, biopsy: Fragments of gastroesophageal mucosa with extensive ulceration and acute and chronic inflammation. Intestinal metaplasia (goblet cell metaplasia) is not identified. Special stain for fungi is negative for organisms; matched control is appropriate. See comment. SJ:josé miguel 10/12/18 COMMENT A. The results of immunohistochemistry for Helicobacter pylori will be reported separately ([id number]). B. Alcian blue/PAS stain with matched control is used in the evaluation of the specimen. MICROSCOPIC DESCRIPTION Slides are reviewed. GROSS DESCRIPTION A - Received in fixative is one container labeled with the patient's name and designated greater curvature antral biopsy. The specimen consists of multiple irregular fragments of light barroso soft tissue that in aggregate measure 2.5 x 0.5 x 0.1 cm. The specimen is totally submitted in one cassette. B - Received in fixative is one container labeled with the patient's name and designated GE junction biopsy. The specimen consists of multiple irregular fragments of light barroso soft tissue that in aggregate measure 0.6 x 0.2 x 0.1 cm. The specimen is totally submitted in one cassette. / SJ:josé miguel 10/11/18 TC:2 CPT: 63018 x2, 99269, 83044
--- NOTE | 2018-10-10 | IMM_PTH ---
PATIENT: ANDREW MEJÍA LOC: MS3 U#:[id number] AGE/SX: 57/M ROOM: [facility] [place] RE09/30/[address]: Dr. Arthur Hodges DO : 1960 BED: 1 DIS: 10/12/2018 SPEC #: [id number] RECD: 10/12/18 15:06 STATUS: KATIE REQ #: [id number] KAYKAY: 10/10/18 00:[address]: Dragan Bradley DEPT: IMMUNOHISTOCHEMISTRY RECD BY: Yoly Howard ENTERED: 10/12/18 15:07 SP TYPE: IMMUNO OTHR DR: DO Dr. Rajiv Sexton MD Dr. Liza D Talampas, MD Dr. Mark Tereletsky, DO Dr. Robert Leininger, MD Liza D Talampas, MD Tissues: A - Stomach, NOS Procedures: H Pylori (initial) Comments: @ Ordering doctor for H.PYLORI edited from to @ by [facility] at 10/12/18 1507 @ Submitting doctor edited from to @ by [facility] at 10/12/18 1507 PHYSICIAN & [place] [id number] SPECIMEN INFORMATION: Tissue Source: A - Greater curvature antral biopsy Clinical Info: Black stools, epigastric pain, anemia Specimen Number: [id number] CPT code: 84138 METHODOLOGY: Deparaffinized sections of prefer/formalin-fixed tissue or PAP/DQ stained slides are incubated with monoclonal/polyclonal antibodies/oligonucleotide probes. Localization is made via biotin free immunoperoxidase method. Appropriate controls are performed and reacted as expected. Results on target cell population are indicated in the following table: RESULTS: ANTIBODY / CLONE RESULT Block A H Pylori (polyclonal) negative These tests were developed and their performance characteristics determined by [facility]. They may not have been cleared or approved by the [place]. Food and Drug Administration. The FDA has determined that such clearance or approval is not necessary. INTERPRETATION: A. Greater curvature antral biopsy: Negative for Helicobacter pylori organisms. SJ:josé miguel 10/13/18
[2018-10-10 06:31] LABS: Anion Gap 6 (5-15); BUN 34 mg/dL (7-18); BUN/Creat Ratio 47.9 RATIO (10-20); Calcium,Total 7.2 mg/dL (8.5-10.1); Chloride 109 mmol/L (98-107); Creatinine, Serum 0.71 mg/dL (0.70-1.30); EST Glomerular Filtration Rate 121 mL/min (>60); Est Glom Filt Rate - Afr Amer 147 mL/min (>60); Estimated Creatinine Clearance 118.53 ml/min; Glucose 128 mg/dL (74-106); Potassium 3.9 mmol/L (3.5-5.1); Sodium Level 142 mmol/L (136-145)
[2018-10-10] MEDS: Cefazolin 2 GM in 0.9% Normal Saline 100 ML IV ×3 (06:52→22:38)
[2018-10-10 07:05] LABS: Mean Corp Hgb Conc 32.2 g/gl (32-36); Mean Corpuscular Hgb 27.8 pg (27.0-32.0); Mean Corpuscular Volume 86.1 fL (80-94); Mean Platelet Vol. 10.8 fl (6.2-12.0); Platelet Count 344 K/mm3 (150-450); RBC Distribution Width CV 15.5 % (11.6-14.6); RBC Distribution Width SD 44.1 fl (35.1-43.9); Red Blood Count 2.09 M/mm3 (4.6-6.2); White Blood Count 13.2 K/mm3 (4.4-11.0)
[2018-10-10 07:06] LABS: Hemoglobin 5.8 g/dl (13.0-16.5); Scan Indicated on CBC? Y/N YES- FLAGS NOTED
[2018-10-10 07:22] LABS: Differential Comment SCANNED
--- NOTE | 2018-10-10 07:50 | PN_ITS ---
Patient Problems: Active and Suspected Problems (Last Updated 09/30/18 @ 10:24 by Kalpesh Nuno DO) GI bleed (Acute) Cellulitis of left lower extremity (Acute) Sepsis (Acute) Cellulitis of left anterior lower leg (Acute) Acute kidney injury (Acute) Hypokalemia (Acute) Subjective: Patient had 2 times moderate, significant side of black tarry stool suggestive of melanoma and hemoglobin dropped from 8.7-5.8. His hemoglobin has been slowly drifting down from 12.5 on admission to 8.7 yesterday suggestive of slow ongoing GI bleed patient said he has having black stool in past. After admission he did not had bowel movement for 7 days that required laxatives, senna S and Dulcolax suppository for 2 to 3 days after the liquid bowel movement for which stool for C. difficile was tested and came positive. Left lower extremity cellulitis and superficial ulceration is getting better. Vitals/I&O's: Vital Signs Temp Pulse Resp BP Pulse Ox 98.3 F 82 18 118/58 L 95 10/10/18 06:33 10/10/18 06:33 10/10/18 06:33 10/10/18 06:33 10/10/18 06:33 Oxygen Delivery Method CPAP Weight: 367 lb 1.114 oz Body Mass Index (BMI) 52.6 Intake and Output for Last 24 Hours 10/08/18 10/09/18 10/10/18 23:59 23:59 23:59 Intake Total 1270 / 1270 720 / 720 1439 / 1439 Output Total 1300 / 1300 1095 / 1095 905 / 905 Balance -30 / -30 -375 / -375 534 / 534 General: Alert, Oriented x3, Cooperative HEENT: Atraumatic, PERRLA, EOMI, Normocephalic Neck: Supple, No JVD, Negative Carotid Bruits Lungs: Clear to auscultation, No rhonchi, No wheeze, No rales, Diminished Cardiovascular: Regular rate, Regular Rhythm, Normal S1, Normal S2, No murmurs Abdomen: Bowel Sounds Present, Soft, Non Tender, Non-Distended, Hypoactive Bowel Sounds Extremities: No edema, Capillary Refill Less than 3 Seconds Skin: Ulcer/ Wound - Left leg, superficial ulceration and blisters are healing. Is now reddish and blackish in coloration. Blister has healed. Musculoskeletal: No Tenderness to Palpation of Joints or Extremities, Arthritic Changes Neurological: Cranial nerves II-XII grossly intact Psych/Mental Status: Normal Affect, Appropriate Laboratory Results 10/09/18 05:43: Sodium 141, Potassium 3.7, Chloride 108 H, Carbon Dioxide 28.0, Anion Gap 5, BUN 21 H, Creatinine 0.68 L, Estim Creat Clear Calc 123.75, Est GFR (MDRD) Af Amer 154, Est GFR (MDRD) Non-Af 127, BUN/Creatinine Ratio 30.8 H, Glucose 109 H, Calcium 7.6 L 10/10/18 05:50: WBC Cancelled, Corrected WBC Cancelled, RBC Cancelled, Hgb Cancelled, Hct Cancelled, MCV Cancelled, MCH Cancelled, MCHC Cancelled, RDW Cancelled, RDW Differential Cancelled, Plt Count Cancelled, MPV Cancelled, Diff Path Review Cancelled 10/10/18 05:50: Sodium 142, Potassium 3.9, Chloride 109 H, Carbon Dioxide 27.0, Anion Gap 6, BUN 34 H, Creatinine 0.71, Estim Creat Clear Calc 118.53, Est GFR (MDRD) Af Amer 147, Est GFR (MDRD) Non-Af 121, BUN/Creatinine Ratio 47.9 H, Glucose 128 H, Calcium 7.2 L 10/10/18 06:40: WBC 13.2 H, RBC 2.09 L, Hgb 5.8 L*, Hct 18.0 L, MCV 86.1, MCH 27.8, MCHC 32.2, RDW 15.5 H, RDW Differential 44.1 H, Plt Count 344, MPV 10.8, Differential Comment SCANNED Current Medications Acetaminophen (Tylenol) 650 mg PO Q6H PRN PRN PRN Reason: Mild Pain (1-3)/Temp > 100.7 F Last Admin: 10/02/18 21:47 Dose: 650 mg Al Hydroxide/Mg Hydroxide (Mylanta Ii) 30 ml PO Q4H PRN PRN PRN Reason: indigestion Last Admin: 10/06/18 17:53 Dose: 30 ml Aspirin (Aspirin, Baby) 81 mg PO DAILY@0800 [facility] Last Admin: 10/09/18 08:15 Dose: 81 mg Carvedilol (Coreg) 25 mg PO BID [facility] Last Admin: 10/09/18 23:10 Dose: Not Given Dextrose (D50w Syringe) 0 gm IV X1 PRN; Protocol PRN Reason: Hypoglycemia Doxazosin Mesylate (Cardura) 4 mg PO DAILY@2200 [facility] Last Admin: 10/09/18 23:08 Dose: 4 mg Enoxaparin Sodium (Lovenox) 40 mg SC DAILY@1000 [facility] Last Admin: 10/09/18 08:16 Dose: 40 mg Glucagon () 1 mg IM .X1 PRN PRN Reason: Hypoglycemia Hydrochlorothiazide () 12.5 mg PO DAILY [facility] Last Admin: 10/09/18 08:15 Dose: 12.5 mg Cefazolin Sodium 2 gm/ Sodium (Chloride) 110 mls @ 150 mls/hr IV Q8 [facility] Last Admin: 10/10/18 06:52 Dose: 150 mls/hr Ibuprofen (Motrin) 400 mg PO Q8H PRN PRN Reason: Temp, PAIN Morphine Sulfate () 2 mg IV Q3H PRN PRN PRN Reason: SEVERE PAIN (6-10/10) Multivitamins (Multivitamin) 1 tablet PO DAILY@0800 [facility] Last Admin: 10/09/18 08:14 Dose: 1 tablet Ondansetron HCl (Zofran) 4 mg IV Q8H PRN PRN PRN Reason: NAUSEA/VOMITING Last Admin: 10/09/18 16:58 Dose: 4 mg Oxycodone HCl (Oxyir) 5 mg PO Q4H PRN PRN PRN Reason: Moderate Pain (4-6/10) Last Admin: 10/09/18 16:57 Dose: 5 mg Polyethylene Glycol (Miralax) 17 gm PO DAILY PRN PRN PRN Reason: constipation Potassium Chloride (K-Dur) 20 meq PO DAILYCM [facility] Last Admin: 10/09/18 08:15 Dose: 20 meq Silver Sulfadiazine (Silvadene (Bkc)) 1 applic TOPICAL DAILY [facility]; Protocol Last Admin: 10/09/18 10:27 Dose: 1 applicatio Sodium Chloride () 5 - 15 ml IV UD PRN PRN Reason: SALINE FLUSH Last Admin: 10/09/18 16:58 Dose: 10 ml Vancomycin HCl () 125 mg PO Q6 [facility] Last Admin: 10/10/18 06:52 Dose: 125 mg Zolpidem Tartrate (Ambien (Generic)) 5 mg PO QHS PRN PRN PRN Reason: INSOMNIA Last Admin: 10/09/18 23:16 Dose: 5 mg Medical Necessity - Tobacco Use Smoking Status: Former smoker Tobacco Use: Non-smoker Assessment/Plan All Active Problems (Last Updated 09/30/18 @ 10:24 by Kalpesh Nuno DO) GI bleed (Acute) Pressure injury of left ankle, stage 2 (Acute) Pressure injury of dorsum of left foot, stage 2 (Acute) Pressure injury of left leg, stage 2 (Acute) Cellulitis of left lower extremity (Acute) Lymphedema of left lower extremity (Acute) Sepsis (Acute) Cellulitis of left anterior lower leg (Acute) Acute kidney injury (Acute) Hypokalemia (Acute) There is a 57-year-old gentleman with history of hypertension, obstructive sleep apnea and morbid obesity and chronic lymphedema was admitted with erythema, pain, induration of left lower extremity consistent with cellulitis. Patient received Zosyn in the ED. 1. Sepsis secondary to Streptococcus group A bacteremia with cellulitis and pressure injury of left ankle, dorsum of left foot left leg, stage II. * Secondary to left lower extremity cellulitis. Bacterial PCR shows Streptococcus pyogenes sensitive to penicillin. The dose of IV cefazolin increased to 2 g q. 8 hourly. Discussed with ID about mottling and schneider/blackish pigmentation around lateral aspect of left leg with concern for deep soft tissue infection/necrotizing fasciitis for which repeat CT scan was done without contrast as patient had acute kidney injury during first CT with contrast. Repeat CT scan reported as Soft tissue swelling without interval change and without demonstrated focal fluid collection to indicate abscess. * Venous Doppler is negative for DVT. * Dr. Carrero consult reviewed and appreciated. Leukocytosis and the wound of left lower extremity and color has improved. C. difficile infection/colitis: Stool for C. difficile is positive. Patient was seen by ID and toxin for C. difficile is sent out. Patient is on p.o. vancomycin. 3. Upper GI bleed with acute anemia of blood loss chronic anemia: As the patient was also on Lovenox for DVT prophylaxis and baby aspirin from home. Antiplatelets and Lovenox discontinued. On IV PPI twice daily. General surgery Dr. Bradley consulted. Scheduled for EGD and later on colonoscopy after colitis gets better. H&H posttransfusion. IV fluid Ringer lactate. 4.Hypokalemia Potassium has been overcorrected. K5.0. Repeat K 3.9 * Magnesium 1.9 * Resume low-dose HCTZ from 10/05/2017 4. Acute kidney injury versus chronic kidney disease stage III: Resolved. I think most probably secondary to contrast-induced nephropathy as it developed during the same time of CT scan with contrast. * Resolved. IV contrast was not given during second CT scan. 5. 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 This was evident in left lower leg CT scan. VT E prophylaxis: Bilateral SCDs. Pharmacological prophylaxis contraindicated due to GI bleed Laboratory Results 10/10/18 05:50: Sodium 142, Potassium 3.9, Chloride 109 H, Carbon Dioxide 27.0, Anion Gap 6, BUN 34 H, Creatinine 0.71, Estim Creat Clear Calc 118.53, Est GFR (MDRD) Af Amer 147, Est GFR (MDRD) Non-Af 121, BUN/Creatinine Ratio 47.9 H, Glucose 128 H, Calcium 7.2 L 10/10/18 06:40: WBC 13.2 H, RBC 2.09 L, Hgb 5.8 L*, Hct 18.0 L, MCV 86.1, MCH 27.8, MCHC 32.2, RDW 15.5 H, RDW Differential 44.1 H, Plt Count 344, MPV 10.8, Differential Comment SCANNED 10/10/18 06:40: Blood Type A POSITIVE, Antibody Screen NEGATIVE, Crossmatch See Detail Clinical Impression(s) from Imaging Studies Lower Extremity CT 10/01/18 09:34 IMPRESSION: 1. Diffuse soft tissue swelling of the lower leg (and visualized ankle/foot) compatible with history of cellulitis or edema. No focal fluid collection or subcutaneous gas demonstrated. 2. Varicose veins. 3. Degenerative changes of the knee and visualized ankle/foot. 4. Small joint effusion. Lower Extremity CT 10/06/18 13:04 IMPRESSION: Soft tissue swelling without interval change and without demonstrated focal fluid collection to indicate abscess. 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 Code Visit Inpatient E&M: 87400 Subs Hosp L3
--- NOTE | 2018-10-10 07:51 | CT_ITS ---
STUDY: CT ABDOMEN AND PELVIS WITHOUT CONTRAST REASON FOR EXAM: Male, 57 years old. Abdominal discomfort RADIATION DOSAGE (If Supplied By Facility): CTDIvol = ( 24.13 ) mGy, DLP = ( 1254.12 ) mGycm TECHNIQUE: Transaxial images were obtained from the dome of the diaphragm to the symphysis pubis without oral contrast, and without intravenous contrast. Sagittal and coronal images were reconstructed. Individualized dose optimization techniques were used for this CT. COMPARISON: None. FINDINGS: Lack of intravenous contrast limits evaluation of abdominal and pelvic organs. There is a moderate right and small left pleural effusion. There is evidence of anemia. There is mild bilateral posterior lower lobe compressive atelectasis. The visualized portions of the heart are within normal limits. There is a left hepatic lobe cyst. Normal gallbladder and extrahepatic biliary system. Normal spleen. Normal pancreas. Normal bilateral adrenal glands. Normal right kidney. Normal left kidney. The stomach is collapsed. Normal small intestine. There is scattered colonic diverticulosis without evidence of acute diverticulitis. There is no bowel wall thickening or obstruction. The appendix is visualized and appears normal. Mild aortic calcification. Normal inferior vena cava. Normal retroperitoneum. Normal urinary bladder. Normal abdominal wall. There are diffuse degenerative changes of the visualized lumbar spine. CT/Abdomen/Pel W ORAL Cont Only IMPRESSION: No acute abdominal or pelvic pathology. No bowel wall thickening or obstruction. Moderate right and small left effusions. Anemia. Electronically Signed: Marge Escoto, at 14:46 EDT Tel , Service support ,
[2018-10-10] MEDS: Silver Sulfadiazine 1% Crm 50 gm Bottle 1 APPLIC TOPICAL (08:31)
--- NOTE | 2018-10-10 09:00 | PCM.PN.HOSP ---
Patient Problems: Active and Suspected Problems (Last Updated 09/30/18 @ 10:24 by Kalpesh Nuno DO) GI bleed (Acute) Cellulitis of left lower extremity (Acute) Sepsis (Acute) Cellulitis of left anterior lower leg (Acute) Acute kidney injury (Acute) Hypokalemia (Acute) Subjective: Patient had 2 times moderate, significant side of black tarry stool suggestive of melanoma and hemoglobin dropped from 8.7-5.8. His hemoglobin has been slowly drifting down from 12.5 on admission to 8.7 yesterday suggestive of slow ongoing GI bleed patient said he has having black stool in past. After admission he did not had bowel movement for 7 days that required laxatives, senna S and Dulcolax suppository for 2 to 3 days after the liquid bowel movement for which stool for C. difficile was tested and came positive. Left lower extremity cellulitis and superficial ulceration is getting better. Vitals/I&O's: Vital Signs Temp Pulse Resp BP Pulse Ox 98.3 F 82 18 118/58 L 95 10/10/18 06:33 10/10/18 06:33 10/10/18 06:33 10/10/18 06:33 10/10/18 06:33 Oxygen Delivery Method CPAP Weight: 367 lb 1.114 oz Body Mass Index (BMI) 52.6 Intake and Output for Last 24 Hours 10/08/18 10/09/18 10/10/18 23:59 23:59 23:59 Intake Total 1270 / 1270 720 / 720 1439 / 1439 Output Total 1300 / 1300 1095 / 1095 905 / 905 Balance -30 / -30 -375 / -375 534 / 534 General: Alert, Oriented x3, Cooperative HEENT: Atraumatic, PERRLA, EOMI, Normocephalic Neck: Supple, No JVD, Negative Carotid Bruits Lungs: Clear to auscultation, No rhonchi, No wheeze, No rales, Diminished Cardiovascular: Regular rate, Regular Rhythm, Normal S1, Normal S2, No murmurs Abdomen: Bowel Sounds Present, Soft, Non Tender, Non-Distended, Hypoactive Bowel Sounds Extremities: No edema, Capillary Refill Less than 3 Seconds Skin: Ulcer/ Wound - Left leg, superficial ulceration and blisters are healing. Is now reddish and blackish in coloration. Blister has healed. Musculoskeletal: No Tenderness to Palpation of Joints or Extremities, Arthritic Changes Neurological: Cranial nerves II-XII grossly intact Psych/Mental Status: Normal Affect, Appropriate Laboratory Results 10/09/18 05:43: Sodium 141, Potassium 3.7, Chloride 108 H, Carbon Dioxide 28.0, Anion Gap 5, BUN 21 H, Creatinine 0.68 L, Estim Creat Clear Calc 123.75, Est GFR (MDRD) Af Amer 154, Est GFR (MDRD) Non-Af 127, BUN/Creatinine Ratio 30.8 H, Glucose 109 H, Calcium 7.6 L 10/10/18 05:50: WBC Cancelled, Corrected WBC Cancelled, RBC Cancelled, Hgb Cancelled, Hct Cancelled, MCV Cancelled, MCH Cancelled, MCHC Cancelled, RDW Cancelled, RDW Differential Cancelled, Plt Count Cancelled, MPV Cancelled, Diff Path Review Cancelled 10/10/18 05:50: Sodium 142, Potassium 3.9, Chloride 109 H, Carbon Dioxide 27.0, Anion Gap 6, BUN 34 H, Creatinine 0.71, Estim Creat Clear Calc 118.53, Est GFR (MDRD) Af Amer 147, Est GFR (MDRD) Non-Af 121, BUN/Creatinine Ratio 47.9 H, Glucose 128 H, Calcium 7.2 L 10/10/18 06:40: WBC 13.2 H, RBC 2.09 L, Hgb 5.8 L*, Hct 18.0 L, MCV 86.1, MCH 27.8, MCHC 32.2, RDW 15.5 H, RDW Differential 44.1 H, Plt Count 344, MPV 10.8, Differential Comment SCANNED Current Medications Acetaminophen (Tylenol) 650 mg PO Q6H PRN PRN PRN Reason: Mild Pain (1-3)/Temp > 100.7 F Last Admin: 10/02/18 21:47 Dose: 650 mg Al Hydroxide/Mg Hydroxide (Mylanta Ii) 30 ml PO Q4H PRN PRN PRN Reason: indigestion Last Admin: 10/06/18 17:53 Dose: 30 ml Aspirin (Aspirin, Baby) 81 mg PO DAILY@0800 [facility] Last Admin: 10/09/18 08:15 Dose: 81 mg Carvedilol (Coreg) 25 mg PO BID [facility] Last Admin: 10/09/18 23:10 Dose: Not Given Dextrose (D50w Syringe) 0 gm IV X1 PRN; Protocol PRN Reason: Hypoglycemia Doxazosin Mesylate (Cardura) 4 mg PO DAILY@2200 [facility] Last Admin: 10/09/18 23:08 Dose: 4 mg Enoxaparin Sodium (Lovenox) 40 mg SC DAILY@1000 [facility] Last Admin: 10/09/18 08:16 Dose: 40 mg Glucagon () 1 mg IM .X1 PRN PRN Reason: Hypoglycemia Hydrochlorothiazide () 12.5 mg PO DAILY [facility] Last Admin: 10/09/18 08:15 Dose: 12.5 mg Cefazolin Sodium 2 gm/ Sodium (Chloride) 110 mls @ 150 mls/hr IV Q8 [facility] Last Admin: 10/10/18 06:52 Dose: 150 mls/hr Ibuprofen (Motrin) 400 mg PO Q8H PRN PRN Reason: Temp, PAIN Morphine Sulfate () 2 mg IV Q3H PRN PRN PRN Reason: SEVERE PAIN (6-10/10) Multivitamins (Multivitamin) 1 tablet PO DAILY@0800 [facility] Last Admin: 10/09/18 08:14 Dose: 1 tablet Ondansetron HCl (Zofran) 4 mg IV Q8H PRN PRN PRN Reason: NAUSEA/VOMITING Last Admin: 10/09/18 16:58 Dose: 4 mg Oxycodone HCl (Oxyir) 5 mg PO Q4H PRN PRN PRN Reason: Moderate Pain (4-6/10) Last Admin: 10/09/18 16:57 Dose: 5 mg Polyethylene Glycol (Miralax) 17 gm PO DAILY PRN PRN PRN Reason: constipation Potassium Chloride (K-Dur) 20 meq PO DAILYCM [facility] Last Admin: 10/09/18 08:15 Dose: 20 meq Silver Sulfadiazine (Silvadene (Bkc)) 1 applic TOPICAL DAILY [facility]; Protocol Last Admin: 10/09/18 10:27 Dose: 1 applicatio Sodium Chloride () 5 - 15 ml IV UD PRN PRN Reason: SALINE FLUSH Last Admin: 10/09/18 16:58 Dose: 10 ml Vancomycin HCl () 125 mg PO Q6 [facility] Last Admin: 10/10/18 06:52 Dose: 125 mg Zolpidem Tartrate (Ambien (Generic)) 5 mg PO QHS PRN PRN PRN Reason: INSOMNIA Last Admin: 10/09/18 23:16 Dose: 5 mg Medical Necessity - Tobacco Use Smoking Status: Former smoker Tobacco Use: Non-smoker Assessment/Plan All Active Problems (Last Updated 09/30/18 @ 10:24 by Kalpesh Nuno DO) GI bleed (Acute) Pressure injury of left ankle, stage 2 (Acute) Pressure injury of dorsum of left foot, stage 2 (Acute) Pressure injury of left leg, stage 2 (Acute) Cellulitis of left lower extremity (Acute) Lymphedema of left lower extremity (Acute) Sepsis (Acute) Cellulitis of left anterior lower leg (Acute) Acute kidney injury (Acute) Hypokalemia (Acute) There is a 57-year-old gentleman with history of hypertension, obstructive sleep apnea and morbid obesity and chronic lymphedema was admitted with erythema, pain, induration of left lower extremity consistent with cellulitis. Patient received Zosyn in the ED. 1. Sepsis secondary to Streptococcus group A bacteremia with cellulitis and pressure injury of left ankle, dorsum of left foot left leg, stage II. Secondary to left lower extremity cellulitis. Bacterial PCR shows Streptococcus pyogenes sensitive to penicillin. The dose of IV cefazolin increased to 2 g q. 8 hourly. Discussed with ID about mottling and schneider/blackish pigmentation around lateral aspect of left leg with concern for deep soft tissue infection/necrotizing fasciitis for which repeat CT scan was done without contrast as patient had acute kidney injury during first CT with contrast. Repeat CT scan reported as Soft tissue swelling without interval change and without demonstrated focal fluid collection to indicate abscess. Venous Doppler is negative for DVT. Dr. Carrero consult reviewed and appreciated. Leukocytosis and the wound of left lower extremity and color has improved. C. difficile infection/colitis: Stool for C. difficile is positive. Patient was seen by ID and toxin for C. difficile is sent out. Patient is on p.o. vancomycin. 3. Upper GI bleed with acute anemia of blood loss chronic anemia: As the patient was also on Lovenox for DVT prophylaxis and baby aspirin from home. Antiplatelets and Lovenox discontinued. On IV PPI twice daily. General surgery Dr. Bradley consulted. Scheduled for EGD and later on colonoscopy after colitis gets better. H&H posttransfusion. IV fluid Ringer lactate. 4.Hypokalemia Potassium has been overcorrected. K5.0. Repeat K 3.9 Magnesium 1.9 Resume low-dose HCTZ from 10/05/2017 4. Acute kidney injury versus chronic kidney disease stage III: Resolved. I think most probably secondary to contrast-induced nephropathy as it developed during the same time of CT scan with contrast. Resolved. IV contrast was not given during second CT scan. 5. 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 This was evident in left lower leg CT scan. VT E prophylaxis: Bilateral SCDs. Pharmacological prophylaxis contraindicated due to GI bleed Laboratory Results 10/10/18 05:50: Sodium 142, Potassium 3.9, Chloride 109 H, Carbon Dioxide 27.0, Anion Gap 6, BUN 34 H, Creatinine 0.71, Estim Creat Clear Calc 118.53, Est GFR (MDRD) Af Amer 147, Est GFR (MDRD) Non-Af 121, BUN/Creatinine Ratio 47.9 H, Glucose 128 H, Calcium 7.2 L 10/10/18 06:40: WBC 13.2 H, RBC 2.09 L, Hgb 5.8 L*, Hct 18.0 L, MCV 86.1, MCH 27.8, MCHC 32.2, RDW 15.5 H, RDW Differential 44.1 H, Plt Count 344, MPV 10.8, Differential Comment SCANNED 10/10/18 06:40: Blood Type A POSITIVE, Antibody Screen NEGATIVE, Crossmatch See Detail Clinical Impression(s) from Imaging Studies Lower Extremity CT 10/01/18 09:34 IMPRESSION: 1. Diffuse soft tissue swelling of the lower leg (and visualized ankle/foot) compatible with history of cellulitis or edema. No focal fluid collection or subcutaneous gas demonstrated. 2. Varicose veins. 3. Degenerative changes of the knee and visualized ankle/foot. 4. Small joint effusion. Lower Extremity CT 10/06/18 13:04 IMPRESSION: Soft tissue swelling without interval change and without demonstrated focal fluid collection to indicate abscess. 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 Code Visit Inpatient E&M: 17077 [facility] Hosp L3
--- NOTE | 2018-10-10 09:07 | NURSING ---
wound photo: left foot
--- NOTE | 2018-10-10 09:08 | NURSING ---
wound photo: left lower leg
--- NOTE | 2018-10-10 09:09 | NURSING ---
wound photo: left lower leg
--- NOTE | 2018-10-10 11:24 | PCM.PN.SRG ---
Patient Problems: Active and Suspected Problems (Last Updated 09/30/18 @ 10:24 by Kalpesh Nuno DO) GI bleed (Acute) Cellulitis of left lower extremity (Acute) Sepsis (Acute) Cellulitis of left anterior lower leg (Acute) Acute kidney injury (Acute) Hypokalemia (Acute) Subjective: Patient has stomach pain this morning. His Hgb this morning is 5.8. Will have General Surgery evaluate for endoscopy to look for source of bleeding. Patient states his stools have been dark. Ambulates without difficulty and without pain in the left leg. There is some discomfort with the dressing changes when the leg is washed with saline to remove the residual Silvadene and any loose skin. - Physical Exam General: Alert, Oriented x3 HEENT: PERRLA, EOMI Oral: Moist Mucosa Neck: Supple Abdomen: Soft, Non-Distended Extremities: Edema - less edema in the left lower extremity., Peripheral Pulses Normal Skin: Ulcer/ Wound - The ecchymosis and bruising on the left anterior leg with medial and lateral extension is less at the edges. No fluctuance. No purulent drainage. No necrosis seen. No eschar seen. On the dorsum of the left foot is pink viable dermis. The whitish areas on the malleolus are slowly improving. Areas are minimally tender. Posterior leg is nontender. Patient can lift his leg on his own without pain and without difficulty. No inguinal adenopathy. No clinical evidence of necrotizing process. Lymphatic: - - no inguinal adenopathy. Neurological: Cranial nerves II-XII grossly intact Psych/Mental Status: Normal Affect, Appropriate Vital Signs Temp Pulse Resp BP Pulse Ox 98.3 F 85 18 136/67 H 95 10/10/18 09:23 10/10/18 09:23 10/10/18 09:23 10/10/18 09:23 10/10/18 09:23 Oxygen Delivery Method Room Air Weight: 367 lb 1.114 oz Body Mass Index (BMI) 52.6 Intake and Output for Last 24 Hours 10/08/18 10/09/18 10/10/18 23:59 23:59 23:59 Intake Total 1270 / 1270 720 / 720 1439 / 1439 Output Total 1300 / 1300 1095 / 1095 905 / 905 Balance -30 / -30 -375 / -375 534 / 534 Laboratory Tests Past 24 Hrs 10/10/18 10/10/18 10/10/18 05:50 05:50 06:40 WBC Cancelled 13.2 H Corrected WBC Cancelled RBC Cancelled 2.09 L Hgb Cancelled 5.8 L* Hct Cancelled 18.0 L MCV Cancelled 86.1 MCH Cancelled 27.8 MCHC Cancelled 32.2 RDW Cancelled 15.5 H RDW Differential Cancelled 44.1 H Plt Count Cancelled 344 MPV Cancelled 10.8 Differential Comment SCANNED Diff Path Review Cancelled Sodium 142 Potassium 3.9 Chloride 109 H Carbon Dioxide 27.0 Anion Gap 6 BUN 34 H Creatinine 0.71 Estim Creat Clear Calc 118.53 Est GFR (MDRD) Af Amer 147 Est GFR (MDRD) Non-Af 121 BUN/Creatinine Ratio 47.9 H Glucose 128 H Calcium 7.2 L Blood Type Antibody Screen Crossmatch 10/10/18 06:40 WBC Corrected WBC RBC Hgb Hct MCV MCH MCHC RDW RDW Differential Plt Count MPV Differential Comment Diff Path Review Sodium Potassium Chloride Carbon Dioxide Anion Gap BUN Creatinine Estim Creat Clear Calc Est GFR (MDRD) Af Amer Est GFR (MDRD) Non-Af BUN/Creatinine Ratio Glucose Calcium Blood Type A POSITIVE Antibody Screen NEGATIVE Crossmatch See Detail Medical Necessity - Tobacco Use Smoking Status: Former smoker Tobacco Use: Non-smoker Assessment/Plan All Active Problems (Last Updated 09/30/18 @ 10:24 by Kalpesh Nuno DO) GI bleed (Acute) Pressure injury of left ankle, stage 2 (Acute) Pressure injury of dorsum of left foot, stage 2 (Acute) Pressure injury of left leg, stage 2 (Acute) Cellulitis of left lower extremity (Acute) Lymphedema of left lower extremity (Acute) Sepsis (Acute) Cellulitis of left anterior lower leg (Acute) Acute kidney injury (Acute) Hypokalemia (Acute) 1. Pressure injury left anterior leg with medial and lateral extension and dorsum foot and malleoli. 2. Cellulitis left lower extremity. 3. Lymphedema. 4. Acute blood loss anemia. Patient has stomach pain this morning. His Hgb this morning is 5.8. Will have General Surgery evaluate for endoscopy to look for source of bleeding. Patient states his stools have been dark. His swelling is better. Continue Silvadene dressing changes twice a day. Debriding off some of the sloughing epidermis, the underlying dermis is more painful. Told the patient there is IV Morphine available for the dressing changes. His WBC is stable at 13.2. Continue Ancef and Vancomycin. The bruised areas on his left leg are less dark. The leg is soft. There is some evidence of epidermolysis. The underlying dermis appears viable. The dorsum of foot shows underlying dermis that is pink and viable. No necrosis seen. No eschar seen. Will put the surgery on hold today due to clinical improvement. And he will be evaluated for endoscopy because of his acute blood loss anemia. Since improvement continues, will continue the wound care with Silvadene twice a day. He will need surgery at some point. Right now will continue wound care and followup [facility] a [facility] basis [facility] for further management. When surgery is done, will proceed with postop wound care with the VAC. If there is a plateau in the healing process, can proceed with delayed closure with skin grafting. Patient was informed of the risks and complications of the procedure including alternatives to surgery. These were discussed with the patient personally. Patient voices understanding and wishes to proceed with the current plan of close observation. Patient voices understanding that surgery is still a possibility. Patient understands that the wounds will be left open and will proceed with postop wound care with the VAC. Anticipate increased metabolic demands from the infection and future surgery. His Prealbumin was 10.6. Encourage nutritional supplementation with protein to help the healing process. Code Visit Inpatient E&M: 28908 Subs Hosp L2 - ICD-10 - L89.892, L89.522, L03.116, I89.0
[2018-10-10] MEDS: 0.9% NaCl Peripheral Flush Adult/Peds IV ×3 (12:21→22:42)
--- NOTE | 2018-10-10 12:21 | PCM.CONS.GEN ---
Problem List (1) GI bleed Status: Acute Qualifiers: GI bleed type/associated pathology: melena Qualified Code(s): K92.1 - Melena Reason for Consult Date of Consultation: 10/10/18 Reason for Consultation: GI bleed and anemia History of Present Illness: The patient is a 57 year old M who is here being treated for left lower extremity cellulitis and infection. The patient notes that he has been having black stools since his admission. He also reports epigastric pain. He says that when he eats he feels very nauseous and full of gas. He said he did have black stools last time he was taking narcotics for different injury. He does not note being on a PPI at home. He is not noticing any gross blood. He is also being treated for C. difficile and he said he has been having loose black stools. Past Medical History Past Medical History (Chronic Problems): Chronic Problems (Last Updated 09/30/18 @ 10:24 by Kalpesh Nuno DO) History of hypertension (Chronic) History of obstructive sleep apnea (Chronic) Medical History: Medical History (Last Updated 09/30/18 @ 10:24 by Kalpesh Nuno DO) ARCELIA (obstructive sleep apnea) G47.33 Knee pain M25.569 Hypertension I10 Allergies No Known Allergies Allergy (Verified 09/30/18 07:32) Home Medications: Ambulatory Orders Medication Instructions Recorded Amlodipine Besylate 10 mg PO DAILY 09/30/18 Aspirin 81 mg PO DAILY 09/30/18 Carvedilol 25 mg PO BID 09/30/18 Doxazosin Mesylate 4 mg PO DAILY 09/30/18 Hydrochlorothiazide [Hctz] 25 mg PO DAILY 09/30/18 Losartan Potassium 100 mg PO DAILY 09/30/18 Multivitamin [One-Daily 1 each PO DAILY 09/30/18 Multi-Vitamin] Potassium Chloride 10 meq PO DAILY 09/30/18 Vancomycin HCl [Firvanq] 125 mg PO Q6H 10 Days #40 dose 10/07/18 Surgical History: no surgical history Lives: Spouse/ Significant Other Smoking Status: Former smoker Tobacco Use: Non-smoker Alcohol: None Drugs: None - *Family History Maternal Family History: Family History (Last Reviewed 09/30/18 @ 10:24 by Kalpesh Nuno DO) Other Diabetes Hypertension Review of Systems Constitutional: Reports: Anorexia, Chills. Denies: Fever HEENT: Denies: Difficulty Swallowing Cardiovascular: Denies: Chest Pain Respiratory: Denies: Cough, Shortness of Breath Gastrointestinal: Reports: Abdominal Pain, Diarrhea, Nausea, Melena. Denies: Constipation, Hematemesis, Hematochezia, Vomiting Musculoskeletal: Reports: Joint swelling, Leg Pain Skin: Denies: Jaundice Neurological: Denies: Balance problems Psychiatric: Denies: Anxiety Hematologic/ Lymphatic: Reports: Anemia Patient Problems: Active and Suspected Problems (Last Updated 09/30/18 @ 10:24 by Kalpesh Nuno DO) GI bleed (Acute) Cellulitis of left lower extremity (Acute) Sepsis (Acute) Cellulitis of left anterior lower leg (Acute) Acute kidney injury (Acute) Hypokalemia (Acute) - Physical Exam General: Alert, Oriented x3, Cooperative, No apparent distress HEENT: Atraumatic Oral: Moist Mucosa Neck: Supple, No JVD Lungs: Normal air movement Cardiovascular: Regular rate, Regular Rhythm Abdomen: Soft, Non Tender, Non-Distended Extremities: No clubbing Skin: No breakdown Neurological: Cranial nerves II-XII grossly intact Psych/Mental Status: Normal Affect Vital Signs Temp Pulse Resp BP Pulse Ox 98.8 F 83 18 138/63 H 94 10/10/18 12:19 10/10/18 12:19 10/10/18 12:19 10/10/18 12:19 10/10/18 12:19 Oxygen Delivery Method Room Air Weight: 367 lb 1.114 oz Body Mass Index (BMI) 52.6 Intake and Output for Last 24 Hours 10/08/18 10/09/18 10/10/18 23:59 23:59 23:59 Intake Total 1270 / 1270 720 / 720 1439 / 1439 Output Total 1300 / 1300 1095 / 1095 905 / 905 Balance -30 / -30 -375 / -375 534 / 534 Laboratory Tests Past 24 Hrs 10/06/18 10/10/18 10/10/18 08:30 05:50 05:50 WBC Cancelled Corrected WBC Cancelled RBC Cancelled Hgb Cancelled Hct Cancelled MCV Cancelled MCH Cancelled MCHC Cancelled RDW Cancelled RDW Differential Cancelled Plt Count Cancelled MPV Cancelled Differential Comment Diff Path Review Cancelled Sodium 142 Potassium 3.9 Chloride 109 H Carbon Dioxide 27.0 Anion Gap 6 BUN 34 H Creatinine 0.71 Estim Creat Clear Calc 118.53 Est GFR (MDRD) Af Amer 147 Est GFR (MDRD) Non-Af 121 BUN/Creatinine Ratio 47.9 H Glucose 128 H Calcium 7.2 L Miscellaneous Test Blood Type Antibody Screen Crossmatch 10/10/18 10/10/18 06:40 06:40 WBC 13.2 H Corrected WBC RBC 2.09 L Hgb 5.8 L* Hct 18.0 L MCV 86.1 MCH 27.8 MCHC 32.2 RDW 15.5 H RDW Differential 44.1 H Plt Count 344 MPV 10.8 Differential Comment SCANNED Diff Path Review Sodium Potassium Chloride Carbon Dioxide Anion Gap BUN Creatinine Estim Creat Clear Calc Est GFR (MDRD) Af Amer Est GFR (MDRD) Non-Af BUN/Creatinine Ratio Glucose Calcium Miscellaneous Test Blood Type A POSITIVE Antibody Screen NEGATIVE Crossmatch See Detail Assessment/Plan All Active Problems (Last Updated 09/30/18 @ 10:24 by Kalpesh Nuno DO) GI bleed (Acute) Pressure injury of left ankle, stage 2 (Acute) Pressure injury of dorsum of left foot, stage 2 (Acute) Pressure injury of left leg, stage 2 (Acute) Cellulitis of left lower extremity (Acute) Lymphedema of left lower extremity (Acute) Sepsis (Acute) Cellulitis of left anterior lower leg (Acute) Acute kidney injury (Acute) Hypokalemia (Acute) 57-year-old male with melena and anemia 1. Patient notes he has been having loose melanotic stool since admission. He also tested positive for C. difficile. Patient notes epigastric pain as well. His hemoglobin was only 5.8 this morning down from 8.7 yesterday. He has 2 units of blood ordered. 2. I plan to start the patient on PPI and keep him n.p.o. today and plan to do an EGD this afternoon. If this shows no source of bleeding he will have colonoscopy in the near future. 3. I explained endoscopy in detail to the patient. I explained the risks including but not limited to stroke or heart attack with anesthesia, perforation of the GI tract, bleeding, infection. I explained that any of these could necessitate further emergency surgery. The patient understands and all questions were answered sufficiently. The patient wishes to proceed with procedure. Dragan Bradley MD Pager: [facility] [address] [place] [address], [address] [place] [address] Office:
[2018-10-10 14:40] LABS: Pathologist Review Reviewed
--- NOTE | 2018-10-10 15:24 | SUR.PREOP ---
PT TO ENDO FOR PROCEDURE, REPORT GIVEN. ANESTHESIA TO ASSUME CARE, MONITORING OF BLOOD TRANSFUSION.
--- NOTE | 2018-10-10 15:51 | OP.ENDO_ITS ---
10/10/2018 Danyell Dobson Md Re : Upper GI endoscopy procedure for Sadiq Solorior Olya This procedure was performed on Wednesday, October 10, 2018. My impressions and recommendations are as follows: Impressions : - Non-bleeding gastric ulcer with adherent clot. Biopsied. - Esophagitis. Biopsied. Recommendations : - Await pathology results. - Continue present medications. My findings are described in the full procedure note, which is enclosed. If I can be of further assistance, please feel free to contact me at Doctor phone number(s): , Work: . Sincerely, Dragan Bradley MD 10/10/2018 3:51:04 PM This report has been signed electronically.
[2018-10-10] MEDS: Carvedilol 25 MG Tablet PO ×2 (17:28→22:42)
[2018-10-10] MEDS: hydroCHLOROthiazide 12.5mg 12.5 MG PO (17:28)
[2018-10-10] MEDS: Sucralfate 1 GM Tablet PO ×2 (17:29→21:48)
[2018-10-10] MEDS: Glucerna Shake 120 ML LIQUID PO (17:40)
[2018-10-10] MEDS: Lactated Ringers 1,000 ML 100 ML IV (17:49)
--- NOTE | 2018-10-10 21:29 | NURSING ---
Lab notified of H&H just ordered. Kim RODRIGUEZ notified that Dr. Stringer wants notified if hemoglobin less than 7 or less than 8 and actively bleeding.
[2018-10-10 21:42] LABS: Hematocrit 19.2 % (40-54); Hemoglobin 6.3 g/dl (13.0-16.5)
[2018-10-10] MEDS: Doxazosin 4 MG Tablet PO (22:42)
[2018-10-10] MEDS: oxyCODONE 5 MG Tablet PO (22:55)
[2018-10-11] VITALS (11 sets, daily range): BP systolic 119–147; BP diastolic 56–73; PULSE 63–75; RESP 14–18; TEMP 36.6–37.6; O2SAT 92–98
[2018-10-11] MEDS: Cefazolin 2 GM in 0.9% Normal Saline 100 ML IV (06:23)
[2018-10-11] MEDS: Sucralfate 1 GM Tablet PO ×4 (06:32→22:09)
--- NOTE | 2018-10-11 07:43 | PCM.PN.SRG ---
Patient Problems: Active and Suspected Problems (Last Updated 09/30/18 @ 10:24 by Kalpesh Nuno DO) GI bleed (Acute) Cellulitis of left lower extremity (Acute) Sepsis (Acute) Cellulitis of left anterior lower leg (Acute) Acute kidney injury (Acute) Hypokalemia (Acute) Subjective: Patient feels better this morning. He says he actually has an appetite. He had small formed black stools this morning with no diarrhea. - Physical Exam General: Alert, Oriented x3, Cooperative Lungs: Normal air movement Cardiovascular: Regular rate, Regular Rhythm Abdomen: Soft, Non-Distended Vital Signs Temp Pulse Resp BP Pulse Ox 98.4 F 63 18 123/56 H 95 10/11/18 04:08 10/11/18 04:08 10/11/18 04:08 10/11/18 04:08 10/11/18 04:08 Oxygen Delivery Method CPAP Weight: 367 lb 1.114 oz Body Mass Index (BMI) 52.7 Intake and Output for Last 24 Hours 10/09/18 10/10/18 10/11/18 23:59 23:59 23:59 Intake Total 720 / 720 4671 / 4671 1725 / 1725 Output Total 1095 / 1095 1455 / 1455 Balance -375 / -375 3216 / 3216 1725 / 1725 Laboratory Tests Past 24 Hrs 10/06/18 10/08/18 10/10/18 08:30 05:53 06:40 Hgb Hct Diff Path Review Reviewed Miscellaneous Test Blood Type A POSITIVE Antibody Screen NEGATIVE Crossmatch See Detail 10/10/18 10/10/18 06:40 21:35 Hgb 6.3 L Hct 19.2 L Diff Path Review Miscellaneous Test Blood Type Antibody Screen Crossmatch See Detail Medical Necessity - Tobacco Use Smoking Status: Former smoker Tobacco Use: Non-smoker Assessment/Plan All Active Problems (Last Updated 09/30/18 @ 10:24 by Kalpesh Nuno DO) GI bleed (Acute) Pressure injury of left ankle, stage 2 (Acute) Pressure injury of dorsum of left foot, stage 2 (Acute) Pressure injury of left leg, stage 2 (Acute) Cellulitis of left lower extremity (Acute) Lymphedema of left lower extremity (Acute) Sepsis (Acute) Cellulitis of left anterior lower leg (Acute) Acute kidney injury (Acute) Hypokalemia (Acute) 57-year-old male with very large gastric ulcer with upper GI bleed 1. Patient has an extremely large cratered ulcer in the greater curvature of his stomach. There was blood clot within this and it was biopsied. I have started him on twice a day PPI as well as Carafate. Continue full liquid diet until his hemoglobin has stabilized. He required 2 more units of blood overnight. If bleeding continues despite PPI and Carafate he may require transfer for embolization. Dragan Bradley MD Pager: [facility] [address] [place] [address], [address] [place] [address] Office:
[2018-10-11 07:59] LABS: Hematocrit 23.4 % (40-54); Hemoglobin 7.7 g/dl (13.0-16.5); Mean Corp Hgb Conc 32.9 g/gl (32-36); Mean Corpuscular Hgb 27.9 pg (27.0-32.0); Mean Corpuscular Volume 84.8 fL (80-94); Mean Platelet Vol. 9.8 fl (6.2-12.0); Platelet Count 331 K/mm3 (150-450); RBC Distribution Width CV 15.8 % (11.6-14.6); RBC Distribution Width SD 47.6 fl (35.1-43.9); Red Blood Count 2.76 M/mm3 (4.6-6.2); White Blood Count 9.2 K/mm3 (4.4-11.0)
[2018-10-11 08:02] LABS: Scan Indicated on CBC? Y/N NO
[2018-10-11] MEDS: Silver Sulfadiazine 1% Crm 50 gm Bottle 1 APPLIC TOPICAL (09:08)
[2018-10-11] MEDS: Multivitamins,Therapeutic Tablet 1 TABLET PO (09:09)
[2018-10-11] MEDS: Carvedilol 25 MG Tablet PO ×2 (09:09→22:09)
[2018-10-11] MEDS: hydroCHLOROthiazide 12.5mg 12.5 MG PO (09:09)
--- NOTE | 2018-10-11 10:36 | PCM.PN.ID ---
Patient Problems: Active and Suspected Problems (Last Updated 09/30/18 @ 10:24 by Kalpesh Nuno DO) GI bleed (Acute) Cellulitis of left lower extremity (Acute) Sepsis (Acute) Cellulitis of left anterior lower leg (Acute) Acute kidney injury (Acute) Hypokalemia (Acute) Subjective: Feeling better, no fever. No abd pain. - Physical Exam General: Alert, Cooperative, No apparent distress Lungs: Clear to auscultation, Normal air movement Cardiovascular: Regular rate, Regular Rhythm Abdomen: Soft, Non Tender, Non-Distended Skin: Rash Present - LLE much improved Vital Signs Temp Pulse Resp BP Pulse Ox 98.5 F 68 18 135/64 H 96 10/11/18 09:15 10/11/18 09:15 10/11/18 09:15 10/11/18 09:15 10/11/18 09:15 Oxygen Delivery Method Room Air Weight: 166.5 kg Body Mass Index (BMI) 52.7 Intake and Output for Last 24 Hours 10/09/18 10/10/18 10/11/18 23:59 23:59 23:59 Intake Total 720 / 720 4671 / 4671 1725 / 1725 Output Total 1095 / 1095 1455 / 1455 400 / 400 Balance -375 / -375 3216 / 3216 1325 / 1325 Laboratory Tests Past 24 Hrs 10/06/18 10/08/18 10/10/18 08:30 05:53 06:40 WBC RBC Hgb Hct MCV MCH MCHC RDW RDW Differential Plt Count MPV Diff Path Review Reviewed Miscellaneous Test Blood Type A POSITIVE Antibody Screen NEGATIVE Crossmatch See Detail 10/10/18 10/10/18 10/11/18 06:40 21:35 07:40 WBC 9.2 RBC 2.76 L Hgb 6.3 L 7.7 L Hct 19.2 L 23.4 L MCV 84.8 MCH 27.9 MCHC 32.9 RDW 15.8 H RDW Differential 47.6 H Plt Count 331 MPV 9.8 Diff Path Review Miscellaneous Test Blood Type Antibody Screen Crossmatch See Detail Medical Necessity - Tobacco Use Smoking Status: Former smoker Tobacco Use: Non-smoker Route of nutrition/ use of supplements: [] Nutritional Intake: [] IV Site: [] Jimenez Catheter: [] - Assessment/Plan Antibiotics: [] Assessment/Plan: [] Active and Suspected Problems (Last Updated 09/30/18 @ 10:24 by Kalpesh Nuno DO) Cellulitis of left lower extremity (Acute) Sepsis (Acute) Cellulitis of left anterior lower leg (Acute) Acute kidney injury (Acute) Hypokalemia (Acute) sepsis due to GAS bacteremia from LLE cellulitis - Much improved. Will stop cefazolin. Wbc normal. Cdiff (+) - toxin pcr was neg. Diarrhea seems related to GI bleed from ulcer. Will stop po vanc, d/c isolation. Path pending from EGD. Will follow.
[2018-10-11] MEDS: Glucerna Shake 120 ML LIQUID PO (13:35)
--- NOTE | 2018-10-11 14:07 | PCM.PN.HOSP ---
Patient Problems: Active and Suspected Problems (Last Updated 09/30/18 @ 10:24 by Kalpesh Nuno DO) GI bleed (Acute) Cellulitis of left lower extremity (Acute) Sepsis (Acute) Cellulitis of left anterior lower leg (Acute) Acute kidney injury (Acute) Hypokalemia (Acute) Subjective: The patient did not had fever chills, tachycardia or tachypnea. Leukocytosis has resolved. Left lower leg wound looks better. Patient is seen by ID and discontinued cefazolin. Toxin for C. difficile came negative and p.o. vancomycin is discontinued. DC isolation. It seems patient had diarrhea secondary to melena and possible from laxative given earlier. Vitals/I&O's: Vital Signs Temp Pulse Resp BP Pulse Ox 98.0 F 69 18 147/69 H 98 10/11/18 13:32 10/11/18 13:32 10/11/18 13:32 10/11/18 13:32 10/11/18 13:32 Oxygen Delivery Method Room Air Weight: 367 lb 1.114 oz Body Mass Index (BMI) 52.7 Intake and Output for Last 24 Hours 10/09/18 10/10/18 10/11/18 23:59 23:59 23:59 Intake Total 720 / 720 4671 / 4671 2732 / 2732 Output Total 1095 / 1095 1455 / 1455 400 / 400 Balance -375 / -375 3216 / 3216 2332 / 2332 General: Alert, Oriented x3, Cooperative HEENT: Atraumatic, PERRLA, EOMI, Normocephalic Neck: Supple, No JVD, Negative Carotid Bruits Lungs: Clear to auscultation, Normal air movement Cardiovascular: Regular rate, Regular Rhythm, Normal S1, Normal S2, No murmurs Abdomen: Bowel Sounds Present, Soft, Non Tender, Non-Distended Extremities: Capillary Refill Less than 3 Seconds, Edema Skin: Ulcer/ Wound - Left lower leg reddish and blackish in coloration with granulation tissue. Blister has healed. Musculoskeletal: No Tenderness to Palpation of Joints or Extremities, Arthritic Changes Neurological: Cranial nerves II-XII grossly intact Psych/Mental Status: Normal Affect, Appropriate Laboratory Results 10/08/18 05:53: Diff Path Review Reviewed 10/10/18 06:40: Blood Type A POSITIVE, Antibody Screen NEGATIVE, Crossmatch See Detail 10/10/18 06:40: Crossmatch See Detail 10/10/18 21:35: Hgb 6.3 L, Hct 19.2 L 10/11/18 07:40: WBC 9.2, RBC 2.76 L, Hgb 7.7 L, Hct 23.4 L, MCV 84.8, MCH 27.9, MCHC 32.9, RDW 15.8 H, RDW Differential 47.6 H, Plt Count 331, MPV 9.8 Current Medications Acetaminophen (Tylenol) 650 mg PO Q6H PRN PRN PRN Reason: Mild Pain (1-3)/Temp > 100.7 F Last Admin: 10/02/18 21:47 Dose: 650 mg Al Hydroxide/Mg Hydroxide (Mylanta Ii) 30 ml PO Q4H PRN PRN PRN Reason: indigestion Last Admin: 10/06/18 17:53 Dose: 30 ml Carvedilol (Coreg) 25 mg PO BID [facility] Last Admin: 10/11/18 09:09 Dose: 25 mg Dextrose (D50w Syringe) 0 gm IV X1 PRN; Protocol PRN Reason: Hypoglycemia Doxazosin Mesylate (Cardura) 4 mg PO DAILY@2200 [facility] Last Admin: 10/10/18 22:42 Dose: 4 mg Glucagon () 1 mg IM .X1 PRN PRN Reason: Hypoglycemia Hydrochlorothiazide () 12.5 mg PO DAILY [facility] Last Admin: 10/11/18 09:09 Dose: 12.5 mg Pantoprazole Sodium 40 mg/ (Sodium Chloride) 110 mls @ 330 mls/hr IV Q12 [facility] Last Admin: 10/11/18 09:09 Dose: 330 mls/hr Morphine Sulfate () 2 mg IV Q3H PRN PRN PRN Reason: SEVERE PAIN (6-10/10) Multivitamins (Multivitamin) 1 tablet PO DAILY@0800 [facility] Last Admin: 10/11/18 09:09 Dose: 1 tablet Nutritional Formula (Lactose Free) (Glucerna Shake) 120 ml PO TIDCM [facility] Last Admin: 10/11/18 13:35 Dose: 120 ml Ondansetron HCl (Zofran) 4 mg IV Q8H PRN PRN PRN Reason: NAUSEA/VOMITING Last Admin: 10/09/18 16:58 Dose: 4 mg Polyethylene Glycol (Miralax) 17 gm PO DAILY PRN PRN PRN Reason: constipation Potassium Chloride (K-Dur) 20 meq PO DAILYCM [facility] Last Admin: 10/11/18 09:09 Dose: 20 meq Silver Sulfadiazine (Silvadene (Bkc)) 1 applic TOPICAL DAILY [facility]AYA; Protocol Last Admin: 10/11/18 09:08 Dose: 1 applicatio Sodium Chloride () 5 - 15 ml IV UD PRN PRN Reason: SALINE FLUSH Last Admin: 10/10/18 22:42 Dose: 10 ml Sucralfate (Carafate) 1 gm PO 1HR_ACHS [facility]AY[facility] Last Admin: 10/11/18 11:43 Dose: 1 gm Zolpidem Tartrate (Ambien (Generic)) 5 mg PO QHS PRN PRN PRN Reason: INSOMNIA Last Admin: 10/09/18 23:16 Dose: 5 mg Medical Necessity - Tobacco Use Smoking Status: Former smoker Tobacco Use: Non-smoker Assessment/Plan All Active Problems (Last Updated 09/30/18 @ 10:24 by Kalpesh Nuno DO) GI bleed (Acute) Pressure injury of left ankle, stage 2 (Acute) Pressure injury of dorsum of left foot, stage 2 (Acute) Pressure injury of left leg, stage 2 (Acute) Cellulitis of left lower extremity (Acute) Lymphedema of left lower extremity (Acute) Sepsis (Acute) Cellulitis of left anterior lower leg (Acute) Acute kidney injury (Acute) Hypokalemia (Acute) There is a 57-year-old gentleman with history of hypertension, obstructive sleep apnea and morbid obesity and chronic lymphedema was admitted with erythema, pain, induration of left lower extremity consistent with cellulitis. Patient received Zosyn in the ED. 1. Sepsis secondary to Streptococcus group A bacteremia with cellulitis and pressure injury of left ankle, dorsum of left foot left leg, stage II. Secondary to left lower extremity cellulitis. Bacterial PCR shows Streptococcus pyogenes sensitive to penicillin. Clinically, the left lower extremity superficial ulceration looks better. Leukocytosis is resolved. Patient was treated with cefazolin for 7 days and discontinued on the 10/11/2018. Repeat CT scan reported as Soft tissue swelling without interval change and without demonstrated focal fluid collection to indicate abscess. Venous Doppler is negative for DVT. Dr. Carrero consult reviewed and appreciated. Leukocytosis and the wound of left lower extremity and color has improved. Diarrhea possible secondary to GI bleeding from laxatives given earlier: Although, PCR for C. difficile was positive but toxin PCR was negative. C. difficile ruled out. P.o. vancomycin discontinued. Isolation discontinued. 3. 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 Esophagitis. Biopsy was taken and is pending. He was transfused 2 units of PRBC. On IV PPI twice daily and Carafate. Antiplatelets and Lovenox discontinued. Patient dropped hemoglobin from 9.2-5.8. Required 2 units of PRBC. Most recent .01/03.4. Monitor H&H. 4.Hypokalemia Potassium has been overcorrected. K5.0. Repeat K 3.9 Magnesium 1.9 Resume low-dose HCTZ from 10/05/2017 4. Acute kidney injury versus chronic kidney disease stage III: Resolved. I think most probably secondary to contrast-induced nephropathy as it developed during the same time of CT scan with contrast. Resolved. IV contrast was not given during second CT scan. 5. 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 This was evident in left lower leg CT scan. VT E prophylaxis: Bilateral SCDs. Pharmacological prophylaxis contraindicated due to GI bleed Laboratory Results 10/10/18 05:50: Sodium 142, Potassium 3.9, Chloride 109 H, Carbon Dioxide 27.0, Anion Gap 6, BUN 34 H, Creatinine 0.71, Estim Creat Clear Calc 118.53, Est GFR (MDRD) Af Amer 147, Est GFR (MDRD) Non-Af 121, BUN/Creatinine Ratio 47.9 H, Glucose 128 H, Calcium 7.2 L 10/10/18 06:40: WBC 13.2 H, RBC 2.09 L, Hgb 5.8 L*, Hct 18.0 L, MCV 86.1, MCH 27.8, MCHC 32.2, RDW 15.5 H, RDW Differential 44.1 H, Plt Count 344, MPV 10.8, Differential Comment SCANNED 10/10/18 06:40: Blood Type A POSITIVE, Antibody Screen NEGATIVE, Crossmatch See Detail Clinical Impression(s) from Imaging Studies Lower Extremity CT 10/01/18 09:34 IMPRESSION: 1. Diffuse soft tissue swelling of the lower leg (and visualized ankle/foot) compatible with history of cellulitis or edema. No focal fluid collection or subcutaneous gas demonstrated. 2. Varicose veins. 3. Degenerative changes of the knee and visualized ankle/foot. 4. Small joint effusion. Lower Extremity CT 10/06/18 13:04 IMPRESSION: Soft tissue swelling without interval change and without demonstrated focal fluid collection to indicate abscess. 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 Code Visit Inpatient E&M: 94146 [facility] Hosp L3
--- NOTE | 2018-10-11 14:18 | PN_ITS ---
Patient Problems: Active and Suspected Problems (Last Updated 09/30/18 @ 10:24 by Kalpesh Nuno DO) GI bleed (Acute) Cellulitis of left lower extremity (Acute) Sepsis (Acute) Cellulitis of left anterior lower leg (Acute) Acute kidney injury (Acute) Hypokalemia (Acute) Subjective: The patient did not had fever chills, tachycardia or tachypnea. Leukocytosis has resolved. Left lower leg wound looks better. Patient is seen by ID and discontinued cefazolin. Toxin for C. difficile came negative and p.o. vancomycin is discontinued. DC isolation. It seems patient had diarrhea secondary to melena and possible from laxative given earlier. Vitals/I&O's: Vital Signs Temp Pulse Resp BP Pulse Ox 98.0 F 69 18 147/69 H 98 10/11/18 13:32 10/11/18 13:32 10/11/18 13:32 10/11/18 13:32 10/11/18 13:32 Oxygen Delivery Method Room Air Weight: 367 lb 1.114 oz Body Mass Index (BMI) 52.7 Intake and Output for Last 24 Hours 10/09/18 10/10/18 10/11/18 23:59 23:59 23:59 Intake Total 720 / 720 4671 / 4671 2732 / 2732 Output Total 1095 / 1095 1455 / 1455 400 / 400 Balance -375 / -375 3216 / 3216 2332 / 2332 General: Alert, Oriented x3, Cooperative HEENT: Atraumatic, PERRLA, EOMI, Normocephalic Neck: Supple, No JVD, Negative Carotid Bruits Lungs: Clear to auscultation, Normal air movement Cardiovascular: Regular rate, Regular Rhythm, Normal S1, Normal S2, No murmurs Abdomen: Bowel Sounds Present, Soft, Non Tender, Non-Distended Extremities: Capillary Refill Less than 3 Seconds, Edema Skin: Ulcer/ Wound - Left lower leg reddish and blackish in coloration with granulation tissue. Blister has healed. Musculoskeletal: No Tenderness to Palpation of Joints or Extremities, Arthritic Changes Neurological: Cranial nerves II-XII grossly intact Psych/Mental Status: Normal Affect, Appropriate Laboratory Results 10/08/18 05:53: Diff Path Review Reviewed 10/10/18 06:40: Blood Type A POSITIVE, Antibody Screen NEGATIVE, Crossmatch See Detail 10/10/18 06:40: Crossmatch See Detail 10/10/18 21:35: Hgb 6.3 L, Hct 19.2 L 10/11/18 07:40: WBC 9.2, RBC 2.76 L, Hgb 7.7 L, Hct 23.4 L, MCV 84.8, MCH 27.9, MCHC 32.9, RDW 15.8 H, RDW Differential 47.6 H, Plt Count 331, MPV 9.8 Current Medications Acetaminophen (Tylenol) 650 mg PO Q6H PRN PRN PRN Reason: Mild Pain (1-3)/Temp > 100.7 F Last Admin: 10/02/18 21:47 Dose: 650 mg Al Hydroxide/Mg Hydroxide (Mylanta Ii) 30 ml PO Q4H PRN PRN PRN Reason: indigestion Last Admin: 10/06/18 17:53 Dose: 30 ml Carvedilol (Coreg) 25 mg PO BID [facility] Last Admin: 10/11/18 09:09 Dose: 25 mg Dextrose (D50w Syringe) 0 gm IV X1 PRN; Protocol PRN Reason: Hypoglycemia Doxazosin Mesylate (Cardura) 4 mg PO DAILY@2200 [facility] Last Admin: 10/10/18 22:42 Dose: 4 mg Glucagon () 1 mg IM .X1 PRN PRN Reason: Hypoglycemia Hydrochlorothiazide () 12.5 mg PO DAILY [facility] Last Admin: 10/11/18 09:09 Dose: 12.5 mg Pantoprazole Sodium 40 mg/ (Sodium Chloride) 110 mls @ 330 mls/hr IV Q12 [facility] Last Admin: 10/11/18 09:09 Dose: 330 mls/hr Morphine Sulfate () 2 mg IV Q3H PRN PRN PRN Reason: SEVERE PAIN (6-10/10) Multivitamins (Multivitamin) 1 tablet PO DAILY@0800 [facility] Last Admin: 10/11/18 09:09 Dose: 1 tablet Nutritional Formula (Lactose Free) (Glucerna Shake) 120 ml PO TIDCM [facility] Last Admin: 10/11/18 13:35 Dose: 120 ml Ondansetron HCl (Zofran) 4 mg IV Q8H PRN PRN PRN Reason: NAUSEA/VOMITING Last Admin: 10/09/18 16:58 Dose: 4 mg Polyethylene Glycol (Miralax) 17 gm PO DAILY PRN PRN PRN Reason: constipation Potassium Chloride (K-Dur) 20 meq PO DAILYCM [facility] Last Admin: 10/11/18 09:09 Dose: 20 meq Silver Sulfadiazine (Silvadene (Bkc)) 1 applic TOPICAL DAILY [facility]; Protocol Last Admin: 10/11/18 09:08 Dose: 1 applicatio Sodium Chloride () 5 - 15 ml IV UD PRN PRN Reason: SALINE FLUSH Last Admin: 10/10/18 22:42 Dose: 10 ml Sucralfate (Carafate) 1 gm PO 1HR_ACHS [facility] Last Admin: 10/11/18 11:43 Dose: 1 gm Zolpidem Tartrate (Ambien (Generic)) 5 mg PO QHS PRN PRN PRN Reason: INSOMNIA Last Admin: 10/09/18 23:16 Dose: 5 mg Medical Necessity - Tobacco Use Smoking Status: Former smoker Tobacco Use: Non-smoker Assessment/Plan All Active Problems (Last Updated 09/30/18 @ 10:24 by Kalpesh Nuno DO) GI bleed (Acute) Pressure injury of left ankle, stage 2 (Acute) Pressure injury of dorsum of left foot, stage 2 (Acute) Pressure injury of left leg, stage 2 (Acute) Cellulitis of left lower extremity (Acute) Lymphedema of left lower extremity (Acute) Sepsis (Acute) Cellulitis of left anterior lower leg (Acute) Acute kidney injury (Acute) Hypokalemia (Acute) There is a 57-year-old gentleman with history of hypertension, obstructive sleep apnea and morbid obesity and chronic lymphedema was admitted with erythema, pain, induration of left lower extremity consistent with cellulitis. Patient received Zosyn in the ED. 1. Sepsis secondary to Streptococcus group A bacteremia with cellulitis and pressure injury of left ankle, dorsum of left foot left leg, stage II. * Secondary to left lower extremity cellulitis. Bacterial PCR shows S treptococcus pyogenes sensitive to penicillin. * Clinically, the left lower extremity superficial ulceration looks better. Leukocytosis is resolved. Patient was treated with cefazolin for 7 days and discontinued on the 10/11/2018. Repeat CT scan reported as Soft tissue swelling without interval change and without demonstrated focal fluid collection to indicate abscess. * Venous Doppler is negative for DVT. * Dr. Carrero consult reviewed and appreciated. Leukocytosis and the wound of left lower extremity and color has improved. Diarrhea possible secondary to GI bleeding from laxatives given earlier: Although, PCR for C. difficile was positive but toxin PCR was negative. C. difficile ruled out. P.o. vancomycin discontinued. Isolation discontinued. 3. 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 Esophagitis. Biopsy was taken and is pending. He was transfused 2 units of PRBC. On IV PPI twice daily and Carafate. Antiplatelets and Lovenox discontinued. Patient dropped hemoglobin from 9.2-5.8. Required 2 units of PRBC. Most recent .01/03.4. Monitor H&H. 4.Hypokalemia Potassium has been overcorrected. K5.0. Repeat K 3.9 * Magnesium 1.9 * Resume low-dose HCTZ from 10/05/2017 4. Acute kidney injury versus chronic kidney disease stage III: Resolved. I think most probably secondary to contrast-induced nephropathy as it developed during the same time of CT scan with contrast. * Resolved. IV contrast was not given during second CT scan. 5. 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 This was evident in left lower leg CT scan. VT E prophylaxis: Bilateral SCDs. Pharmacological prophylaxis contraindicated due to GI bleed Laboratory Results 10/10/18 05:50: Sodium 142, Potassium 3.9, Chloride 109 H, Carbon Dioxide 27.0, Anion Gap 6, BUN 34 H, Creatinine 0.71, Estim Creat Clear Calc 118.53, Est GFR (MDRD) Af Amer 147, Est GFR (MDRD) Non-Af 121, BUN/Creatinine Ratio 47.9 H, Glucose 128 H, Calcium 7.2 L 10/10/18 06:40: WBC 13.2 H, RBC 2.09 L, Hgb 5.8 L*, Hct 18.0 L, MCV 86.1, MCH 27.8, MCHC 32.2, RDW 15.5 H, RDW Differential 44.1 H, Plt Count 344, MPV 10.8, Differential Comment SCANNED 10/10/18 06:40: Blood Type A POSITIVE, Antibody Screen NEGATIVE, Crossmatch See Detail Clinical Impression(s) from Imaging Studies Lower Extremity CT 10/01/18 09:34 IMPRESSION: 1. Diffuse soft tissue swelling of the lower leg (and visualized ankle/foot) compatible with history of cellulitis or edema. No focal fluid collection or subcutaneous gas demonstrated. 2. Varicose veins. 3. Degenerative changes of the knee and visualized ankle/foot. 4. Small joint effusion. Lower Extremity CT 10/06/18 13:04 IMPRESSION: Soft tissue swelling without interval change and without demonstrated focal fluid collection to indicate abscess. 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 Code Visit Inpatient E&M: 53652 Subs Hosp L3
[2018-10-11 15:10] LABS: Hematocrit 23.4 % (40-54); Hemoglobin 7.7 g/dl (13.0-16.5)
--- NOTE | 2018-10-11 17:28 | PCM.PN.SRG ---
Patient Problems: Active and Suspected Problems (Last Updated 09/30/18 @ 10:24 by Kalpesh Nuno DO) GI bleed (Acute) Cellulitis of left lower extremity (Acute) Sepsis (Acute) Cellulitis of left anterior lower leg (Acute) Acute kidney injury (Acute) Hypokalemia (Acute) Subjective: Has less stomach pain this morning. He has a large gastric ulcer. He was started on acid blockers. Biopsies taken. He received PRBC. He has no complaints with his left leg. Ambulates without difficulty. - Physical Exam General: Alert, Oriented x3 HEENT: PERRLA, EOMI Oral: Moist Mucosa Neck: Supple Abdomen: Soft, Non-Distended Extremities: Edema - resolving edema in left lower extremity., Peripheral Pulses Normal Skin: Ulcer/ Wound - The ecchymosis and bruising on the left anterior leg with medial and lateral extension is less at the edges and continues to improve slowly. No fluctuance. No purulent drainage. No necrosis seen. No eschar seen. On the dorsum of the left foot is pink viable dermis. The ecchymosis on the malleoli are slowly improving. Areas are minimally tender. Posterior leg is nontender. Patient can lift his leg on his own without pain and without difficulty. No inguinal adenopathy. No clinical evidence of necrotizing process. Lymphatic: - - no inguinal adenopathy. Neurological: Cranial nerves II-XII grossly intact Psych/Mental Status: Normal Affect, Appropriate Vital Signs Temp Pulse Resp BP Pulse Ox 98.0 F 69 18 147/69 H 98 10/11/18 13:32 10/11/18 13:32 10/11/18 13:32 10/11/18 13:32 10/11/18 13:32 Oxygen Delivery Method Room Air Weight: 367 lb 1.114 oz Body Mass Index (BMI) 52.7 Intake and Output for Last 24 Hours 10/09/18 10/10/18 10/11/18 23:59 23:59 23:59 Intake Total 720 / 720 4671 / 4671 2732 / 2732 Output Total 1095 / 1095 1455 / 1455 400 / 400 Balance -375 / -375 3216 / 3216 2332 / 2332 Laboratory Tests Past 24 Hrs 10/10/18 10/10/18 10/10/18 06:40 06:40 21:35 WBC RBC Hgb 6.3 L Hct 19.2 L MCV MCH MCHC RDW RDW Differential Plt Count MPV Crossmatch See Detail See Detail 10/11/18 10/11/18 07:40 14:48 WBC 9.2 RBC 2.76 L Hgb 7.7 L 7.7 L Hct 23.4 L 23.4 L MCV 84.8 MCH 27.9 MCHC 32.9 RDW 15.8 H RDW Differential 47.6 H Plt Count 331 MPV 9.8 Crossmatch Medical Necessity - Tobacco Use Smoking Status: Former smoker Tobacco Use: Non-smoker Assessment/Plan All Active Problems (Last Updated 09/30/18 @ 10:24 by Kalpesh Nuno DO) GI bleed (Acute) Pressure injury of left ankle, stage 2 (Acute) Pressure injury of dorsum of left foot, stage 2 (Acute) Pressure injury of left leg, stage 2 (Acute) Cellulitis of left lower extremity (Acute) Lymphedema of left lower extremity (Acute) Sepsis (Acute) Cellulitis of left anterior lower leg (Acute) Acute kidney injury (Acute) Hypokalemia (Acute) 1. Pressure injury left anterior leg with medial and lateral extension and dorsum foot and malleoli. 2. Cellulitis left lower extremity. 3. Lymphedema. 4. Acute blood loss anemia. Patient has stomach pain this morning. His Hgb this morning has improved to 7.7. Had PRBC. He had an upper endoscopy which showed a bleeding ulcer. He was started on acid blockers. His biopsies are pending. On his left leg, his swelling is resolving. Continue Silvadene dressing changes twice a day. He is tolerating the dressing changes reasonably well. He doesn't take any Morphine for the dressing changes. The bruised areas on his left leg are less dark and continue to improve. The leg is soft. There is some evidence of epidermolysis. The underlying dermis appears viable. The dorsum of foot shows underlying dermis that is pink and viable. No necrosis seen. No eschar seen. With the improvement, there is no need for urgent surgery at this time. I told him to concentrate on healing his large gastric ulcer at this time. Since improvement continues, will continue the wound care with Silvadene twice a day. He will need surgery at some point. Right now will continue wound care and followup [facility] a [facility] for [facility] management. When surgery is done, will proceed with postop wound care with the VAC. If there is a plateau in the healing process, can proceed with delayed closure with skin grafting. Patient was informed of the risks and complications of the procedure including alternatives to surgery. These were discussed with the patient personally. Patient voices understanding and wishes to proceed with the current plan of close observation. Patient voices understanding that surgery is still a possibility. Patient understands that the wounds will be left open and will proceed with postop wound care with the VAC. Anticipate increased metabolic demands from the infection and future surgery. His Prealbumin was 10.6. Encourage nutritional supplementation with protein to help the healing process. Code Visit Inpatient E&M: 73882 Subs Hosp L2 - ICD-10 - L89.892, L89.522, L03.116, I89.0
[2018-10-11] MEDS: 0.9% NaCl Peripheral Flush Adult/Peds IV (22:09)
[2018-10-11] MEDS: Doxazosin 4 MG Tablet PO (22:09)
[2018-10-11] MEDS: Zolpidem Tartrate 5 MG Tablet PO (22:11)
[2018-10-12] MEDS: 0.9% NaCl Peripheral Flush Adult/Peds IV ×2 (00:37→10:40)
[2018-10-12] MEDS: Acetaminophen 325 MG Tablet 650 MG PO (00:38)
[2018-10-12 02:26] VITALS: BP 143/77; PULSE 75; RESP 18; TEMP 36.8; O2SAT 97
[2018-10-12 06:27] LABS: Absolute Lymphocyte Count 2.32 X10^3/ul (0.83-4.51); Absolute Neutrophil Count 4.9 X10^3/uL (2.0-7.7); Basophil# 0.02 X10^3/uL; Basophil% 0.2 % (0-1); Eosinophil# 0.19 X10^3/uL; Eosinophils% 2.3 % (0-5); Hematocrit 23.7 % (40-54); Hemoglobin 7.8 g/dl (13.0-16.5); Lymphocyte # 2.32 X10^3/ul (4.0); Lymphocyte % 27.9 % (19-41); Mean Corp Hgb Conc 32.9 g/gl (32-36); Mean Corpuscular Hgb 28.5 pg (27.0-32.0); Mean Corpuscular Volume 86.5 fL (80-94); Mean Platelet Vol. 10.1 fl (6.2-12.0); Monocyte# 0.81 X10^3/uL; Monocyte% 9.7 % (0-10); Neutrophil # 4.88 X10^3/uL (2.7-7.7); Neutrophil % 58.7 % (47-70); Platelet Count 318 K/mm3 (150-450); RBC Distribution Width CV 16.3 % (11.6-14.6); RBC Distribution Width SD 48.9 fl (35.1-43.9); Red Blood Count 2.74 M/mm3 (4.6-6.2); White Blood Count 8.3 K/mm3 (4.4-11.0)
[2018-10-12] MEDS: Sucralfate 1 GM Tablet PO ×3 (06:30→17:00)
[2018-10-12 06:31] LABS: POSITIVE COUNT NO; POSITIVE DIFFERENTIAL NO; POSITIVE MORPHOLOGY NO
[2018-10-12 06:34] LABS: Anion Gap 7 (5-15); BUN 10 mg/dL (7-18); BUN/Creat Ratio 15.8 RATIO (10-20); Calcium,Total 7.5 mg/dL (8.5-10.1); Chloride 109 mmol/L (98-107); Creatinine, Serum 0.63 mg/dL (0.70-1.30); EST Glomerular Filtration Rate 138 mL/min (>60); Est Glom Filt Rate - Afr Amer 167 mL/min (>60); Estimated Creatinine Clearance 131.97 ml/min; Glucose 100 mg/dL (74-106); Potassium 4.1 mmol/L (3.5-5.1); Sodium Level 142 mmol/L (136-145)
[2018-10-12 08:06] VITALS: BP 161/77; PULSE 68; RESP 18; TEMP 37.1; O2SAT 98
[2018-10-12] MEDS: Silver Sulfadiazine 1% Crm 50 gm Bottle 1 APPLIC TOPICAL (08:07)
[2018-10-12] MEDS: Multivitamins,Therapeutic Tablet 1 TABLET PO (08:13)
[2018-10-12] MEDS: Carvedilol 25 MG Tablet PO (08:13)
[2018-10-12] MEDS: hydroCHLOROthiazide 12.5mg 12.5 MG PO (08:14)
--- NOTE | 2018-10-12 08:28 | NURSING ---
spoke with María in [facility] - c.diff sample was sent out for further analysis- the results came back negative EIA. pt was taken out of isolation
--- NOTE | 2018-10-12 08:36 | NURSING ---
wound photo: left foot
--- NOTE | 2018-10-12 08:36 | NURSING ---
wound photo: left lower leg (lateral view)
--- NOTE | 2018-10-12 08:37 | NURSING ---
wound photo: left lower leg (medial view)
--- NOTE | 2018-10-12 15:35 | PN.ID_ITS ---
Patient Problems: Active and Suspected Problems (Last Updated 09/30/18 @ 10:24 by Kalpesh Nuno DO) GI bleed (Acute) Cellulitis of left lower extremity (Acute) Sepsis (Acute) Cellulitis of left anterior lower leg (Acute) Acute kidney injury (Acute) Hypokalemia (Acute) Subjective: Feeling ok, no diarrhea, no fever. - Physical Exam General: Alert, Cooperative, No apparent distress Lungs: Clear to auscultation, Normal air movement Cardiovascular: Regular rate, Regular Rhythm Abdomen: Soft, Non Tender, Non-Distended Skin: Ulcer/ Wound - reviewed photo Vital Signs Temp Pulse Resp BP Pulse Ox 98.7 F 68 18 161/77 H 98 10/12/18 08:06 10/12/18 08:06 10/12/18 08:06 10/12/18 08:06 10/12/18 08:06 Oxygen Delivery Method Room Air Weight: 166.5 kg Body Mass Index (BMI) 52.7 Intake and Output for Last 24 Hours 10/10/18 10/11/18 10/12/18 23:59 23:59 23:59 Intake Total 4671 / 4671 3382 / 3382 1489 / 1489 Output Total 1455 / 1455 850 / 850 2775 / 2775 Balance 3216 / 3216 2532 / 2532 -1286 / -1286 Laboratory Tests Past 24 Hrs 10/12/18 10/12/18 05:46 05:46 WBC 8.3 RBC 2.74 L Hgb 7.8 L Hct 23.7 L MCV 86.5 MCH 28.5 MCHC 32.9 RDW 16.3 H RDW Differential 48.9 H Plt Count 318 MPV 10.1 Immature Gran % (Auto) 1.200 H Neut % (Auto) 58.7 Lymph % (Auto) 27.9 [place] % (Auto) 9.7 Eos % (Auto) 2.3 Baso % (Auto) 0.2 Absolute Neuts (auto) 4.9 Absolute Lymphs (auto) 2.32 Total Counted Not Reportable Sodium 142 Potassium 4.1 Chloride 109 H Carbon Dioxide 26.0 Anion Gap 7 BUN 10 Creatinine 0.63 L Estim Creat Clear Calc 131.97 Est GFR (MDRD) Af Amer 167 Est GFR (MDRD) Non-Af 138 BUN/Creatinine Ratio 15.8 Glucose 100 Calcium 7.5 L Medical Necessity - Tobacco Use Smoking Status: Former smoker Tobacco Use: Non-smoker Route of nutrition/ use of supplements: [] Nutritional Intake: [] IV Site: [] Jimenez Catheter: [] - Assessment/Plan Antibiotics: [] Assessment/Plan: [] Active and Suspected Problems (Last Updated 09/30/18 @ 10:24 by Kalpesh Nuno DO) Cellulitis of left lower extremity (Acute) Sepsis (Acute) Cellulitis of left anterior lower leg (Acute) Acute kidney injury (Acute) Hypokalemia (Acute) sepsis due to GAS bacteremia from LLE cellulitis - Much improved. Off cefazolin 10/11. Wbc normal. Cdiff (+) - toxin pcr was neg. Diarrhea seems related to GI bleed from ulcer. Stable off abx, no diarrhea. Path pending from EGD. Will follow. Ok for d/c home.
[2018-10-12 15:58] LABS: Pathologist Review Reviewed
--- NOTE | 2018-10-12 16:23 | CASEMGMT ---
Addendum entered by Kristin Naik 10/12/18 16:46: Correction: Script for Silvadene Cream has been sent to [facility] by Dr Hodges. Original Note: MICHAEL VILLALOBOS NOTE: Pt states is interested in [facility] for wound care and [facility] and willing to learn wound care. Call placed to Natalie @ [facility], referral made, and pt accepted. Start of care will be Wednesday or Wednesday. Pt and made aware [facility] able to take him and start of care will be either Wednesday or Wednesday. asking if someone can show her how to do the dressing changes before pt is discharged. MICHAEL Martinez, made aware and states she will go over this with pt and and she will send enough supplies home with pt to get them through for a few dressing changes until they can get the supplies. Script obtained for wound care supplies and Silvadene cream and given to MICHAEL Martinez to give to pt when she goes over discharge instructions. Mo ASUNDERS RN CM
--- NOTE | 2018-10-12 16:46 | DCINST_ITS ---
- Discharge Diagnoses Current Active Problems: Current Active and Chronic Problems (Last Updated 09/30/18 @ 10:24 by Kalpesh Nuno DO) GI bleed (Acute) Cellulitis of left lower extremity (Acute) Sepsis (Acute) Cellulitis of left anterior lower leg (Acute) Acute kidney injury (Acute) Hypokalemia (Acute) You will use the following diet at home:: No restrictions Your food should be the consistency of: Regular Your liquids should be the consistency of: Regular/Thin Discharge Activity: Return to Normal Activity Weight Bearing Status: Full weight bearing - with walker Allergies/Adverse Reactions: Allergies No Known Allergies Allergy (Verified 09/30/18 07:32) Medications to take at Discharge Carvedilol 25 mg PO BID 09/30/18 Doxazosin Mesylate 4 mg PO DAILY 09/30/18 Multivitamin [One-Daily Multi-Vitamin] 1 each PO DAILY 09/30/18 Amlodipine Besylate 5 mg PO DAILY #1 tablet 10/12/18 Hydrochlorothiazide [Hctz] 12.5 mg PO DAILY #1 tablet 10/12/18 Losartan Potassium 50 mg PO DAILY #1 tablet 10/12/18 Pantoprazole Sodium [Protonix] 40 mg PO BID #60 tablet 10/12/18 Potassium Chloride [K-Dur] 20 meq PO DAILYCM #30 tablet 10/12/18 Silver Sulfadiazine 1% Crm [Silvadene Cream] 1 applic TOPICAL DAILY #1 bottle 10/12/18 Sucralfate [Carafate] 1 gm PO 1HR_ACHS #120 tablet 10/12/18 The following prescriptions were given: Amlodipine Besylate 5 mg PO DAILY #1 tablet Hydrochlorothiazide [Hctz] 12.5 mg PO DAILY #1 tablet Losartan Potassium 50 mg PO DAILY #1 tablet Potassium Chloride [K-Dur] 20 meq PO DAILYCM #30 tablet Silver Sulfadiazine 1% Crm [Silvadene Cream] 1 applic TOPICAL DAILY #1 bottle Sucralfate [Carafate] 1 gm PO 1HR_ACHS #120 tablet Pantoprazole Sodium [Protonix] 40 mg PO BID #60 tablet Primary Care Physician: Danyell Dobson MD [Primary Care Provider] - Please follow up with your Primary Care Physician in: next week-you will need a CBC drawn Test Results: Test results from this visit will be discussed in further detail at your follow- up appointment, if applicable. Please Follow Up With: Dragan Bradley MD When: next week
[2018-10-12 17:05] VITALS: BP 167/60; PULSE 73; RESP 20; TEMP 37.3; O2SAT 96
--- NOTE | 2018-10-16 18:38 | DS.PCM_ITS ---
Discharge Date and Diagnosis Date of Admission: 09/30/18 Date of Discharge: 10/12/18 - Primary Discharge Diagnosis #1 sepsis secondary to Streptococcus group A bacteremia from left lower extremity cellulitis #2 cellulitis of the left lower extremity #3 upper GI bleed due to gastric ulcer #4 acute blood loss anemia secondary to acute upper GI bleed, requiring blood transfusion #5 acute kidney injury secondary to diuretic usage #6 morbid obesity #7 chronic lymphedema of the lower legs #8 obstructive sleep apnea #9 hypertension No evidence of C. difficile colitis - Secondary Discharge Diagnosis Chronic Problems (Last Updated 09/30/18 @ 10:24 by Kalpesh Nuno DO) History of hypertension (Chronic) History of obstructive sleep apnea (Chronic) Hospital Course and Treatment Consultations 10/04/18 09:31 Consult: Onc/Wound/intelligence operations Routine Comment: Reason for Consult:: left leg Operations: None Procedures: Blood transfusion, EGD Summary of Care Provided: The patient is a 58 year old M who was seen in the emergency room with a chief complaint of redness of the left lower leg along with chills after being sent from urgent care for evaluation of redness swelling pain and warmth of the left lower leg. Lab obtained in the emergency room showed the patient's white blood cell count to be elevated at 12.7, hemoglobin was 12.5, patient's creatinine was elevated at 1.63, potassium was low at 2.9, and lactic acid was normal at 1.5. Patient was admitted to [place] [id number] for sepsis from cellulitis, he was given IV antibiotics, IV fluids, and renal functions were monitored as were other lab tests. Patient's blood culture was positive for group A streptococcus, he was seen by infectious diseases and treated with IV antibiotics. Patient had an episode of diarrhea, C. difficile toxin was checked and was positive but his PCR did not indicate he had active C. difficile infection. Patient also had an upp er GI bleed, underwent an EGD which showed a large nonbleeding gastric ulcer. Patient was given 4 units of blood. Patient was also seen in consultation by plastic surgery. On 10/12/2018, patient was seen and examined: On examination he appeared in good health and spirits. Vital signs as documented. Skin warm and dry and without overt rashes. Neck without JVD. Lungs clear. Heart exam notable for regular rhythm, normal sounds and absence of murmurs, rubs or gallops. Abdomen unremarkable and without evidence of organomegaly, masses, or abdominal aortic enlargement. Extremities-bilateral edema of the lower legs is noted, there are stasis dermatitis changes which are severe of the left lower leg and left foot, there is superficial skin loss over the left lower leg-especially the left lateral aspect. Neuro: Cranial nerves II through XII are grossly intact, no focal motor deficits were noted, sensation to light touch and pinprick intact. Psych: Patient is alert and oriented x3, he does not appear anxious or depressed On 10/12/2018, patient was seen and examined felt to be in stable condition for discharge home - Physical Exam Vital Signs Temp Pulse Resp BP Pulse Ox 99.2 F H 73 20 H 167/60 H 96 10/12/18 17:05 10/12/18 17:05 10/12/18 17:05 10/12/18 17:05 10/12/18 17:05 Oxygen Delivery Method Room Air Weight: 166.5 kg Body Mass Index (BMI) 52.7 Discharge Activity: Return to Normal Activity Weight Bearing Status: Full weight bearing - with walker Home Medications: Medications to take at Discharge Carvedilol 25 mg PO BID 09/30/18 Doxazosin Mesylate 4 mg PO DAILY 09/30/18 Multivitamin [One-Daily Multi-Vitamin] 1 each PO DAILY 09/30/18 Amlodipine Besylate 5 mg PO DAILY #1 tablet 10/12/18 Hydrochlorothiazide [Hctz] 12.5 mg PO DAILY #1 tablet 10/12/18 Losartan Potassium 50 mg PO DAILY #1 tablet 10/12/18 Pantoprazole Sodium [Protonix] 40 mg PO BID #60 tablet 10/12/18 Potassium Chloride [K-Dur] 20 meq PO DAILYCM #30 tablet 10/12/18 Silver Sulfadiazine 1% Crm [Silvadene Cream] 1 applic TOPICAL DAILY #1 bottle 10/12/18 Sucralfate [Carafate] 1 gm PO 1HR_ACHS #120 tablet 10/12/18 Following Prescrptions Were Given to Patient: Amlodipine Besylate 5 mg PO DAILY #1 tablet Hydrochlorothiazide [Hctz] 12.5 mg PO DAILY #1 tablet Losartan Potassium 50 mg PO DAILY #1 tablet Potassium Chloride [K-Dur] 20 meq PO DAILYCM #30 tablet Silver Sulfadiazine 1% Crm [Silvadene Cream] 1 applic TOPICAL DAILY #1 bottle Sucralfate [Carafate] 1 gm PO 1HR_ACHS #120 tablet Pantoprazole Sodium [Protonix] 40 mg PO BID #60 tablet Primary Care Physician: Danyell Dobson MD [Primary Care Provider] - Please follow up with your Primary Care Physician in: next week-you will need a CBC drawn Please Follow Up With: Dragan Bradley MD When: next week Disposition: Home with Home Health Minutes spent on discharge:: 34 Patient Condition:: Stable Medical Necessity - Tobacco Use Smoking Status: Former smoker Tobacco Use: Non-smoker Meaningful Use Info Meaningful Use Diagnoses (Choose all that apply): None applicable Code Visit Inpatient E&M: 99427 Disch Hosp
== END 2018-10-12 19:14 | disposition home health service (06) | DRG 871 ==
LOC: ED 09:27 → MS3 10:01
PROVIDERS: Hospitalist; Internal Medicine; Internal Medicine Infectious Disease; Student in an Organized Health Care Education/Training Program; Surgery; Emergency Provider Emergency Medicine; Family Provider Internal Medicine; PCP Internal Medicine; Visit Provider Internal Medicine
PROC: 0DJ08ZZ Inspection of Upper Intestinal Tract, Via Natural or Artificial Opening Endoscopic (ICD-10-PCS; CPT 43235; principal; 2018-10-10 15:25)
DX: A40.0 Sepsis due to streptococcus, group A (principal); K25.4 Chronic or unspecified gastric ulcer with hemorrhage; L03.116 Cellulitis of left lower limb; N17.9 Acute kidney failure, unspecified; Z68.43 Body mass index [BMI] 50.0-59.9, adult; D62 Acute posthemorrhagic anemia; L89.522 Pressure ulcer of left ankle, stage 2; L89.892 Pressure ulcer of other site, stage 2; G47.33 Obstructive sleep apnea (adult) (pediatric); I10 Essential (primary) hypertension; E87.6 Hypokalemia; E66.01 Morbid (severe) obesity due to excess calories; M17.12 Unilateral primary osteoarthritis, left knee; M19.072 Primary osteoarthritis, left ankle and foot; Z87.891 Personal history of nicotine dependence; K59.00 Constipation, unspecified
CPT/HCPCS: 36415; 73700; 74176; 80048; 82962; 83605; 83735; 84134; 85014; 85018; 85025; 85027; 86850; 86900; 86920; 87040; 87070; 87077; 87081; 87149; 87186; 87205; 87493; 87640; 88305; 88312; 88313; 88342; 93005; 93970; 97110; 97116; 97161; 97166; 97530; 99285; J7030; J7040; J7120; P9016; A4216; J2405

== ENCOUNTER 2018-11-11 11:15 | Outpatient (RCR) | payer BC, SELFPAY ==
[2018-10-10 14:18] VITALS: BMI 52.7
--- NOTE | 2018-10-18 11:29 | PCM.WC.HP ---
(1) Lymphedema of right lower extremity Status: Chronic Current Visit: Yes Code(s): I89.0 - Lymphedema, not elsewhere classified (2) Hypertension Status: Chronic Current Visit: No Code(s): I10 - Essential (primary) hypertension (3) Morbid obesity with BMI of 45.0-49.9, adult Status: Chronic Current Visit: Yes Code(s): E66.01 - Morbid (severe) obesity due to excess calories; Z68.42 - Body mass index (BMI) 45.0-49.9, adult (4) Edema of both legs Status: Chronic Current Visit: Yes Code(s): R60.0 - Localized edema (5) Leg swelling Status: Chronic Current Visit: Yes Code(s): M79.89 - Other specified soft tissue disorders (6) Multiple excoriations Status: Chronic Current Visit: Yes Code(s): T07.XXXA - Unspecified multiple injuries, initial encounter (7) GI bleed Status: Acute Current Visit: No Qualifiers: Code(s): K92.2 - Gastrointestinal hemorrhage, unspecified (8) Cellulitis of left lower extremity Status: Acute Current Visit: No Code(s): L03.116 - Cellulitis of left lower limb (9) Lymphedema of left lower extremity Status: Chronic Current Visit: Yes Code(s): I89.0 - Lymphedema, not elsewhere classified (10) History of hypertension Status: Chronic Current Visit: No Code(s): Z86.79 - Personal history of other diseases of the circulatory system (11) History of obstructive sleep apnea Status: Chronic Current Visit: No Code(s): Z86.69 - Personal history of other diseases of the nervous system and sense organs (12) Acute blood loss anemia Status: Acute Current Visit: Yes Code(s): D62 - Acute posthemorrhagic anemia (13) Gastric ulcer Status: Acute Current Visit: Yes Qualifiers: Gastric ulcer chronicity: acute Gastric ulcer complication status: with hemorrhage Qualified Code(s): K25.0 - Acute gastric ulcer with hemorrhage Code(s): K25.9 - Gastric ulcer, unspecified as acute or chronic, without hemorrhage or perforation History of Present Illness Date of Service: 10/18/18 Chief Complaint: Bilateral lower extremity swelling, edema, and lymphedema; multiple superficial excoriations of the left lower extremity involving the gaiter area History of Wound: This is a 58-year-old male with a long-standing history of chronic swelling, edema, and lymphedema in his lower extremities. This has been present for many years. The patient is also morbidly obese. He sleeps in a recumbent position at night. He denies a history of thrombophlebitis in his lower extremities. He claims to be relatively active. Approximately 2 weeks ago, he developed diffuse, superficial excoriations of the left lower extremity. Incidentally, he required recent hospitalization at [facility] for acute blood loss anemia secondary to gastrointestinal bleeding. His evaluation included upper endoscopy, which revealed the presence of a gastric ulceration. Patient was admitted on September 30, 2018, and subsequently discharged on October 12, 2018. During his hospital stay, he was treated for cellulitis involving the left lower extremity, but subsequently not discharged on an antibiotic. The patient has been wearing graduated compression stockings on his lower extremities, which she has obtained online through [employer], with documentation that the knee-high stockings are of 20 to 30 mmHg compression. Venous duplex examination was performed on October 04, 2018, which was negative for thrombophlebitis. Laboratory studies have also been performed, within the last several weeks, with results as follows: White blood count 8.3, YOON globin 7.8, hematocrit 23.7, platelets 318,000, sodium 142, potassium 4.1, chloride 109, BUN 10, creatinine 0.63, glucose 100, calcium 7.5, prealbumin 10.6. Past Medical History Past Medical History: Chronic Problems (Last Updated 09/30/18 @ 10:24 by Kalpesh Nuno DO) Lymphedema of right lower extremity (Chronic) Hypertension (Chronic) Morbid obesity with BMI of 45.0-49.9, adult (Chronic) Edema of both legs (Chronic) Leg swelling (Chronic) Multiple excoriations (Chronic) Lymphedema of left lower extremity (Chronic) History of hypertension (Chronic) History of obstructive sleep apnea (Chronic) Past Medical History: Patient has a history of obstructive sleep apnea, hypertension, and morbid obesity. His history is negative for myocardial infarction, congestive heart failure, cerebrovascular accident, diabetes mellitus, cancer, pulmonary disease, renal disease, thyroid disease, and hyperlipidemia. Surgical History: no surgical history Allergies/Adverse Reactions: Allergies No Known Allergies Allergy (Verified 09/30/18 07:32) Home Medications: Ambulatory Orders Medication Instructions Recorded Carvedilol 25 mg PO BID 09/30/18 Doxazosin Mesylate 4 mg PO DAILY 09/30/18 Multivitamin [One-Daily 1 each PO DAILY 09/30/18 Multi-Vitamin] Amlodipine Besylate 5 mg PO DAILY #1 tablet 10/12/18 Hydrochlorothiazide [Hctz] 12.5 mg PO DAILY #1 tablet 10/12/18 Losartan Potassium 50 mg PO DAILY #1 tablet 10/12/18 Pantoprazole Sodium [Protonix] 40 mg PO BID #60 tablet 10/12/18 Potassium Chloride [K-Dur] 20 meq PO DAILYCM #30 tablet 10/12/18 Silver Sulfadiazine 1% Crm 1 applic TOPICAL DAILY #1 bottle 10/12/18 [Silvadene Cream] Sucralfate [Carafate] 1 gm PO 1HR_ACHS #120 tablet 10/12/18 - Family History Paternal Family History: Family History (Last Reviewed 09/30/18 @ 10:24 by Kalpesh Nuno DO) Other Diabetes Hypertension - - Patient's father at the age of 84 with a history of obesity, diabetes mellitus, hypertension, and renal failure. Patient's mother is 80 years of age and healthy. 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 He denies use of alcohol and tobacco. Smoking Status: Former smoker Tobacco Use: Non-smoker Alcohol: None Drugs: None Review of Systems Constitutional: Denies: Chills, Fever, Weight Change Eyes: Denies: Pain, Vision Change HEENT: Denies: Difficulty Hearing, Difficulty Swallowing, Sinus Congestion Cardiovascular: Denies: Chest Pain, Palpitations Respiratory: Denies: Cough, Shortness of Breath Gastrointestinal: Denies: Diarrhea, Nausea, Vomiting Genitourinary: Denies: Dysuria, Hematuria Endocrine: Denies: Heat/ Cold Intolerance, Polydipsia, Polyuria Hematologic/ Lymphatic: Denies: Easy Bruising, Easy Bleeding - Physical Exam General: Alert, Oriented x3, Cooperative, No apparent distress, Well developed, Well nourished, - - The patient appears morbidly obese HEENT: Atraumatic, PERRLA, EOMI, Normocephalic Oral: Moist Mucosa Neck: Supple, No JVD, Negative Carotid Bruits, Negative Hepatojugular Reflux, No Nodes, No Nuchal Rigidity, Trachea Midline Lungs: Clear to auscultation, Normal air movement, No rhonchi, No wheeze, No rales Cardiovascular: Regular rate, Regular Rhythm, Normal S1, Normal S2, No murmurs Abdomen: Soft, Non Tender, Non-Distended, Obese Extremities: No clubbing, No cyanosis, No Calf Tenderness, Edema - Bilateral lower extremities, - - Severe swelling, edema, and lymphedema are noted in the lower extremity's bilaterally. The skin is relatively intact in the right lower extremity. The left lower extremity reveals diffuse superficial excoriations in the left gaiter area. There are no gela open wounds. Circumference dimensions are documented elsewhere. Wound Measurements and Assessment WC - Nurse 2 - General Ulcer CM Notes Start: 10/18/18 10:36 Freq: Status: Active Protocol: Activity Type Activity Date Activity User E-Sign Co-Sign Detail Recorded Client Recorded Date Recorded By Document 10/18/18 11:08 DV [id number] 10/18/18 11:14 DV 10/18/18 11:08 Pain Scale: 0-10 Numeric [Pain] -Is Patient Pain Free? Yes Musculoskeletal: No Muscle Wasting Neurological: Cranial nerves II-XII grossly intact, Neuro grossly intact Psych/Mental Status: Normal Affect, Appropriate, Alert and oriented to time, place, person, mood and affect Debridement Note Post-Debridement Measurements/Treatment WC - Nurse 2 - General Ulcer CM Notes Start: 10/18/18 10:36 Freq: Status: Active Protocol: Activity Type Activity Date Activity User E-Sign Co-Sign Detail Recorded Client Recorded Date Recorded By Document 10/18/18 11:08 DV [id number] 10/18/18 11:14 DV 10/18/18 11:08 Pain Scale: 0-10 Numeric Is Patient Pain Free? Yes No debridement was completed today Assessment/Plan Active Problems (Last Updated 09/30/18 @ 10:24 by Kalpesh Nuno DO) Lymphedema of right lower extremity (Chronic) Morbid obesity with BMI of 45.0-49.9, adult (Chronic) Edema of both legs (Chronic) Leg swelling (Chronic) Multiple excoriations (Chronic) Acute blood loss anemia (Acute) Gastric ulcer (Acute) Lymphedema of left lower extremity (Chronic) Assessment: This is a 58-year-old morbidly obese male who was recently hospitalized for acute gastrointestinal bleeding, melena, and acute blood loss anemia. During the course of his hospital stay, patient was noted to have severe swelling, edema, and lymphedema in his lower extremities bilaterally. Profound skin changes and diffuse excoriations were noted in the left lower extremity, associated with cellulitis, for which the patient was treated with antibiotics. He presents at this time with persisting swelling and edema in his lower extremities bilaterally, and persisting superficial excoriations diffusely in the gaiter area of the left lower extremity. There is no suspicion of significant arterial occlusive disease in the lower extremities. Plan: We are to implement a regimen of conservative treatment measures relative to the lower extremity swelling and skin changes. The patient has been advised to elevate his lower extremities as much as possible. Elevation is to be to heart level, or higher. This is to be implemented even during daytime hours. The patient is to continue sleeping on a flat mattress at night. Activity has been encouraged. The patient has been advised to refrain from prolonged idle sitting and standing. Weight loss has been strongly recommended. Patient is to continue with graduated compression stockings to the right lower extremity, which have been documented to be 20 to 30 mmHg. Relative to the left lower extremity, we are to implement the use of a multilayer Unna boot, which will be changed twice weekly. The compression of the Unna boot will be of benefit, and the zinc oxide is anticipated to be of benefit relative to the skin changes in the left lower extremity. The patient is to return in 1 week for reassessment. The patient is not a smoker. Influenza vaccine was not administered today. The patient weighs 345 pounds. He stands 5 feet 10 inches tall. BMI is 49.5. This places the patient in a class III obesity category. Weight loss has been strongly recommended, in collaboration with the the patient's primary care physician has been advised.
[2018-10-18 11:32] VITALS: BP 144/79; PULSE 70; RESP 18; TEMP 37; BMI 49.5
[2018-10-21 12:21] VITALS: BP 146/79; PULSE 70; RESP 16; TEMP 37.1; BMI 49.5
[2018-10-25 09:09] VITALS: BP 155/72; PULSE 73; RESP 18; TEMP 36.4; BMI 49.5
--- NOTE | 2018-10-25 09:52 | PCM.WC.HP ---
(1) Lymphedema of right lower extremity Status: Chronic Current Visit: Yes Code(s): I89.0 - Lymphedema, not elsewhere classified (2) Hypertension Status: Chronic Current Visit: No Code(s): I10 - Essential (primary) hypertension (3) Morbid obesity with BMI of 45.0-49.9, adult Status: Chronic Current Visit: Yes Code(s): E66.01 - Morbid (severe) obesity due to excess calories; Z68.42 - Body mass index (BMI) 45.0-49.9, adult (4) Edema of both legs Status: Chronic Current Visit: Yes Code(s): R60.0 - Localized edema (5) Leg swelling Status: Chronic Current Visit: Yes Code(s): M79.89 - Other specified soft tissue disorders (6) Multiple excoriations Status: Chronic Current Visit: Yes Code(s): T07.XXXA - Unspecified multiple injuries, initial encounter (7) GI bleed Status: Acute Current Visit: No Qualifiers: GI bleed type/associated pathology: gastric ulcer Qualified Code(s): K25.4 - Chronic or unspecified gastric ulcer with hemorrhage Code(s): K92.2 - Gastrointestinal hemorrhage, unspecified (8) Cellulitis of left lower extremity Status: Resolved Current Visit: No Code(s): L03.116 - Cellulitis of left lower limb (9) Lymphedema of left lower extremity Status: Chronic Current Visit: Yes Code(s): I89.0 - Lymphedema, not elsewhere classified (10) History of hypertension Status: Chronic Current Visit: No Code(s): Z86.79 - Personal history of other diseases of the circulatory system (11) History of obstructive sleep apnea Status: Chronic Current Visit: No Code(s): Z86.69 - Personal history of other diseases of the nervous system and sense organs (12) Acute blood loss anemia Status: Acute Current Visit: Yes Code(s): D62 - Acute posthemorrhagic anemia (13) Gastric ulcer Status: Acute Current Visit: Yes Qualifiers: Gastric ulcer chronicity: acute Gastric ulcer complication status: with hemorrhage Qualified Code(s): K25.0 - Acute gastric ulcer with hemorrhage Code(s): K25.9 - Gastric ulcer, unspecified as acute or chronic, without hemorrhage or perforation History of Present Illness Chief Complaint: Bilateral lower extremity swelling, edema, and lymphedema; multiple superficial excoriations of the left lower extremity involving the gaiter area History of Wound: This is a 58-year-old male with a long-standing history of chronic swelling, edema, and lymphedema in his lower extremities. This has been present for many years. The patient is also morbidly obese. He sleeps in a recumbent position at night. He denies a history of thrombophlebitis in his lower extremities. He claims to be relatively active. Approximately 2 weeks prior to presentation, he developed diffuse, superficial excoriations of the left lower extremity. Incidentally, he required recent hospitalization at [facility] for acute blood loss anemia secondary to gastrointestinal bleeding. His evaluation included upper endoscopy, which revealed the presence of a gastric ulceration. Patient was admitted on September 30, 2018, and subsequently discharged on October 12, 2018. During his hospital stay, he was treated for cellulitis involving the left lower extremity, but subsequently not discharged on an antibiotic. The patient has been wearing graduated compression stockings on his lower extremities, which he has obtained online through [employer], with documentation that the knee-high stockings are of 20 to 30 mmHg compression. Venous duplex examination was performed on October 04, 2018, which was negative for thrombophlebitis. Laboratory studies have also been performed, within the last several weeks, with results as follows: White blood count 8.3, YOON globin 7.8, hematocrit 23.7, platelets 318,000, sodium 142, potassium 4.1, chloride 109, BUN 10, creatinine 0.63, glucose 100, calcium 7.5, prealbumin 10.6. Past Medical History Past Medical History: Chronic Problems (Last Reviewed 10/20/18 @ 14:02 by Kim Huynh) Lymphedema of right lower extremity (Chronic) Hypertension (Chronic) Morbid obesity with BMI of 45.0-49.9, adult (Chronic) Edema of both legs (Chronic) Leg swelling (Chronic) Multiple excoriations (Chronic) Lymphedema of left lower extremity (Chronic) History of hypertension (Chronic) History of obstructive sleep apnea (Chronic) Surgical History: no surgical history Allergies/Adverse Reactions: Allergies No Known Allergies Allergy (Verified 10/20/18 14:03) Home Medications: Ambulatory Orders Medication Instructions Recorded Carvedilol 25 mg PO BID 09/30/18 Doxazosin Mesylate 4 mg PO DAILY 09/30/18 Multivitamin [One-Daily 1 ea PO DAILY 09/30/18 Multi-Vitamin] Amlodipine Besylate 5 mg PO DAILY #1 tab 10/12/18 Hydrochlorothiazide [Hctz] 12.5 mg PO DAILY #1 tab 10/12/18 Losartan Potassium 50 mg PO DAILY #1 tab 10/12/18 Potassium Chloride [K-Dur] 20 meq PO DAILYCM #30 tab 10/12/18 Silver Sulfadiazine 1% Crm 1 applic TOPICAL DAILY #1 bottle 10/12/18 [Silvadene Cream] omeprazole 40 mg capsule,delayed 40 mg PO BID #180 cap 10/20/18 release sucralfate 1 gram tablet 1 g PO QACHS #140 tab 10/20/18 - Family History Paternal Family History: Family History (Last Reviewed 10/20/18 @ 14:02 by Kim Huynh) Other Diabetes Hypertension - - Patient's father at the age of 84 with a history of obesity, diabetes mellitus, hypertension, and renal failure. Patient's mother is 80 years of age and healthy. Smoking Status: Former smoker Tobacco Use: Non-smoker Alcohol: None Drugs: None Review of Systems Constitutional: Denies: Chills, Fever, Weight Change Eyes: Denies: Pain, Vision Change HEENT: Denies: Difficulty Hearing, Difficulty Swallowing, Sinus Congestion Cardiovascular: Denies: Chest Pain, Palpitations Respiratory: Denies: Cough, Shortness of Breath Gastrointestinal: Denies: Diarrhea, Nausea, Vomiting Genitourinary: Denies: Dysuria, Hematuria Endocrine: Denies: Heat/ Cold Intolerance, Polydipsia, Polyuria Hematologic/ Lymphatic: Denies: Easy Bruising, Easy Bleeding - Physical Exam Vital Signs Temp Pulse Resp BP 97.5 F L 73 18 155/72 H 10/25/18 09:09 10/25/18 09:09 10/25/18 09:09 10/25/18 09:09 General: Alert, Oriented x3, Cooperative, No apparent distress, Well developed, Well nourished HEENT: Atraumatic, PERRLA, EOMI, Normocephalic Oral: Moist Mucosa Neck: No JVD Lungs: Normal air movement Abdomen: Non-Distended Extremities: No clubbing, No cyanosis, No Calf Tenderness, - - Mild to moderate swelling and edema persist in the lower extremity's bilaterally. The excoriations in the left lower extremity are markedly improved. There remains superficial. Many have resolved, resulting in epithelialization. There is no sign of infection or cellulitis. Circumference measurements are documented elsewhere. Wound Measurements and Assessment WC - Nurse 1 - General Ulcer Measurement Start: 10/18/18 10:36 Freq: Status: Active Protocol: Activity Type Activity Date Activity User E-Sign Co-Sign Detail Recorded Client Recorded Date Recorded By Document 10/25/18 09:09 AN [id number] 10/25/18 09:14 AN 10/25/18 09:09 Wound Center Nurse 1 [Edema Assessment] -Left Ankle (cm) 33 -Left Foot (cm) 48.4 WC - Nurse 2 - General Ulcer CM Notes Start: 10/18/18 10:36 Freq: Status: Active Protocol: Activity Type Activity Date Activity User E-Sign Co-Sign Detail Recorded Client Recorded Date Recorded By Document 10/24/18 11:39 DV [id number] 10/25/18 09:49 DV 10/24/18 11:39 Wound Center Nurse 2 [Procedure/Treatment] #1 Left Leg Excoriation -Time 09:47 -Correct Patient Yes -Correct Side, Site, Position Yes -Correct Procedure Yes -Procedure Performed Yes -Type of Procedure Debridement -Clinical Debridement Selective -Post Debridement Size (cm) - Length 10.0 -Post Debridement Size (cm) - Width 10.0 -Post Debridement Size (cm) - Depth 0.1 -Total Square Cm 100.00 -Wound/Ulcer Outcome Not Healed -Ulcer Cleansing Rinsed/ Irrigated with Saline -Bleeding Controlled with Pressure -Offloading No -Treatment Response Procedure Tolerated Well [See Physician Procedure note for Specifics] Pain Scale: 0-10 Numeric [Pain] -Is Patient Pain Free? Yes Musculoskeletal: No Muscle Wasting Neurological: Cranial nerves II-XII grossly intact, Neuro grossly intact Psych/Mental Status: Normal Affect, Appropriate, Alert and oriented to time, place, person, mood and affect Debridement Note Post-Debridement Measurements/Treatment WC - Nurse 2 - General Ulcer CM Notes Start: 10/18/18 10:36 Freq: Status: Active Protocol: Activity Type Activity Date Activity User E-Sign Co-Sign Detail Recorded Client Recorded Date Recorded By Document 10/18/18 11:08 DV [id number] 10/18/18 11:14 DV Document 10/24/18 11:39 DV [id number] 10/25/18 09:49 DV 10/18/18 10/24/18 11:08 11:39 Wound Center Nurse 2 #1 Left Leg Excoriation -Time 09:47 -Correct Patient Yes -Correct Side, Site, Position Yes -Correct Procedure Yes -Procedure Performed Yes -Type of Procedure Debridement -Clinical Debridement Selective -Post Debridement Size (cm) - Length 10.0 -Post Debridement Size (cm) - Width 10.0 -Post Debridement Size (cm) - Depth 0.1 -Total Square Cm 100.00 -Wound/Ulcer Outcome Not Healed -Ulcer Cleansing Rinsed/ Irrigated with Saline -Bleeding Controlled with Pressure -Offloading No -Treatment Response Procedure Tolerated Well Pain Scale: 0-10 Numeric Is Patient Pain Free? Yes Yes Laterality: Left - Lower extremity Type of Debridement: Selective debridement Anesthesia Used: 5% Lidocaine Gel Depth: Down to and including healthy tissue Percentage of wound debrided: 80 Instrument Used: 7mm curette Severity: Limited To Skin Breakdown Amount of bleeding with debridement: None Patient tolerated procedure well Assessment/Plan Active Problems (Last Reviewed 10/20/18 @ 14:02 by Kim Huynh) Lymphedema of right lower extremity (Chronic) Morbid obesity with BMI of 45.0-49.9, adult (Chronic) Edema of both legs (Chronic) Leg swelling (Chronic) Multiple excoriations (Chronic) Acute blood loss anemia (Acute) Gastric ulcer (Acute) Lymphedema of left lower extremity (Chronic) Assessment: This is a 58-year-old morbidly obese male who was recently hospitalized for acute gastrointestinal bleeding, melena, and acute blood loss anemia. During the course of his hospital stay, the patient was noted to have severe swelling, edema, and lymphedema in his lower extremities bilaterally. Profound skin changes and diffuse excoriations were noted in the left lower extremity, associated with cellulitis, for which the patient was treated with antibiotics. He presented here with persisting swelling and edema in his lower extremities bilaterally, and persisting superficial excoriations diffusely in the gaiter area of the left lower extremity. There is no suspicion of significant arterial occlusive disease in the lower extremities. Plan: We are to continue a regimen of conservative treatment measures relative to the lower extremity swelling and skin changes. The patient has been advised to elevate his lower extremities as much as possible. Elevation is to be to heart level, or higher. This is to be implemented even during daytime hours. The patient is to continue sleeping on a flat mattress at night. Activity has been encouraged. The patient has been advised to refrain from prolonged idle sitting and standing. Weight loss has been strongly recommended. Patient is to continue with graduated compression stockings to the right lower extremity, which have been documented to be 20 to 30 mmHg. Relative to the left lower extremity, we are to continue the use of a multilayer Unna boot, which will be changed twice weekly. The compression of the Unna boot will be of benefit, and the zinc oxide is anticipated to be of benefit relative to the skin changes in the left lower extremity. The patient is to return in 1 week for reassessment. We will also attempt to secure mechanical pneumatic compression pumps for the patient's lower extremity, as his lower extremity swelling and edema appears to be chronic in nature, and likely a lifelong problem. The patient is not a smoker. Influenza vaccine was not administered today. The patient weighs 345 pounds. He stands 5 feet 10 inches tall. BMI is 49.5. This places the patient in a class III obesity category. Weight loss has been strongly recommended, in collaboration with the the patient's primary care physician has been advised.
--- NOTE | 2018-10-25 09:57 | HP.PCM_ITS ---
(1) Lymphedema of right lower extremity Status: Chronic Current Visit: Yes Code(s): I89.0 - Lymphedema, not elsewhere classified (2) Hypertension Status: Chronic Current Visit: No Code(s): I10 - Essential (primary) hypertension (3) Morbid obesity with BMI of 45.0-49.9, adult Status: Chronic Current Visit: Yes Code(s): E66.01 - Morbid (severe) obesity due to excess calories; Z68.42 - Body mass index (BMI) 45.0-49.9, adult (4) Edema of both legs Status: Chronic Current Visit: Yes Code(s): R60.0 - Localized edema (5) Leg swelling Status: Chronic Current Visit: Yes Code(s): M79.89 - Other specified soft tissue disorders (6) Multiple excoriations Status: Chronic Current Visit: Yes Code(s): T07.XXXA - Unspecified multiple injuries, initial encounter (7) GI bleed Status: Acute Current Visit: No Qualifiers: GI bleed type/associated pathology: gastric ulcer Qualified Code(s): K25.4 - Chronic or unspecified gastric ulcer with hemorrhage Code(s): K92.2 - Gastrointestinal hemorrhage, unspecified (8) Cellulitis of left lower extremity Status: Resolved Current Visit: No Code(s): L03.116 - Cellulitis of left lower limb (9) Lymphedema of left lower extremity Status: Chronic Current Visit: Yes Code(s): I89.0 - Lymphedema, not elsewhere classified (10) History of hypertension Status: Chronic Current Visit: No Code(s): Z86.79 - Personal history of other diseases of the circulatory system (11) History of obstructive sleep apnea Status: Chronic Current Visit: No Code(s): Z86.69 - Personal history of other diseases of the nervous system and sense organs (12) Acute blood loss anemia Status: Acute Current Visit: Yes Code(s): D62 - Acute posthemorrhagic anemia (13) Gastric ulcer Status: Acute Current Visit: Yes Qualifiers: Gastric ulcer chronicity: acute Gastric ulcer complication status: with hemorrhage Qualified Code(s): K25.0 - Acute gastric ulcer with hemorrhage Code(s): K25.9 - Gastric ulcer, unspecified as acute or chronic, without hemorrhage or perforation History of Present Illness Chief Complaint: Bilateral lower extremity swelling, edema, and lymphedema; multiple superficial excoriations of the left lower extremity involving the g aiter area History of Wound: This is a 58-year-old male with a long-standing history of chronic swelling, edema, and lymphedema in his lower extremities. This has been present for many years. The patient is also morbidly obese. He sleeps in a recumbent position at night. He denies a history of thrombophlebitis in his lower extremities. He claims to be relatively active. Approximately 2 weeks prior to presentation, he developed diffuse, superficial excoriations of the left lower extremity. Incidentally, he required recent hospitalization at [facility] for acute blood loss anemia secondary to gastrointestinal bleeding. His evaluation included upper endoscopy, which revealed the presence of a gastric ulceration. Patient was admitted on September 122018, and subsequently discharged on October 12, 2018. During his hospital stay, he was treated for cellulitis involving the left lower extremity, but subsequently not discharged on an antibiotic. The patient has been wearing graduated compression stockings on his lower extremities, which he has obtained online through [employer], with documentation that the knee-high stockings are of 20 to 30 mmHg compression. Venous duplex examination was performed on October 04, 2018, which was negative for thrombophlebitis. Laboratory studies have also been performed, within the last several weeks, with results as follows: White blood count 8.3, YOON globin 7.8, hematocrit 23.7, platelets 318,000, sodium 142, potassium 4.1, chloride 109, BUN 10, creatinine 0.63, glucose 100, calcium 7.5, prealbumin 10.6. Past Medical History Past Medical History: Chronic Problems (Last Reviewed 10/20/18 @ 14:02 by Kim Huynh) Lymphedema of right lower extremity (Chronic) Hypertension (Chronic) Morbid obesity with BMI of 45.0-49.9, adult (Chronic) Edema of both legs (Chronic) Leg swelling (Chronic) Multiple excoriations (Chronic) Lymphedema of left lower extremity (Chronic) History of hypertension (Chronic) History of obstructive sleep apnea (Chronic) Surgical History: no surgical history Allergies/Adverse Reactions: Allergies No Known Allergies Allergy (Verified 10/20/18 14:03) Home Medications: Ambulatory Orders Medication Instructions Recorded Carvedilol 25 mg PO BID 09/30/18 Doxazosin Mesylate 4 mg PO DAILY 09/30/18 Multivitamin [One-Daily 1 ea PO DAILY 09/30/18 Multi-Vitamin] Amlodipine Besylate 5 mg PO DAILY #1 tab 10/12/18 Hydrochlorothiazide [Hctz] 12.5 mg PO DAILY #1 tab 10/12/18 Losartan Potassium 50 mg PO DAILY #1 tab 10/12/18 Potassium Chloride [K-Dur] 20 meq PO DAILYCM #30 tab 10/12/18 Silver Sulfadiazine 1% Crm 1 applic TOPICAL DAILY #1 bottle 10/12/18 [Silvadene Cream] omeprazole 40 mg capsule,delayed 40 mg PO BID #180 cap 10/20/18 release sucralfate 1 gram tablet 1 g PO QACHS #140 tab 10/20/18 - Family History Paternal Family History: Family History (Last Reviewed 10/20/18 @ 14:02 by Kim Huynh) Other Diabetes Hypertension - - Patient's father at the age of 84 with a history of obesity, diabetes mellitus, hypertension, and renal failure. Patient's mother is 80 years of age and healthy. Smoking Status: Former smoker Tobacco Use: Non-smoker Alcohol: None Drugs: None Review of Systems Constitutional: Denies: Chills, Fever, Weight Change Eyes: Denies: Pain, Vision Change HEENT: Denies: Difficulty Hearing, Difficulty Swallowing, Sinus Congestion Cardiovascular: Denies: Chest Pain, Palpitations Respiratory: Denies: Cough, Shortness of Breath Gastrointestinal: Denies: Diarrhea, Nausea, Vomiting Genitourinary: Denies: Dysuria, Hematuria Endocrine: Denies: Heat/ Cold Intolerance, Polydipsia, Polyuria Hematologic/ Lymphatic: Denies: Easy Bruising, Easy Bleeding - Physical Exam Vital Signs Temp Pulse Resp BP 97.5 F L 73 18 155/72 H 10/25/18 09:09 10/25/18 09:09 10/25/18 09:09 10/25/18 09:09 General: Alert, Oriented x3, Cooperative, No apparent distress, Well developed, Well nourished HEENT: Atraumatic, PERRLA, EOMI, Normocephalic Oral: Moist Mucosa Neck: No JVD Lungs: Normal air movement Abdomen: Non-Distended Extremities: No clubbing, No cyanosis, No Calf Tenderness, - - Mild to moderate swelling and edema persist in the lower extremity's bilaterally. The excoriations in the left lower extremity are markedly improved. There remains superficial. Many have resolved, resulting in epithelialization. There is no s ign of infection or cellulitis. Circumference measurements are documented elsewhere. Wound Measurements and Assessment WC - Nurse 1 - General Ulcer Measurement Start: 10/18/18 10:36 Freq: Status: Active Protocol: Activity Type Activity Date Activity User E-Sign Co-Sign Detail Recorded Client Recorded Date Recorded By Document 10/25/18 09:09 AN [id number] 10/25/18 09:14 AN 10/25/18 09:09 Wound Center Nurse 1 [Edema Assessment] -Left Ankle (cm) 33 -Left Foot (cm) 48.4 WC - Nurse 2 - General Ulcer CM Notes Start: 10/18/18 10:36 Freq: Status: Active Protocol: Activity Type Activity Date Activity User E-Sign Co-Sign Detail Recorded Client Recorded Date Recorded By Document 10/24/18 11:39 DV [id number] 10/25/18 09:49 DV 10/24/18 11:39 Wound Center Nurse 2 [Procedure/Treatment] #1 Left Leg Excoriation -Time 09:47 -Correct Patient Yes -Correct Side, Site, Position Yes -Correct Procedure Yes -Procedure Performed Yes -Type of Procedure Debridement -Clinical Debridement Selective -Post Debridement Size (cm) - Length 10.0 -Post Debridement Size (cm) - Width 10.0 -Post Debridement Size (cm) - Depth 0.1 -Total Square Cm 100.00 -Wound/Ulcer Outcome Not Healed -Ulcer Cleansing Rinsed/ Irrigated with Saline -Bleeding Controlled with Pressure -Offloading No -Treatment Response Procedure Tolerated Well [See Physician Procedure note for Specifics] Pain Scale: 0-10 Numeric [Pain] -Is Patient Pain Free? Yes Musculoskeletal: No Muscle Wasting Neurological: Cranial nerves II-XII grossly intact, Neuro grossly intact Psych/Mental Status: Normal Affect, Appropriate, Alert and oriented to time, place, person, mood and affect Debridement Note Post-Debridement Measurements/Treatment WC - Nurse 2 - General Ulcer CM Notes Start: 10/18/18 10:36 Freq: Status: Active Protocol: Activity Type Activity Date Activity User E-Sign Co-Sign Detail Recorded Client Recorded Date Recorded By Document 10/18/18 11:08 DV [id number] 10/18/18 11:14 DV Document 10/24/18 11:39 DV [id number] 10/25/18 09:49 DV 10/18/18 10/24/18 11:08 11:39 Wound Center Nurse 2 #1 Left Leg Excoriation -Time 09:47 -Correct Patient Yes -Correct Side, Site, Position Yes -Correct Procedure Yes -Procedure Performed Yes -Type of Procedure Debridement -Clinical Debridement Selective -Post Debridement Size (cm) - Length 10.0 -Post Debridement Size (cm) - Width 10.0 -Post Debridement Size (cm) - Depth 0.1 -Total Square Cm 100.00 -Wound/Ulcer Outcome Not Healed -Ulcer Cleansing Rinsed/ Irrigated with Saline -Bleeding Controlled with Pressure -Offloading No -Treatment Response Procedure Tolerated Well Pain Scale: 0-10 Numeric Is Patient Pain Free? Yes Yes Laterality: Left - Lower extremity Type of Debridement: Selective debridement Anesthesia Used: 5% Lidocaine Gel Depth: Down to and including healthy tissue Percentage of wound debrided: 80 Instrument Used: 7mm curette Severity: Limited To Skin Breakdown Amount of bleeding with debridement: None Patient tolerated procedure well Assessment/Plan Active Problems (Last Reviewed 10/20/18 @ 14:02 by Kim Huynh) Lymphedema of right lower extremity (Chronic) Morbid obesity with BMI of 45.0-49.9, adult (Chronic) Edema of both legs (Chronic) Leg swelling (Chronic) Multiple excoriations (Chronic) Acute blood loss anemia (Acute) Gastric ulcer (Acute) Lymphedema of left lower extremity (Chronic) Assessment: This is a 58-year-old morbidly obese male who was recently hospitalized for acute gastrointestinal bleeding, melena, and acute blood loss anemia. During the course of his hospital stay, the patient was noted to have severe swelling, edema, and lymphedema in his lower extremities bilaterally. Profound skin changes and diffuse excoriations were noted in the left lower extremity, associated with cellulitis, for which the patient was treated with antibiotics. He presented here with persisting swelling and edema in his lower extremities bilaterally, and persisting superficial excoriations diffusely in the gaiter area of the left lower extremity. There is no suspicion of significant arterial occlusive disease in the lower extremities. Plan: We are to continue a regimen of conservative treatment measures relative to the lower extremity swelling and skin changes. The patient has been advised to elevate his lower extremities as much as possible. Elevation is to be to heart level, or higher. This is to be implemented even during daytime hours. The patient is to continue sleeping on a flat mattress at night. Activity has been encouraged. The patient has been advised to refrain from prolonged idle sitting and standing. Weight loss has been strongly recommended. Patient is to continue with graduated compression stockings to the right lower extremity, which have been documented to be 20 to 30 mmHg. Relative to the left lower extremity, we are to continue the use of a multilayer Unna boot, which will be changed twice weekly. The compression of the Unna boot will be of benefit, and the zinc oxide is anticipated to be of benefit relative to the skin changes in the left lower extremity. The patient is to return in 1 week for reassessment. We will also attempt to secure mechanical pneumatic compression pumps for the patient's lower extremity, as his lower extremity swelling and edema appears to be chronic in nature, and likely a lifelong problem. The patient is not a smoker. Influenza vaccine was not administered today. The patient weighs 345 pounds. He stands 5 feet 10 inches tall. BMI is 49.5. This places the patient in a class III obesity category. Weight loss has been strongly recommended, in collaboration with the the patient's primary care physician has been advised.
[2018-10-28 11:18] VITALS: BP 148/74; PULSE 69; RESP 20; TEMP 36.9; BMI 49.5
[2018-11-01 11:14] VITALS: BP 153/74; PULSE 72; RESP 20; TEMP 36.6; BMI 49.5
--- NOTE | 2018-11-01 12:25 | PCM.WC.HP ---
(1) Lymphedema of right lower extremity Status: Chronic Current Visit: Yes Code(s): I89.0 - Lymphedema, not elsewhere classified (2) Hypertension Status: Chronic Current Visit: No Code(s): I10 - Essential (primary) hypertension (3) Morbid obesity with BMI of 45.0-49.9, adult Status: Chronic Current Visit: Yes Code(s): E66.01 - Morbid (severe) obesity due to excess calories; Z68.42 - Body mass index (BMI) 45.0-49.9, adult (4) Edema of both legs Status: Chronic Current Visit: Yes Code(s): R60.0 - Localized edema (5) Leg swelling Status: Chronic Current Visit: Yes Code(s): M79.89 - Other specified soft tissue disorders (6) Multiple excoriations Status: Chronic Current Visit: Yes Code(s): T07.XXXA - Unspecified multiple injuries, initial encounter (7) GI bleed Status: Acute Current Visit: No Qualifiers: GI bleed type/associated pathology: gastric ulcer Qualified Code(s): K25.4 - Chronic or unspecified gastric ulcer with hemorrhage Code(s): K92.2 - Gastrointestinal hemorrhage, unspecified (8) Lymphedema of left lower extremity Status: Chronic Current Visit: Yes Code(s): I89.0 - Lymphedema, not elsewhere classified (9) History of hypertension Status: Chronic Current Visit: No Code(s): Z86.79 - Personal history of other diseases of the circulatory system (10) History of obstructive sleep apnea Status: Chronic Current Visit: No Code(s): Z86.69 - Personal history of other diseases of the nervous system and sense organs (11) Acute blood loss anemia Status: Acute Current Visit: Yes Code(s): D62 - Acute posthemorrhagic anemia (12) Gastric ulcer Status: Acute Current Visit: Yes Qualifiers: Gastric ulcer chronicity: acute Gastric ulcer complication status: with hemorrhage Qualified Code(s): K25.0 - Acute gastric ulcer with hemorrhage Code(s): K25.9 - Gastric ulcer, unspecified as acute or chronic, without hemorrhage or perforation History of Present Illness Chief Complaint: Bilateral lower extremity swelling, edema, and lymphedema; multiple superficial excoriations of the left lower extremity involving the gaiter area History of Wound: This is a 58-year-old male with a long-standing history of chronic swelling, edema, and lymphedema in his lower extremities. This has been present for many years. The patient is also morbidly obese. He sleeps in a recumbent position at night. He denies a history of thrombophlebitis in his lower extremities. He claims to be relatively active. Approximately 2 weeks prior to presentation, he developed diffuse, superficial excoriations of the left lower extremity. Incidentally, he required recent hospitalization at [facility] for acute blood loss anemia secondary to gastrointestinal bleeding. His evaluation included upper endoscopy, which revealed the presence of a gastric ulceration. Patient was admitted on September 30, 2018, and subsequently discharged on October 12, 2018. During his hospital stay, he was treated for cellulitis involving the left lower extremity, but subsequently not discharged on an antibiotic. The patient has been wearing graduated compression stockings on his lower extremities, which he has obtained online through [employer], with documentation that the knee-high stockings are of 20 to 30 mmHg compression. Venous duplex examination was performed on October 04, 2018, which was negative for thrombophlebitis. Laboratory studies have also been performed, within the last several weeks, with results as follows: White blood count 8.3, YOON globin 7.8, hematocrit 23.7, platelets 318,000, sodium 142, potassium 4.1, chloride 109, BUN 10, creatinine 0.63, glucose 100, calcium 7.5, prealbumin 10.6. Past Medical History Past Medical History: Chronic Problems (Last Reviewed 10/20/18 @ 14:02 by Kim Huynh) Lymphedema of right lower extremity (Chronic) Hypertension (Chronic) Morbid obesity with BMI of 45.0-49.9, adult (Chronic) Edema of both legs (Chronic) Leg swelling (Chronic) Multiple excoriations (Chronic) Lymphedema of left lower extremity (Chronic) History of hypertension (Chronic) History of obstructive sleep apnea (Chronic) Surgical History: no surgical history Allergies/Adverse Reactions: Allergies No Known Allergies Allergy (Verified 10/20/18 14:03) Home Medications: Ambulatory Orders Medication Instructions Recorded Carvedilol 25 mg PO BID 09/30/18 Doxazosin Mesylate 4 mg PO DAILY 09/30/18 Multivitamin [One-Daily 1 ea PO DAILY 09/30/18 Multi-Vitamin] Amlodipine Besylate 5 mg PO DAILY #1 tab 10/12/18 Hydrochlorothiazide [Hctz] 12.5 mg PO DAILY #1 tab 10/12/18 Losartan Potassium 50 mg PO DAILY #1 tab 10/12/18 Potassium Chloride [K-Dur] 20 meq PO DAILYCM #30 tab 10/12/18 Silver Sulfadiazine 1% Crm 1 applic TOPICAL DAILY #1 bottle 10/12/18 [Silvadene Cream] omeprazole 40 mg capsule,delayed 40 mg PO BID #180 cap 10/20/18 release sucralfate 1 gram tablet 1 g PO QACHS #140 tab 10/20/18 - Family History Paternal Family History: Family History (Last Reviewed 10/20/18 @ 14:02 by Kim Huynh) Other Diabetes Hypertension - - Patient's father at the age of 84 with a history of obesity, diabetes mellitus, hypertension, and renal failure. Patient's mother is 80 years of age and healthy. Smoking Status: Former smoker Tobacco Use: Non-smoker Alcohol: None Drugs: None Review of Systems Constitutional: Denies: Chills, Fever, Weight Change Eyes: Denies: Pain, Vision Change HEENT: Denies: Difficulty Hearing, Difficulty Swallowing, Sinus Congestion Cardiovascular: Denies: Chest Pain, Palpitations Respiratory: Denies: Cough, Shortness of Breath Gastrointestinal: Denies: Diarrhea, Nausea, Vomiting Genitourinary: Denies: Dysuria, Hematuria Endocrine: Denies: Heat/ Cold Intolerance, Polydipsia, Polyuria Hematologic/ Lymphatic: Denies: Easy Bruising, Easy Bleeding - Physical Exam Vital Signs Temp Pulse Resp BP 97.8 F 72 20 H 153/74 H 11/01/18 11:14 11/01/18 11:14 11/01/18 11:14 11/01/18 11:14 General: Alert, Oriented x3, Cooperative, No apparent distress, Well developed, Well nourished HEENT: Atraumatic, PERRLA, EOMI, Normocephalic Oral: Moist Mucosa Neck: No JVD Lungs: Normal air movement Abdomen: Non-Distended Extremities: No clubbing, No cyanosis, No Calf Tenderness, - - The swelling in the left lower extremity persists, but is slightly improved. Circumferences are documented elsewhere. The dermatitic changes have improved significantly in the left lower extremity. There are no gela open wounds, only superficial small excoriations. The hyperpigmentation and mild erythema persist, though do not appear to be cellulitic in appearance. Rather, it appears to be chronic. Wound Measurements and Assessment WC - Nurse 1 - General Ulcer Measurement Start: 10/18/18 10:36 Freq: Status: Active Protocol: Activity Type Activity Date Activity User E-Sign Co-Sign Detail Recorded Client Recorded Date Recorded By Document 11/01/18 11:14 DL [id number] 11/01/18 11:27 DL 11/01/18 11:14 Wound Center Nurse 1 [Ulcer Assessment] #1 Left Leg Excoriation -Current Size (cm) - Length 0.1 -Current Size (cm) - Width 0.1 -Current Size (cm) - Depth 0.1 -Total Square Cm 0.01 -Photo Taken No -Exudate Amt None Present -Wound Margin Flat & Intact -Granulation Amt Large (67-100%) -Granulation Quality [place] -Necrosis Amt None Present (0 %) -Structure Exposed N/A -Texture (Sisi-wound Skin Appearance) Localized Edema -Moisture (Sisi-wound Skin Appearance Dry/Scaly ) -Color (Sisi-wound Skin Appearance) Hemosiderin Staining -Temperature (Sisi-wound Skin No Abnormality Appearance) (Pt Warm) -Tenderness on Palpation (Sisi-wound No Skin Appearance) -Ulcer Cleansing Wound Cleanser -Foul Odor after Cleansing No [Edema Assessment] -Left Calf (cm) 45 -Left Ankle (cm) 31.8 WC - Nurse 2 - General Ulcer CM Notes Start: 10/18/18 10:36 Freq: Status: Active Protocol: Activity Type Activity Date Activity User E-Sign Co-Sign Detail Recorded Client Recorded Date Recorded By Document 10/31/18 11:39 DV [id number] 11/01/18 12:16 DV 10/31/18 11:39 Pain Scale: 0-10 Numeric [Pain] -Is Patient Pain Free? Yes Musculoskeletal: No Muscle Wasting Neurological: Cranial nerves II-XII grossly intact, Neuro grossly intact Psych/Mental Status: Normal Affect, Appropriate, Alert and oriented to time, place, person, mood and affect Debridement Note Post-Debridement Measurements/Treatment - Nurse 2 - General Ulcer CM Notes Start: 10/18/18 10:36 Freq: Status: Active Protocol: Activity Type Activity Date Activity User E-Sign Co-Sign Detail Recorded Client Recorded Date Recorded By Document 10/18/18 11:08 DV [id number] 10/18/18 11:14 DV Document 10/24/18 11:39 DV [id number] 10/25/18 09:49 DV Document 10/31/18 11:39 DV [id number] 11/01/18 12:16 DV 10/18/18 10/24/18 10/31/18 11:08 11:39 11:39 Wound Center Nurse 2 #1 Left Leg Excoriation -Time 09:47 -Correct Patient Yes -Correct Side, Site, Position Yes -Correct Procedure Yes -Procedure Performed Yes -Type of Procedure Debridement -Clinical Debridement Selective -Post Debridement Size (cm) - Length 10.0 -Post Debridement Size (cm) - Width 10.0 -Post Debridement Size (cm) - Depth 0.1 -Total Square Cm 100.00 -Wound/Ulcer Outcome Not Healed -Ulcer Cleansing Rinsed/ Irrigated with Saline -Bleeding Controlled with Pressure -Offloading No -Treatment Response Procedure Tolerated Well Pain Scale: 0-10 Numeric Is Patient Pain Free? Yes Yes Yes No debridement was completed today Assessment/Plan Active Problems (Last Reviewed 10/20/18 @ 14:02 by Kim Huynh) Lymphedema of right lower extremity (Chronic) Morbid obesity with BMI of 45.0-49.9, adult (Chronic) Edema of both legs (Chronic) Leg swelling (Chronic) Multiple excoriations (Chronic) Acute blood loss anemia (Acute) Gastric ulcer (Acute) Lymphedema of left lower extremity (Chronic) Assessment: This is a 58-year-old morbidly obese male who was recently hospitalized for acute gastrointestinal bleeding, melena, and acute blood loss anemia. During the course of his hospital stay, the patient was noted to have severe swelling, edema, and lymphedema in his lower extremities bilaterally. Profound skin changes and diffuse excoriations were noted in the left lower extremity, associated with cellulitis, for which the patient was treated with antibiotics. He presented here with persisting swelling and edema in his lower extremities bilaterally, and persisting superficial excoriations diffusely in the gaiter area of the left lower extremity. There is no suspicion of significant arterial occlusive disease in the lower extremities. The patient has responded well in recent weeks to the use of an Unna boot, which has been applied to the left lower extremity twice weekly. Plan: We are to continue a regimen of conservative treatment measures relative to the lower extremity swelling and skin changes. The patient has been advised to elevate his lower extremities as much as possible. Elevation is to be to heart level, or higher. This is to be implemented even during daytime hours. The patient is to continue sleeping on a flat mattress at night. Activity has been encouraged. The patient has been advised to refrain from prolonged idle sitting and standing. Weight loss has been strongly recommended. Patient is to continue with graduated compression stockings to the right lower extremity, which have been documented to be 20 to 30 mmHg. Relative to the left lower extremity, we are to continue the use of a multilayer Unna boot, which will be changed twice weekly. The compression of the Unna boot will be of benefit, and the zinc oxide is anticipated to be of benefit relative to the skin changes in the left lower extremity. The patient is to return in 1 week for reassessment. We will also attempt to secure mechanical pneumatic compression pumps for the patient's lower extremity, as his lower extremity swelling and edema appears to be chronic in nature, and likely a lifelong problem. Ultimately, the patient will be fitted for graduated compression stockings, CircAid Velcro garments, or Farrow wraps for long-term compression in his lower extremities. The patient's laboratory capacity is somewhat limited at present, due to chronic right knee pain and left foot pain. He has been advised to seek evaluation with the orthopedic surgeon. The patient is not a smoker. Influenza vaccine was not administered today. The patient weighs 345 pounds. He stands 5 feet 10 inches tall. BMI is 49.5. This places the patient in a class III obesity category. Weight loss has been strongly recommended, in collaboration with the the patient's primary care physician has been advised.
[2018-11-03 11:39] VITALS: BP 143/86; PULSE 69; RESP 18; TEMP 37; BMI 49.5
[2018-11-08 10:26] VITALS: BP 161/80; PULSE 62; RESP 18; TEMP 37.1; BMI 49.5
--- NOTE | 2018-11-08 11:01 | HP.PCM_ITS ---
(1) Lymphedema of right lower extremity Status: Chronic Current Visit: Yes Code(s): I89.0 - Lymphedema, not elsewhere classified (2) Hypertension Status: Chronic Current Visit: No Code(s): I10 - Essential (primary) hypertension (3) Morbid obesity with BMI of 45.0-49.9, adult Status: Chronic Current Visit: Yes Code(s): E66.01 - Morbid (severe) obesity due to excess calories; Z68.42 - Body mass index (BMI) 45.0-49.9, adult (4) Edema of both legs Status: Chronic Current Visit: Yes Code(s): R60.0 - Localized edema (5) Leg swelling Status: Chronic Current Visit: Yes Code(s): M79.89 - Other specified soft tissue disorders (6) Multiple excoriations Status: Chronic Current Visit: Yes Code(s): T07.XXXA - Unspecified multiple injuries, initial encounter (7) GI bleed Status: Acute Current Visit: No Qualifiers: GI bleed type/associated pathology: gastric ulcer Qualified Code(s): K25.4 - Chronic or unspecified gastric ulcer with hemorrhage Code(s): K92.2 - Gastrointestinal hemorrhage, unspecified (8) Lymphedema of left lower extremity Status: Chronic Current Visit: Yes Code(s): I89.0 - Lymphedema, not elsewhere classified (9) History of hypertension Status: Chronic Current Visit: No Code(s): Z86.79 - Personal history of other diseases of the circulatory system (10) History of obstructive sleep apnea Status: Chronic Current Visit: No Code(s): Z86.69 - Personal history of other diseases of the nervous system and sense organs (11) Acute blood loss anemia Status: Acute Current Visit: Yes Code(s): D62 - Acute posthemorrhagic anemia (12) Gastric ulcer Status: Acute Current Visit: Yes Qualifiers: Gastric ulcer chronicity: acute Gastric ulcer complication status: with hemorrhage Qualified Code(s): K25.0 - Acute gastric ulcer with hemorrhage Code(s): K25.9 - Gastric ulcer, unspecified as acute or chronic, without hemorrhage or perforation History of Present Illness Chief Complaint: Bilateral lower extremity swelling, edema, and lymphedema; multiple superficial excoriations of the left lower extremity involving the gaiter area History of Wound: This is a 58-year-old male with a long-standing history of chronic swelling, edema, and lymphedema in his lower extremities. This has been present for many years. The patient is also morbidly obese. He sleeps in a recumbent position at night. He denies a history of thrombophlebitis in his lower extremities. He claims to be relatively active. Approximately 2 weeks prior to presentation, he developed diffuse, superficial excoriations of the left lower extremity. Incidentally, he required recent hospitalization at [facility] for acute blood loss anemia secondary to gastrointestinal bleeding. His evaluation included upper endoscopy, which revealed the presence of a gastric ulceration. Patient was admitted on September 30, 2018, and subsequently discharged on October 12, 2018. During his hospital stay, he was treated for cellulitis involving the left lower extremity, but subsequently not discharged on an antibiotic. The patient has been wearing graduated compression stockings on his lower extremities, which he has obtained online through [employer], with documentation that the knee-high stockings are of 20 to 30 mmHg compression. Venous duplex examination was performed on October 04, 2018, which was negative for thrombophlebitis. Laboratory studies have also been performed, within the last several weeks, with results as follows: White blood count 8.3, YOON globin 7.8, hematocrit 23.7, platelets 318,000, sodium 142, potassium 4.1, chloride 109, BUN 10, creatinine 0.63, glucose 100, calcium 7.5, prealbumin 10.6. Past Medical History Past Medical History: Chronic Problems (Last Reviewed 10/20/18 @ 14:02 by Kim Huynh) Lymphedema of right lower extremity (Chronic) Hypertension (Chronic) Morbid obesity with BMI of 45.0-49.9, adult (Chronic) Edema of both legs (Chronic) Leg swelling (Chronic) Multiple excoriations (Chronic) Lymphedema of left lower extremity (Chronic) History of hypertension (Chronic) History of obstructive sleep apnea (Chronic) Surgical History: no surgical history Allergies/Adverse Reactions: Allergies No Known Allergies Allergy (Verified 10/20/18 14:03) Home Medications: Ambulatory Orders Medication Instructions Recorded Carvedilol 25 mg PO BID 09/30/18 Doxazosin Mesylate 4 mg PO DAILY 09/30/18 Multivitamin [One-Daily 1 ea PO DAILY 09/30/18 Multi-Vitamin] Amlodipine Besylate 5 mg PO DAILY #1 tab 10/12/18 Hydrochlorothiazide [Hctz] 12.5 mg PO DAILY #1 tab 10/12/18 Losartan Potassium 50 mg PO DAILY #1 tab 10/12/18 Potassium Chloride [K-Dur] 20 meq PO DAILYCM #30 tab 10/12/18 Silver Sulfadiazine 1% Crm 1 applic TOPICAL DAILY #1 bottle 10/12/18 [Silvadene Cream] omeprazole 40 mg capsule,delayed 40 mg PO BID #180 cap 10/20/18 release sucralfate 1 gram tablet 1 g PO QACHS #140 tab 10/20/18 - Family History Paternal Family History: Family History (Last Reviewed 10/20/18 @ 14:02 by Kim Huynh) Other Diabetes Hypertension - - Patient's father at the age of 84 with a history of obesity, diabetes mellitus, hypertension, and renal failure. Patient's mother is 80 years of age and healthy. Smoking Status: Former smoker Tobacco Use: Non-smoker Alcohol: None Drugs: None Review of Systems Constitutional: Denies: Chills, Fever, Weight Change Eyes: Denies: Pain, Vision Change HEENT: Denies: Difficulty Hearing, Difficulty Swallowing, Sinus Congestion Cardiovascular: Denies: Chest Pain, Palpitations Respiratory: Denies: Cough, Shortness of Breath Gastrointestinal: Denies: Diarrhea, Nausea, Vomiting Genitourinary: Denies: Dysuria, Hematuria Endocrine: Denies: Heat/ Cold Intolerance, Polydipsia, Polyuria Hematologic/ Lymphatic: Denies: Easy Bruising, Easy Bleeding - Physical Exam Vital Signs Temp Pulse Resp BP 98.7 F 62 18 161/80 H 11/08/18 10:26 11/08/18 10:26 11/08/18 10:26 11/08/18 10:26 General: Alert, Oriented x3, Cooperative, No apparent distress, Well developed, Well nourished HEENT: Atraumatic, PERRLA, EOMI, Normocephalic Oral: Moist Mucosa Neck: No JVD Lungs: Normal air movement Abdomen: Non-Distended, Obese Extremities: No clubbing, No cyanosis, No Calf Tenderness, - - Bilateral lower extremity swelling and edema is noted. It is more severe in the left lower extremity. 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 However, the excoriations are now at a minimum. There has been marked improvement. Wound Measurements and Assessment WC - Nurse 1 - General Ulcer Measurement Start: 10/18/18 10:36 Freq: Status: Active Protocol: Activity Type Activity Date Activity User E-Sign Co-Sign Detail Recorded Client Recorded Date Recorded By Document 11/08/18 10:26 DL [id number] 11/08/18 10:35 DL 11/08/18 10:26 Wound Center Nurse 1 [Ulcer Assessment] #1 Left Leg Excoriation -Current Size (cm) - Length 0.1 -Current Size (cm) - Width 0.1 -Current Size (cm) - Depth 0.1 -Total Square Cm 0.01 -Photo Taken No -Exudate Amt None Present -Wound Margin Flat & Intact -Granulation Amt Large (67-100%) -Granulation Quality Ramey -Necrosis Amt Small (1-33%) -Necrotic Tissue Type Adherent Slough -Structure Exposed N/A -Texture (Sisi-wound Skin Appearance) Localized Edema Scarring -Moisture (Sisi-wound Skin Appearance Dry/Scaly ) -Color (Sisi-wound Skin Appearance) Hemosiderin Staining Rubor -Temperature (Sisi-wound Skin No Abnormality Appearance) (Pt Warm) -Tenderness on Palpation (Sisi-wound No Skin Appearance) -Ulcer Cleansing Wound Cleanser -Foul Odor after Cleansing No [Edema Assessment] -Right Calf (cm) 43.6 -Right Ankle (cm) 33.6 WC - Nurse 2 - General Ulcer CM Notes Start: 10/18/18 10:36 Freq: Status: Active Protocol: Activity Type Activity Date Activity User E-Sign Co-Sign Detail Recorded Client Recorded Date Recorded By Document 11/08/18 10:41 DL [id number] 11/08/18 10:48 DL 11/08/18 10:41 Pain Scale: 0-10 Numeric [Pain] -Is Patient Pain Free? Yes Musculoskeletal: No Muscle Wasting Neurological: Cranial nerves II-XII grossly intact, Neuro grossly intact Psych/Mental Status: Normal Affect, Appropriate, Alert and oriented to time, place, person, mood and affect Debridement Note Post-Debridement Measurements/Treatment WC - Nurse 2 - General Ulcer CM Notes Start: 10/18/18 10:36 Freq: Status: Active Protocol: Activity Type Activity Date Activity User E-Sign Co-Sign Detail Recorded Client Recorded Date Recorded By Document 10/18/18 11:08 DV [id number] 10/18/18 11:14 DV Document 10/24/18 11:39 DV [id number] 10/25/18 09:49 DV Document 10/31/18 11:39 DV [id number] 11/01/18 12:16 DV Document 11/08/18 10:41 DL [id number] 11/08/18 10:48 DL 10/18/18 10/24/18 10/31/18 11:08 11:39 11:39 Wound Center Nurse 2 #1 Left Leg Excoriation -Time 09:47 -Correct Patient Yes -Correct Side, Site, Position Yes -Correct Procedure Yes -Procedure Performed Yes -Type of Procedure Debridement -Clinical Debridement Selective -Post Debridement Size (cm) - Length 10.0 -Post Debridement Size (cm) - Width 10.0 -Post Debridement Size (cm) - Depth 0.1 -Total Square Cm 100.00 -Wound/Ulcer Outcome Not Healed -Ulcer Cleansing Rinsed/ Irrigated with Saline -Bleeding Controlled with Pressure -Offloading No -Treatment Response Procedure Tolerated Well Pain Scale: 0-10 Numeric Is Patient Pain Free? Yes Yes Yes 11/08/18 10:41 Wound Center Nurse 2 #1 Left Leg Excoriation -Time -Correct Patient -Correct Side, Site, Position -Correct Procedure -Procedure Performed -Type of Procedure -Clinical Debridement -Post Debridement Size (cm) - Length -Post Debridement Size (cm) - Width -Post Debridement Size (cm) - Depth -Total Square Cm -Wound/Ulcer Outcome -Ulcer Cleansing -Bleeding Controlled with -Offloading -Treatment Response Pain Scale: 0-10 Numeric Is Patient Pain Free? Yes No debridement was completed today Assessment/Plan Active Problems (Last Reviewed 10/20/18 @ 14:02 by Kim Huynh) Lymphedema of right lower extremity (Chronic) Morbid obesity with BMI of 45.0-49.9, adult (Chronic) Edema of both legs (Chronic) Leg swelling (Chronic) Multiple excoriations (Chronic) Acute blood loss anemia (Acute) Gastric ulcer (Acute) Lymphedema of left lower extremity (Chronic) Assessment: This is a 58-year-old morbidly obese male who was recently hos pitalized for acute gastrointestinal bleeding, melena, and acute blood loss anemia. During the course of his hospital stay, the patient was noted to have severe swelling, edema, and lymphedema in his lower extremities bilaterally. Profound skin changes and diffuse excoriations were noted in the left lower extremity, associated with cellulitis, for which the patient was treated with antibiotics. He presented here with persisting swelling and edema in his lower extremities bilaterally, and persisting superficial excoriations diffusely in the gaiter area of the left lower extremity. There is no suspicion of significant arterial occlusive disease in the lower extremities. The patient has responded well in recent weeks to the use of an Unna boot, which has been applied to the left lower extremity twice weekly. Plan: We are to continue a regimen of conservative treatment measures relative to the lower extremity swelling and skin changes. The patient has been advised to elevate his lower extremities as much as possible. Elevation is to be to heart level, or higher. This is to be implemented even during daytime hours. The patient is to continue sleeping on a flat mattress at night. Activity has been encouraged. The patient has been advised to refrain from prolonged idle sitting and standing. Weight loss has been strongly recommended. Patient is to continue with graduated compression stockings to the right lower extremity, which have been documented to be 20 to 30 mmHg. Relative to the left lower extremity, we are to continue the use of a multilayer Unna boot, which will be changed twice weekly. The compression of the Unna boot will be of benefit, and the zinc oxide is anticipated to be of benefit relative to the skin changes in the left lower extremity. The patient is to return in 1 week for reassessment. We will also attempt to secure mechanical pneumatic compression pumps for the patient's lower extremity, as his lower extremity swelling and edema appears to be chronic in nature, and likely a lifelong problem. Ultimately, the patient will be fitted for graduated compression stockings, CircAid Velcro garments, or Farrow wraps for long-term compression in his lower extremities. The patient's ambulatory capacity is somewhat limited at present, due to chronic right knee pain and left foot pain. He has been advised to seek evaluation with an orthopedic surgeon, and has an appointment with Dr. Ritchie in 2 days. The prescription has been provided for graduated compression stockings of 30 to 40 mmHg compression, knee-high length. There has been significant progress in recent weeks, and ultimate discharge is anticipated in the near future if the patient continues to improve at the current rate. The patient is not a smoker. Influenza vaccine was not administered today. The patient weighs 345 pounds. He stands 5 feet 10 inches tall. BMI is 49.5. This places the patient in a class III obesity category. Weight loss has been strongly recommended, in collaboration with the the patient's primary care physician has been advised.
[2018-11-11 11:35] VITALS: BP 152/79; PULSE 64; RESP 18; TEMP 36.1; BMI 49.5
== END 2018-11-11 23:59 ==
LOC: WC 11:15
PROVIDERS: Family Provider Internal Medicine; PCP Internal Medicine; Visit Provider Surgery
DX: I89.0 Lymphedema, not elsewhere classified (principal); Z87.891 Personal history of nicotine dependence; Z68.42 Body mass index [BMI] 45.0-49.9, adult; E66.01 Morbid (severe) obesity due to excess calories; I10 Essential (primary) hypertension; G47.33 Obstructive sleep apnea (adult) (pediatric); S80.812A Abrasion, left lower leg, initial encounter; X58.XXXA Exposure to other specified factors, initial encounter
CPT/HCPCS: 29580; 97597; 97598; 99212; 99213; G0463

== ENCOUNTER 2018-11-21 11:30 | Outpatient (RCR) | payer BC, SELFPAY ==
[2018-11-12 01:15] VITALS: BP 152/79; PULSE 64; RESP 18; TEMP 36.1
[2018-11-15 11:10] VITALS: BP 164/93; PULSE 67; RESP 16; TEMP 37; BMI 49.5
--- NOTE | 2018-11-15 12:05 | PCM.WC.HP ---
(1) GI bleed Status: Chronic Current Visit: No Qualifiers: Code(s): K92.2 - Gastrointestinal hemorrhage, unspecified (2) Lymphedema of right lower extremity Status: Chronic Current Visit: Yes Code(s): I89.0 - Lymphedema, not elsewhere classified (3) Hypertension Status: Chronic Current Visit: No Code(s): I10 - Essential (primary) hypertension (4) Morbid obesity with BMI of 45.0-49.9, adult Status: Chronic Current Visit: Yes Code(s): E66.01 - Morbid (severe) obesity due to excess calories; Z68.42 - Body mass index (BMI) 45.0-49.9, adult (5) Edema of both legs Status: Chronic Current Visit: Yes Code(s): R60.0 - Localized edema (6) Leg swelling Status: Chronic Current Visit: Yes Code(s): M79.89 - Other specified soft tissue disorders (7) Multiple excoriations Status: Chronic Current Visit: Yes Code(s): T07.XXXA - Unspecified multiple injuries, initial encounter (8) Acute blood loss anemia Status: Acute Current Visit: No Code(s): D62 - Acute posthemorrhagic anemia (9) Gastric ulcer Status: Chronic Current Visit: No Qualifiers: Code(s): K25.9 - Gastric ulcer, unspecified as acute or chronic, without hemorrhage or perforation (10) Pressure injury of left ankle, stage 2 Status: Chronic Current Visit: No Code(s): L89.522 - Pressure ulcer of left ankle, stage 2 (11) Pressure injury of dorsum of left foot, stage 2 Status: Chronic Current Visit: No Code(s): L89.892 - Pressure ulcer of other site, stage 2 (12) Pressure injury of left leg, stage 2 Status: Chronic Current Visit: No Code(s): L89.892 - Pressure ulcer of other site, stage 2 (13) Cellulitis of left lower extremity Status: Resolved Current Visit: No Code(s): L03.116 - Cellulitis of left lower limb (14) Lymphedema of left lower extremity Status: Chronic Current Visit: Yes Code(s): I89.0 - Lymphedema, not elsewhere classified (15) History of hypertension Status: Chronic Current Visit: No Code(s): Z86.79 - Personal history of other diseases of the circulatory system (16) History of obstructive sleep apnea Status: Chronic Current Visit: No Code(s): Z86.69 - Personal history of other diseases of the nervous system and sense organs (17) Sepsis Status: Acute Current Visit: No Qualifiers: Code(s): A41.9 - Sepsis, unspecified organism (18) Cellulitis of left anterior lower leg Status: Resolved Current Visit: No Code(s): L03.116 - Cellulitis of left lower limb (19) Acute kidney injury Status: Resolved Current Visit: No Code(s): N17.9 - Acute kidney failure, unspecified (20) Hypokalemia Status: Resolved Current Visit: No Code(s): E87.6 - Hypokalemia History of Present Illness Chief Complaint: Bilateral lower extremity swelling, edema, and lymphedema; multiple superficial excoriations of the left lower extremity involving the gaiter area History of Wound: This is a 58-year-old male with a long-standing history of chronic swelling, edema, and lymphedema in his lower extremities. This has been present for many years. The patient is also morbidly obese. He sleeps in a recumbent position at night. He denies a history of thrombophlebitis in his lower extremities. He claims to be relatively active. Approximately 2 weeks prior to presentation, he developed diffuse, superficial excoriations of the left lower extremity. Incidentally, he required recent hospitalization at [facility] for acute blood loss anemia secondary to gastrointestinal bleeding. His evaluation included upper endoscopy, which revealed the presence of a gastric ulceration. Patient was admitted on September 30, 2018, and subsequently discharged on October 12, 2018. During his hospital stay, he was treated for cellulitis involving the left lower extremity, but subsequently not discharged on an antibiotic. The patient has been wearing graduated compression stockings on his lower extremities, which he has obtained online through [employer], with documentation that the knee-high stockings are of 20 to 30 mmHg compression. Venous duplex examination was performed on October 04, 2018, which was negative for thrombophlebitis. Laboratory studies have also been performed, within the last several weeks, with results as follows: White blood count 8.3, YOON globin 7.8, hematocrit 23.7, platelets 318,000, sodium 142, potassium 4.1, chloride 109, BUN 10, creatinine 0.63, glucose 100, calcium 7.5, prealbumin 10.6. Past Medical History Past Medical History: Chronic Problems (Last Reviewed 10/20/18 @ 14:02 by Kim Huynh) GI bleed (Chronic) Lymphedema of right lower extremity (Chronic) Hypertension (Chronic) Morbid obesity with BMI of 45.0-49.9, adult (Chronic) Edema of both legs (Chronic) Leg swelling (Chronic) Multiple excoriations (Chronic) Gastric ulcer (Chronic) Pressure injury of left ankle, stage 2 (Chronic) Pressure injury of dorsum of left foot, stage 2 (Chronic) Pressure injury of left leg, stage 2 (Chronic) Lymphedema of left lower extremity (Chronic) History of hypertension (Chronic) History of obstructive sleep apnea (Chronic) Surgical History: no surgical history Allergies/Adverse Reactions: Allergies No Known Allergies Allergy (Verified 10/20/18 14:03) Home Medications: Ambulatory Orders Medication Instructions Recorded Carvedilol 25 mg PO BID 09/30/18 Doxazosin Mesylate 4 mg PO DAILY 09/30/18 Multivitamin [One-Daily 1 ea PO DAILY 09/30/18 Multi-Vitamin] Amlodipine Besylate 5 mg PO DAILY #1 tab 10/12/18 Hydrochlorothiazide [Hctz] 12.5 mg PO DAILY #1 tab 10/12/18 Losartan Potassium 50 mg PO DAILY #1 tab 10/12/18 Potassium Chloride [K-Dur] 20 meq PO DAILYCM #30 tab 10/12/18 Silver Sulfadiazine 1% Crm 1 applic TOPICAL DAILY #1 bottle 10/12/18 [Silvadene Cream] omeprazole 40 mg capsule,delayed 40 mg PO BID #180 cap 10/20/18 release sucralfate 1 gram tablet 1 g PO QACHS #140 tab 10/20/18 - Family History Paternal Family History: Family History (Last Reviewed 10/20/18 @ 14:02 by Kim Huynh) Other Diabetes Hypertension - - Patient's father at the age of 84 with a history of obesity, diabetes mellitus, hypertension, and renal failure. Patient's mother is 80 years of age and healthy. Smoking Status: Former smoker Tobacco Use: Non-smoker Review of Systems Constitutional: Denies: Chills, Fever, Weight Change Eyes: Denies: Pain, Vision Change HEENT: Denies: Difficulty Hearing, Difficulty Swallowing, Sinus Congestion Cardiovascular: Denies: Chest Pain, Palpitations Respiratory: Denies: Cough, Shortness of Breath Gastrointestinal: Denies: Diarrhea, Nausea, Vomiting Genitourinary: Denies: Dysuria, Hematuria Endocrine: Denies: Heat/ Cold Intolerance, Polydipsia, Polyuria Hematologic/ Lymphatic: Denies: Easy Bruising, Easy Bleeding - Physical Exam Vital Signs Temp Pulse Resp BP 98.6 F 67 16 164/93 H 11/15/18 11:10 11/15/18 11:10 11/15/18 11:10 11/15/18 11:10 General: Alert, Oriented x3, Cooperative, No apparent distress, Well developed, Well nourished HEENT: Atraumatic, PERRLA, EOMI, Normocephalic Oral: Moist Mucosa Neck: No JVD Lungs: Normal air movement Abdomen: Non-Distended Extremities: No clubbing, No cyanosis, No Calf Tenderness, - - Moderate swelling and edema persist in the lower extremities bilaterally. It is more severe in the left lower extremity. The excoriations originally noted in the left lower extremity have now resolved. Diffuse lipodermatosclerosis and hyperpigmentation persist in the left gaiter area. There is no sign of infection or cellulitis. Comforts measurements are documented elsewhere. No open wounds or ulcerations. Wound Measurements and Assessment WC - Nurse 1 - General Ulcer Measurement Start: 11/15/18 11:09 Freq: Status: Active Protocol: Activity Type Activity Date Activity User E-Sign Co-Sign Detail Recorded Client Recorded Date Recorded By Document 11/15/18 11:10 [id number] 11/15/18 11:18 11/15/18 11:10 Wound Center Nurse 1 [Edema Assessment] -Lower Limb Edema Present Yes -Left Calf (cm) 43.7 -Left Ankle (cm) 32.3 WC - Nurse 2 - General Ulcer CM Notes Start: 11/15/18 11:09 Freq: Status: Active Protocol: Activity Type Activity Date Activity User E-Sign Co-Sign Detail Recorded Client Recorded Date Recorded By Document 11/15/18 11:53 DV [id number] 11/15/18 11:56 DV 11/15/18 11:53 Pain Scale: 0-10 Numeric [Pain] -Is Patient Pain Free? Yes Musculoskeletal: No Muscle Wasting Neurological: Cranial nerves II-XII grossly intact, Neuro grossly intact Psych/Mental Status: Normal Affect, Appropriate, Alert and oriented to time, place, person, mood and affect Debridement Note Post-Debridement Measurements/Treatment WC - Nurse 2 - General Ulcer CM Notes Start: 11/15/18 11:09 Freq: Status: Active Protocol: Activity Type Activity Date Activity User E-Sign Co-Sign Detail Recorded Client Recorded Date Recorded By Document 11/15/18 11:53 DV [id number] 11/15/18 11:56 DV 11/15/18 11:53 Pain Scale: 0-10 Numeric Is Patient Pain Free? Yes No debridement was completed today Assessment/Plan Active Problems (Last Reviewed 10/20/18 @ 14:02 by Kim Huynh) Lymphedema of right lower extremity (Chronic) Morbid obesity with BMI of 45.0-49.9, adult (Chronic) Edema of both legs (Chronic) Leg swelling (Chronic) Multiple excoriations (Chronic) Lymphedema of left lower extremity (Chronic) Assessment: This is a 58-year-old morbidly obese male who was recently hospitalized for acute gastrointestinal bleeding, melena, and acute blood loss anemia. During the course of his hospital stay, the patient was noted to have severe swelling, edema, and lymphedema in his lower extremities bilaterally. Profound skin changes and diffuse excoriations were noted in the left lower extremity, associated with cellulitis, for which the patient was treated with antibiotics. He presented here with persisting swelling and edema in his lower extremities bilaterally, and persisting superficial excoriations diffusely in the gaiter area of the left lower extremity. There is no suspicion of significant arterial occlusive disease in the lower extremities. The patient has responded well in recent weeks to the use of an [place] boot, which has been applied to the left lower extremity twice weekly. Plan: We are to continue a regimen of conservative treatment measures relative to the lower extremity swelling and skin changes. The patient has been advised to elevate his lower extremities as much as possible. Elevation is to be to heart level, or higher. This is to be implemented even during daytime hours. The patient is to continue sleeping on a flat mattress at night. Activity has been encouraged. The patient has been advised to refrain from prolonged idle sitting and standing. Weight loss has been strongly recommended. Patient is to continue with graduated compression stockings to the right lower extremity, which have been documented to be 20 to 30 mmHg. Relative to the left lower extremity, we are to use a 3M 2 layer compression wrap, which will be changed twice weekly. The prescription has been provided for graduated compression stockings, knee-high length, of 3040 mmHg compression. These have been ordered at [employer], and are expected to be received any day. Once received, the patient will transition from the use of a 3M 2 layer compression wrap to the use of his compression stockings. The patient is to return in 1 week for reassessment. We will also attempt to secure mechanical pneumatic compression pumps for the patient's lower extremity, as his lower extremity swelling and edema appears to be chronic in nature, and likely a lifelong problem. The patient's ambulatory capacity is somewhat limited at present, due to chronic right knee pain and left foot pain. He has been advised to seek evaluation with an orthopedic surgeon, and has been evaluated by Dr. Ritchie. X-rays have been obtained, and the patient is scheduled for an MRI of his left foot later this week. Discharge is anticipated in the near future if the patient continues to improve at the current rate. The patient is not a smoker. Influenza vaccine was not administered today. The patient weighs 345 pounds. He stands 5 feet 10 inches tall. BMI is 49.5. This places the patient in a class III obesity category. Weight loss has been strongly recommended, in collaboration with the the patient's primary care physician has been advised.
--- NOTE | 2018-11-15 12:10 | HP.PCM_ITS ---
(1) GI bleed Status: Chronic Current Visit: No Qualifiers: Code(s): K92.2 - Gastrointestinal hemorrhage, unspecified (2) Lymphedema of right lower extremity Status: Chronic Current Visit: Yes Code(s): I89.0 - Lymphedema, not elsewhere classified (3) Hypertension Status: Chronic Current Visit: No Code(s): I10 - Essential (primary) hypertension (4) Morbid obesity with BMI of 45.0-49.9, adult Status: Chronic Current Visit: Yes Code(s): E66.01 - Morbid (severe) obesity due to excess calories; Z68.42 - Body mass index (BMI) 45.0-49.9, adult (5) Edema of both legs Status: Chronic Current Visit: Yes Code(s): R60.0 - Localized edema (6) Leg swelling Status: Chronic Current Visit: Yes Code(s): M79.89 - Other specified soft tissue disorders (7) Multiple excoriations Status: Chronic Current Visit: Yes Code(s): T07.XXXA - Unspecified multiple injuries, initial encounter (8) Acute blood loss anemia Status: Acute Current Visit: No Code(s): D62 - Acute posthemorrhagic anemia (9) Gastric ulcer Status: Chronic Current Visit: No Qualifiers: Code(s): K25.9 - Gastric ulcer, unspecified as acute or chronic, without hemorrh age or perforation (10) Pressure injury of left ankle, stage 2 Status: Chronic Current Visit: No Code(s): L89.522 - Pressure ulcer of left ankle, stage 2 (11) Pressure injury of dorsum of left foot, stage 2 Status: Chronic Current Visit: No Code(s): L89.892 - Pressure ulcer of other site, stage 2 (12) Pressure injury of left leg, stage 2 Status: Chronic Current Visit: No Code(s): L89.892 - Pressure ulcer of other site, stage 2 (13) Cellulitis of left lower extremity Status: Resolved Current Visit: No Code(s): L03.116 - Cellulitis of left lower limb (14) Lymphedema of left lower extremity Status: Chronic Current Visit: Yes Code(s): I89.0 - Lymphedema, not elsewhere classified (15) History of hypertension Status: Chronic Current Visit: No Code(s): Z86.79 - Personal history of other diseases of the circulatory system (16) History of obstructive sleep apnea Status: Chronic Current Visit: No Code(s): Z86.69 - Personal history of other diseases of the nervous system and sense organs (17) Sepsis Status: Acute Current Visit: No Qualifiers: Code(s): A41.9 - Sepsis, unspecified organism (18) Cellulitis of left anterior lower leg Status: Resolved Current Visit: No Code(s): L03.116 - Cellulitis of left lower limb (19) Acute kidney injury Status: Resolved Current Visit: No Code(s): N17.9 - Acute kidney failure, unspecified (20) Hypokalemia Status: Resolved Current Visit: No Code(s): E87.6 - Hypokalemia History of Present Illness Chief Complaint: Bilateral lower extremity swelling, edema, and lymphedema; multiple superficial excoriations of the left lower extremity involving the gaiter area History of Wound: This is a 58-year-old male with a long-standing history of chronic swelling, edema, and lymphedema in his lower extremities. This has been present for many years. The patient is also morbidly obese. He sleeps in a recumbent position at night. He denies a history of thrombophlebitis in his lower extremities. He claims to be relatively active. Approximately 2 weeks prior to presentation, he developed diffuse, superficial excoriations of the l eft lower extremity. Incidentally, he required recent hospitalization at [facility] for acute blood loss anemia secondary to gastrointestinal bleeding. His evaluation included upper endoscopy, which revealed the presence of a gastric ulceration. Patient was admitted on September 30, 2018, and subsequently discharged on October 12, 2018. During his hospital stay, he was treated for cellulitis involving the left lower extremity, but subsequently not discharged on an antibiotic. The patient has been wearing graduated compression stockings on his lower extremities, which he has obtained online through [employer], with documentation that the knee-high stockings are of 20 to 30 mmHg compression. Venous duplex examination was performed on October 04, 2018, which was negative for thrombophlebitis. Laboratory studies have also been performed, within the last several weeks, with results as follows: White blood count 8.3, YOON globin 7.8, hematocrit 23.7, platelets 318,000, sodium 142, potassium 4.1, chloride 109, BUN 10, creatinine 0.63, glucose 100, calcium 7.5, prealbumin 10.6. Past Medical History Past Medical History: Chronic Problems (Last Reviewed 10/20/18 @ 14:02 by Kim Huynh) GI bleed (Chronic) Lymphedema of right lower extremity (Chronic) Hypertension (Chronic) Morbid obesity with BMI of 45.0-49.9, adult (Chronic) Edema of both legs (Chronic) Leg swelling (Chronic) Multiple excoriations (Chronic) Gastric ulcer (Chronic) Pressure injury of left ankle, stage 2 (Chronic) Pressure injury of dorsum of left foot, stage 2 (Chronic) Pressure injury of left leg, stage 2 (Chronic) Lymphedema of left lower extremity (Chronic) History of hypertension (Chronic) History of obstructive sleep apnea (Chronic) Surgical History: no surgical history Allergies/Adverse Reactions: Allergies No Known Allergies Allergy (Verified 10/20/18 14:03) Home Medications: Ambulatory Orders Medication Instructions Recorded Carvedilol 25 mg PO BID 09/30/18 Doxazosin Mesylate 4 mg PO DAILY 09/30/18 Multivitamin [One-Daily 1 ea PO DAILY 09/30/18 Multi-Vitamin] Amlodipine Besylate 5 mg PO DAILY #1 tab 10/12/18 Hydrochlorothiazide [Hctz] 12.5 mg PO DAILY #1 tab 10/12/18 Losartan Potassium 50 mg PO DAILY #1 tab 10/12/18 Potassium Chloride [K-Dur] 20 meq PO DAILYCM #30 tab 10/12/18 Silver Sulfadiazine 1% Crm 1 applic TOPICAL DAILY #1 bottle 10/12/18 [Silvadene Cream] omeprazole 40 mg capsule,delayed 40 mg PO BID #180 cap 10/20/18 release sucralfate 1 gram tablet 1 g PO QACHS #140 tab 10/20/18 - Family History Paternal Family History: Family History (Last Reviewed 10/20/18 @ 14:02 by Kim Huynh) Other Diabetes Hypertension - - Patient's father at the age of 84 with a history of obesity, diabetes mellitus, hypertension, and renal failure. Patient's mother is 80 years of age and healthy. Smoking Status: Former smoker Tobacco Use: Non-smoker Review of Systems Constitutional: Denies: Chills, Fever, Weight Change Eyes: Denies: Pain, Vision Change HEENT: Denies: Difficulty Hearing, Difficulty Swallowing, Sinus Congestion Cardiovascular: Denies: Chest Pain, Palpitations Respiratory: Denies: Cough, Shortness of Breath Gastrointestinal: Denies: Diarrhea, Nausea, Vomiting Genitourinary: Denies: Dysuria, Hematuria Endocrine: Denies: Heat/ Cold Intolerance, Polydipsia, Polyuria Hematologic/ Lymphatic: Denies: Easy Bruising, Easy Bleeding - Physical Exam Vital Signs Temp Pulse Resp BP 98.6 F 67 16 164/93 H 11/15/18 11:10 11/15/18 11:10 11/15/18 11:10 11/15/18 11:10 General: Alert, Oriented x3, Cooperative, No apparent distress, Well developed, Well nourished HEENT: Atraumatic, PERRLA, EOMI, Normocephalic Oral: Moist Mucosa Neck: No JVD Lungs: Normal air movement Abdomen: Non-Distended Extremities: No clubbing, No cyanosis, No Calf Tenderness, - - Moderate swelling and edema persist in the lower extremities bilaterally. It is more severe in the left lower extremity. The excoriations originally noted in the left lower extremity have now resolved. Diffuse lipodermatosclerosis and hyperpigmentation persist in the left gaiter area. There is no sign of infection or cellulitis. Comforts measurements are documented elsewhere. No open wounds or ulcerations. Wound Measurements and Assessment WC - Nurse 1 - General Ulcer Measurement Start: 11/15/18 11:09 Freq: Status: Active Protocol: Activity Type Activity Date Activity User E-Sign Co-Sign Detail Recorded Client Recorded Date Recorded By Document 11/15/18 11:10 [id number] 11/15/18 11:18 11/15/18 11:10 Wound Center Nurse 1 [Edema Assessment] -Lower Limb Edema Present Yes -Left Calf (cm) 43.7 -Left Ankle (cm) 32.3 WC - Nurse 2 - General Ulcer CM Notes Start: 11/15/18 11:09 Freq: Status: Active Protocol: Activity Type Activity Date Activity User E-Sign Co-Sign Detail Recorded Client Recorded Date Recorded By Document 11/15/18 11:53 DV [id number] 11/15/18 11:56 DV 11/15/18 11:53 Pain Scale: 0-10 Numeric [Pain] -Is Patient Pain Free? Yes Musculoskeletal: No Muscle Wasting Neurological: Cranial nerves II-XII grossly intact, Neuro grossly intact Psych/Mental Status: Normal Affect, Appropriate, Alert and oriented to time, place, person, mood and affect Debridement Note Post-Debridement Measurements/Treatment WC - Nurse 2 - General Ulcer CM Notes Start: 11/15/18 11:09 Freq: Status: Active Protocol: Activity Type Activity Date Activity User E-Sign Co-Sign Detail Recorded Client Recorded Date Recorded By Document 11/15/18 11:53 DV [id number] 11/15/18 11:56 DV 11/15/18 11:53 Pain Scale: 0-10 Numeric Is Patient Pain Free? Yes No debridement was completed today Assessment/Plan Active Problems (Last Reviewed 10/20/18 @ 14:02 by Kim Huynh) Lymphedema of right lower extremity (Chronic) Morbid obesity with BMI of 45.0-49.9, adult (Chronic) Edema of both legs (Chronic) Leg swelling (Chronic) Multiple excoriations (Chronic) Lymphedema of left lower extremity (Chronic) Assessment: This is a 58-year-old morbidly obese male who was recently hospitalized for acute gastrointestinal bleeding, melena, and acute blood loss anemia. During the course of his hospital stay, the patient was noted to have severe swelling, edema, and lymphedema in his lower extremities bilaterally. Profound skin changes and diffuse excoriations were noted in the left lower ex tremity, associated with cellulitis, for which the patient was treated with antibiotics. He presented here with persisting swelling and edema in his lower extremities bilaterally, and persisting superficial excoriations diffusely in the gaiter area of the left lower extremity. There is no suspicion of significant arterial occlusive disease in the lower extremities. The patient has responded well in recent weeks to the use of an Unna boot, which has been applied to the left lower extremity twice weekly. Plan: We are to continue a regimen of conservative treatment measures relative to the lower extremity swelling and skin changes. The patient has been advised to elevate his lower extremities as much as possible. Elevation is to be to heart level, or higher. This is to be implemented even during daytime hours. The patient is to continue sleeping on a flat mattress at night. Activity has been encouraged. The patient has been advised to refrain from prolonged idle sitting and standing. Weight loss has been strongly recommended. Patient is to continue with graduated compression stockings to the right lower extremity, which have been documented to be 20 to 30 mmHg. Relative to the left lower extremity, we are to use a 3M 2 layer compression wrap, which will be changed twice weekly. The prescription has been provided for graduated compression stockings, knee-high length, of 3040 mmHg compression. These have been ordered at [employer], and are expected to be received any day. Once received, the patient will transition from the use of a 3M 2 layer compression wrap to the use of his compression stockings. The patient is to return in 1 week for reassessment. We will also attempt to secure mechanical pneumatic compression pumps for the patient's lower extremity, as his lower extremity swelling and edema appears to be chronic in nature, and likely a lifelong problem. The patient's ambulatory capacity is somewhat limited at present, due to chronic right knee pain and left foot pain. He has been advised to seek evaluation with an orthopedic surgeon, and has been evaluated by Dr. Ritchie. X-rays have been obtained, and the patient is scheduled for an MRI of his left foot later this week. Discharge is anticipated in the near future if the patient continues to improve at the current rate. The patient is not a smoker. Influenza vaccine was not administered today. The patient weighs 345 pounds. He stands 5 feet 10 inches tall. BMI is 49.5. This places the patient in a class III obesity category. Weight loss has been strongly recommended, in collaboration with the the patient's primary care physician has been advised.
[2018-11-18 11:18] VITALS: BP 155/80; PULSE 66; RESP 18; TEMP 36.9; BMI 49.5
[2018-11-21 12:58] VITALS: BP 158/80; PULSE 54; RESP 18; TEMP 36.2; BMI 49.5
--- NOTE | 2018-11-21 14:01 | PCM.WC.HP ---
(1) GI bleed Status: Resolved Current Visit: No Qualifiers: Code(s): K92.2 - Gastrointestinal hemorrhage, unspecified (2) Lymphedema of right lower extremity Status: Chronic Current Visit: Yes Code(s): I89.0 - Lymphedema, not elsewhere classified (3) Hypertension Status: Chronic Current Visit: No Code(s): I10 - Essential (primary) hypertension (4) Morbid obesity with BMI of 45.0-49.9, adult Status: Chronic Current Visit: Yes Code(s): E66.01 - Morbid (severe) obesity due to excess calories; Z68.42 - Body mass index (BMI) 45.0-49.9, adult (5) Edema of both legs Status: Chronic Current Visit: Yes Code(s): R60.0 - Localized edema (6) Leg swelling Status: Chronic Current Visit: Yes Code(s): M79.89 - Other specified soft tissue disorders (7) Multiple excoriations Status: Chronic Current Visit: No Code(s): T07.XXXA - Unspecified multiple injuries, initial encounter (8) Acute blood loss anemia Status: Resolved Current Visit: No Code(s): D62 - Acute posthemorrhagic anemia (9) Gastric ulcer Status: Chronic Current Visit: No Qualifiers: Code(s): K25.9 - Gastric ulcer, unspecified as acute or chronic, without hemorrhage or perforation (10) Pressure injury of left ankle, stage 2 Status: Chronic Current Visit: No Code(s): L89.522 - Pressure ulcer of left ankle, stage 2 (11) Pressure injury of dorsum of left foot, stage 2 Status: Chronic Current Visit: No Code(s): L89.892 - Pressure ulcer of other site, stage 2 (12) Pressure injury of left leg, stage 2 Status: Chronic Current Visit: No Code(s): L89.892 - Pressure ulcer of other site, stage 2 (13) Lymphedema of left lower extremity Status: Chronic Current Visit: Yes Code(s): I89.0 - Lymphedema, not elsewhere classified (14) History of hypertension Status: Chronic Current Visit: No Code(s): Z86.79 - Personal history of other diseases of the circulatory system (15) History of obstructive sleep apnea Status: Chronic Current Visit: No Code(s): Z86.69 - Personal history of other diseases of the nervous system and sense organs (16) Sepsis Status: Resolved Current Visit: No Qualifiers: Code(s): A41.9 - Sepsis, unspecified organism History of Present Illness Chief Complaint: Bilateral lower extremity swelling, edema, and lymphedema; multiple superficial excoriations of the left lower extremity involving the gaiter area History of Wound: This is a 58-year-old male with a long-standing history of chronic swelling, edema, and lymphedema in his lower extremities. This has been present for many years. The patient is also morbidly obese. He sleeps in a recumbent position at night. He denies a history of thrombophlebitis in his lower extremities. He claims to be relatively active. Approximately 2 weeks prior to presentation, he developed diffuse, superficial excoriations of the left lower extremity. Incidentally, he required recent hospitalization at [facility] for acute blood loss anemia secondary to gastrointestinal bleeding. His evaluation included upper endoscopy, which revealed the presence of a gastric ulceration. Patient was admitted on September 30, 2018, and subsequently discharged on October 12, 2018. During his hospital stay, he was treated for cellulitis involving the left lower extremity, but subsequently not discharged on an antibiotic. The patient has been wearing graduated compression stockings on his lower extremities, which he has obtained online through [employer], with documentation that the knee-high stockings are of 20 to 30 mmHg compression. Venous duplex examination was performed on October 04, 2018, which was negative for thrombophlebitis. Laboratory studies have also been performed, within the last several weeks, with results as follows: White blood count 8.3, YOON globin 7.8, hematocrit 23.7, platelets 318,000, sodium 142, potassium 4.1, chloride 109, BUN 10, creatinine 0.63, glucose 100, calcium 7.5, prealbumin 10.6. Past Medical History Past Medical History: Chronic Problems (Last Reviewed 10/20/18 @ 14:02 by Kim Huynh) Lymphedema of right lower extremity (Chronic) Hypertension (Chronic) Morbid obesity with BMI of 45.0-49.9, adult (Chronic) Edema of both legs (Chronic) Leg swelling (Chronic) Multiple excoriations (Chronic) Gastric ulcer (Chronic) Pressure injury of left ankle, stage 2 (Chronic) Pressure injury of dorsum of left foot, stage 2 (Chronic) Pressure injury of left leg, stage 2 (Chronic) Lymphedema of left lower extremity (Chronic) History of hypertension (Chronic) History of obstructive sleep apnea (Chronic) Surgical History: no surgical history Allergies/Adverse Reactions: Allergies No Known Allergies Allergy (Verified 11/21/18 09:29) Home Medications: Ambulatory Orders Medication Instructions Recorded Carvedilol 25 mg PO BID 09/30/18 Doxazosin Mesylate 4 mg PO DAILY 09/30/18 Multivitamin [One-Daily 1 ea PO DAILY 09/30/18 Multi-Vitamin] Amlodipine Besylate 5 mg PO DAILY #1 tab 10/12/18 Hydrochlorothiazide [Hctz] 12.5 mg PO DAILY #1 tab 10/12/18 Losartan Potassium 50 mg PO DAILY #1 tab 10/12/18 Potassium Chloride [K-Dur] 20 meq PO DAILYCM #30 tab 10/12/18 omeprazole 40 mg capsule,delayed 40 mg PO BID #180 cap 10/20/18 release sucralfate 1 gram tablet 1 g PO QACHS #140 tab 10/20/18 - Family History Paternal Family History: Family History (Last Reviewed 10/20/18 @ 14:02 by Kim Huynh) Other Diabetes Hypertension - - Patient's father at the age of 84 with a history of obesity, diabetes mellitus, hypertension, and renal failure. Patient's mother is 80 years of age and healthy. Smoking Status: Former smoker Tobacco Use: Non-smoker Review of Systems Constitutional: Denies: Chills, Fever, Weight Change Eyes: Denies: Pain, Vision Change HEENT: Denies: Difficulty Hearing, Difficulty Swallowing, Sinus Congestion Cardiovascular: Denies: Chest Pain, Palpitations Respiratory: Denies: Cough, Shortness of Breath Gastrointestinal: Denies: Diarrhea, Nausea, Vomiting Genitourinary: Denies: Dysuria, Hematuria Endocrine: Denies: Heat/ Cold Intolerance, Polydipsia, Polyuria Hematologic/ Lymphatic: Denies: Easy Bruising, Easy Bleeding - Physical Exam Vital Signs Temp Pulse Resp BP 97.1 F L 54 L 18 158/80 H 11/21/18 12:58 11/21/18 12:58 11/21/18 12:58 11/21/18 12:58 General: Alert, Oriented x3, Cooperative, No apparent distress, Well developed, Well nourished HEENT: Atraumatic, PERRLA, EOMI, Normocephalic Oral: Moist Mucosa Neck: No JVD Lungs: Normal air movement Abdomen: Non-Distended Extremities: No clubbing, No cyanosis, No Calf Tenderness, - - Mild to moderate swelling and edema persist in the lower extremities bilaterally. It is more severe in the left lower extremity. The excoriations in the left lower extremity are now completely healed, with chronic skin changes. There is no sign of infection or cellulitis. No open wounds or ulcerations. Hyperpigmentation and lipodermatosclerosis persist. Skin: No breakdown Wound Measurements and Assessment WC - Nurse 1 - General Ulcer Measurement Start: 11/15/18 11:09 Freq: Status: Active Protocol: Activity Type Activity Date Activity User E-Sign Co-Sign Detail Recorded Client Recorded Date Recorded By Document 11/21/18 12:58 AN [id number] 11/21/18 13:07 AN 11/21/18 12:58 Wound Center Nurse 1 [Edema Assessment] -Left Calf (cm) 49.1 -Left Ankle (cm) 32 WC - Nurse 2 - General Ulcer CM Notes Start: 11/15/18 11:09 Freq: Status: Active Protocol: Activity Type Activity Date Activity User E-Sign Co-Sign Detail Recorded Client Recorded Date Recorded By Document 11/21/18 13:34 MARQUISE [id number] 11/21/18 13:35 11/21/18 13:34 Pain Scale: 0-10 Numeric [Pain] -Is Patient Pain Free? Yes Musculoskeletal: No Muscle Wasting Neurological: Cranial nerves II-XII grossly intact, Neuro grossly intact Psych/Mental Status: Normal Affect, Appropriate, Alert and oriented to time, place, person, mood and affect Debridement Note Post-Debridement Measurements/Treatment WC - Nurse 2 - General Ulcer CM Notes Start: 11/15/18 11:09 Freq: Status: Active Protocol: Activity Type Activity Date Activity User E-Sign Co-Sign Detail Recorded Client Recorded Date Recorded By Document 11/15/18 11:53 DV [id number] 11/15/18 11:56 DV Document 11/21/18 13:34 [id number] [id number] 11/21/18 13:35 11/15/18 11/21/18 11:53 13:34 Pain Scale: 0-10 Numeric Is Patient Pain Free? Yes Yes No debridement was completed today Assessment/Plan Active Problems (Last Reviewed 10/20/18 @ 14:02 by Kim Huynh) Lymphedema of right lower extremity (Chronic) Morbid obesity with BMI of 45.0-49.9, adult (Chronic) Edema of both legs (Chronic) Leg swelling (Chronic) Lymphedema of left lower extremity (Chronic) Assessment: This is a 58-year-old morbidly obese male who was recently hospitalized for acute gastrointestinal bleeding, melena, and acute blood loss anemia. During the course of his hospital stay, the patient was noted to have severe swelling, edema, and lymphedema in his lower extremities bilaterally. Profound skin changes and diffuse excoriations were noted in the left lower extremity, associated with cellulitis, for which the patient was treated with antibiotics. He presented here with persisting swelling and edema in his lower extremities bilaterally, and persisting superficial excoriations diffusely in the gaiter area of the left lower extremity. There is no suspicion of significant arterial occlusive disease in the lower extremities. The patient has responded well in recent weeks to the use of an Unna boot, which has been applied to the left lower extremity twice weekly. Plan: Patient is now completely healed, with no open wounds or ulcerations, and all superficial excoriations now healed. Patient is to be discharged. He has obtained his graduated compression stockings of 30 to 40 mmHg compression, which are of knee-high length. The patient has been instructed to continue elevating his lower extremities as much as possible. Elevation is to be to heart level, or higher. He is to avoid idle standing and sitting. Activity has been encouraged. The patient has been encouraged to lose weight. He will follow-up henceforth on an as-needed basis. The patient remains under evaluation by the orthopedic service, having recently undergone an MRI scan of his left foot. It is anticipated that he may be a candidate for surgical intervention, though this will be deferred for management with the orthopedic service. The patient is not a smoker. Influenza vaccine was not administered today. The patient weighs 345 pounds. He stands 5 feet 10 inches tall. BMI is 49.5. This places the patient in a class III obesity category. Weight loss has been strongly recommended, in collaboration with the the patient's primary care physician has been advised.
--- NOTE | 2018-11-21 14:06 | HP.PCM_ITS ---
(1) GI bleed Status: Resolved Current Visit: No Qualifiers: Code(s): K92.2 - Gastrointestinal hemorrhage, unspecified (2) Lymphedema of right lower extremity Status: Chronic Current Visit: Yes Code(s): I89.0 - Lymphedema, not elsewhere classified (3) Hypertension Status: Chronic Current Visit: No Code(s): I10 - Essential (primary) hypertension (4) Morbid obesity with BMI of 45.0-49.9, adult Status: Chronic Current Visit: Yes Code(s): E66.01 - Morbid (severe) obesity due to excess calories; Z68.42 - Body mass index (BMI) 45.0-49.9, adult (5) Edema of both legs Status: Chronic Current Visit: Yes Code(s): R60.0 - Localized edema (6) Leg swelling Status: Chronic Current Visit: Yes Code(s): M79.89 - Other specified soft tissue disorders (7) Multiple excoriations Status: Chronic Current Visit: No Code(s): T07.XXXA - Unspecified multiple injuries, initial encounter (8) Acute blood loss anemia Status: Resolved Current Visit: No Code(s): D62 - Acute posthemorrhagic anemia (9) Gastric ulcer Status: Chronic Current Visit: No Qualifiers: Code(s): K25.9 - Gastric ulcer, unspecified as acute or chronic, without hemo rrhage or perforation (10) Pressure injury of left ankle, stage 2 Status: Chronic Current Visit: No Code(s): L89.522 - Pressure ulcer of left ankle, stage 2 (11) Pressure injury of dorsum of left foot, stage 2 Status: Chronic Current Visit: No Code(s): L89.892 - Pressure ulcer of other site, stage 2 (12) Pressure injury of left leg, stage 2 Status: Chronic Current Visit: No Code(s): L89.892 - Pressure ulcer of other site, stage 2 (13) Lymphedema of left lower extremity Status: Chronic Current Visit: Yes Code(s): I89.0 - Lymphedema, not elsewhere classified (14) History of hypertension Status: Chronic Current Visit: No Code(s): Z86.79 - Personal history of other diseases of the circulatory system (15) History of obstructive sleep apnea Status: Chronic Current Visit: No Code(s): Z86.69 - Personal history of other diseases of the nervous system and sense organs (16) Sepsis Status: Resolved Current Visit: No Qualifiers: Code(s): A41.9 - Sepsis, unspecified organism History of Present Illness Chief Complaint: Bilateral lower extremity swelling, edema, and lymphedema; mu ltiple superficial excoriations of the left lower extremity involving the gaiter area History of Wound: This is a 58-year-old male with a long-standing history of chronic swelling, edema, and lymphedema in his lower extremities. This has been present for many years. The patient is also morbidly obese. He sleeps in a recumbent position at night. He denies a history of thrombophlebitis in his lower extremities. He claims to be relatively active. Approximately 2 weeks prior to presentation, he developed diffuse, superficial excoriations of the left lower extremity. Incidentally, he required recent hospitalization at [facility] for acute blood loss anemia secondary to gastrointestinal bleeding. His evaluation included upper endoscopy, which reve aled the presence of a gastric ulceration. Patient was admitted on September 30, 2018, and subsequently discharged on October 12, 2018. During his hospital stay, he was treated for cellulitis involving the left lower extremity, but subsequently not discharged on an antibiotic. The patient has been wearing graduated compression stockings on his lower extremities, which he has obtained online through [email or web address], with documentation that the knee-high stockings are of 20 to 30 mmHg compression. Venous duplex examination was performed on October 04, 2018, which was negative for thrombophlebitis. Laboratory studies have also been performed, within the last several weeks, with results as follows: White blood count 8.3, YOON globin 7.8, hematocrit 23.7, platelets 318,000, sodium 142, potassium 4.1, chloride 109, BUN 10, creatinine 0.63, glucose 100, calcium 7.5, prealbumin 10.6. Past Medical History Past Medical History: Chronic Problems (Last Reviewed 10/20/18 @ 14:02 by Kim Huynh) Lymphedema of right lower extremity (Chronic) Hypertension (Chronic) Morbid obesity with BMI of 45.0-49.9, adult (Chronic) Edema of both legs (Chronic) Leg swelling (Chronic) Multiple excoriations (Chronic) Gastric ulcer (Chronic) Pressure injury of left ankle, stage 2 (Chronic) Pressure injury of dorsum of left foot, stage 2 (Chronic) Pressure injury of left leg, stage 2 (Chronic) Lymphedema of left lower extremity (Chronic) History of hypertension (Chronic) History of obstructive sleep apnea (Chronic) Surgical History: no surgical history Allergies/Adverse Reactions: Allergies No Known Allergies Allergy (Verified 11/21/18 09:29) Home Medications: Ambulatory Orders Medication Instructions Recorded Carvedilol 25 mg PO BID 09/30/18 Doxazosin Mesylate 4 mg PO DAILY 09/30/18 Multivitamin [One-Daily 1 ea PO DAILY 09/30/18 Multi-Vitamin] Amlodipine Besylate 5 mg PO DAILY #1 tab 10/12/18 Hydrochlorothiazide [Hctz] 12.5 mg PO DAILY #1 tab 10/12/18 Losartan Potassium 50 mg PO DAILY #1 tab 10/12/18 Potassium Chloride [K-Dur] 20 meq PO DAILYCM #30 tab 10/12/18 omeprazole 40 mg capsule,delayed 40 mg PO BID #180 cap 10/20/18 release sucralfate 1 gram tablet 1 g PO QACHS #140 tab 10/20/18 - Family History Paternal Family History: Family History (Last Reviewed 10/20/18 @ 14:02 by Kim Huynh) Other Diabetes Hypertension - - Patient's father at the age of 84 with a history of obesity, diabetes mellitus, hypertension, and renal failure. Patient's mother is 80 years of age and healthy. Smoking Status: Former smoker Tobacco Use: Non-smoker Review of Systems Constitutional: Denies: Chills, Fever, Weight Change Eyes: Denies: Pain, Vision Change HEENT: Denies: Difficulty Hearing, Difficulty Swallowing, Sinus Congestion Cardiovascular: Denies: Chest Pain, Palpitations Respiratory: Denies: Cough, Shortness of Breath Gastrointestinal: Denies: Diarrhea, Nausea, Vomiting Genitourinary: Denies: Dysuria, Hematuria Endocrine: Denies: Heat/ Cold Intolerance, Polydipsia, Polyuria Hematologic/ Lymphatic: Denies: Easy Bruising, Easy Bleeding - Physical Exam Vital Signs Temp Pulse Resp BP 97.1 F L 54 L 18 158/80 H 11/21/18 12:58 11/21/18 12:58 11/21/18 12:58 11/21/18 12:58 General: Alert, Oriented x3, Cooperative, No apparent distress, Well developed, Well nourished HEENT: Atraumatic, PERRLA, EOMI, Normocephalic Oral: Moist Mucosa Neck: No JVD Lungs: Normal air movement Abdomen: Non-Distended Extremities: No clubbing, No cyanosis, No Calf Tenderness, - - Mild to moderate swelling and edema persist in the lower extremities bilaterally. It is more severe in the left lower extremity. The excoriations in the left lower extremity are now completely healed, with chronic skin changes. There is no sign of infection or cellulitis. No open wounds or ulcerations. Hyperpigmentation and lipodermatosclerosis persist. Skin: No breakdown Wound Measurements and Assessment WC - Nurse 1 - General Ulcer Measurement Start: 11/15/18 11:09 Freq: Status: Active Protocol: Activity Type Activity Date Activity User E-Sign Co-Sign Detail Recorded Client Recorded Date Recorded By Document 11/21/18 12:58 AN [id number] 11/21/18 13:07 AN 11/21/18 12:58 Wound Center Nurse 1 [Edema Assessment] -Left Calf (cm) 49.1 -Left Ankle (cm) 32 WC - Nurse 2 - General Ulcer CM Notes Start: 11/15/18 11:09 Freq: Status: Active Protocol: Activity Type Activity Date Activity User E-Sign Co-Sign Detail Recorded Client Recorded Date Recorded By Document 11/21/18 13:34 [id number] 11/21/18 13:35 11/21/18 13:34 Pain Scale: 0-10 Numeric [Pain] -Is Patient Pain Free? Yes Musculoskeletal: No Muscle Wasting Neurological: Cranial nerves II-XII grossly intact, Neuro grossly intact Psych/Mental Status: Normal Affect, Appropriate, Alert and oriented to time, place, person, mood and affect Debridement Note Post-Debridement Measurements/Treatment WC - Nurse 2 - General Ulcer CM Notes Start: 11/15/18 11:09 Freq: Status: Active Protocol: Activity Type Activity Date Activity User E-Sign Co-Sign Detail Recorded Client Recorded Date Recorded By Document 11/15/18 11:53 DV [id number] 11/15/18 11:56 DV Document 11/21/18 13:34 JF [id number] 11/21/18 13:35 11/15/18 11/21/18 11:53 13:34 Pain Scale: 0-10 Numeric Is Patient Pain Free? Yes Yes No debridement was completed today Assessment/Plan Active Problems (Last Reviewed 10/20/18 @ 14:02 by Kim Huynh) Lymphedema of right lower extremity (Chronic) Morbid obesity with BMI of 45.0-49.9, adult (Chronic) Edema of both legs (Chronic) Leg swelling (Chronic) Lymphedema of left lower extremity (Chronic) Assessment: This is a 58-year-old morbidly obese male who was recently hospitalized for acute gastrointestinal bleeding, melena, and acute blood loss anemia. During the course of his hospital stay, the patient was noted to have severe swelling, edema, and lymphedema in his lower extremities bilaterally. Profound skin changes and diffuse excoriations were noted in the left lower extremity, associated with cellulitis, for which the patient was treated with antibiotics. He presented here with persisting swelling and edema in his lower extremities bilaterally, and persisting superficial excoriations diffusely in the gaiter area of the left lower extremity. There is no suspicion of significant arterial occlusive disease in the lower extremities. The patient has responded well in recent weeks to the use of an Unna boot, which has been applied to the left lower extremity twice weekly. Plan: Patient is now completely healed, with no open wounds or ulcerations, and all superficial excoriations now healed. Patient is to be discharged. He has obtained his graduated compression stockings of 30 to 40 mmHg compression, which are of knee-high length. The patient has been instructed to continue elevating his lower extremities as much as possible. Elevation is to be to heart level, or higher. He is to avoid idle standing and sitting. Activity has been encouraged. The patient has been encouraged to lose weight. He will follow-up henceforth on an as-needed basis. The patient remains under evaluation by the orthopedic service, having recently undergone an MRI scan of his left foot. It is anticipated that he may be a candidate for surgical intervention, though this will be deferred for management with the orthopedic service. The patient is not a smoker. Influenza vaccine was not administered today. The patient weighs 345 pounds. He stands 5 feet 10 inches tall. BMI is 49.5. This places the patient in a class III obesity category. Weight loss has been strongly recommended, in collaboration with the the patient's primary care physician has been advised.
== END 2018-12-11 23:59 ==
LOC: WC 11:30
PROVIDERS: Family Provider Internal Medicine; PCP Internal Medicine; Visit Provider Surgery
DX: I89.0 Lymphedema, not elsewhere classified (principal); E66.01 Morbid (severe) obesity due to excess calories; Z68.42 Body mass index [BMI] 45.0-49.9, adult; I10 Essential (primary) hypertension; R60.0 Localized edema; M79.89 Other specified soft tissue disorders; G47.33 Obstructive sleep apnea (adult) (pediatric); Z79.899 Other long term (current) drug therapy; Z87.891 Personal history of nicotine dependence
CPT/HCPCS: 29581; 99212; 99213; G0463

== ENCOUNTER 2018-11-22 07:09 | Day surgery (SDC) | payer BC, SELFPAY ==
--- NOTE | 2018-10-20 04:59 | HP_ITS ---
Intake Vital Signs 10/20/18 Body Mass Index (BMI) 49.5 Intake Visit Reasons: Hospital F/U discuss EGD Chief Complaint: Left leg/ calf redness and swelling [employer] Required: No Is patient in pain?: No Allergies No Known Allergies Allergy (Verified 10/20/18 14:03) Medications Carvedilol 25 mg PO BID 09/30/18 [History Confirmed 10/20/18] Doxazosin Mesylate 4 mg PO DAILY 09/30/18 [History Confirmed 10/20/18] Multivitamin [One-Daily Multi-Vitamin] 1 ea PO DAILY 09/30/18 [History Confirmed 10/20/18] Amlodipine Besylate 5 mg PO DAILY #1 tab 10/12/18 [Rx Confirmed 10/20/18] Hydrochlorothiazide [Hctz] 12.5 mg PO DAILY #1 tab 10/12/18 [Rx Confirmed 10/20/18] Losartan Potassium 50 mg PO DAILY #1 tab 10/12/18 [Rx Confirmed 10/20/18] Potassium Chloride [K-Dur] 20 meq PO DAILYCM #30 tab 10/12/18 [Rx Confirmed 10/20/18] Silver Sulfadiazine 1% Crm [Silvadene Cream] 1 applic TOPICAL DAILY #1 bottle 10/12/18 [Rx Confirmed 10/20/18] omeprazole 40 mg capsule,delayed release 40 mg PO BID #180 cap 10/20/18 [Rx Confirmed 10/20/18] sucralfate 1 gram tablet 1 g PO QACHS #140 tab 10/20/18 [Rx Confirmed 10/20/18] PFSH Medical History GI bleed (Acute) Lymphedema of right lower extremity (Chronic) Hypertension (Chronic) Morbid obesity with BMI of 45.0-49.9, adult (Chronic) Edema of both legs (Chronic) Leg swelling (Chronic) Multiple excoriations (Chronic) Acute blood loss anemia (Acute) Gastric ulcer (Acute) Pressure injury of left ankle, stage 2 (Acute) Pressure injury of dorsum of left foot, stage 2 (Acute) Pressure injury of left leg, stage 2 (Acute) Cellulitis of left lower extremity (Acute) Lymphedema of left lower extremity (Chronic) History of hypertension (Chronic) History of obstructive sleep apnea (Chronic) Sepsis (Acute) Cellulitis of left anterior lower leg (Acute) Acute kidney injury (Acute) Hypokalemia (Acute) Knee pain (Acute) ARCELIA (obstructive sleep apnea) (Acute) Hypertension (Chronic) Surgical History History of esophagogastroduodenoscopy (EGD) (Acute) Family History Other Diabetes Hypertension Social History Smoking Status: Former smoker alcohol intake: never HPI HPI HPI: ANDREW MEJÍA, is a 58 M who presents to the office today for HPI HPI Surgical H&P: Yes HPI: ANDREW MEJÍA, is a 58 M who presents to the office today for follow-up for gastric ulcer. Patient had a very large excavated gastric ulcer. Patient was started on Carafate and PPI in the hospital. He no longer has any upper abdominal pain or black stools. He says his stools been normal. He also notes that he has never had a screening colonoscopy. He has no energy today and feels very tired. He is seeing his PCP tomorrow to get a repeat CBC to follow-up on his hemoglobin. ROS General General: No weight change or fatigue Skin Additional Details: Left lower extremity cellulitis and infection Cardio Cardiovascular: Yes high blood pressure; no murmur, pacemaker, heart disease, atrial fibrillation, heart attack, heart stent, palpitations, shortness of breat with exertion or chest pain Psych Psychiatric: No depression or anxiety Resp Respiratory: No shortness of breath, Yes sleep apnea, No cough, No COPD, No asthma, No emphysema, No wheezing Gastro Gastrointestinal: No abdominal pain, No nausea or vomiting, No diarrhea, No constipation, No blood in stool, No acid reflux, No hemorrhoids, Yes ulcers, No gallbladder problem, No black,tarry stools Bruce Hematologic: No blood thinners, Yes anemia Exam Const General: cooperative Orientation: alert, oriented x3 Resp Effort & Inspection: normal respiratory effort Auscultation: clear to auscultation bilaterally Cardio Rate: regular rate Rhythm: regular rhythm Heart Sounds: no murmurs GI Inspection: non-distended Palpation: soft, nontender Assessment & Plan Problems 1. Gastrointestinal hemorrhage associated with gastric ulcer K25.4 2. Encounter for insertion of venous access port Z45.2 3. Acute gastric ulcer with hemorrhage K25.0 Plan Patient had bleeding gastric ulcer. He has stopped using ibuprofen and he was put on PPI and Carafate. I will repeat an EGD in 4 weeks to ensure that the ulcer is healing. At this time the patient complains of no more melena or upper abdominal pain. Patient has never had a screening colonoscopy. I recommend having a screening colonoscopy at the same time of his EGD. She agrees to proceed. I explained endoscopy in detail to the patient. I explained the risks including but not limited to stroke or heart attack with anesthesia, perforation of the GI tract, bleeding, infection. I explained that any of these could necessitate further emergency surgery. The patient understands and all questions were answered sufficiently. The patient wishes to proceed with procedure. Dragan Bradley MD Pager: [facility] [address] [place] [address], [address] [place] [phone] Office: Medications New: omeprazole 40 mg PO BID 180 caps 2RF sucralfate 1 g PO QACHS 140 tabs 0RF Discontinued: sucralfate Discontinued Reason: Order Completed 1 GM PO 1HR_ACHS 120 tabs 0RF pantoprazole Discontinued Reason: None 40 mg PO BID 60 tabs 0RF Coding Level of Care Code Off vis,est,level 3 Diagnoses Gastrointestinal hemorrhage associated with gastric ulcer K25.4 ??GI bleed type/associated pathology: gastric ulcer Encounter for insertion of venous access port Z45.2 Acute gastric ulcer with hemorrhage K25.0 ??Gastric ulcer chronicity: acute ??Gastric ulcer complication status: with hemorrhage 10/20/18 [id number] <Electronically signed by Dragan Bradley MD> Date Dragan Bradley MD
[2018-10-20 14:03] VITALS: BMI 49.5
[2018-11-21 12:58] VITALS: BMI 49.5
--- NOTE | 2018-11-22 | COLBX_PTH ---
PATIENT: ANDREW MEJÍA LOC: EN U#:[id number] AGE/SX: 58/M ROOM: RE11/22/[address]: Dr. Dragan Bradley MD : 1960 BED: DIS: 11/22/2018 SPEC #: [id number] RECD: 11/22/18 13:55 STATUS: KATIE MARIA E #: [id number] KAYKAY: 11/22/18 00:[address]: Dragan Bradley DEPT: SURGICAL PATHOLOGY RECD BY: Pete Sandoval ENTERED: 11/22/18 13:55 SP TYPE: COLON BX OTHR DR: MD Danyell Porter MD Tissues: COLON BIOPSY Procedures: Surgery Specimen Level IV HEADER OPERATION: Colonoscopy, EGD ([facility] [place]) PRE-OP DIAGNOSIS: Followup EGD, large gastric ulcer, colon screening TISSUE SUBMITTED: Sigmoid colon polyp 30 cm MICROSCOPIC DIAGNOSIS Sigmoid colon polyp at 30 cm, biopsy: Benign lipomatous polyp. See microscopic description and comment. AM:josé miguel 11/23/18 COMMENT Sections show normal colonic mucosa overlying a normal muscularis mucosa. Deep to the muscularis mucosa is a mature adipose tissue proliferation consistent with a lipoma. MICROSCOPIC DESCRIPTION Slides are reviewed. GROSS DESCRIPTION Received in fixative is one container labeled with the patient's name and designated sigmoid colon polyp 30 cm. The specimen consists of a barroso-pink polyp measuring 2 x 1.8 x 1.5 cm. The base of the polyp shows yellow adipose surfaces and it is inked black. Sections reveal yellow adipose cut surfaces without area of hemorrhage, necrosis or cystic degeneration. The mucosa appears unremarkable. The entire specimen is submitted in three cassettes. / SJ:josé miguel 11/22/18 TC:1 CPT: 92874
[2018-11-22 07:27] VITALS: BP 173/98; PULSE 67; RESP 16; TEMP 36.6; O2SAT 97; BMI 49.0
[2018-11-22 07:35] LABS: Hematocrit 38.2 % (40-54)
--- NOTE | 2018-11-22 08:52 | HP.PCM_ITS ---
Problem List (1) Screen for colon cancer Status: Acute (2) GI bleed Status: Resolved Qualifiers: GI bleed type/associated pathology: gastric ulcer (3) Acute blood loss anemia Status: Resolved (4) Gastric ulcer Status: Chronic Qualifiers: History of Present Illness Date of Admission: 11/22/18 The patient is a 58 year old M who was hospitalized with upper GI bleed. He was found to have a very large gastric ulcer and was started on a PPI and Carafate. Patient reports he is not having any abdominal pain at this time but he does say that intermittently he does have some discomfort. Past Medical History Past Medical History (Chronic Problems): Chronic Problems (Last Reviewed 10/20/18 @ 14:02 by Kim Huynh) Lymphedema of right lower extremity (Chronic) Hypertension (Chronic) Morbid obesity with BMI of 45.0-49.9, adult (Chronic) Edema of both legs (Chronic) Leg swelling (Chronic) Multiple excoriations (Chronic) Gastric ulcer (Chronic) Pressure injury of left ankle, stage 2 (Chronic) Pressure injury of dorsum of left foot, stage 2 (Chronic) Pressure injury of left leg, stage 2 (Chronic) Lymphedema of left lower extremity (Chronic) History of hypertension (Chronic) History of obstructive sleep apnea (Chronic) Medical History: Medical History (Last Reviewed 10/20/18 @ 14:02 by Kim Huynh) GI bleed (Resolved) K92.2 Lymphedema of right lower extremity (Chronic) I89.0 Hypertension (Chronic) I10 Morbid obesity with BMI of 45.0-49.9, adult (Chronic) E66.01, Z68.42 Edema of both legs (Chronic) R60.0 Leg swelling (Chronic) M79.89 Multiple excoriations (Chronic) T07.XXXA Acute blood loss anemia (Resolved) D62 Gastric ulcer (Chronic) K25.9 Pressure injury of left ankle, stage 2 (Chronic) L89.522 Pressure injury of dorsum of left foot, stage 2 (Chronic) L89.892 Pressure injury of left leg, stage 2 (Chronic) L89.892 Cellulitis of left lower extremity (Resolved) L03.116 Lymphedema of left lower extremity (Chronic) I89.0 History of hypertension (Chronic) Z86.79 History of obstructive sleep apnea (Chronic) Z86.69 Sepsis (Resolved) A41.9 Cellulitis of left anterior lower leg (Resolved) L03.116 Acute kidney injury (Resolved) N17.9 Hypokalemia (Resolved) E87.6 Knee pain M25.569 ARCELIA (obstructive sleep apnea) G47.33 Hypertension I10 Allergies No Known Allergies Allergy (Verified 11/21/18 09:29) Home Medications: Ambulatory Orders Medication Instructions Recorded RX: Carvedilol 25 mg PO BID 09/30/18 RX: Doxazosin Mesylate 4 mg PO DAILY 09/30/18 RX: Multivitamin [One-Daily 1 ea PO DAILY 09/30/18 Multi-Vitamin] RX: Amlodipine Besylate 5 mg PO DAILY #1 tab 10/12/18 RX: Hydrochlorothiazide [Hctz] 12.5 mg PO DAILY #1 tab 10/12/18 RX: Losartan Potassium 50 mg PO DAILY #1 tab 10/12/18 RX: Potassium Chloride [K-Dur] 20 meq PO DAILYCM #30 tab 10/12/18 omeprazole 40 mg capsule,delayed 40 mg PO BID #180 cap 10/20/18 release sucralfate 1 gram tablet 1 g PO QACHS #140 tab 10/20/18 Surgical History: Surgical History (Last Updated 10/20/18 @ 14:02 by Kim Huynh) History of esophagogastroduodenoscopy (EGD) Z98.890 09/30 Surgical History: no surgical history Smoking Status: Former smoker Tobacco Use: Non-smoker - *Family History Paternal Family History: Family History (Last Reviewed 10/20/18 @ 14:02 by Kim Huynh) Other Diabetes Hypertension History Items: - - Patient's father at the age of 84 with a history of obesity, diabetes mellitus, hypertension, and renal failure. Patient's mother is 80 years of age and healthy. Review of Systems Constitutional: Denies: Anorexia, Chills, Fever Eyes: Denies: Blurred vision HEENT: Denies: Difficulty Hearing Cardiovascular: Denies: Chest Pain Respiratory: Denies: Cough, Shortness of Breath Gastrointestinal: Reports: Abdominal Pain. Denies: Hematemesis, Hematochezia, Nausea, Vomiting Genitourinary: Denies: Dysuria Skin: Denies: Jaundice Neurological: Denies: Balance problems Psychiatric: Denies: Anxiety, Depression Hematologic/ Lymphatic: Reports: Anemia VTE Information - Inpt Only VTE Present on Admission: No VTE Mechan Device Prophylaxis: SCD's Patient Problems: Active and Suspected Problems (Last Reviewed 10/20/18 @ 14:02 by Kim Huynh) Screen for colon cancer (Acute) - Physical Exam General: Alert, Oriented x3, Cooperative Neck: No JVD Lungs: Normal air movement Cardiovascular: Regular rate, Regular Rhythm Abdomen: Soft, Non Tender, Non-Distended Vital Signs Temp Pulse Resp BP Pulse Ox 97.8 F 67 16 173/98 H 97 11/22/18 07:27 11/22/18 07:27 11/22/18 07:27 11/22/18 07:27 11/22/18 07:27 Oxygen Delivery Method Room Air Weight: 341 lb 14.991 oz Body Mass Index (BMI) 49.0 Laboratory Tests Past 24 Hrs 11/22/18 07:25 Hgb 12.0 L Hct 38.2 L Assessment/Plan All Active Problems (Last Reviewed 10/20/18 @ 14:02 by Kim Huynh) Screen for colon cancer (Acute) GI bleed (Resolved) Acute blood loss anemia (Resolved) Cellulitis of left lower extremity (Resolved) Sepsis (Resolved) Cellulitis of left anterior lower leg (Resolved) Acute kidney injury (Resolved) Hypokalemia (Resolved) 58-year-old male with gastric ulcer and need for screening colonoscopy 1. Patient is due for screening colonoscopy as he has never had one. Patient also needs follow-up EGD to check the very large gastric ulcer which was bleeding in his stomach. 2. I explained endoscopy in detail to the patient. I explained the risks including but not limited to stroke or heart attack with anesthesia, perforation of the GI tract, bleeding, infection. I explained that any of these could necessitate further emergency surgery. The patient understands and all questions were answered sufficiently. The patient wishes to proceed with procedure. Dragan Bradley MD Pager: [facility] [address] [place] [address], [address] [place] [address] Office:
[2018-11-22 09:40] VITALS: BP 109/57; BP 173/98; PULSE 73; RESP 16; TEMP 36.3; O2SAT 97
[2018-11-22 09:45] VITALS: BP 122/65; BP 173/98; PULSE 73; RESP 16; O2SAT 98
[2018-11-22 09:50] VITALS: BP 122/60; BP 173/98; PULSE 69; RESP 16; O2SAT 99
[2018-11-22 09:55] VITALS: BP 122/63; BP 173/98; PULSE 65; RESP 16; TEMP 36.8; O2SAT 100
--- NOTE | 2018-11-22 09:57 | OP.ENDO_ITS ---
11/22/2018 Danyell Dobson Md Re : Upper GI endoscopy procedure for Sadiq Solorior Olya This procedure was performed on Thursday, November 22, 2018. My impressions and recommendations are as follows: Impressions : - Normal esophagus. - Normal stomach. - Normal examined duodenum. - No specimens collected. Recommendations : - Discharge patient to home. - Resume previous diet. - Continue present medications. My findings are described in the full procedure note, which is enclosed. If I can be of further assistance, please feel free to contact me at Doctor phone number(s): , Work: . Sincerely, Dragan Bradley MD 11/22/2018 9:57:23 AM This report has been signed electronically.
--- NOTE | 2018-11-22 10:00 | OP.ENDO_ITS ---
11/22/2018 Danyell Dobson Md Re : Colonoscopy procedure for Sadiq Arellano Dear Olya This procedure was performed on Thursday, November 22, 2018. My impressions and recommendations are as follows: Impressions : - One large polyp in the sigmoid colon, removed with a hot snare. Resected and retrieved. Clip was placed. Recommendations : - Repeat colonoscopy date to be determined after pending pathology results are reviewed for surveillance based on pathology results. - Continue present medications. My findings are described in the full procedure note, which is enclosed. If I can be of further assistance, please feel free to contact me at Doctor phone number(s): , Work: . Sincerely, Dragan Bradley MD 11/22/2018 10:00:36 AM This report has been signed electronically.
[2018-11-22 10:36] VITALS: BP 173/98
== END 2018-11-22 10:37 | disposition home or self-care (01) ==
LOC: EN 07:10 → AC 07:11
PROVIDERS: Anesthesiology; Family Provider Internal Medicine; PCP Internal Medicine; Referring Provider Internal Medicine; Visit Provider Surgery
PROC: 0DJD8ZZ Inspection of Lower Intestinal Tract, Via Natural or Artificial Opening Endoscopic (ICD-10-PCS; CPT 45378; principal; 2018-11-22 07:55)
DX: Z12.11 Encounter for screening for malignant neoplasm of colon (principal); D12.5 Benign neoplasm of sigmoid colon; K25.4 Chronic or unspecified gastric ulcer with hemorrhage; I89.0 Lymphedema, not elsewhere classified; I10 Essential (primary) hypertension; E66.01 Morbid (severe) obesity due to excess calories; Z68.42 Body mass index [BMI] 45.0-49.9, adult; G47.33 Obstructive sleep apnea (adult) (pediatric); Z86.19 Personal history of other infectious and parasitic diseases; Z87.19 Personal history of other diseases of the digestive system; Z86.2 Personal history of diseases of the blood and blood-forming organs and certain disorders involving the immune mechanism; Z87.448 Personal history of other diseases of urinary system; Z79.899 Other long term (current) drug therapy; Z87.891 Personal history of nicotine dependence
CPT/HCPCS: 43235; 45385; 36415; 85014; 85018; 88305; J7120; J2405

== ENCOUNTER 2018-12-26 09:46 | Outpatient (RCR) | payer BC, SELFPAY | END 2018-12-26 23:59 | disposition home or self-care (01) | LOC: NS 09:46 | PROVIDERS: Family Provider Internal Medicine; PCP Internal Medicine; Visit Provider Specialist | DX: E66.01 Morbid (severe) obesity due to excess calories (principal); Z68.43 Body mass index [BMI] 50.0-59.9, adult; Z71.3 Dietary counseling and surveillance | CPT/HCPCS: 97802 ==

== ENCOUNTER 2020-08-29 09:44 | Outpatient (RCR) | payer BC, SELFPAY ==
[2020-08-29] MEDS: COVID-19 VACC, MRNA(PFIZER)/PF 30 MCG/0.3 ML SYRINGE IM (07:32)
[2020-09-19] MEDS: COVID-19 VACC, MRNA(PFIZER)/PF 30 MCG/0.3 ML SYRINGE IM (07:29)
== END 2020-08-29 23:59 ==
LOC: IMMUN 09:44
PROVIDERS: PCP Internal Medicine; Visit Provider Family Medicine
DX: Z23 Encounter for immunization (principal)
CPT/HCPCS: 0001A; 0002A; 91300

== ENCOUNTER → 2025-05-25 | Outpatient (CLI) | payer BC, SELFPAY ==
--- OUTSIDE RECORDS SUMMARY | 2025-05-25 19:57 | XMS RPT_ITS | CCD ---
Author Organization [facility] Care Team Providers Care Laborer Syrup Machine Name Role Phone Chinmay Dobson MD Primary Care Provider Chinmay Dobson MD Primary Care Provider Millan RAZOR SHARPENER.MEDIA JOB TITLES, Nelson Unavailable Russell RAZOR SHARPENER.PALLIATIVE CARE NURSE, Tammie Unavailable Russell RAZOR SHARPENER.PALLIATIVE CARE NURSE, Tammie Unavailable Russell RAZOR SHARPENER.PALLIATIVE CARE NURSE, Tammie Unavailable Millan RAZOR SHARPENER.MEDIA JOB TITLES, Nelson Unavailable Millan RAZOR SHARPENER.MEDIA JOB TITLES, Nelson Unavailable CHINMAY DOBSON Attending Unavailable TALAMPPIOTR CHINMAY D Referring Unavailable TALAMPAS, CHINMAY D Primary Care Unavailable TALAMPSADAF SALDAÑAA D Attending Unavailable TALAMPAS, CHINMAY D Primary Care Unavailable VU REICH JR Attending Unavailable MILLAN NELSON Referring Unavailable TALAMPAS, CHINMAY D Primary Care Unavailable TALAMPAS CHINMAY D Referring Unavailable TALAMPAS, CHINMAY D Primary Care Unavailable Medications Current Medications Medication Drug Class(es) Dates Sig (Normalized) Sig (Original) [id number] 200 actuat albuterol 0.09 mg/actuat metered dose inhaler (20 sources) beta2-Adrenergic Agonist Start: 09-10-2017 take 2 puff(s) by inhalation every four hours as needed for wheezing albuterol HFA (VENTOLIN HFA) 90 mcg/actuation inhaler Inhale 2 Puffs as instructed every 4 hours as needed for Wheezing/Shortne ss of Breath. 1 Inhaler 1 09/10/2017 Active Comment on above: Inhale 2 Puffs as in structed every 4 hours as needed for Wheezing/Shortness of Breath. amLODIPine 5 mg oral tablet (20 sources) Dihydropyridine Calcium Channel Joanie Start: 10-06-2024 take 1 tablet by mouth once daily amLODIPine (NORVASC) 5 mg tablet Take 1 tablet by mouth once daily. 90 tablet 3 10/06/2024 Active Start: 11-03-2022 End: 07-24-2024 take 1 tablet by mouth once daily amLODIPine (NORVASC) 5 mg tablet Take 1 tablet by mouth once daily. 90 tablet 3 07/24/2024 Active Start: 11-13-2020 End: 10-07-2021 take 1 tablet by mouth once daily amLODIPine (NORVASC) 5 mg tablet Take 1 tablet by mouth once daily. 90 tablet 3 10/07/2021 Active Comment on above: Take 1 tablet by nuria th once daily. carvedilol 25 mg oral tablet (20 sources) alpha-Adrenergic Joanie, beta-Adrenergic Joanie Start: 11-03-2022 End: 11-21-2024 take 1 tablet by mouth twice daily carvedilol (COREG) 25 mg tablet Take 1 tablet by mouth two times a day. 180 tablet 3 11/21/2024 Active Start: 10-09-2020 End: 10-07-2021 take 1 tablet by mouth twice daily carvedilol (COREG) 25 mg tablet Take 1 tablet by mouth twice daily. 180 tablet 3 10/07/2021 Active Comment on above: Take 1 tablet by nuria th twice daily. cholecalciferol 0.025 mg oral capsule (20 sources) Vitamin D Start: 05-15-2023 take 1 capsule by mouth once daily Cholecalciferol, Vitamin D3, 25 mcg (1,000 unit) cap Take 1 capsule by mouth once daily. 90 capsule 3 05/15/2023 Active Start: 12-13-2018 take 1 tablet by nuria th once daily cholecalciferol (VITAMIN D-3) 5,000 unit tab Take 1 tablet by mouth once daily. 30 tablet 2 12/23/2018 Active Comment on above: Take 1 tablet by nuria th once daily. Take 1 capsule by mo [facility] once daily. CPAP (20 sources) Start: 02-07-2024 CPAP Indications: ARCELIA (obstructive sleep apnea) , Severe obesity (BMI >= 40) ([facility]) Initiate CPAP @ 23/19 cm of water with humidification. Mask (per patient preference) optional chin strap (if indicated) , filters, tubing, humidifier and lifetime supplies. 1 Each 3 02/07/2024 Active Start: 02-01-2024 CPAP Indicatio ns: Severe obesity (BMI >= 40) (HCC) , ARCELIA (obstructive sleep apnea) Initiate CPAP @ 14 cm of water with humidification. Mask (per patient preference) optional chin strap (if indicated) , filters, tubing, humidifier and lifetime supplies. 1 Each 3 02/01/2024 Active Start: 06-30-2022 End: 02-01-2024 CPAP Indications: Severe obe sity (BMI >= 40) (HCC) , ARCELIA (obstructive sleep apnea) Initiate CPAP @ 14 cm of water with humidification. Mask (per patient preference) optional chin strap (if indicated) , filters, tubing, humidifier and lifetime supplies. 1 Each 3 06/30/2022 02/01/2024 Discontinued Start: 06-30-2022 CPAP Indicatio ns: Severe obesity (BMI >= 40) (HCC) , ARCELIA (obstructive sleep apnea) Initiate CPAP @ 14 cm of water with humidification. Mask (per patient preference) optional chin strap (if indicated) , filters, tubing, humidifier and lifetime supplies. 1 Each 3 06/30/2022 Active Start: 04-11-2018 End: 06-30-2022 CPAP Initiate CPAP @ 14 cm o f water with humidification. Mask (per patient preference) optional chin strap (if indicated) , filters, tubing, humidifier and lifetime supplies. 1 Device 0 04/11/2018 06/30/2022 Discontinued Start: 04-11-2018 CPAP Initiate CPAP @ 14 cm of water with humidification. Mask (per patient preference) optional chin strap (if indicated) , filters, tubing, humidifier and lifetime supplies. 1 Device 0 04/11/2018 Active Comment on above: Initiate CPAP @ 14 c m of water with humidification. Mask (per patient preference) optional chin strap (if indicated) , filters, tubing, humidifier and lifetime supplies. CPAP/BIPAP/OTHER (20 sources) Start : 01-27 End: 06-14 CPAP/BIPAP/OTHER Type .CPAPSettings into a note to see current settings/supplies/DME information. 1 Each 01/28/2024 06/14/2051 Active doxazosin 4 mg oral tablet (20 sources) alpha-Adrenergic Joanie Start : 11-13 End: 11-30 take 1 tablet by mouth once daily at bedtime doxazosin (CARDURA) 4 mg tablet Take 1 tablet by mouth daily at bedtime. 90 tablet 3 11/30/2024 Active Comment on above: Take 1 tablet by nuria th daily at bedtime. fluticasone propionate 0.05 mg/actuat metered dose nasal spray (20 sources) Corticosteroid Start : 08-24 take 2 spray(s) by mouth once daily fluticasone (FLONASE) 50 mcg/actuation nasal spray Use 2 Sprays in each nostril once daily. Rinse mouth after use. 1 Bottle 08/25/2019 Active Comment on above: Use 2 Sprays in each nostril once daily. Rinse mouth after use. hydroCHLOROthiazide 25 mg oral tablet (20 sources) Thiazide Diuretic Start : 10-06 take 1 tablet by mouth once daily hydroCHLOROthiazide 25 mg tablet Take 1 tablet by mouth once daily. 90 tablet 3 10/06/2024 Active Start: 11-22-2023 End: 08-24-2024 take 1 tablet by mouth once daily hydroCHLOROthiazide 25 mg tablet Take 1 tablet by mouth once daily. 90 tablet 3 08/24/2024 Active Start: 05-15-2023 End: 11-19-2023 take 1 tablet by mouth once daily hydroCHLOROthiazide 25 mg tablet Take 1 tablet by mouth once daily. 90 tablet 3 08/16/2023 11/19/2023 Discontinued Start: 08-31-2022 End: 04-29-2023 take 1 tablet by mouth once daily hydroCHLOROthiazide 25 mg tablet Take 1 tablet by mouth once daily. 90 tablet 0 01/25/2023 04/29/2023 Discontinued Start: 07-15-2021 End: 08-28-2022 take 1 tablet by mouth once daily hydroCHLOROthiazide (HYDRODIURIL, ESIDRIX) 25 mg tablet Take 1 tablet by mouth once daily. 90 tablet 3 07/15/2021 08/28/2022 Discontinued Start: 02-24-2021 End: 07-15-2021 take 0.5 tablet by mouth once daily hydroCHLOROthiazide (HYDRODIURIL, ESIDRIX) 25 mg tablet Take 0.5 tablets by mouth once daily. 45 tablet 3 02/24/2021 07/15/2021 Discontinued Comment on above: [facility]. Take 0.5 tablets by mouth once daily. losartan potassium 50 mg oral tablet (20 sources) Angiotensin 2 Receptor Joanie Start: 11-03-2022 End: 08-24-2024 take 1 tablet by mouth once daily losartan (COZAAR) 50 mg tablet Take 1 tablet by mouth once daily. 90 tablet 3 08/24/2024 Active Start: 10-09-2020 End: 10-07-2021 take 1 tablet by mouth once daily losartan (COZAAR) 50 mg tablet Take 1 tablet by mouth once daily. 90 tablet 3 10/07/2021 Active Comment on above: Take [address] [facility] once daily. multivitamin tablet (20 sources) Start: take 1 tablet by mouth once daily multivitamin tablet Take 1 tablet by mouth once daily. 1 tablet 0 05/20/2012 Active Comment on above: Take [address] [facility] once daily. pantoprazole 40 mg delayed release oral tablet (20 sources) Proton Pump Inhibitor Start: End: take 1 tablet by mouth twice daily before mealtime pantoprazole DR (PROTONIX) 40 mg tablet Take 1 tablet by mouth two times a day. Take on empty stomach, 1/2 hr before meal. 180 tablet 3 08/30/2024 Active Comment on above: Take [address] [facility] twice daily. Take on empty stomach, 1/2 hr before meal. Take [address] [facility] two times a day. Take on empty stomach, 1/2 hr before meal. microencapsulated potassium chloride 10 meq extended release oral tablet (20 sources) Start: End: potassium chloride ER (KLOR-CON M10) 10 mEq tablet Take 2 tablets by mouth once daily. 180 tablet 3 08/24/2024 Active Comment on above: Take 2 tablets by [facility] once daily. triamcinolone acetonide 1 mg/ml topical cream (20 sources) Corticosteroid Start: 016 End: 04-26-2 022 triamcinolone acetonide (KENALOG) 0.1 % cream Apply 1 application to affected area three times daily. Apply sparingly to area for rash/itching. 30 g 10/07/2021 Active Comment on above: Apply 1 application to affected area three times daily. Apply sparingly to area for rash/itching. Completed/Discontinued Medications Medication Drug Class(es) Dates Sig (Normalized) Sig (Original) loratadine 10 mg oral tablet (1 source) Start: 09-13-2017 End: 07-15-2021 take 1 tablet by mouth once daily loratadine (CLARITIN) 10 mg tablet Indications: Nasal drainage Take 1 tablet by mouth once daily. 30 tablet 11 09/13/2017 07/15/2021 Discontinued Comment on above: Take 1 tablet by nuria once daily. Problems Active Problems Problem Classification Problem Date Documented Da te Episodic/Chronic Asthma (20 sources) Cough variant asthma; Translations: [Cough variant asthma] 06-09-2021 Chronic Diabetes mellitus without complication (2 sources) Type 2 diabetes mellitus; Translations: [Type 2 diabetes mellitus without complications] Onset: 12-04-2024 12-04-2024 Chronic Essential hypertension (20 sources) Benign essential hypertension; Translations: [Essential (primary) hypertension] Onset: 05-20-2012 Chronic Immunizations and screening for infectious disease (2 sources) Patient encounter status; Translations: [Encounter for immunization] 07-24-2024 Episodic Mood disorders (20 sources) Depressive disorder; Translations: [Depression] Onset: 08-19-2012 06-09-2021 Chronic Nutritional deficiencies (3 sources) Vitamin D deficiency; Translations: [Vitamin D deficiency, unspecified] Onset: 12-01-2024 Chronic Other nutritional; endocrine; and metabolic disorders (20 sources) Body mass index 40+ - severely obese; Translations: [Morbid (severe) obesity due to excess calories] Onset: 05-04-2013 Chronic Other nutritional; endocrine; and metabolic disorders (1 source) Severe obesity; Translations: [Class 3 severe obesity with body mass index (BMI) of 50.0 to 59.9 in adult, unspecified obesity type, unspecified whether serious comorbidity present (HCC)] 08-14-2024 Chronic Other nutritional; endocrine; and metabolic disorders (2 sources) Morbid (severe) obesity due to excess calories; Translations: [Severe obesity (BMI >= 40) (HCC)] Onset: 05-04-2013 Chronic Other nutritional; endocrine; and metabolic disorders (1 source) Body mass index (BMI) 50.0-59.9, adult; Translations: [Class 3 severe obesity with body mass index (BMI) of 50.0 to 59.9 in adult, unspecified obesity type, unspecified whether serious comorbidity present (HCC)] Onset: 08-14-2024 Chronic Residual codes; unclassified (6 sources) Obstructive sleep apnea syndrome; Translations: [Obstructive sleep apnea (adult) (pediatric)] Chronic Residual codes; unclassified (1 source) Obstructive sleep apnea (adult) (pediatric); Translations: [ARCELIA (obstructive sleep apnea)] Onset: 08-14-2024 Chronic Residual codes; unclassified (20 sources) Bilateral lower limb edema; Translations: [Localized edema] Onset: 04-02-2018 04-02-2018 Episodic Unclassified (1 source) Class 3 severe obesity with body mass index (BMI) of 50.0 to 59.9 in adult, unspecified obesity type, unspecified whether serious comorbidity present (HCC); Translations: [Class 3 severe obesity with body mass index (BMI) of 50.0 to 59.9 in adult, unspecified obesity type, unspecified whether serious comorbidity present (HCC)] Onset: 08-14-2024 Past or Other Problems Problem Classification Problem Date Documented Da te Episodic/Chronic Diabetes mellitus without complication (20 sources) Impaired fasting glycemia; Translations: [Impaired fasting glucose] Onset: 04-02-2018 Episodic Other connective tissue disease (20 sources) Pain in right foot; Translations: [Pain in right foot] Onset: 05-04-2013 06-09-2021 Episodic Other connective tissue disease (20 sources) Pain in left foot; Translations: [Pain in left foot] Onset: 11-25-2018 11-25-2018 Episodic Other ear and sense organ disorders (2 sources) Otalgia, right ear; Translations: [Otalgia, unspecified] Onset: 12-04-2024 12-04-2024 Episodic Other non-traumatic joint disorders (20 sources) Instability of joint of right knee; Translations: [Other instability, right knee] Onset: 04-02-2018 04-02-2018 Episodic Residual codes; unclassified (1 source) Localized edema; Translations: [Bilateral leg edema] Onset: 04-02-2018 Episodic Results Test Name Value Interpretation Reference Range Facility [facility] 04-20-2025 CNPN Telephone (SLEWST) -------- SADIQ FLANAGAN ([id number]) 1960 M Date Time Provider Department 04/20/25 VU REICH JR During your visit today, we recorded the following information about you: Jennifer Poole LPN 04/20/2025 2:32 PM Signed Elisha from [facility] Sleep Lab calling patient is scheduled at [facility] on 05/15 for his titration sleep study. Patient will need an appt with provider before he can get treated please. Patient last seen August 2024. Vu Reich Jr., MD 04/20/2025 5:20 PM Signed Please clarify is an appt needed before titration or before PAP Rx. Either way, if not yet scheduled, please see if we can get in with Verito Rosas CNP to expedite. Thank you, MD Dustin Garvin Lori, LPN 04/23/2025 12:07 PM Signed OV note from 08/14/24 forwarded to [facility] sleep lab to Elisha's attention. Patient had delays with getting study scheduled due to Copay issues. Those [facility] messages forwarded as well. Phone message left for Elisha in case anything else was needed. GUNNAR Mehta Stephanie, RN 04/23/2025 1:13 PM Signed Elisha from [facility] Sleep Lab calls back and states that patient has testing scheduled for 05/15. They do not need anything prior to testing, however, for patient to be able to get sleep supplies at home, patient will need an office visit with provider. Anette Abreu RN Allergies As of Date: 04/20/2025 (No Known Allergies) Date Reviewed: 12/04/2024 Reviewed by: Marisol Brown LPN - Fully Assessed Reason for Visit: Appointment [[id number]] Prescriptions as of 04/24/2025 - doxazosin (CARDURA) 4 mg tablet Take 1 tablet by mouth daily at bedtime. - carvedilol (COREG) 25 mg tablet Take 1 tablet by mouth two times a day. - amLODIPine (NORVASC) 5 mg tablet Take 1 tablet by mouth once daily. - hydroCHLOROthiazide 25 mg tablet Take 1 tablet by mouth once daily. - pantoprazole DR (PROTONIX) 40 mg tablet Take 1 tablet by mouth two times a day. Take on empty stomach, 1/2 hr before meal. - potassium chloride ER (KLOR-CON M10) 10 mEq tablet Take 2 tablets by mouth once daily. - losartan (COZAAR) 50 mg tablet Take 1 tablet by mouth once daily. - CPAP Initiate CPAP @ 23/19 cm of water with humidification. Mask (per patient preference) optional chin strap (if indicated) , filters, tubing, humidifier and lifetime supplies. - CPAP/BIPAP/OTHER Type .CPAPSettings into a note to see current settings/supplies/DME information. - Cholecalciferol, Vitamin D3, 25 mcg (1,000 unit) cap Take 1 capsule by mouth once daily. - triamcinolone acetonide (KENALOG) 0.1 % cream Apply 1 application to affected area three times daily. Apply sparingly to area for rash/itching. - fluticasone (FLONASE) 50 mcg/actuation nasal spray Use 2 Sprays in each nostril once daily. Rinse mouth after use. - albuterol HFA (VENTOLIN HFA) 90 mcg/actuation inhaler Inhale 2 Puffs as instructed every 4 hours as needed for Wheezing/Shortness of Breath. - multivitamin tablet Take 1 tablet by mouth once daily. Meds Comments as of 11/01/2013: Pt states does meds.he does not know them. 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] 04/02/2018 Bilateral leg edema [R60.0] 04/02/2018 IFG (impaired fasting glucose) [R73.01] 04/02/2018 Foot pain, left [M79.672] 11/25/2018 Encounter Status:Closed by MILLICENT HIDALGO on 04/23/25 [facility] CNOVon 12-04-2024 CNOV Office Visit (INTMWS ) -------- ADANSADIQ ([id number]) 1960 M Date Time Provider Department 12/04/24 5:20 PM CHINMAY DOBSON INTMWS During your visit today, we recorded the following information about you: Pulse Respiration Blood pressure Weight 67/minute 16/minute 158/70 175 kg Chinmay Dobson MD 12/24/2024 10:33 PM Signed This note was created using Posterbeeter. Subjective Sadiq Flanagan is a 64-year-old male with a history of HTN and DM, presenting for a follow-up visit. Sadiq reports significant weight loss, currently weighing 385 lbs, down from 391 lbs on 08/14. He attributes this to intermittent fasting, typically fasting for 18 hours daily, occasionally extending to 21 hours. He notes increased irritability when fasting for extended periods. He engages in regular exercise, including swimming and using a recumbent bike. He denies current tobacco use, having quit in 1992, and reports minimal alcohol consumption, with the last drink being a glass of wine. He also reports a recent episode of water entering his ear while swimming, leading to discomfort and impaired hearing. He denies any otorrhea or otalgia. He expresses concern about potential damage to his eardrum. Additionally, he mentions joint pain and inquires about the lion diet, which involves consuming only ruminant animals. He also reports lactose intolerance, noting that he can tolerate organic milk but experiences gastrointestinal distress with non-organic dairy products. PAST MEDICAL HISTORY Diagnosis Date Cough variant asthma (HCC) Advair when has flare ups has helped Essential hypertension, benign Severe obesity (BMI >= 40) ([facility]) 05/04/2013 Current Outpatient Medications Medication Sig doxazosin (CARDURA) 4 mg tablet Take 1 tablet by mouth daily at bedtime. carvedilol (COREG) 25 mg tablet Take 1 tablet by mouth two times a day. amLODIPine (NORVASC) 5 mg tablet Take 1 tablet by mouth once daily. hydroCHLOROthiazide 25 mg tablet Take 1 tablet by mouth once daily. pantoprazole DR (PROTONIX) 40 mg tablet Take 1 tablet by mouth two times a day. Take on empty stomach, 1/2 hr before meal. potassium chloride ER (KLOR-CON M10) 10 mEq tablet Take 2 tablets by mouth once daily. losartan (COZAAR) 50 mg tablet Take 1 tablet by mouth once daily. CPAP Initiate CPAP @ 23/19 cm of water with humidification. Mask (per patient preference) optional chin strap (if indicated) , filters, tubing, humidifier and lifetime supplies. CPAP/BIPAP/OTHER Type .CPAPSettings into a note to see current settings/supplies/DME information. Cholecalciferol, Vitamin D3, 25 mcg (1,000 unit) cap Take 1 capsule by mouth once daily. triamcinolone acetonide (KENALOG) 0.1 % cream Apply 1 application to affected area three times daily. Apply sparingly to area for rash/itching. multivitamin tablet Take 1 tablet by mouth once daily. fluticasone (FLONASE) 50 mcg/actuation nasal spray Use 2 Sprays in each nostril once daily. Rinse mouth after use. (Patient not taking: Reported on 08/14/2024) albuterol HFA (VENTOLIN HFA) 90 mcg/actuation inhaler Inhale 2 Puffs as instructed every 4 hours as needed for Wheezing/Shortness of Breath. (Patient not taking: Reported on 08/09/2018) No current facility-administered medications for this visit. Review of Systems Objective BP (!) 211/100 Pulse 67 Resp 16 Wt (!) 175 kg (385 lb 12.9 oz) BMI 55.86 kg/m? Last 5 Encounter Wt Readings: Date: Wt: 12/04/2024 175 kg (385 lb 12.9 oz) 08/14/2024 177.4 kg (391 lb 3.2 oz) 07/24/2024 176 kg (388 lb 0.2 oz) 02/01/2024 180 kg (396 lb 13.3 oz) 05/15/2023 184.1 kg (405 lb 14.4 oz) No waist measurement recorded Estimated body mass index is 55.86 kg/m? as calculated from the following: Height as of 07/24/24: 177 cm (5' 9.69). Weight as of this encounter: 175 kg (385 lb 12.9 oz). Last 5 Encounter BP Readings: Date: BP: 12/04/2024 211/100 08/14/2024 198/97 07/24/2024 154/88 02/01/2024 183/99[bp average[ 05/15/2023 154/84 Physical Exam Vitals reviewed. Constitutional: Appearance: Normal appearance. Eyes: Conjunctiva/sclera: Conjunctivae normal. Cardiovascular: Rate and Rhythm: Normal rate and regular rhythm. Heart sounds: Normal heart sounds. Pulmonary: Effort: Pulmonary effort is normal. Breath sounds: Normal breath sounds. Musculoskeletal: Right lower le+ Pitting Edema present. Left lower le+ Pitting Edema present. Skin: General: Skin is warm and dry. Neurological: General: No focal deficit present. Mental Status: He is alert and oriented to person, place, and time. Psychiatric: Mood and Affect: Mood normal. Behavior: Behavior normal. Thought Content: Thought content normal. Judgment: Judgment normal. Latest Ref Rng 11/25/2018 12/09/2018 07/15/2021 12/01/2024 Protein, Total 6.3 - 8.0 g/dL 7.5 7.2 Albumin 3.9 (more content not included)... Normal [facility] 25(OH)D3 [facility] 2024 25-hydroxyvitamin D3 [Mass/Vol] 36.7 ng/mL Normal 31.0-80.0 [facility] Comment on above: Order Comment: Speci men Type: BLOOD SPECIMENOrdering Facility: [facility] Address: [address] [place] [address] Result Comment: Clas sification of 25 OH Vitamin D status: Deficiency/Insufficiency: < or = 30 ng/ml. Sufficiency/Optimal Levels: 31-80 ng/mL Toxicity: > 100 ng/mL. Test performed by chemiluminescent immunoassay. Performed By: #### 1 989-3 ####[facility] [id number] [place] [address] [place] CBC panel Auto (Bld)on 12-01 Erythrocyte distribution width (RBC) [Ratio] 14.8 % Normal 11.5-15.0 [facility] Comment on above: Order Comment: Speci men Type: BLOOD SPECIMENOrdering Facility: [facility] Address: [address] [place] [address] Performed By: #### 5 8410-2 ####[facility] [id number] [address] [place] Hematocrit (Bld) [Volume fraction] 40.3 % Normal 39.0-51.0 [facility] Comment on above: Order Comment: Speci men Type: BLOOD SPECIMENOrdering Facility: [facility] Address: [address] [place] [address] Performed By: #### 5 8410-2 ####[facility] [id number] [address] [place] Hemoglobin (Bld) [Mass/Vol] 13.3 g/dL Normal 13.0-17.0 [facility] Comment on above: Order Comment: Speci men Type: BLOOD SPECIMENOrdering Facility: [facility] Address: [address] [place] [address] Performed By: #### 5 8410-2 ####[facility] [id number] [place] [id number] [place] MCH (RBC) [Entitic mass] 27.0 pg Normal 26.0-34.0 [facility] Comment on above: Order Comment: Speci men Type: BLOOD SPECIMENOrdering Facility: [facility] Address: [address] [place] [address] Performed By: #### 5 8410-2 ####[facility] [id number] [place] [address] [place] MCHC (RBC) [Mass/Vol] 33.0 g/dL Normal 30.5-36.0 [facility] Comment on above: Order Comment: Speci men Type: BLOOD SPECIMENOrdering Facility: [facility] Address: [address] [place] [address] Performed By: #### 5 8410-2 ####[facility] LABIA [id number] [place] [address] [place] MCV (RBC) [Entitic vol] 81.7 fL Normal 80.0-100.0 [facility] Comment on above: Order Comment: Speci men Type: BLOOD SPECIMENOrdering Facility: [facility] Address: [address] [place] [address] Performed By: #### 5 8410-2 ####[facility] LABIA [id number] [place] [address] [place] Nucleated RBC (Bld) [#/Vol] 10*3/uL Normal <0.01 [facility] Comment on above: Order Comment: Speci men Type: BLOOD SPECIMENOrdering Facility: [facility] Address: [address] [place] [address] Performed By: #### 5 8410-2 ####[facility] LABIA [id number] [place] [address] [place] Platelet mean volume (Bld) [Entitic vol] 10.8 fL Normal 9.0-12.7 [facility] Comment on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 (Approximate), Expires: 02/21/2025 Start: 11-12-2024 End: 02-21-2025 Comprehensive metabolic 2000 panel - Serum or Plasma COMPREHENSIVE METABOLIC PANEL Lab Routine IFG (impaired fasting glucose) Essential hypertension, benign Expected: 11/12/2024 (Approximate), Expires: 02/21/2025 [facility] Comment on above: Expected: 11/12/2024 (Approximate), Expires: 02/21/2025 Start: 11-12-2024 End: 02-21-2025 Hemoglobin A1c in Blood HEMOGLOBIN A1C Lab Routine IFG (impaired fasting glucose) Essential hypertension, benign Expected: 11/12/2024 (Approximate), Expires: 02/21/2025 [facility] Comment on above: Expected: 11/12/2024 (Approximate), Expires: 02/21/2025 Start: 11-12-2024 End: 02-21-2025 Lipid 1996 panel - Serum or Plasma LIPID PANEL BASIC Lab Routine Essential hypertension, benign Expected: 11/12/2024 (Approximate), Expires: 02/21/2025 [facility] Comment on above: Expected: 11/12/2024 (Approximate), Expires: 02/21/2025 Start: 11-12-2024 End: 02-21-2025 Magnesium [Mass/volume] in Serum or Plasma MAGNESIUM Lab Routine Essential hypertension, benign Expected: 11/12/2024 (Approximate), Expires: 02/21/2025 [facility] Comment on above: Expected: 11/12/2024 (Approximate), Expires: 02/21/2025 Start: 08-14-2024 End: 08-14-2024 Patient encounter procedure Neurology Comment on above: ARCELIA (obstructive sle ep apnea) [G47.33] ARCELIA (obstructive sle ep apnea) [G47.33]- DME- Dr. Herring- started pap 01/2024, request for records sent to Dr. Bearden on 07/24/24 Start: 07-24-2024 End: 10-23-2024 LIPID PANEL, NONFASTING LIPID PANEL, NONFASTING Lab Routine Essential hypertension, benign Expected: 07/24/2024, Expires: 10/23/2024 [facility] Work Phone: Comment on above: Expected: 07/24/2024 , Expires: 10/23/2024 Start: 07-24-2024 End: 07-24-2024 Patient encounter procedure 07/24/2024 9:20 AM EST Office Visit Internal Medicine [place] [address] [place] [place] [address] Chinmay Dobson MD [address] [facility] [place] [address] Weight [facility] Medicine [place] Comment on above: Weight Start: 07-15-2024 DIABETES SCREEN DIABETES SCREEN [facility] Start: 07-15-2024 Diabetes Screening Diabetes Screenin g [facility] Start: 05-15-2024 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 Disease Visit Annual PCP Team Chronic Disease Visit [facility] Start: 05-15-2024 RSV Vaccine (1 - 1-d ose 60+ series) RSV Vaccine (1 - 1-dose 60+ series) [facility] Comment on above: Postponed from 10/12 (Declined at this time) Start: 03-03-2024 End: 03-03-2024 Patient encounter procedure 03/03/2024 9:20 AM EDT Office Visit Internal Medicine [place] [address] [facility] [place] [address] Nelson Millan, RAZOR SHARPENER.[employer] [address] [place], [place] [id number] blood pressure check [facility] [place] Comment on above: blood pressure check Start: 02-13-2024 Covid-19 Vaccine ( season) Covid-19 Vaccine () [facility] Start: 02-13-2024 Influenza vaccination Influenza Vacc ine (#1) [facility] Start: 02-01-2024 End: 02-01-2024 Patient encounter procedure 02/01/2024 8:40 AM EDT Office Visit [facility] [place] [address] [place], [place] [address] Nelson Millan, RAZOR SHARPENER.[employer] TIT[employer] [address] [place], [place] [id number] Discuss new C-pap Machine [facility] [place] Comment on above: Discuss new C-pap Ma aur[facility] Start: 01-04-2024 End: 01-04-2024 Patient encounter procedure 01/04/2024 5:00 PM EDT Office Visit [facility] [place] [address] [place] [address] Chinmay Dobson MD [address] [place] [address] Weight [facility] [place] Comment on above: Weight Start: 02-12-2023 Covid-19 Vaccine () Covid-19 Vaccine () [facility] Start: 02-12-2023 Influenza vaccination [facility] Start: 07-15-2022 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 DISEASE VISIT ANNUAL PCP TEAM CHRONIC DISEASE VISIT [facility] Start: 05-20-2022 Urine microalbumin profile [facility] Start: 02-12-2022 Influenza vaccination INFLUENZA (#1) [facility] Start: 09-21-2021 COVID-19 VACCINE (4 - Booster for Pfizer series) COVID-19 VACCINE (4 - Booster for Pfizer series) [facility] Start: 07-18-2021 COVID-19 VACCINE (4 - Booster for Pfizer series) COVID-19 VACCINE (4 - Booster for Pfizer series) [facility] Start: 07-18-2021 COVID-19 VACCINE (4 - Pfizer series) COVID-19 VACCINE (4 - Pfizer series) [facility] Start: 2020 RSV Vaccine (1 - 1-d ose 60+ series) RSV Vaccine (1 - 1-dose 60+ series) [facility] Start: 2020 RSV Vaccine (1 - Ris k 60-74 years 1-dose series) RSV Vaccine (1 - Risk 60-74 years 1-dose series) [facility] Start: 11-23-2019 Colonoscopy COLONOSCOPY [facility] Start: 11-23-2019 COLORECTAL CANCER SCREENING COLORECTAL CANCER SCREENING [facility] Start: 10-27-2017 PROSTATE CANCER SCREENING DISCUSSION PROSTATE CANCER SCREENING DISCUSSION [facility] Start: 2005 COLOGUARD (FIT-DNA) COLOGUARD (FIT-D NA) [facility] Start: [address] COLONOGRAPHY [facility] Start: 2005 FECAL OCCULT BLOOD FECAL OCCULT BLOO D [facility] Start: 2005 Screening for malign ant neoplasm of colon [facility] Start: 2005 SIGMOIDOSCOPY SIGMOIDOSCOPY [facility] Start: 1978 Anxiety Screening Anxiety Screening [facility] Start: 1978 BP CONTROLLED (<130/80) BP CONTROLLE D (<130/80) [facility] Start: 1978 SPIROMETRY SPIROMETRY [facility] Start: 1966 PNEUMOCOCCAL (1 - PCV) PNEUMOCOCCAL (1 - PCV) [facility] Start: 1966 Pneumococcal vaccination Pneum ococcal Vaccine (1 - PCV) [facility] End: 09-13-2025 PAP TITRATION PSG (CPAP, BIPAP, ASV) PAP TITRATION PSG (CPAP, BIPAP, ASV) Procedures Routine ARCELIA (obstructive sleep apnea) 1 Occurrences starting 08/14/2024 until 09/13/2025 [facility] Work Phone: Comment on above: 1 Occurrences starti ng 08/14/2024 until 09/13/2025 End: 03-02-2025 SPIROMETRY - BASELINE AND POST DILATOR SPIROMETRY - BASELINE AND POST DILATOR PFT Routine Cough variant asthma 1 Occurrences starting 02/01/2024 until 03/02/2025 [facility] Work Phone: Comment on above: 1 Occurrences starti ng 02/01/2024 until 03/02/2025 [facility] Immunizations Immunization Date Immunization Notes Care Provider Fa roddy 07-24-2024 influenza, seasonal, injectable Chinmay Dobson MD Work Phone: [facility] 07-24-2024 influenza virus vaccine, unspecified formulation Chinmay Dobson MD Work Phone: [facility] 05-15-2023 pneumococcal conjuga te (PCV20) vaccine, 20 valent (PREVNAR 20) Chinmay Dobson MD Work Phone: [facility] 05-15-2023 tetanus toxoid, redu makayla diphtheria toxoid, and acellular pertussis vaccine, adsorbed Chinmay Dobson MD Work Phone: [facility] 05-09-2023 COVID-19 vaccine, ag e 12+ yr, 2022- season (PFIZER-BIONTECH) Chinmay Dobson MD Work Phone: [facility] 05-09-2023 influenza, injectabl e, quadrivalent, contains preservative Chinmay Dobson MD Work Phone: [facility] 05-09-2023 influenza virus vaccine, unspecified formulation Chinmay Dobson MD Work Phone: [facility] 05-23-2021 COVID-19 vaccine, ag e 12+ yr (PFIZER-BIONTECH - PURPLE TOP) Chinmay Dobson MD Work Phone: [facility] Work Phone: 05-23-2021 influenza, seasonal, injectable Chinmay Dobson MD Work Phone: [facility] Work Phone: 05-23-2021 influenza virus vaccine, unspecified formulation Nelson Millan RAZOR SHARPENER[employer] Work Phone: [facility] 01-03-2021 zoster vaccine recombinant Chinmay Dobson MD Work Phone: [facility] 10-04-2020 zoster vaccine recombinant Chinmay Dobson MD Work Phone: [facility] 05-12-2020 influenza, seasonal, injectable Chinmay Dobson MD Work Phone: [facility] Work Phone: 04-24-2019 influenza, injectabl e, quadrivalent, contains preservative Chinmay Dobson MD Work Phone: [facility] Work Phone: 03-24-2018 influenza, injectabl e, quadrivalent, contains preservative Chinmay Dobson MD Work Phone: [facility] 04-18-2017 influenza, seasonal, injectable Chinmay Dobson MD Work Phone: [facility] Work Phone: 04-20-2016 influenza, seasonal, injectable Chinmay Dobson MD Work Phone: [facility] 03-13-2015 influenza, injectabl e, quadrivalent, contains preservative Chinmay Dobson MD Work Phone: [facility] 04-08-2014 influenza, seasonal, injectable Chinmay Dobson MD Work Phone: [facility] 03-25-2013 influenza virus vaccine, unspecified formulation Chinmay Dobson MD Work Phone: [facility] 05-20-2012 tetanus toxoid, redu makayla diphtheria toxoid, and acellular pertussis vaccine, adsorbed Chinmay Dobson MD Work Phone: [facility] 03-14-2012 influenza virus vaccine, unspecified formulation Chinmay Dobson MD Work Phone: [facility] 04-10-2010 influenza virus vaccine, unspecified formulation Chinmay Dobson MD Work Phone: [facility] Payers Date Payer Category Payer [facility] BLUE ACCE SS PPO [id number] 2024 Unknown [id number] 2023 Private Health Insurance [facility] RE [id number] 15 2023 Unknown [id number] 2019 Unknown [facility] PPO [id number] 2019-Present [phone] [address] [place] [address] PPO [id number] 2019 Unknown [id number] Social History Date Type Detail Facility Start: 08-19-2012 End: 05-15-2023 Tobacco smoking status OHIS Ex-smoker [facility] Start: 08-19-2012 End: 05-15-2023 Tobacco use and exposure Smokeless tobacco non-user [facility] Start: 07-15-2021 End: 12-04-2024 Alcohol intake Current non-drinker of alcohol (finding) [facility] Start: 07-15-2021 History SDOH Alcohol Frequency 1 [facility] Start: 07-15-2021 History SDOH Alcohol Std Drinks 98 [facility] Start: 07-15-2021 History SDOH Social Connections Phone 2 [facility] Start: 07-15-2021 History SDOH Social Connections Oriental [employer] 3 [facility] Start: 07-15-2021 History SDOH Physica l Activity MPS 6 [facility] Start: 07-15-2021 History SDOH Financial 5 [facility] Start: 1960 Sex Assigned At Male [facility] Start: 06-15-2021 End: 07-15-2021 Exposure to SARS-CoV-2 (event) Not sure [facility] History of tobacco use Current smoker [facility] Start: 07-15-2021 End: 05-15-2023 History of Social function [facility] Start: 07-15-2021 End: 05-15-2023 Social connection and isolation panel [facility] Do you belong to any clubs or organizations such as adventism groups, unions, fraternal or athletic groups, or school groups? Yes [facility] Are you now , , , , never or living with a partner? [facility] How often to you hav e a drink containing alcohol? Never [facility] How many standard dr inks containing alcohol do you have on a typical day? Patient refused [facility] Do you feel stress - tense, restless, nervous, or anxious, or unable to sleep at night because your mind is troubled all the time - these days [OSQ] To some extent [facility] (I/We) worried whebautista er (my/our) food would run out before (I/we) got money to buy more. Never true [facility] In the past 12 month s, was there a time when you were not able to pay the mortgage or rent on time? No [facility] Start: 12-25-2019 Gender identity Identifies as male gender (finding) [facility] Start: 12-25-2019 Sexual orientation Heterosexual (massimo aranda) [facility] Do you feel stress - tense, restless, nervous, or anxious, or unable to sleep at night because your mind is troubled all the time - these days [OSQ] Only a little [facility] How hard is it for y ou to pay for the very basics like food, housing, medical care, and heating Not very hard [facility] Functional Status Date Assessment Result Facility 04-25-2014 Are you deaf, or do you have serious difficulty hearing No 04/25/2014 6:15 PM Riri Alejandro LPN No [facility] 04-25-2014 Are you blind, or do you have serious difficulty seeing, even when wearing glasses No 04/25/2014 6:15 PM Riri Alejandro LPN No [facility] 04-25-2014 Do you have serious difficulty walking or climbing stairs No 04/25/2014 6:15 PM Riri Alejandro LPN No [facility] 04-25-2014 Do you have difficul ty dressing or bathing No 04/25/2014 6:15 PM Riri Alejandro LPN No [facility] 04-25-2014 Because of a physica l, mental, or emotional condition, do you have difficulty doing errands alone such as visiting a physician's office or shopping No 04/25/2014 6:15 PM Riri Alejandro LPN No [facility] Mental Status Date Assessment Result Facility 04-25-2014 Because of a physica l, mental, or emotional condition, do you have serious difficulty concentrating, remembering, or making decisions No 04/25/2014 6:15 PM Riri Alejandro LPN No [facility] Clinical Notes 07-15-2021 to 12-04-2024 Chinmay Dobson MD - 12/04/2024 6:03 PM EDTTelephone Encounter - Elissa Elmore LPN - 12/04/2024 3:46 PM EDTTelephone Encounter - Elissa Elmore LPN - 12/04/2024 3:46 PM EDT Note Date & Type Note Facility 12-04-2024 Note HNO ID: [id number] Author: CHINMAY DOBSON MD Service: ? Author Type: Physician Type: Progress Notes Filed: 12/24/2024 22:33 Note Text: This note was created using [employer]. Subjective Sadiq Flanagan is a 64-year-old male with a history of HTN and DM, presenting for a follow-up visit. Sadiq reports significant weight loss, currently weighing 385 lbs, down from 391 lbs on 08/14. He attributes this to intermittent fasting, typically fasting for 18 hours daily, occasionally extending to 21 hours. He notes increased irritability when fasting for extended periods. He engages in regular exercise, including swimming and using a recumbent bike. He denies current tobacco use, having quit in 1992, and reports minimal alcohol consumption, with the last drink being a glass of wine. He also reports a recent episode of water entering his ear while swimming, leading to discomfort and impaired hearing. He denies any otorrhea or otalgia. He expresses concern about potential damage to his eardrum. Additionally, he mentions joint pain and inquires about the lion diet, which involves consuming only ruminant animals. He also reports lactose intolerance, noting that he can tolerate organic milk but experiences gastrointestinal distress with non-organic dairy products. PAST MEDICAL HISTORY Diagnosis Date Cough variant asthma ([facility]) Advair when has flare ups has helped Essential hypertension, benign Severe obesity (BMI >= 40) ([facility]) 05/04/2013 Current Outpatient Medications Medication Sig doxazosin (CARDURA) 4 mg tablet Take 1 tablet by mouth daily at bedtime. carvedilol (COREG) 25 mg tablet Take 1 tablet by mouth two times a day. amLODIPine (NORVASC) 5 mg tablet Take 1 tablet by mouth once daily. hydroCHLOROthiazide 25 mg tablet Take 1 tablet by mouth once daily. pantoprazole DR (PROTONIX) 40 mg tablet Take 1 tablet by mouth two times a day. Take on empty stomach, 1/2 hr before meal. potassium chloride ER (KLOR-CON M10) 10 mEq tablet Take 2 tablets by mouth once daily. losartan (COZAAR) 50 mg tablet Take 1 tablet by mouth once daily. CPAP Initiate CPAP @ 23/19 cm of water with humidification. Mask (per patient preference) optional chin strap (if indicated) , filters, tubing, humidifier and lifetime supplies. CPAP/BIPAP/OTHER Type .CPAPSettings into a note to see current settings/supplies/DME information. Cholecalciferol, Vitamin D3, 25 mcg (1,000 unit) cap Take 1 capsule by mouth once daily. triamcinolone acetonide (KENALOG) 0.1 % cream Apply 1 application to affected area three times daily. Apply sparingly to area for rash/itching. multivitamin tablet Take 1 tablet by mouth once daily. fluticasone (FLONASE) 50 mcg/actuation nasal spray Use 2 Sprays in each nostril once daily. Rinse mouth after use. (Patient not taking: Reported on 08/14/2024) albuterol HFA (VENTOLIN HFA) 90 mcg/actuation inhaler Inhale 2 Puffs as instructed every 4 hours as needed for Wheezing/Shortness of Breath. (Patient not taking: Reported on 08/09/2018) No current facility-administered medications for this visit. Review of Systems Objective BP (!) 211/100 Pulse 67 Resp 16 Wt (!) 175 kg (385 lb 12.9 oz) BMI 55.86 kg/m? Last 5 Encounter Wt Readings: Date: Wt: 12/04/2024 175 kg (385 lb 12.9 oz) 08/14/2024 177.4 kg (391 lb 3.2 oz) 07/24/2024 176 kg (388 lb 0.2 oz) 02/01/2024 180 kg (396 lb 13.3 oz) 05/15/2023 184.1 kg (405 lb 14.4 oz) No waist measurement recorded Estimated body mass index is 55.86 kg/m? as calculated from the following: Height as of 07/24/24: 177 cm (5' 9.69). Weight as of this encounter: 175 kg (385 lb 12.9 oz). Last 5 Encounter BP Readings: Date: BP: 12/04/2024 211/100 08/14/2024 198/97 07/24/2024 154/88 02/01/2024 183/99[bp average[ 05/15/2023 154/84 Physical Exam Vitals reviewed. Constitutional: Appearance: Normal appearance. Eyes: Conjunctiva/sclera: Conjunctivae normal. Cardiovascular: Rate and Rhythm: Normal rate and regular rhythm. Heart sounds: Normal heart sounds. Pulmonary: Effort: Pulmonary effort is normal. Breath sounds: Normal breath sounds. Musculoskeletal: Right lower le+ Pitting Edema present. Left lower le+ Pitting Edema present. Skin: General: Skin is warm and dry. Neurological: General: No focal deficit present. Mental Status: He is alert and oriented to person, place, and time. Psychiatric: Mood and Affect: Mood normal. Behavior: Behavior normal. Thought Content: Thought content normal. Judgment: Judgment normal. Latest Ref Rng 11/25/2018 12/09/2018 07/15/2021 12/01/2024 Protein, Total 6.3 - 8.0 g/dL 7.5 7.2 Albumin 3.9 - 4.9 g/dL 4.2 4.4 Calcium 8.5 - 10.2 mg/dL 9.2 9.4 9.4 Bilirubin, Total 0.2 - 1.3 mg/dL 0.2 0.3 Alkaline Phosphatase 38 - 113 U/L 59 61 AST 14 - 40 U/L 20 18 Glucose 74 - 99 mg/dL 98 134 (H) 174 (H) BUN 9 - 24 mg/dL 17 16 17 Creatinine 0.73 - 1.22 mg/dL 0.76 0.8 (more content not included)... [facility] 12-04-2024 History of Presen t illness Narrative This note was created using [employer]. Subjective Sadiq Flanagan is a 64-year-old male with a history of HTN and DM, presenting for a follow-up visit. Sdaiq reports significant weight loss, currently weighing 385 lbs, down from 391 lbs on 08/14. He attributes this to intermittent fasting, typically fasting for 18 hours daily, occasionally extending to 21 hours. He notes increased irritability when fasting for extended periods. He engages in regular exercise, including swimming and using a recumbent bike. He denies current tobacco use, having quit in 1992, and reports minimal alcohol consumption, with the last drink being a glass of wine. He also reports a recent episode of water entering his ear while swimming, leading to discomfort and impaired hearing. He denies any otorrhea or otalgia. He expresses concern about potential damage to his eardrum. Additionally, he mentions joint pain and inquires about the lion diet, which involves consuming only ruminant animals. He also reports lactose intolerance, noting that he can tolerate organic milk but experiences gastrointestinal distress with non-organic dairy products. PAST MEDICAL HISTORY Diagnosis Date Cough variant asthma ([facility]) Advair when has flare ups has helped Essential hypertension, benign Severe obesity (BMI >= 40) ([facility]) 05/04/2013 Current Outpatient Medications Medication Sig doxazosin (CARDURA) 4 mg tablet Take 1 tablet by mouth daily at bedtime. carvedilol (COREG) 25 mg tablet Take 1 tablet by mouth two times a day. amLODIPine (NORVASC) 5 mg tablet Take 1 tablet by mouth once daily. hydroCHLOROthiazide 25 mg tablet Take 1 tablet by mouth once daily. pantoprazole DR (PROTONIX) 40 mg tablet Take 1 tablet by mouth two times a day. Take on empty stomach, 1/2 hr before meal. potassium chloride ER (KLOR-CON M10) 10 mEq tablet Take 2 tablets by mouth once daily. losartan (COZAAR) 50 mg tablet Take 1 tablet by mouth once daily. CPAP Initiate CPAP @ 23/19 cm of water with humidification. Mask (per patient preference) optional chin strap (if indicated) , filters, tubing, humidifier and lifetime supplies. CPAP/BIPAP/OTHER Type .CPAPSettings into a note to see current settings/supplies/DME information. Cholecalciferol, Vitamin D3, 25 mcg (1,000 unit) cap Take 1 capsule by mouth once daily. triamcinolone acetonide (KENALOG) 0.1 % cream Apply 1 application to affected area three times daily. Apply sparingly to area for rash/itching. multivitamin tablet Take 1 tablet by mouth once daily. fluticasone (FLONASE) 50 mcg/actuation nasal spray Use 2 Sprays in each nostril once daily. Rinse mouth after use. (Patient not taking: Reported on 08/14/2024) albuterol HFA (VENTOLIN HFA) 90 mcg/actuation inhaler Inhale 2 Puffs as instructed every 4 hours as needed for Wheezing/Shortness of Breath. (Patient not taking: Reported on 08/09/2018) No current facility-administered medications for this visit. Review of Systems Objective BP (!) 211/100 Pulse 67 Resp 16 Wt (!) 175 kg (385 lb 12.9 oz) BMI 55.86 kg/m Last 5 Encounter Wt Readings: Date: Wt: 12/04/2024 175 kg (385 lb 12.9 oz) 08/14/2024 177.4 kg (391 lb 3.2 oz) 07/24/2024 176 kg (388 lb 0.2 oz) 02/01/2024 180 kg (396 lb 13.3 oz) 05/15/2023 184.1 kg (405 lb 14.4 oz) No waist measurement recorded Estimated body mass index is 55.86 kg/m as calculated from the following: Height as of 07/24/24: 177 cm (5' 9.69). Weight as of this encounter: 175 kg (385 lb 12.9 oz). Last 5 Encounter BP Readings: Date: BP: 12/04/2024 211/100 08/14/2024 198/97 07/24/2024 154/88 02/01/2024 183/99[bp average[ 05/15/2023 154/84 Physical Exam Vitals reviewed. Constitutional: Appearance: Normal appearance. Eyes: Conjunctiva/sclera: Conjunctivae normal. Cardiovascular: Rate and Rhythm: Normal rate and regular rhythm. Heart sounds: Normal heart sounds. Pulmonary: Effort: Pulmonary effort is normal. Breath sounds: Normal breath sounds. Musculoskeletal: Right lower le+ Pitting Edema present. Left lower le+ Pitting Edema present. Skin: General: Skin is warm and dry. Neurological: General: No focal deficit present. Mental Status: He is alert and oriented to person, place, and time. Psychiatric: Mood and Affect: Mood normal. Behavior: Behavior normal. Thought Content: Thought content normal. Judgment: Judgment normal. Latest Ref Rng 11/25/2018 12/09/2018 07/15/2021 12/01/2024 Protein, Total 6.3 - 8.0 g/dL 7.5 7.2 Albumin 3.9 - 4.9 g/dL 4.2 4.4 Calcium 8.5 - 10.2 mg/dL 9.2 9.4 9.4 Bilirubin, Total 0.2 - 1.3 mg/dL 0.2 0.3 Alkaline Phosphatase 38 - 113 U/L 59 61 AST 14 - 40 U/L 20 18 Glucose 74 - 99 mg/dL 98 134 (H) 174 (H) BUN 9 - 24 mg/dL 17 16 17 Creatinine 0.73 - 1.22 mg/dL 0.76 0.84 0.79 Sodium 136 - 144 mmol/L 141 139 138 Potassium 3.7 - 5.1 mmol/L 3.9 4.0 4.2 Chloride 98 - 107 mmol/L 103 102 101 CO2 22 - 30 mmol/L 27 25 25 Anion Gap 8 - 15 mmol/L 11 12 12 ALT 10 - 54 U/L 11 12 eGFR- >60 >60 eGFR-All Other Races . >60 >60 eGFR >=60 mL/min/1.73m 99 WBC 3.70 - 11.00 k/uL 6.62 8.33 RBC 4.20 - 6.00 m/uL 4.29 4.93 Hemoglobin 13.0 - 17.0 g/dL 11.2 (L) 13.3 Hematocrit 39.0 - 51.0 % 37.1 (L) 40.3 MCV 80.0 - 100.0 fL 86.5 81.7 MCH 26.0 - 34.0 pg 26.1 27.0 MCHC 30.5 - 36.0 g/dL 30.2 (L) 33.0 RDW-CV 11.5 - 15.0 % 15.3 (H) 14.8 Platelet Count 150 - 400 k/uL 104 (L) 203 MPV 9.0 - 12.7 fL 11.8 10.8 Absolute nRBC <0.01 k/uL <0.01 <0.01 Cholesterol, Total <200 mg/dL 151 155 Triglyceride <150 mg/dL 58 53 HDL Cholesterol >39 mg/dL 42 44 LDL Cholesterol, Calculated <100 mg/dL 97 100 (H) Non HDL Cholesterol <130 mg/dL 109 111 Fasting Time hrs 12 12 VLDL Cholesterol <30 mg/dL 12 9 TC:HDL Ratio <5.10 3.60 3.52 LDL:HDL Ratio <2.54 2.31 2.27 Hemoglobin A1C 4.3 - 5.6 % 4.7 6.0 (H) 7.0 (H) Estimated Average Glucose mg/dL 88 126 154 Vitamin D 25 Hydroxy 31.0 - 80.0 ng/mL 30.7 (L) 36.7 Magnesium 1.7 - 2.3 mg/dL 2.1 Legend: (L) Low (H) High Assessment and Plan ASSESSMENT AND PLAN # Type 2 diabetes mellitus without complication, without long-term current use of insulin (HCC) (E11.9) - Recent A1c elevated at 7.0%. - Discussed dietary modifications to reduce carbohydrate intake and increase protein consumption to help lower A1c and support weight loss. - Patient prefers to manage diabetes through diet and weight loss rather than medication at this time. - Ordered repeat A1c in 6 months. - Ordered urine microalbumin to assess renal function. # Essential hypertension, benign (I10) - Blood pressure readings have been variable, with recent measurements showing improvement after relaxation techniques. - Current readin/70 mmHg. - Educated on the importance of regular monitoring and relaxation techniques to help manage blood pressure. # Severe obesity (BMI >= 40) ([facility]) (E66.01) - Current weight: 385 lbs, showing a downward trend from previous visits. - Patient is actively engaged in weight loss efforts, including swimming and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 mouth once daily. doxazosin (CARDURA) 4 mg tablet Take 1 tablet by mouth daily at bedtime. potassium chloride ER (KLOR-CON M10) 10 mEq tablet Take 2 tablets by mouth once daily. Cholecalciferol, Vitamin D3, 25 mcg (1,000 unit) cap Take 1 capsule by mouth once daily. CPAP Initiate CPAP @ 14 cm of water with humidification. Mask (per patient preference) optional chin strap (if indicated) , filters, tubing, humidifier and lifetime supplies. triamcinolone acetonide (KENALOG) 0.1 % cream Apply 1 application to affected area three times daily. Apply sparingly to area for rash/itching. fluticasone (FLONASE) 50 mcg/actuation nasal spray Use 2 Sprays in each nostril once daily. Rinse mouth after use. albuterol HFA (VENTOLIN HFA) 90 mcg/actuation inhaler Inhale 2 Puffs as instructed every 4 hours as needed for Wheezing/Shortness of Breath. (Patient not taking: Reported on 08/09/2018) multivitamin tablet Take 1 tablet by mouth once daily. PAST MEDICAL HISTORY No date: Cough variant asthma Comment: Advair when has flare ups has helped No date: Essential hypertension, benign 05/04/2013: Severe obesity (BMI >= 40) ([facility]) Social History Tobacco Use Smoking status: Former Smokeless tobacco: Never Substance Use Topics Alcohol use: No Drug use: No ASSESSMENT/PLAN: 1. ARCELIA (obstructive sleep apnea) - ICD9: 327.23, ICD10: G47.33 (primary diagnosis) He has a history of sleep apnea with sleep apnea machine now not working correctly. He is in need of replacement. He has been using his PAP therapy consistently since 2018 and has been very effective for him. 2. Cough variant asthma - ICD9: 493.82, ICD10: J45.991 Currently well-controlled - Continue current medications - Avoidance of triggers recommended - SPIROMETRY - BASELINE AND POST DILATOR 3. Severe obesity (BMI >= 40) ([facility]) - ICD9: 278.01, ICD10: E66.01 Weight decreasing. He has been swimming for exercise and has found it very helpful. Can swim up to 1 hour. 4. Essential hypertension I10 Not currently well-controlled. Thinks he did take his medicine today. Recommend recheck in 1 month. Continue with current treatment unchanged for now. Endorse DASH diet. Nelson Millan APRN.MEDIA JOB TITLES Medical Decision Making: Problems: Low: Stable chronic illness Moderate: 1+ chronic illnesses with change Data: Unique test(s) ordered: 1 Risk: Low: Low risk from testing/treatment Medical Decision Making Level: 3 - Low documented in this encounter [facility] 01-31-2024 Telephone encounter Note Patient has OV with Provider on 02/01/24. Araceli Cortez LPN [facility] 01-31-2024 Miscellaneous Notes Patient has OV with Provider on 02/01/24. Araceli Cortez LPN He has been advised he needs an appointment either with or primary care documenting his needs. [employer] message sent regarding this. Pt calls to report that Dr. Herring's office said they have not received order. Pt reports Dr. Herring's office also said they would need an OV note stating bi-pap machine is broken. Pt reports that he could not get an appt with Dr. Gutierrez until 03/10 and needs new bi-pap before that. Ashlee Silver LPN Printed script, please send to Dr Herring per request. documented in this encounter [facility] 01-31-2024 Telephone encounter Note He has been advised he needs an appointment either with or primary care documenting his needs. [employer] message sent regarding this. [facility] 01-31-2024 Telephone encounter Note Pt calls to report that Dr. Herring's office said they have not received order. Pt reports Dr. Herring's office also said they would need an OV note stating bi-pap machine is broken. Pt reports that he could not get an appt with Dr. Gutierrez until 03/10 and needs new bi-pap before that. Ashlee Silver LPN [facility] 01-28-2024 Telephone encounter Note Printed script, please send to Dr Herring per request. [facility] 01-13-2024 Telephone encounter Note sadiq flanagan (Mi: [id number]) QUENTIN Need Help? Call us at Outcome Approved on January 11 by [employer] 2016 The request has been approved. The authorization is effective from 01/12/2024 to 01/10/2025, as long as the member is enrolled in their current health plan. The request was reviewed and approved by a licensed clinical pharmacist. This request has been approved with a quantity limit of 2 tablets per day. A written notification letter will follow with additional details. Authorization Expiration Date: 01/09/2025 Drug Pantoprazole Sodium 40MG dr tablets ePA cloud logo Form [employer] ePA Form 2017 [facility] Pharmacy notified. [facility] 01-13-2024 Miscellaneous Notes sadiq flanagan (Mi: [id number]) QUENTIN Need Help? Call us at Outcome Approved on January 11 by [employer] 2016 The request has been approved. The authorization is effective from 01/12/2024 to 01/10/2025, as long as the member is enrolled in their current health plan. The request was reviewed and approved by a licensed clinical pharmacist. This request has been approved with a quantity limit of 2 tablets per day. A written notification letter will follow with additional details. Authorization Expiration Date: 01/09/2025 Drug Pantoprazole Sodium 40MG dr tablets ePA cloud logo Form [employer] ePA Form 2017 [facility] Pharmacy notified. No pharmacy benefits on file to complete electronic PA. This was completed via [employer]. sadiq flanagan (Mi: [id number]) - [id number] Pantoprazole Sodium 40MG dr tablets status: PA Request Created: January 11, 2024 Sent: January 11, 2024 documented in this encounter [facility] 01-11-2024 Telephone encounter Note No pharmacy benefits on file to complete electronic PA. This was completed via [employer]. sadiq flanagan (Mi: [id number]) - [id number] Pantoprazole Sodium 40MG dr tablets status: PA Request Created: January 11, 2024 Sent: January 11, 2024 [facility] 01-03-2024 Telephone encounter Note Prescription Refill Information The patient has been identified by name and date of : Yes Caregiver verified no other encounters exist for this prescription request: Yes Caregiver confirmed with patient/requestor that no other refills are due, in the near future, with this provider at this time: Yes The last office visit in the department: 05/15/23 Does the patient have a future office visit with this provider/department: Yes Requested Prescriptions Pending Prescriptions Disp Refills pantoprazole DR (PROTONIX) 40 mg tablet 180 tablet 3 Sig: Take 1 tablet by mouth two times a day. Take on empty stomach, 1/2 hr before meal. Frida Gravse LPN January 03, 2024 2:17 PM [facility] 01-03-2024 Miscellaneous Notes Prescription Refill Information The patient has been identified by name and date of : Yes Caregiver verified no other encounters exist for this prescription request: Yes Caregiver confirmed with patient/requestor that no other refills are due, in the near future, with this provider at this time: Yes The last office visit in the department: 05/15/23 Does the patient have a future office visit with this provider/department: Yes Requested Prescriptions Pending Prescriptions Disp Refills pantoprazole DR (PROTONIX) 40 mg tablet 180 tablet 3 Sig: Take 1 tablet by mouth two times a day. Take on empty stomach, 1/2 hr before meal. Frida Graves LPN January 03, 2024 2:17 PM documented in this encounter [facility] 01-03-2024 Telephone encounter Note Prescription Refill Information The patient has been identified by name and date of : Yes Caregiver verified no other encounters exist for this prescription request: Yes Caregiver confirmed with patient/requestor that no other refills are due, in the near future, with this provider at this time: Yes The last office visit in the department: 05/15/23 Does the patient have a future office visit with this provider/department: Yes Requested Prescriptions Pending Prescriptions Disp Refills losartan (COZAAR) 50 mg tablet 90 tablet 3 Sig: Take 1 tablet by mouth once daily. carvedilol (COREG) 25 mg tablet 180 tablet 3 Sig: Take 1 tablet by mouth two times a day. amLODIPine (NORVASC) 5 mg tablet 90 tablet 3 Sig: Take 1 tablet by mouth once daily. Frida Graves LPN January 03, 2024 2:16 PM [facility] 01-03-2024 Miscellaneous Notes Prescription Refill Information The patient has been identified by name and date of : Yes Caregiver verified no other encounters exist for this prescription request: Yes Caregiver confirmed with patient/requestor that no other refills are due, in the near future, with this provider at this time: Yes The last office visit in the department: 05/15/23 Does the patient have a future office visit with this provider/department: Yes Requested Prescriptions Pending Prescriptions Disp Refills losartan (COZAAR) 50 mg tablet 90 tablet 3 Sig: Take 1 tablet by mouth once daily. carvedilol (COREG) 25 mg tablet 180 tablet 3 Sig: Take 1 tablet by mouth two times a day. amLODIPine (NORVASC) 5 mg tablet 90 tablet 3 Sig: Take 1 tablet by mouth once daily. Frida Graves LPN January 03, 2024 2:16 PM documented in this encounter [facility] 11-22-2023 Telephone encounter Note Prescription Refill Information The patient has been identified by name and date of : Yes Caregiver verified no other encounters exist for this prescription request: Yes Caregiver confirmed with patient/requestor that no other refills are due, in the near future, with this provider at this time: Yes The last office visit in the department: 05/15/2023 Does the patient have a future office visit with this provider/department: Yes Requested Prescriptions Pending Prescriptions Disp Refills doxazosin (CARDURA) 4 mg tablet 90 tablet 3 Sig: Take 1 tablet by mouth daily at bedtime. potassium chloride ER (KLOR-CON M10) 10 mEq tablet 180 tablet 3 Sig: Take 2 tablets by mouth once daily. Mayito Hendricks MA November 22, 2023 10:00 AM [facility] 11-22-2023 Miscellaneous Notes Prescription Refill Information The patient has been identified by name and date of : Yes Caregiver verified no other encounters exist for this prescription request: Yes Caregiver confirmed with patient/requestor that no other refills are due, in the near future, with this provider at this time: Yes The last office visit in the department: 05/15/2023 Does the patient have a future office visit with this provider/department: Yes Requested Prescriptions Pending Prescriptions Disp Refills doxazosin (CARDURA) 4 mg tablet 90 tablet 3 Sig: Take 1 tablet by mouth daily at bedtime. potassium chloride ER (KLOR-CON M10) 10 mEq tablet 180 tablet 3 Sig: Take 2 tablets by mouth once daily. Mayito Hendricks MA November 22, 2023 10:00 AM documented in this encounter [facility] 11-22-2023 Telephone encounter Note Prescription Refill Information The patient has been identified by name and date of : Yes Caregiver verified no other encounters exist for this prescription request: Yes Caregiver confirmed with patient/requestor that no other refills are due, in the near future, with this provider at this time: Yes The last office visit in the department: 05/15/23 Does the patient have a future office visit with this provider/department: Yes Requested Prescriptions Pending Prescriptions Disp Refills hydroCHLOROthiazide 25 mg tablet 90 tablet 3 Sig: Take 1 tablet by mouth once daily. doxazosin (CARDURA) 4 mg tablet 90 tablet 3 Sig: Take 1 tablet by mouth daily at bedtime. potassium chloride ER (KLOR-CON M10) 10 mEq tablet 180 tablet 3 Sig: Take 2 tablets by mouth once daily. Leelee Zarco MA November 22, 2023 9:20 AM [facility] 11-22-2023 Miscellaneous Notes Prescription Refill Information The patient has been identified by name and date of : Yes Caregiver verified no other encounters exist for this prescription request: Yes Caregiver confirmed with patient/requestor that no other refills are due, in the near future, with this provider at this time: Yes The last office visit in the department: 05/15/23 Does the patient have a future office visit with this provider/department: Yes Requested Prescriptions Pending Prescriptions Disp Refills hydroCHLOROthiazide 25 mg tablet 90 tablet 3 Sig: Take 1 tablet by mouth once daily. doxazosin (CARDURA) 4 mg tablet 90 tablet 3 Sig: Take 1 tablet by mouth daily at bedtime. potassium chloride ER (KLOR-CON M10) 10 mEq tablet 180 tablet 3 Sig: Take 2 tablets by mouth once daily. Leelee Zarco MA November 22, 2023 9:20 AM documented in this encounter [facility] 10-18-2023 Telephone encounter Note Patient has been identified by name and date of : Yes Patient phones for refill(s): Requested Prescriptions Pending Prescriptions Disp Refills losartan (COZAAR) 50 mg tablet 90 tablet 3 Sig: Take 1 tablet by mouth once daily. carvedilol (COREG) 25 mg tablet 180 tablet 3 Sig: Take 1 tablet by mouth two times a day. amLODIPine (NORVASC) 5 mg tablet 90 tablet 3 Sig: Take 1 tablet by mouth once daily. Date of last office visit in primary care: 05/15/2023 Date of next office visit in primary care: 01/04/2024 Please advise. Thank you. Leelee Zarco MA. [facility] 10-18-2023 Miscellaneous Notes Patient has been identified by name and date of : Yes Patient phones for refill(s): Requested Prescriptions Pending Prescriptions Disp Refills losartan (COZAAR) 50 mg tablet 90 tablet 3 Sig: Take 1 tablet by mouth once daily. carvedilol (COREG) 25 mg tablet 180 tablet 3 Sig: Take 1 tablet by mouth two times a day. amLODIPine (NORVASC) 5 mg tablet 90 tablet 3 Sig: Take 1 tablet by mouth once daily. Date of last office visit in primary care: 05/15/2023 Date of next office visit in primary care: 01/04/2024 Please advise. Thank you. Leelee Zarco MA. documented in this encounter [facility] 08-16-2023 Miscellaneous Notes Please send an HCTZ prescription to [facility]. They were bought out and at the beginning of the year they switched systems and nothing switched over so we have to get new prescriptions called in. Thanks Patient has been identified by name and date of : Yes, Provider Olya Date 08/16/23 Time 12:42pm Patient phones for refill(s): Requested Prescriptions Pending Prescriptions Disp Refills hydroCHLOROthiazide 25 mg tablet 90 tablet 3 Sig: Take 1 tablet by mouth once daily. Date of last office visit in primary care: 05/15/2023 Date of next office visit in primary care: 01/04/2024 Please advise. Thank you. Marisol Brown LPN. documented in this encounter [facility] 04-29-2023 Miscellaneous Notes Patient has been identified by name and date of : Yes, Provider Olya Date 04/29/23 Time 2:13pm Patient phones for refill(s): Requested Prescriptions Pending Prescriptions Disp Refills pantoprazole DR (PROTONIX) 40 mg tablet 180 tablet 3 Sig: Take 1 tablet by mouth two times a day. Take on empty stomach, 1/2 hr before meal. Date of last office visit in primary care: 07/15/2021 Date of next office visit in primary care: 04/29/2023 Last 2 Encounter Wt Readings: Date: Wt: 07/15/2021 170.1 kg (375 lb) 03/28/2019 165.1 kg (364 lb) Please advise. Thank you. Marisol Brown LPN. documented in this encounter [facility] 01-25-2023 Miscellaneous Notes ANNY: 07/15/2021 NOV: 03/09/2023 Last refill: 12/08/2022 QTY: 90 Refills: 0 Patient's request for medication is as follows: Requested Prescriptions Pending Prescriptions Disp Refills hydroCHLOROthiazide 25 mg tablet 90 tablet 0 Sig: Take 1 tablet by mouth once daily. Please approve the above prescription(s) to electronically send to pharmacy. Mayito Hendricks Ma documented in this encounter [facility] 12-08-2022 Miscellaneous Notes ANNY: 07/15/2021 Last refill: 10/07/2021 QTY: 90 Refills: 3 documented in this encounter [facility] 12-08-2022 Miscellaneous Notes ANNY: 07/15/2021 NOV: 01/08/2023 Last refill: 11/12/2021 QTY: 180 Refills: 3 documented in this encounter [facility] 12-08-2022 Miscellaneous Notes Per patient's My Chart message. My HCTZ prescription says that it was filled on 11/12, so it's not available for refill, but my said she cannot find it anywhere. We've looked and can't find it. Would it be possible to send a prescription for HCTZ for 90 days to [facility]? We would pay otto. Patient phones requesting refills as follows: Requested Prescriptions Pending Prescriptions Disp Refills hydroCHLOROthiazide 25 mg tablet 90 tablet 3 Sig: Take 1 tablet by mouth once daily. Camryn He LPN documented in this encounter [facility] 08-31-2022 Miscellaneous Notes ANNY: 07/15/2021 NOV: 11/13/2022 Last refill: 07/15/2021 QTY: 90 Refills: 3 Patient's request for medication is as follows: Requested Prescriptions Pending Prescriptions Disp Refills hydroCHLOROthiazide 25 mg tablet 90 tablet 3 Sig: Take 1 tablet by mouth once daily. Please approve the above prescription(s) to electronically send to pharmacy. Mayito Hendricks Ma documented in this encounter [facility] 06-30-2022 Miscellaneous Notes Order printed, please send to Dr. Herring's office per patient request once I sign and let patient know once sent, thanks!! documented in this encounter [facility] 11-12-2021 Miscellaneous Notes Okayed documented in this encounter [facility] 10-07-2021 Miscellaneous Notes Patient has been identified by name and date of : Yes Patient phones for refill(s): Pending Prescriptions Disp Refills TRIAMCINOLONE ACETONIDE 0.1 % TOPICAL CREAM 30 g 0 Sig: Apply 1 application to affected area three times daily. Apply sparingly to area for rash/itching. KENNA: No LOSARTAN 50 MG TABLET 90 tablet 3 Sig: Take 1 tablet by mouth once daily. KENNA: No CARVEDILOL 25 MG TABLET 180 tablet 3 Sig: Take 1 tablet by mouth twice daily. KENNA: No AMLODIPINE 5 MG TABLET 90 tablet 3 Sig: Take 1 tablet by mouth once daily. KENNA: No DOXAZOSIN 4 MG TABLET 90 tablet 3 Sig: Take 1 tablet by mouth daily at bedtime. KENNA: No Date of last office visit in primary care: 07/15/21 next apt 02/04/22 Last 2 Encounter Wt Readings: Date: Wt: 07/15/2021 170.1 kg (375 lb) 03/28/2019 165.1 kg (364 lb) Previous labs/tests for medication: Blood Pressure: BUN (mg/dL) Date Value 07/15/2021 16 Sodium (mmol/L) Date Value 07/15/2021 139 Last 1 Encounter BP Readings: Date: BP: 07/15/2021 160/82 Please advise. Thank you. Cleo Green LPN documented in this encounter [facility] 07-15-2021 History of Presen t illness Narrative This note was created using [employer]. Subjective Sadiq Flanagan is a 60 year old male. Patient presents with: Follow Up SUBJECTIVE: Sadiq Flanagan is a 60 year old year old gentleman here today for yearly exam and follow up appointment for review of medical conditions. Seeing therapist. Told him needs to lose weight. Got delta variant COVID. Been using [employer] every day. Staying on calories (not too high or too low). Gym 60 min daily 3 to4 times a week on bike. Thinks started at 400#. Scale at home 388 but here 385 today. Having a high BP was frustarting. See [employer] message. Taking his meds. 8 cups of caffeine a day. Determined not to quit. Hoping to get weight to 275 by October 2022 so can get knee done and retire. Ulcer from taking ibuprofen for knee. PPI has helped with stomach though can still bother him. Depends on what he eats. Fried food, hot/spicy food, onions, etc bothers his stomach. No signs of bleeding ulcer. PAST MEDICAL HISTORY Diagnosis Date Cough variant asthma Advair when has flare ups has helped Essential hypertension, benign Severe obesity (BMI >= 40) ([facility]) 05/04/2013 Current Outpatient Medications Medication Sig pantoprazole DR (PROTONIX) 40 mg tablet Take 1 tablet by mouth twice daily. Take on empty stomach, 1/2 hr before meal. hydroCHLOROthiazide (HYDRODIURIL, ESIDRIX) 25 mg tablet Take 0.5 tablets by mouth once daily. potassium chloride ER (K-DUR, KLOR-CON) 10 mEq tablet Take 2 tablets by mouth once daily. amLODIPine (NORVASC) 5 mg tablet Take 1 tablet by mouth once daily. doxazosin (CARDURA) 4 mg tablet Take 1 tablet by mouth daily at bedtime. losartan (COZAAR) 50 mg tablet Take 1 tablet by mouth once daily. carvedilol (COREG) 25 mg tablet Take 1 tablet by mouth twice daily. fluticasone (FLONASE) 50 mcg/actuation nasal spray Use 2 Sprays in each nostril once daily. Rinse mouth after use. cholecalciferol (VITAMIN D-3) 5,000 unit tab Take 1 tablet by mouth once daily. CPAP Initiate CPAP @ 14 cm of water with humidification. Mask (per patient preference) optional chin strap (if indicated) , filters, tubing, humidifier and lifetime supplies. loratadine (CLARITIN) 10 mg tablet Take 1 tablet by mouth once daily. triamcinolone acetonide (KENALOG) 0.1 % cream Apply 1 application to affected area three times daily. Apply sparingly to area for rash/itching. multivitamin tablet Take 1 tablet by mouth once daily. cholecalciferol (VITAMIN D3) 5,000 unit tab Take 1 tablet by mouth once daily. (Patient not taking: Reported on 07/15/2021 ) albuterol HFA (VENTOLIN HFA) 90 mcg/actuation inhaler Inhale 2 Puffs as instructed every 4 hours as needed for Wheezing/Shortness of Breath. (Patient not taking: Reported on 08/09/2018 ) No current facility-administered medications for this visit. FAMILY HISTORY Problem Relation Age of Onset other (depression) Father None Mother None Sister None Sister Hypertension Sister other (cystic fibrosis) Son Social History Tobacco Use Smoking status: Former Smoker Smokeless tobacco: Never Used Substance Use Topics Alcohol use: No Drug use: No Review of Systems Objective BP 162/100 Pulse 78 Resp 18 Wt (!) 170.1 kg (375 lb) BMI 53.81 kg/m Last 5 Encounter BP Readings: Date: BP: 07/15/2021 162/100 03/28/2019 118/86 11/25/2018 138/78 10/21/2018 116/64 08/09/2018 156/78 Last 5 Encounter Wt Readings: Date: Wt: 07/15/2021 170.1 kg (375 lb) 03/28/2019 165.1 kg (364 lb) 11/25/2018 158.8 kg (350 lb) 10/21/2018 156.5 kg (345 lb) 08/09/2018 171 kg (377 lb) 07/15/21 1732 07/15/21 1821 BP: 162/100 160/82 Pulse: 78 Resp: 18 Weight: (!) 170.1 kg (375 lb) Physical Exam Vitals reviewed. Constitutional: Appearance: Normal appearance. He is obese. HENT: Head: Normocephalic. Right Ear: Tympanic membrane, ear canal and external ear normal. Left Ear: Tympanic membrane, ear canal and external ear normal. Mouth/Throat: Mouth: Mucous membranes are moist. Pharynx: Oropharynx is clear. Eyes: Extraocular Movements: Extraocular movements intact. Conjunctiva/sclera: Conjunctivae normal. Cardiovascular: Rate and Rhythm: Normal rate and regular rhythm. Pulses: Normal pulses. Heart sounds: Normal heart sounds. Pulmonary: Effort: Pulmonary effort is normal. Breath sounds: Normal breath sounds. Abdominal: General: Abdomen is flat. There is no distension. Palpations: Abdomen is soft. There is no mass. Musculoskeletal: Cervical back: Normal range of motion. Skin: General: Skin is warm and dry. Neurological: General: No focal deficit present. Mental Status: He is alert and oriented to person, place, and time. Psychiatric: Attention and Perception: Attention normal. Mood and Affect: Mood normal. Speech: Speech normal. Behavior: Behavior normal. Thought Content: Thought content normal. Cognition and Memory: Cognition normal. Judgment: Judgment normal. Labs in process. Assessment and Plan Encounter Diagnosis ICD-10-CM 1. Essential hypertension, benign I10 2. Severe obesity (BMI >= 40) ([facility]) E66.01 3. Vitamin D deficiency E55.9 4. IFG (impaired fasting glucose) R73.01 ASSESSMENT/PLAN: 1. Essential hypertension, benign - ICD9: 401.1, ICD10: I10 (primary diagnosis) - poor control - factors affecting control of BP include white coat HTN, poor adherence to medications and diet and being overweight. - Recommended regular aerobic exercise. - Recommend home blood pressure monitoring, to bring results in on next visit - Discussed need and benefit for weight loss. - Needs to keep working on diet and exercise with lifestyle changes for effective weight loss as well as prevention of DM, and control of BP and lipids. - Goal of BP <130/80 2. Severe obesity (BMI >= 40) ([facility]) - ICD9: 278.01, ICD10: E66.01 Weight increasing - Behavioral intervention Needs to keep working on diet and exercise with lifestyle changes for effective weight loss as well as prevention of DM, and control of BP and lipids. Discussed working on making changes can stick with. Work on making healthy choices with diet and exercise at least 80% of the time, 3. Vitamin D deficiency - ICD9: 268.9, ICD10: E55.9 Adjust replacement as indicated. 4. IFG (impaired fasting glucose) - ICD9: 790.21, ICD10: R73.01 As noted above. Chinmay Dobson MD Medical Decision Making: Problems: Moderate: 2+ stable chronic illnesses Risk: Moderate: Drug management Medical Decision Making Level: 4 - Moderate documented in this encounter [facility] Evaluation note Diagnosis Essential hypertension, benign- Primary Severe obesity (BMI >= 40) ([facility]) Morbid obesity Vitamin D deficiency Unspecified vitamin D deficiency IFG (impaired fasting glucose) Impaired fasting glucose [facility] Diagnosis Severe obesity (BMI >= 40) (HCC)- Primary Morbid obesity ARCELIA (obstructive sleep apnea) Obstructive sleep apnea (adult) (pediatric) [facility] Diagnosis ARCELIA (obstructive sleep apnea)- Primary Obstructive sleep apnea (adult) (pediatric) Severe obesity (BMI >= 40) (HCC) Morbid obesity [facility] Diagnosis ARCELIA (obstructive sleep apnea)- Primary Obstructive sleep apnea (adult) (pediatric) Cough variant asthma Severe obesity (BMI >= 40) (HCC) Morbid obesity Essential hypertension, benign documented in this encounter [facility] note* Diagnosis Severe obesity (BMI >= 40) (HCC) Morbid obesity ARCELIA (obstructive sleep apnea) Obstructive sleep apnea (adult) (pediatric) [facility] Diagnosis ARCELIA (obstructive sleep apnea)- Primary Obstructive sleep apnea (adult) (pediatric) [facility] Diagnosis Routine medical exam- Primary Routine general medical examination at a health care facility Severe obesity (BMI >= 40) (HCC) Morbid obesity Vitamin D deficiency Unspecified vitamin D deficiency IFG (impaired fasting glucose) Impaired fasting glucose Essential hypertension, benign Encounter for immunization Need for other specified prophylactic vaccination against single bacterial disease Encounter for screening examination for other mental health and behavioral disorders Foot pain, right Pain in limb Bilateral leg edema Edema Instability of right knee joint Other joint derangement, not elsewhere classified, lower leg Foot pain, left Pain in limb documented in this encounter [facility] note* Diagnosis ARCELIA (obstructive sleep apnea)- Primary Obstructive sleep apnea (adult) (pediatric) Class 3 severe obesity with body mass index (BMI) of 50.0 to 59.9 in adult, unspecified obesity type, unspecified whether serious comorbidity present ([facility]) Uncontrolled hypertension Unspecified essential hypertension documented in this encounter [facility] note* Diagnosis Type 2 diabetes mellitus without complication, without long-term current use of insulin (HCC)- Primary Essential hypertension, benign Severe obesity (BMI >= 40) (HCC) Morbid obesity Right ear pain Otalgia, unspecified Bilateral leg edema Edema documented in this encounter [facility] for referral (narrative)* Outpatient Procedure (Routine) - New Request Specialty Diagnoses / Procedures Referred By Audie gray Referred To Contact [facility] Diagnoses Cough variant asthma Procedures SPIROMETRY - BASELINE AND POST DILATOR BRNCDILAT RSPSE SPMTRY PRE&POST-BRNCDILAT ADMN Nelson Millan, [employer] [address] [place] [address] Respiratory [place] [address] [place] [address] Referral ID Status Reason Start Date Expiration Date Visits Requested Visits Authorized [id number] New Request Auto-Generat ed Referral 02/01/2024 03/02/2025 1 1 [facility] Reason for Referral Specialty Diagnoses / Procedures Referred By Audie gray Referred To Contact Diagnoses ARCELIA (obstructive sleep apnea) Procedures CONSULT TO SLEEP MEDICINE - ADULT OFFICE/OUTPATIENT [facility] 60 MINUTES Nelson Millan APRN.[employer] [address] [place] [address] Referral ID Status Reason Start Date Expiration Date Visits Requested Visits Authorized [id number] Authorized PCP Requested Referral 02/21/2024 02/20/2025 1 1 Summary Purpose Family History No Family History Records Found Advance Directives No Advanced Directives Records Found Additional Source Comments Source Comments (unrecognize d section and content) In the event this informatio n is protected by the Federal Confidentiality of Alcohol and Drug Abuse Patient Records regulations: The Federal rules restrict any use of the information to criminally investigate or prosecute any alcohol or drug abuse patient.[facility] the event this information is protected by the Federal Confidentiality of Alcohol and Drug Abuse Patient Records regulations: The Federal rules restrict any use of the information to criminally investigate or prosecute any alcohol or drug abuse patient.[facility] HealthcareIn the event this information is protected by the Federal Confidentiality of Alcohol and Drug Abuse Patient Records regulations: The Federal rules restrict any use of the information to criminally investigate or prosecute any alcohol or drug abuse patient.[facility] HealthcareIn the event this information is protected by the Federal Confidentiality of Alcohol and Drug Abuse Patient Records regulations: The Federal rules restrict any use of the information to criminally investigate or prosecute any alcohol or drug abuse patient.[facility] HealthcareIn the event this information is protected by the Federal Confidentiality of Alcohol and Drug Abuse Patient Records regulations: The Federal rules restrict any use of the information to criminally investigate or prosecute any alcohol or drug abuse patient.[facility] HealthcareIn the event this information is protected by the Federal Confidentiality of Alcohol and Drug Abuse Patient Records regulations: The Federal rules restrict any use of the information to criminally investigate or prosecute any alcohol or drug abuse patient.[facility] HealthcareIn the event this information is protected by the Federal Confidentiality of Alcohol and Drug Abuse Patient Records regulations: The Federal rules restrict any use of the information to criminally investigate or prosecute any alcohol or drug abuse patient.[facility] HealthcareIn the event this information is protected by the Federal Confidentiality of Alcohol and Drug Abuse Patient Records regulations: The Federal rules restrict any use of the information to criminally investigate or prosecute any alcohol or drug abuse patient.[facility] HealthcareIn the event this information is protected by the Federal Confidentiality of Alcohol and Drug Abuse Patient Records regulations: The Federal rules restrict any use of the information to criminally investigate or prosecute any alcohol or drug abuse patient.[facility] HealthcareIn the event this information is protected by the Federal Confidentiality of Alcohol and Drug Abuse Patient Records regulations: The Federal rules restrict any use of the information to criminally investigate or prosecute any alcohol or drug abuse patient.[facility] HealthcareIn the event this information is protected by the Federal Confidentiality of Alcohol and Drug Abuse Patient Records regulations: The Federal rules restrict any use of the information to criminally investigate or prosecute any alcohol or drug abuse patient.[facility] HealthcareIn the event this information is protected by the Federal Confidentiality of Alcohol and Drug Abuse Patient Records regulations: The Federal rules restrict any use of the information to criminally investigate or prosecute any alcohol or drug abuse patient.[facility] HealthcareIn the event this information is protected by the Federal Confidentiality of Alcohol and Drug Abuse Patient Records regulations: The Federal rules restrict any use of the information to criminally investigate or prosecute any alcohol or drug abuse patient.[facility] HealthcareIn the event this information is protected by the Federal Confidentiality of Alcohol and Drug Abuse Patient Records regulations: The Federal rules restrict any use of the information to criminally investigate or prosecute any alcohol or drug abuse patient.[facility] HealthcareIn the event this information is protected by the Federal Confidentiality of Alcohol and Drug Abuse Patient Records regulations: The Federal rules restrict any use of the information to criminally investigate or prosecute any alcohol or drug abuse patient.[facility] HealthcareIn the event this information is protected by the Federal Confidentiality of Alcohol and Drug Abuse Patient Records regulations: The Federal rules restrict any use of the information to criminally investigate or prosecute any alcohol or drug abuse patient.[facility] HealthcareIn the event this information is protected by the Federal Confidentiality of Alcohol and Drug Abuse Patient Records regulations: The Federal rules restrict any use of the information to criminally investigate or prosecute any alcohol or drug abuse patient.[facility] HealthcareIn the event this information is protected by the Federal Confidentiality of Alcohol and Drug Abuse Patient Records regulations: The Federal rules restrict any use of the information to criminally investigate or prosecute any alcohol or drug abuse patient.[facility] HealthcareIn the event this information is protected by the Federal Confidentiality of Alcohol and Drug Abuse Patient Records regulations: The Federal rules restrict any use of the information to criminally investigate or prosecute any alcohol or drug abuse patient.[facility] HealthcareIn the event this information is protected by the Federal Confidentiality of Alcohol and Drug Abuse Patient Records regulations: The Federal rules restrict any use of the information to criminally investigate or prosecute any alcohol or drug abuse patient.[facility] HealthcareIn the event this information is protected by the Federal Confidentiality of Alcohol and Drug Abuse Patient Records regulations: The Federal rules restrict any use of the information to criminally investigate or prosecute any alcohol or drug abuse patient.[facility] HealthcareIn the event this information is protected by the Federal Confidentiality of Alcohol and Drug Abuse Patient Records regulations: The Federal rules restrict any use of the information to criminally investigate or prosecute any alcohol or drug abuse patient.[facility] HealthcareIn the event this information is protected by the Federal Confidentiality of Alcohol and Drug Abuse Patient Records regulations: The Federal rules restrict any use of the information to criminally investigate or prosecute any alcohol or drug abuse patient.[facility] HealthcareIn the event this information is protected by the Federal Confidentiality of Alcohol and Drug Abuse Patient Records regulations: The Federal rules restrict any use of the information to criminally investigate or prosecute any alcohol or drug abuse patient.[facility] HealthcareIn the event this information is protected by the Federal Confidentiality of Alcohol and Drug Abuse Patient Records regulations: The Federal rules restrict any use of the information to criminally investigate or prosecute any alcohol or drug abuse patient.[facility] HealthcareIn the event this information is protected by the Federal Confidentiality of Alcohol and Drug Abuse Patient Records regulations: The Federal rules restrict any use of the information to criminally investigate or prosecute any alcohol or drug abuse patient.[facility] HealthcareIn the event this information is protected by the Federal Confidentiality of Alcohol and Drug Abuse Patient Records regulations: The Federal rules restrict any use of the information to criminally investigate or prosecute any alcohol or drug abuse patient.[facility] HealthcareIn the event this information is protected by the Federal Confidentiality of Alcohol and Drug Abuse Patient Records regulations: The Federal rules restrict any use of the information to criminally investigate or prosecute any alcohol or drug abuse patient.[facility] HealthcareIn the event this information is protected by the Federal Confidentiality of Alcohol and Drug Abuse Patient Records regulations: The Federal rules restrict any use of the information to criminally investigate or prosecute any alcohol or drug abuse patient.[facility] HealthcareIn the event this information is protected by the Federal Confidentiality of Alcohol and Drug Abuse Patient Records regulations: The Federal rules restrict any use of the information to criminally investigate or prosecute any alcohol or drug abuse patient.[facility] HealthcareIn the event this information is protected by the Federal Confidentiality of Alcohol and Drug Abuse Patient Records regulations: The Federal rules restrict any use of the information to criminally investigate or prosecute any alcohol or drug abuse patient.[facility] HealthcareIn the event this information is protected by the Federal Confidentiality of Alcohol and Drug Abuse Patient Records regulations: The Federal rules restrict any use of the information to criminally investigate or prosecute any alcohol or drug abuse patient.[facility] HealthcareIn the event this information is protected by the Federal Confidentiality of Alcohol and Drug Abuse Patient Records regulations: The Federal rules restrict any use of the information to criminally investigate or prosecute any alcohol or drug abuse patient.[facility] HealthcareIn the event this information is protected by the Federal Confidentiality of Alcohol and Drug Abuse Patient Records regulations: The Federal rules restrict any use of the information to criminally investigate or prosecute any alcohol or drug abuse patient.[facility] HealthcareIn the event this information is protected by the Federal Confidentiality of Alcohol and Drug Abuse Patient Records regulations: The Federal rules restrict any use of the information to criminally investigate or prosecute any alcohol or drug abuse patient.[facility] HealthcareIn the event this information is protected by the Federal Confidentiality of Alcohol and Drug Abuse Patient Records regulations: The Federal rules restrict any use of the information to criminally investigate or prosecute any alcohol or drug abuse patient.[facility] HealthcareIn the event this information is protected by the Federal Confidentiality of Alcohol and Drug Abuse Patient Records regulations: The Federal rules restrict any use of the information to criminally investigate or prosecute any alcohol or drug abuse patient.[facility] HealthcareIn the event this information is protected by the Federal Confidentiality of Alcohol and Drug Abuse Patient Records regulations: The Federal rules restrict any use of the information to criminally investigate or prosecute any alcohol or drug abuse patient.[facility] HealthcareIn the event this information is protected by the Federal Confidentiality of Alcohol and Drug Abuse Patient Records regulations: The Federal rules restrict any use of the information to criminally investigate or prosecute any alcohol or drug abuse patient.[facility] HealthcareIn the event this information is protected by the Federal Confidentiality of Alcohol and Drug Abuse Patient Records regulations: The Federal rules restrict any use of the information to criminally investigate or prosecute any alcohol or drug abuse patient.[facility] HealthcareIn the event this information is protected by the Federal Confidentiality of Alcohol and Drug Abuse Patient Records regulations: The Federal rules restrict any use of the information to criminally investigate or prosecute any alcohol or drug abuse patient.[facility] HealthcareIn the event this information is protected by the Federal Confidentiality of Alcohol and Drug Abuse Patient Records regulations: The Federal rules restrict any use of the information to criminally investigate or prosecute any alcohol or drug abuse patient.[facility] HealthcareIn the event this information is protected by the Federal Confidentiality of Alcohol and Drug Abuse Patient Records regulations: The Federal rules restrict any use of the information to criminally investigate or prosecute any alcohol or drug abuse patient.[facility] HealthcareIn the event this information is protected by the Federal Confidentiality of Alcohol and Drug Abuse Patient Records regulations: The Federal rules restrict any use of the information to criminally investigate or prosecute any alcohol or drug abuse patient.[facility] Reason for Visit (unrecogniz ed section and content) Reason Comments Follow Up Reason Onset Date Comments Refill Request 10/07/2021 Reason Onset Date Comments Refill Request 11/11/2021 Reason Onset Date Comments Refill Request 05/03/2022 Reason Onset Date Comments Refill Request 08/28/2022 Reason Onset Date Comments Refill Request 12/08/2022 Reason Onset Date Comments Refill Request 12/07/2022 Reason Onset Date Comments Refill Request 01/25/2023 Reason Onset Date Comments Refill Request 04/29/2023 Reason Onset Date Comments Refill Request 08/16/2023 Reason Onset Date Comments Refill Request 10/17/2023 Reason Onset Date Comments Refill Request 11/19/2023 Reason Onset Date Comments Refill Request 01/03/2024 Reason Comments Insurance Authorization Reason Comments CPAP Patient needs a new cpap machine Reason Comments Physical Reason Comments Results Reason Comments New Patient ARCELIA on pap therapy-c /o no new supplies in a while Specialty Diagnoses / Procedures Referred By Audie gray Referred To Contact Diagnoses ARCELIA (obstructive sleep apnea) Procedures CONSULT TO SLEEP MEDICINE - ADULT OFFICE/OUTPATIENT NEW HIGH MDM 60 MINUTES Nelson Millan APRN.[employer] [address] [place] [address] Phone: tel: fax: Referral ID Status Reason Start Date Expiration Date V isits Requested Visits Authorized [id number] Closed PCP Requested Referral 02/21/2024 02/20/2025 1 1 Reason Comments Recheck BP, complete labs Reason Onset Date Comments Refill Request 08/24/2024 Reason Onset Date Comments Refill Request 08/29/2024 Reason Onset Date Comments Refill Request 11/21/2024 Reason Comments Sleep Study Approved Reason Comments Patient Update Reason Onset Date Comments Refill Request 11/29/2024 Care Teams (unrecognized sec tion and content) Laborer Syrup Machine Relationship Specialty Start Date End Date Chinmay Dobson MD [address] [place], [place] [address] PCP - General Internal Medicine 05/20/12 Laborer Syrup Machine Relationship Specialty Start Date End Date Chinmay Dobson MD [address] [place], [place] [address] PCP - General Internal Medicine 05/20/12 Laborer Syrup Machine Relationship Specialty Start Date End Date Chinmay Dobson MD [address] [place] [address] PCP - General Internal Medicine 05/20/12 Laborer Syrup Machine Relationship Specialty Start Date End Date Chinmay Dobson MD [address] [place] [address] PCP - General Internal Medicine 05/20/12 Laborer Syrup Machine Relationship Specialty Start Date End Date Chinmay Dobson MD [address] [place] [address] PCP - General Internal Medicine 05/20/12 Laborer Syrup Machine Relationship Specialty Start Date End Date Chinmay Dobson MD [address] [place] [address] PCP - General Internal Medicine 05/20/12 Laborer Syrup Machine Relationship Specialty Start Date End Date Chinmay Dobson MD [address] [place] [address] PCP - General Internal Medicine 05/20/12 Laborer Syrup Machine Relationship Specialty Start Date End Date Chinmay Dobson MD [address] [place] [address] PCP - General Internal Medicine 05/20/12 Laborer Syrup Machine Relationship Specialty Start Date End Date Chinmay Dobson MD [address] [place] [address] PCP - General Internal Medicine 05/20/12 Laborer Syrup Machine Relationship Specialty Start Date End Date Chinmay Dobson MD [address] [place] [address] PCP - General Internal Medicine 05/20/12 Laborer Syrup Machine Relationship Specialty Start Date End Date Chinmay Dobson MD [address] [facility] [place] [address] PCP - General Internal Medicine 05/20/12 Laborer Syrup Machine Relationship Specialty Start Date End Date Chinmay Dobson MD [address] [facility] [place] [address] PCP - General Internal Medicine 05/20/12 Laborer Syrup Machine Relationship Specialty Start Date End Date Chinmay Dobson MD [address] [facility] [place] [place] [address] PCP - General Internal Medicine 05/20/12 Laborer Syrup Machine Relationship Specialty Start Date End Date Chinmay Dobson MD [address] [facility] [place] [address] PCP - General Internal Medicine 05/20/12 Laborer Syrup Machine Relationship Specialty Start Date End Date Chinamy Dobson MD [address] [facility] [place] [address] PCP - General Internal Medicine 05/20/12 Laborer Syrup Machine Relationship Specialty Start Date End Date Chinmay Dobson MD [address] [facility] [place] [address] PCP - General Internal Medicine 05/20/12 Laborer Syrup Machine Relationship Specialty Start Date End Date Chinmay Dobson MD [address] [facility] [place] [address] PCP - General Internal Medicine 05/20/12 Laborer Syrup Machine Relationship Specialty Start Date End Date Chinmay Dobson MD [address] [facility] [place] [address] PCP - General Internal Medicine 05/20/12 Nelson Millan, RAZOR SHARPENER.[employer] [address] [place] [address] Pipe Connector Internal Medicine 05/22/24 Tammie Wells RAZOR SHARPENER.PALLIATIVE CARE NURSE [address] [place] [address] Pipe Connector Internal Medicine 05/22/24 Laborer Syrup Machine Relationship Specialty Start Date End Date Chinmay Dobson MD [address] [place] [address] PCP - General Internal Medicine 05/20/12 Nelson Millan, RAZOR SHARPENER.[employer] [address] [place] [address] Pipe Connector Internal Medicine 05/22/24 Tammie Wells RAZOR SHARPENER.PALLIATIVE CARE NURSE [address] [place] [address] Pipe Connector Internal Medicine 05/22/24 Laborer Syrup Machine Relationship Specialty Start Date End Date Chinmay Dobson MD [address] [place] [address] PCP - General Internal Medicine 05/20/12 Nelson Millan, RAZOR SHARPENER.[employer] [address] [place] [address] Pipe Connector Internal Medicine 05/22/24 Tammie Wells APRN.PALLIATIVE CARE NURSE [address] [place] [address] Pipe Connector Internal Medicine 05/22/24 Laborer Syrup Machine Relationship Specialty Start Date End Date Chinmay Dobson MD [address] [facility] [place] [address] PCP - General Internal Medicine 05/20/12 Nelson Millan APRN.[employer] [address] [facility] [place] [address] Pipe Connector Internal Medicine 05/22/24 Tammie Wells APRN.PALLIATIVE CARE NURSE [address] [facility] [place] [address] Pipe Connector Internal Medicine 05/22/24 Laborer Syrup Machine Relationship Specialty Start Date End Date Chinmay Dobson MD [address] [facility] [place] [address] PCP - General Internal Medicine 05/20/12 Nelson Millan RAZOR SHARPENER.[employer] [address] [facility] [place] [address] Pipe Connector Internal Medicine 05/22/24 Tammie Wells APRN.PALLIATIVE CARE NURSE [address] [facility] [place] [address] Pipe Connector Internal Medicine 05/22/24 Laborer Syrup Machine Relationship Specialty Start Date End Date Chinmay Dobson MD [address] [facility] [place] [address] PCP - General Internal Medicine 05/20/12 Nelson Millan RAZOR SHARPENER.[employer] [address] [facility] [place] [address] Pipe Connector Internal Medicine 05/22/24 Tammie Wells APRN.PALLIATIVE CARE NURSE [address] [facility] [place] [address] Pipe Connector Internal Medicine 05/22/24 Laborer Syrup Machine Relationship Specialty Start Date End Date Chinmay Dobson MD [address] [place] [address] PCP - General Internal Medicine 05/20/12 Nelson Millan, RAZOR SHARPENER.[employer] [address] [place] [address] Pipe Connector Internal Medicine 05/22/24 Tammie Wells APRN.PALLIATIVE CARE NURSE [address] [place] [address] Pipe Connector Internal Medicine 05/22/24 Laborer Syrup Machine Relationship Specialty Start Date End Date Chinmay Dobson MD [address] [place] [address] PCP - General Internal Medicine 05/20/12 Tammie Wells RAZOR SHARPENER.PALLIATIVE CARE NURSE [address] [place] [address] Pipe Connector Internal Medicine 09/05/24 Nelson Millan, RAZOR SHARPENER.[employer] [address] [place] [address] Pipe Connector Internal Medicine 11/01/24 Laborer Syrup Machine Relationship Specialty Start Date End Date Chinmay Dobson MD [address] [place] [address] PCP - General Internal Medicine 05/20/12 Tammie Wells RAZOR SHARPENER.PALLIATIVE CARE NURSE [address] [facility] [place] [address] Pipe Connector Internal Medicine 09/05/24 Nelson Millan, RAZOR SHARPENER.[employer] [address] [facility] [place] [address] Pipe Connector Internal Medicine 11/01/24 Laborer Syrup Machine Relationship Specialty Start Date End Date Chinmay Dobson MD [address] [facility] [place] [address] PCP - General Internal Medicine 05/20/12 Tammie Wells RAZOR SHARPENER.PALLIATIVE CARE NURSE [address] [place] [address] Pipe Connector Internal Medicine 09/05/24 Nelson Millan, RAZOR SHARPENER.[employer] [address] [place] [address] [facility] Internal Medicine 11/01/24 Laborer Syrup Machine Relationship Specialty Start Date End Date Chinmay Dobson MD [address] [facility] [place] [address] PCP - General Internal Medicine 05/20/12 Nelson Millan, RAZOR SHARPENER.[employer] [address] [place] [address] Pipe Connector Internal Medicine 05/22/24 10/31/24 Tammie Wells RAZOR SHARPENER.PALLIATIVE CARE NURSE [address] [facility] [place] [address] Pipe Connector Internal Medicine 09/05/24 Nelson Millan, RAZOR SHARPENER.[employer] [address] [facility] [place] [address] [facility] Internal Medicine 11/01/24 Laborer Syrup Machine Relationship Specialty Start Date End Date Chinmay Dobson MD [address] [place] [address] PCP - General Internal Medicine 05/20/12 Tammie Wells APRN.PALLIATIVE CARE NURSE [address] [place] [address] Pipe Connector Internal Medicine 09/05/24 Nelson Millan APRN.[employer] [address] [place] [address] Pipe Connector Internal Medicine 11/01/24 Laborer Syrup Machine Relationship Specialty Start Date End Date Chinmay Dobson MD [address] [place] [address] PCP - General Internal Medicine 05/20/12 Tammie Wells APRN.PALLIATIVE CARE NURSE [address] [place] [address] Pipe Connector Internal Medicine 09/05/24 Nelson Millan APRN.[employer] [address] [place] [address] Pipe Connector Internal Medicine 11/01/24 Laborer Syrup Machine Relationship Specialty Start Date End Date Chinmay Dobson MD [address] [place] [address] PCP - General Internal Medicine 05/20/12 Tammie Wells APRN.PALLIATIVE CARE NURSE [address] [place] [address] Pipe Connector Internal Medicine 09/05/24 Nelson Millan RAZOR SHARPENER.[employer] [address] [place] [address] Pipe Connector Internal Medicine 11/01/24 (unrecognized sect ion and content) No Status Records Found INFORMATION SOURCE (unrecogn ized section and content) DATE CREATED AUTHOR 04/25/2025 [facility] FOR RECORDS PERTAINING TO PATIENTS WHO ARE OR HAVE BEEN ENROLLED IN A CHEMICAL DEPENDENCY/SUBSTANCEABUSE PROGRAM, SOME INFORMATION MAY BE OMITTED. This clinical summary was aggregated from multiple sources. Caution should be exercised in using it in the provision of clinical care. This summary normalizes information from multiple sources, and as a consequence, information in this document may materially change the coding, format and clinical context of patient data. In addition, data may be omitted in some cases. CLINICAL DECISIONS SHOULD BE BASED ON THE PRIMARY CLINICAL RECORDS. [facility]. provides no warranty or guarantee of the accuracy or completeness of information in this document.
== END | disposition home or self-care (01) ==
LOC: SL 19:55
PROVIDERS: PCP Internal Medicine; Referring Provider Psychiatry & Neurology Sleep Medicine; Visit Provider Psychiatry & Neurology Sleep Medicine
DX: G47.33 Obstructive sleep apnea (adult) (pediatric) (principal)
CPT/HCPCS: 95811